=== PATIENT | female | born 1950 | race Caucasian/White ===

== ENCOUNTER 2016-11-05 13:48 | Inpatient (IN) | payer MEDICARE ==
[~2016-11-05] VITALS: Ht 167.6 cm; Wt 80.4 kg
[2016-11-05] VITALS (10 sets, daily range): BP systolic 140–145; BP diastolic 76–85; PULSE 67–73; RESP 14–18; TEMP 97.7–98.9; O2SAT 98–100
[~2016-11-05 13:48] MED LIST: ALBU8I INH; AMBI12.5 PO; CLON1 PO; FLUT1INH INH; GEOD80CA PO; LATU80TA PO; LURA80 PO; MIRTA15 PO; MVI PO
[2016-11-05] MEDS ORDERED: SODIUM CHLOR 0.9% 1000 ML INJ 1,000 ML IV SCH (14:04)
[2016-11-05] MEDS ORDERED: SODIUM CHLORIDE 0.9% FLUSH 5 ML FLUSH IV FLUSH PRN (14:15)
[2016-11-05 14:26] LABS: AUTOMATED NEUTROPHIL # 7.2 TH/MM3 (1.8-7.7); BASOPHIL % 0.2 % (0.0-2.0); EOSINOPHIL % 0.2 % (0.0-4.0); HEMATOCRIT 36.1 % (35.0-46.0); HEMO FLAGS DIFF FINAL; LYMPH % 6.7 % (9.0-44.0); LYMPHOCYTE # 0.6 TH/MM3 (1.0-4.8); MEAN CELL VOLUME 86.3 FL (80.0-100.0); MEAN CORPUSCULAR HEMOGLOBIN 29.3 PG (27.0-34.0); MEAN CORPUSCULAR HGB CONC 33.9 % (32.0-36.0); MONO % 6.1 % (0.0-8.0); NEUT % 86.8 % (16.0-70.0); PLATELET COUNT 233 TH/MM3 (150-450); RED BLOOD COUNT 4.19 MIL/MM3 (4.00-5.30); RED CELL DISTRIBUTION WIDTH 14.6 % (11.6-17.2); WHITE BLOOD COUNT 8.3 TH/MM3 (4.0-11.0)
[2016-11-05 14:31] LABS: BLOOD, URINE NEG (NEG); COMMENT (UR) CULT NOT INDICATED; CULTURE IF INDICATED CULT NOT INDICATED; GLUCOSE,URINE NEG (NEG); KETONE, URINE TRACE mg/dL (NEG); MUCUS URINE FEW /lpf (OCC); NITRITE,URINE NEG (NEG); PH, URINE 6.5 (5.0-8.5); URINE COLOR YELLOW (YELLW/STRAW)
--- NOTE | 2016-11-05 14:32 | RADRPT ---
EXAM DATE/TIME: 11/05/2016 14:15 [facility] COMPARISON: No previous studies available for comparison. INDICATIONS : ET tube placement. MEDICAL HISTORY : Unobtainable. SURGICAL HISTORY : Unobtainable. ENCOUNTER: Initial ACUITY: 1 day PAIN SCORE: Non-responsive. LOCATION: Bilateral chest FINDINGS: ET tube and nasogastric tube are in good position. Left lung is clear. Pleural thickening is seen o n the right. There is no evidence for a pneumothorax. Heart and pulmonary vascularity are normal. CONCLUSION: 1. Pleural thickening on the right. 2. ET tube in good position. Martin Pittman MD FACR on November 05, 2016 at 14:24 Board Certified Radiologist. This report was verified electronically.
[2016-11-05 14:39] LABS: PROTHROMBIN TIME - PATIENT 11.1 SEC (9.8-11.6)
[2016-11-05 14:45] LABS: ALT (GPT) 29 U/L (10-53); ANION GAP 6 MEQ/L (5-15); AST (GOT) 25 U/L (15-37); BICARBONATE 28.3 MEQ/L (21.0-32.0); BLOOD UREA NITROGEN 17 MG/DL (7-18); CHLORIDE 105 MEQ/L (98-107); GLOMERULAR FILTRATION RATE 67 ML/MIN (>89); SODIUM (NA) 139 MEQ/L (136-145)
[2016-11-05 14:54] LABS: ALKALINE PHOSPHATASE 56 U/L (45-117); CREATINE KINASE 501 U/L (26-192); TOTAL BILIRUBIN ADULT 0.4 MG/DL (0.2-1.0)
[2016-11-05 15:06] LABS: CKMB 6.1 NG/ML (0.5-3.6)
--- NOTE | 2016-11-05 15:16 | RADRPT ---
EXAM DATE/TIME: 11/05/2016 15:02 [facility] COMPARISON: No previous studies available for comparison. INDICATIONS : Altered mental status, found non-responsive. RADIATION DOSE: 56.35 CTDIvol (mGy) MEDICAL HISTORY : Non-responsive. SURGICAL HISTORY : Non-responsive. ENCOUNTER: Initial ACUITY: 1 day PAIN SCALE: Non-responsive LOCATION: Bilateral head TECHNIQUE: Multiple contiguous axial images were obtained of the head. Using automated exposure control and adj ustment of the mA and/or kV according to patient size, radiation dose was kept as low as reasonably a chievable to obtain optimal diagnostic quality images. FINDINGS: CEREBRUM: The ventricles are normal for age. 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 No evidence of midline shift, mass lesion, hemorrhage or acute infarction. No extra-ax ial fluid collections are seen. POSTERIOR FOSSA: The cerebellum and brainstem are intact. The 4th ventricle is midline. The cerebellopontine angle i s unremarkable. EXTRACRANIAL: The visualized portion of the orbits is intact. Bilateral maxillary, left sphenoid, and ethmoid mucop eriosteal thickening. Mastoid air cells are clear. SKULL: The calvaria is intact. No evidence of skull fracture. CONCLUSION: 1. No acute infiltrate or abnormality. 2. Paranasal sinusitis. Dru Mancuso MD on November 05, 2016 at 15:09 Board Certified Radiologist. This report was verified electronically.
[2016-11-05] MEDS: PROPOFOL 1000 MG/100 ML INJ 100 ML IV SCH ×2 (15:34→18:01)
--- NOTE | 2016-11-05 16:09 | PD ---
HPI Chief Complaint: Respiratory Distress Time Seen by Provider: 14:04 Travel History International Travel<30 days: No Contact w/Intl Traveler<30days: No Traveled to known affect area: No History of Present Illness HPI Patient was brought in intubated by EMS after being found unresponsive and GCS of 3 at home. History is obtained from EMS only since patient obviously is unable to give any history. Vital signs were otherwise stable except she was agonal respirations when they decided to intubate her. Patient never lost her pulse. They were unable to establish a reliable identity. [facility] Past Medical History Narrative Medical Unknown ?: Not Social History Tobacco Use: No Allergies-Medications (Allergen,Severity, Reaction): Coded Allergies: No Known Allergies (Unverified , 11/07/16) Comments Unknown Reported Meds & Prescriptions Reported Meds & Active Scripts Active Narrative Medication Unknown Review of Systems Except as stated in HPI: all other systems reviewed are Neg Physical Exam Narrative GENERAL: Unresponsive, intubated SKIN: Focused skin assessment warm/dry. HEAD: Atraumatic. Normocephalic. EYES: Pupils equal and round. No scleral icterus. No injection or drainage. ENT: No nasal bleeding or discharge. Mucous membranes pink and moist. Intubated NECK: Trachea midline. No JVD. CARDIOVASCULAR: Regular rate and rhythm. No murmur appreciated. RESPIRATORY: Intubated, equal air entry bilaterally upon bagging GASTROINTESTINAL: Abdomen soft, non-tender, nondistended. Hepatic and splenic margins not palpable. MUSCULOSKELETAL: No obvious deformities. No clubbing. No cyanosis. No edema. NEUROLOGICAL: GCS of 3 PSYCHIATRIC: Unable to assess Data Data Last Documented VS Vital Signs Date Time Temp Pulse Resp B/P Pulse Ox O2 Delivery O2 Flow Rate FiO2 11/05/16 15:36 100 11/05/16 15:18 65 14 100 Ventilator 11/05/16 15:15 98.4 11/05/16 14:49 140/81 Orders Electrocardiogram (11/05/16 14:04) Ammonia (11/05/16 14:04) Complete Blood Count With Diff (11/05/16 14:04) Comprehensive Metabolic Panel (11/05/16 14:04) Creatine Kinase (Cpk) (11/05/16 14:04) Prothrombin Time / Inr (Pt) (11/05/16 14:04) Troponin I (11/05/16 14:04) Thyroid Stimulating Hormone (11/05/16 14:04) Urinalysis - C+S If Indicated (11/05/16 14:04) Lactic Acid Sepsis Protocol (11/05/16 14:04) Arterial Blood Gas (Abg) (11/05/16 14:04) Blood Culture (11/05/16 14:04) Chest, Single Ap (11/05/16 14:04) Ct Brain W/O Iv Contrast(Rout) (11/05/16 14:04) Blood Glucose (11/05/16 14:04) Ecg Monitoring (11/05/16 14:04) Iv Access Insert/Monitor (11/05/16 14:04) Oximetry (11/05/16 14:04) Sodium Chloride 0.9% Flush (Ns Flush) (11/05/16 14:15) Sodium Chlor 0.9% 1000 Ml Inj (Ns 1000 M (11/05/16 14:04) Propofol 1000 Mg/100 Ml Inj (Diprivan 10 (11/05/16 14:15) ^ Infusion (11/05/16 14:04) RASS (11/05/16 14:04) Neurological Rass Scale JOSE G.Q2H (11/05/16 14:04) ^ Orogastric Tube (11/05/16 14:04) Urinary Catheter Insert/Apply (11/05/16 14:04) Restraints Non-Violent JOSE G.Q3H (11/05/16 14:04) CKMB (11/05/16 14:08) CKMB% (11/05/16 14:08) Drug Screen, Random Urine (11/05/16 15:01) Admit Order (Ed Use Only) (11/05/16 15:46) Labs Laboratory Tests Test 11/05/16 11/05/16 11/05/16 14:08 14:13 14:18 Sodium Level 139 MEQ/L Potassium Level 4.0 MEQ/L Chloride Level 105 MEQ/L Carbon Dioxide Level 28.3 MEQ/L Anion Gap 6 MEQ/L Blood Urea Nitrogen 17 MG/DL Creatinine 0.75 MG/DL Estimat Glomerular Filtration 67 ML/MIN Rate Random Glucose 93 MG/DL Calcium Level 8.0 MG/DL Phosphorus Level 3.3 MG/DL Total Bilirubin 0.4 MG/DL Aspartate Amino Transf 25 U/L (AST/SGOT) Alanine Aminotransferase 29 U/L (ALT/SGPT) Alkaline Phosphatase 56 U/L Total Creatine Kinase 501 U/L Creatine Kinase MB 6.1 NG/ML Creatine Kinase MB % 1.2 % Troponin I LESS THAN 0.02 NG/ML Total Protein 5.9 GM/DL Albumin 3.0 GM/DL Free Thyroxine 1.12 NG/DL Thyroid Stimulating Hormone 0.317 uIU/ML 3rd Gen Valproic Acid (Depakene) Level 76 MCG/ML White Blood Count 8.3 TH/MM3 Red Blood Count 4.19 MIL/MM3 Hemoglobin 12.3 GM/DL Hematocrit 36.1 % Mean Corpuscular Volume 86.3 FL Mean Corpuscular Hemoglobin 29.3 PG Mean Corpuscular Hemoglobin 33.9 % Concent Red Cell Distribution Width 14.6 % Platelet Count 233 TH/MM3 Mean Platelet Volume 8.5 FL Neutrophils (%) (Auto) 86.8 % Lymphocytes (%) (Auto) 6.7 % Monocytes (%) (Auto) 6.1 % Eosinophils (%) (Auto) 0.2 % Basophils (%) (Auto) 0.2 % Neutrophils # (Auto) 7.2 TH/MM3 Lymphocytes # (Auto) 0.6 TH/MM3 Monocytes # (Auto) 0.5 TH/MM3 Eosinophils # (Auto) 0.0 TH/MM3 Basophils # (Auto) 0.0 TH/MM3 CBC Comment DIFF FINAL Differential Comment Prothrombin Time 11.1 SEC Prothromb Time International 1.0 RATIO Ratio Urine Color YELLOW Urine Turbidity CLEAR Urine pH 6.5 Urine Specific [place] 1.020 Urine Protein NEG mg/dL Urine Glucose (UA) NEG mg/dL Urine Ketones TRACE mg/dL Urine Occult Blood NEG Urine Nitrite NEG Urine Bilirubin NEG Urine Urobilinogen LESS THAN 2.0 MG/DL Urine Leukocyte Esterase NEG Urine RBC 2 /hpf Urine WBC 1 /hpf Urine Mucus FEW /lpf Microscopic Urinalysis Comment CULT NOT INDICATED Urine Opiates Screen NEG Urine Barbiturates Screen NEG Urine Amphetamines Screen NEG Urine Benzodiazepines Screen POS Urine Cocaine Screen NEG Urine Cannabinoids Screen NEG Lactic Acid Level 1.0 mmol/L Ammonia 36 MCMOL/L MDM Medical Decision Making Medical Screen Exam Complete: Yes Emergency Medical Condition: Yes Medical Record Reviewed: Yes Interpretation(s) Twelve-lead EKG was reviewed by me. Normal sinus rhythm, normal axis, nonspecific ST-T wave changes. Heart rate of 75 bpm. Differential Diagnosis Intracranial bleed, metabolic encephalopathy, drug overdose, respiratory failure Narrative Course 4 PM I just finished speaking with the daughter. She gave a more thorough history. Patient lives with her daughter and she says 3 weeks ago she had a similar episode where she was found unresponsive by the daughter and had vomited all over. She was taken to [facility] where she was admitted and then discharged. Workup was all negative at that time. This time the daughter had last seen patient awake last night. This morning at 9:00 she went to check on her and noticed that she was laying on her side with her back turned and I thought she was asleep. The house and came back and she went to check on her again at 12:30 PM and found her in the same position in the bed. She went around and noticed that patient was foaming at her mouth and that's when called 911. When EMS arrived she continued to be unresponsive. Daughter says that she is concerned about dementia and hence had taken all her medication and was giving her medications daily. She did not notice any missing pills. Patient does not drink alcohol or any drugs. Workup is back and except for extremely low TSH everything is within acceptable limits. CT head is within normal limits. ET tube and OG tube are in good position. Patient has been admitted to the chain link fence installer Dr. Houser. Critical Care Narrative Aggregate critical care time was 45 minutes. Time to perform other separately billable procedures was not included in the critical care time. My time did not include minutes spent treating any other patients simultaneously or on activities that did not directly contribute to the patient's treatment. The services I provided to this patient were to treat and/or prevent clinically significant deterioration that could result in: That management, unresponsive, respiratory failure I provided critical care services requiring my management, as noted below: Chart data review, documentation time, medication orders and management, vital sign assessments/reviewing monitor data, ordering and reviewing lab tests, ordering and interpreting/reviewing x-rays and diagnostic studies, care of the patient and discussion of the patient with the admitting physicians. Procedures EKG Prior to Arrival: No Physician Communication Physician Communication Dr. Houser Diagnosis Primary Impression: Unresponsive Additional Impression: Respiratory failure Qualified Code: J96.90 - Respiratory failure, unspecified chronicity, unspecified whether with hypoxia or hypercapnia Admitting Information Admitting Physician Requests: Admit Ry Ceja MD Nov 05, 2016 16:09
[2016-11-05] MEDS ORDERED: DEXTROSE 50% IN WATER 50 ML VIAL(D50) IV PRN (16:15)
[2016-11-05] MEDS ORDERED: MAGNESIUM HYDROXIDE SUSP 30 ML CUP PO PRN (16:15)
[2016-11-05] MEDS ORDERED: SENNOSIDES 8.6 MG TAB PO PRN (16:15)
[2016-11-05] MEDS ORDERED: MISCELLANEOUS NURSING INFORMATION XX SCH (16:15)
[2016-11-05] MEDS ORDERED: BISACODYL 10 MG SUPP RECTAL PRN (16:15)
[2016-11-05] MEDS ORDERED: CHLORHEXIDINE GLUCONATE 2 % 1 PACK (2 CLOTHS) TOP PRN (16:15)
[2016-11-05] MEDS ORDERED: GLUCAGON 1 MG/ML VIAL OTHER PRN (16:15)
[2016-11-05] MEDS ORDERED: LACTULOSE SYRUP 20 GM/30 ML CUP PO PRN (16:15)
[2016-11-05] MEDS ORDERED: POTASSIUM CHLORIDE 25 MEQ EFFERVESCENT TAB PO PRN (16:45)
[2016-11-05] MEDS ORDERED: POTASSIUM CHLOR 20 MEQ PREMIX 100 ML IV PRN ×2 (16:45)
[2016-11-05] MEDS ORDERED: POTASSIUM CHLOR 40 MEQ PREMIX 100 ML IV PRN ×2 (16:45)
[2016-11-05] MEDS ORDERED: POTASSIUM PHOSPHATE INJ 30 MMOL in SODIUM CHLOR 0.9% 250 ML INJ 250 ML IV PRN (16:45)
[2016-11-05] MEDS ORDERED: MAGNESIUM SULFATE INJ 2 GM in SODIUM CHLORIDE 0.9% INJ 96 ML IV PRN (16:45)
[2016-11-05] MEDS ORDERED: POTASSIUM PHOSPHATE MONOBASIC 500 MG TAB PO PRN (16:45)
[2016-11-05] MEDS ORDERED: POTASSIUM PHOSPHATE MONOBASIC 500 MG TAB PO/TUBE PRN (16:45)
[2016-11-05] MEDS ORDERED: SODIUM PHOSPHATE INJ 30 MMOL in SODIUM CHLOR 0.9% 250 ML INJ 240 ML IV PRN (16:45)
[2016-11-05] MEDS ORDERED: MAGNESIUM OXIDE 400 MG TAB PO PRN (16:45)
[2016-11-05] MEDS ORDERED: MAGNESIUM SULFATE INJ 4 GM in SODIUM CHLORIDE 0.9% INJ 92 ML IV PRN (16:45)
[2016-11-05 17:09] LABS: AMPHETAMINE, URINE NEG (NEG); BARBITURATES, URINE NEG (NEG); COCAINE, URINE NEG (NEG)
--- NOTE | 2016-11-05 17:11 | MH ---
cc: RUBIA LOPEZ M.D. DATE OF ADMISSION 11/05/2016 HISTORY OF PRESENT ILLNESS The patient is an [id number] female with past medical history of depression/bipolar disorder, questionable seizure disorder on Depakote who presented to [facility] ED via EMS after she was found unresponsive with GCS of 3 at home. Upon arrival of EMS the patient was in agonal breathing and was intubated at the scene. She was given Narcan with no effect. The patient had similar presentation approximately three weeks ago at [facility] where she was intubated. According to her [id number] she has been having progressive decline of her cognitive function. CT scan of the brain showed no evidence of any acute abnormalities. Chest x-ray post intubation showed pleural thickening on the right, ET tube in good position. Her CBC, CMP unremarkable except for ammonia level 36. Lactic acid level measured at 1.0 and total CK 501 with MB percentage 1.2 and troponin less than 0.02. In the ER she was given 1 liter of normal saline. When seen the patient is on Diprivan infusion for sedation and for mechanical ventilation. PAST MEDICAL HISTORY Significant for depression disorder/bipolar disorder. PAST SURGICAL HISTORY Unknown. ALLERGIES Unknown. MEDICATIONS Reported medications include: 1. Trazodone. 2. Haldol. 3. Depakote. 4. Zoloft. FAMILY HISTORY Noncontributory. REVIEW OF SYSTEMS As per HPI. The rest of the review of systems is unobtainable. PHYSICAL EXAMINATION GENERAL: The patient is intubated on the scene for airway protection. VITAL SIGNS: Temperature of 98.4, pulse 65, blood pressure 144/83, saturation 100%. HEENT: Atraumatic, normocephalic. Pupils equal, round and reactive to light and accommodation. Extraocular muscles intact. Conjunctiva pink. Non-icteric sclera. Oral mucosa within normal. NECK: Supple. No JVD, adenopathy or thyromegaly. Trachea in the midline. Orally intubated. CARDIOVASCULAR: Regular rate and rhythm. Normal S1, S2. No murmurs, rubs or gallops noted. PULMONARY: Bilateral equal air entry. No crackles or wheezing. ABDOMEN: Soft, nontender, no distension. Positive bowel sounds. EXTREMITIES: No cyanosis or clubbing or edema. NEUROLOGIC: Intubated and sedated. LABORATORY DATA Sodium 139, potassium 4, chloride 105, CO2 28, BUN 17, creatinine 0.75, glucose 93, lactic acid 1.0, ammonia level 36, total CK 501, MB 6.1, MB percentage 1.2. Troponin less than 0.02. TSH 0.31. Albumin 3.0, total protein 5.9. INR 1, PT 11.1. WBC 8.3, hemoglobin 12.3, hematocrit 36, platelet count 233. Urinanalysis negative for nitrite, leukocyte esterase, [address] brain negative for acute intracranial abnormalities. Chest x-ray ET tube above the drew. Pleural thickening ____. IMPRESSION 1. Event dependent respiratory failure. 2. Encephalopathy. 3. Questionable seizure disorder. 4. History of depression/bipolar disorder. 5. Elevated CK. RECOMMENDATIONS 1. Continue Diprivan infusion for sedation and daily sedation vacation. CT scan of brain in the ER negative for acute intracranial abnormalities. Will consult neurology service. Check EEG to rule out subclinical seizures and check baseline Depakote level. 2. Check a urine drug screen. 3. Continue vent support and maintain sats above 92%. 4. Bronchodilators in the form of DuoNeb q. 6 and initiate on the ICU vent bundle. ___ spontaneous breathing trials in the am. 5. Check ABG post intubation. 6. Monitor heart rate and blood pressure closely, maintain MAP greater than 65 mmHg. Lactic acid measured at 1.0. 7. Monitor renal function, Is and Os and electrolyte replacement per protocol. Place on IV fluids in the form of D5 NS at 75 ml an hour. Monitor CKs. 8. Place on Protonix 40 milligrams IV daily for GI prophylaxis and start tube feeds in the form of Glucerna 1.5 with a goal weight of 45 ml an hour. 9. Monitor for signs of infections which include fever and WBC. Obtain culture if suspect fever. Chest x-ray post intubation negative for acute findings. 10. Monitor CBC. 11. Place on sliding scale insulin with Accu-Cheks q. 6 hours. Will check TSH and free T4 level. 12. GI prophylaxis with Protonix 40 milligrams daily and DVT prophylaxis with SCDs and heparin subcu. Further recommendations will be based on the hospital course. Critical care time 40 minutes excluding procedures. MD CLAUDIA Gibbons /4:29 PM /4:39 PM
[2016-11-05] MEDS: RESP: ALBUTEROL 2.5 MG/IPRATROPIUM 0.5 MG NEB (SCH) INH ×2 (17:33→22:10)
[2016-11-05 17:45] LABS: BLOOD GAS CARBOXYHEMOGLOBIN 0.9 % (0-4); BLOOD GAS HCO3 27 mmol/L (22-26); BLOOD GAS METHEMOGLOBIN 0.8 % (0-2); BLOOD GAS O2 HGB SATURATION 99 % (90-100); BLOOD GAS OXYGEN CONTENT 16.7 Vol % (12.0-20.0); BLOOD GAS PCO2 38 mmHg (38-42); BLOOD GAS PO2 468 mmHG (61-120); BLOOD GAS TOTAL HGB 11.2 G/DL (12.0-16.0); CRITICAL VALUE NO; DRAW SITE RT RADIAL; FIO2 100 %; NUMBER OF ARTERIAL PUNCTURES 1; OXYGEN DEVICE VENTILATOR; STAT YES; TEMP CORR TO 98.6; ULNAR PULSE PRESENT; VENT SETTINGS AC/14/500/PEEP5
[2016-11-05] MEDS: HEPARIN SODIUM - SQ 10,000 UNITS/ML VIAL SQ SCH (18:01)
[2016-11-05] MEDS: INSULIN NovoLIN REGULAR SUPPLEMENTAL SCALE SQ SCH (18:06)
[2016-11-05] MEDS: DEXT 5%-NACL 0.9% 1000 ML INJ 1,000 ML IV SCH (18:19)
[2016-11-05 19:00] LABS: FREE T4 1.12 NG/DL (0.76-1.46)
[2016-11-05] MEDS: DOCUSATE SODIUM 50 MG/SENNA 8.6 MG TAB PO SCH (21:00)
[2016-11-06] VITALS (21 sets, daily range): BP systolic 138–179; BP diastolic 65–86; PULSE 65–90; RESP 0–20; TEMP 97.4–99.5; O2SAT 98–100
[2016-11-06] MEDS: PROPOFOL 1000 MG/100 ML INJ 100 ML IV SCH (03:17)
[2016-11-06] MEDS: RESP: ALBUTEROL 2.5 MG/IPRATROPIUM 0.5 MG NEB (SCH) INH ×4 (03:20→22:01)
[2016-11-06] MEDS: CHLORHEXIDINE GLUCONATE 2 % 1 PACK (2 CLOTHS) TOP SCH (04:00)
[2016-11-06] MEDS: HEPARIN SODIUM - SQ 10,000 UNITS/ML VIAL SQ SCH ×2 (05:18→17:14)
[2016-11-06] MEDS: DEXT 5%-NACL 0.9% 1000 ML INJ 1,000 ML IV SCH ×2 (05:18→20:05)
[2016-11-06] MEDS: INSULIN NovoLIN REGULAR SUPPLEMENTAL SCALE SQ SCH ×4 (05:21→18:00)
[2016-11-06 06:31] LABS: AUTOMATED NEUTROPHIL # 5.9 TH/MM3 (1.8-7.7); BASOPHIL % 0.2 % (0.0-2.0); EOSINOPHIL # 0.3 TH/MM3 (0-0.4); EOSINOPHIL % 3.8 % (0.0-4.0); HEMATOCRIT 38.1 % (35.0-46.0); LYMPH % 11.7 % (9.0-44.0); LYMPHOCYTE # 0.9 TH/MM3 (1.0-4.8); MEAN CELL VOLUME 87.6 FL (80.0-100.0); MEAN CORPUSCULAR HEMOGLOBIN 29.7 PG (27.0-34.0); MEAN CORPUSCULAR HGB CONC 33.9 % (32.0-36.0); MONO % 11.1 % (0.0-8.0); NEUT % 73.2 % (16.0-70.0); PLATELET COUNT 179 TH/MM3 (150-450); RED BLOOD COUNT 4.34 MIL/MM3 (4.00-5.30); RED CELL DISTRIBUTION WIDTH 14.9 % (11.6-17.2); WHITE BLOOD COUNT 8.1 TH/MM3 (4.0-11.0)
[2016-11-06 06:49] LABS: BICARBONATE 27.1 MEQ/L (21.0-32.0); MAGNESIUM 2.2 MG/DL (1.5-2.5); POTASSIUM 3.6 MEQ/L (3.5-5.1)
[2016-11-06 07:06] LABS: HEMO FLAGS AUTO DIFF
[2016-11-06 07:08] LABS: OVALOCYTES 1+ (NORMAL); PLATELET ESTIMATE SMEAR NORMAL (NORMAL); PLATELET MORPHOLOGY NORMAL (NORMAL); SCAN/DIFF AUTO DIFF CONFIRMED
[2016-11-06] MEDS: DOCUSATE SODIUM 50 MG/SENNA 8.6 MG TAB PO SCH ×2 (08:06→20:08)
[2016-11-06] MEDS: PANTOPRAZOLE SODIUM 40 MG VIAL IV SCH (08:06)
--- NOTE | 2016-11-06 08:12 | HHI.CCPN ---
Subjective Remarks/Hospital Course The patient is an [id number] female with past medical history of depression/bipolar disorder, questionable seizure disorder on Depakote who presented to [facility] ED via EMS after she was found unresponsive with GCS of 3 at home. Upon arrival of EMS the patient was in agonal breathing and was intubated at the scene. She was given Narcan with no effect. The patient had similar presentation approximately three weeks ago at [facility] where she was intubated. According to her [id number]-skr she has been having progressive decline of her cognitive function. CT scan of the brain showed no evidence of any acute abnormalities. Chest x-ray post intubation showed pleural thickening on the right, ET tube in good position. Her CBC, CMP unremarkable except for ammonia level 36. Lactic acid level measured at 1.0 and total CK 501 with MB percentage 1.2 and troponin less than 0.02. In the ER she was given 1 liter of normal saline. When seen the patient is on Diprivan infusion for sedation and for mechanical ventilation. 11/06 Patient is sedated with Diprivan and intubated. Afebrile. Objective Vital Signs Date Time Temp Pulse Resp B/P Pulse Ox O2 Delivery O2 Flow Rate FiO2 11/06/16 04:00 100 40 11/06/16 04:00 97.4 70 14 144/73 11/05/16 17:18 Ventilator Intake and Output 11/05/16 11/05/16 11/06/16 08:00 16:00 00:00 Intake Total 562 ml Output Total 350 ml Balance 212 ml Result Diagram: 11/06/16 0514 11/06/16 0514 Other Results Laboratory Tests Test 11/05/16 11/05/16 11/05/16 11/05/16 14:08 14:13 14:18 16:45 Sodium Level 139 MEQ/L Potassium Level 4.0 MEQ/L Chloride Level 105 MEQ/L Carbon Dioxide Level 28.3 MEQ/L Anion Gap 6 MEQ/L Blood Urea Nitrogen 17 MG/DL Creatinine 0.75 MG/DL Estimat Glomerular Filtration 67 ML/MIN Rate Random Glucose 93 MG/DL Calcium Level 8.0 MG/DL Phosphorus Level 3.3 MG/DL Total Bilirubin 0.4 MG/DL Aspartate Amino Transf 25 U/L (AST/SGOT) Alanine Aminotransferase 29 U/L (ALT/SGPT) Alkaline Phosphatase 56 U/L Total Creatine Kinase 501 U/L Creatine Kinase MB 6.1 NG/ML Creatine Kinase MB % 1.2 % Troponin I LESS THAN 0.02 NG/ML Total Protein 5.9 GM/DL Albumin 3.0 GM/DL Free Thyroxine 1.12 NG/DL Thyroid Stimulating Hormone 0.317 uIU/ML 3rd Gen Valproic Acid (Depakene) Level 76 MCG/ML White Blood Count 8.3 TH/MM3 Red Blood Count 4.19 MIL/MM3 Hemoglobin 12.3 GM/DL Hematocrit 36.1 % Mean Corpuscular Volume 86.3 FL Mean Corpuscular Hemoglobin 29.3 PG Mean Corpuscular Hemoglobin 33.9 % Concent Red Cell Distribution Width 14.6 % Platelet Count 233 TH/MM3 Mean Platelet Volume 8.5 FL Neutrophils (%) (Auto) 86.8 % Lymphocytes (%) (Auto) 6.7 % Monocytes (%) (Auto) 6.1 % Eosinophils (%) (Auto) 0.2 % Basophils (%) (Auto) 0.2 % Neutrophils # (Auto) 7.2 TH/MM3 Lymphocytes # (Auto) 0.6 TH/MM3 Monocytes # (Auto) 0.5 TH/MM3 Eosinophils # (Auto) 0.0 TH/MM3 Basophils # (Auto) 0.0 TH/MM3 CBC Comment DIFF FINAL Differential Comment Prothrombin Time 11.1 SEC Prothromb Time International 1.0 RATIO Ratio Urine Color YELLOW Urine Turbidity CLEAR Urine pH 6.5 Urine Specific [place] 1.020 Urine Protein NEG mg/dL Urine Glucose (UA) NEG mg/dL Urine Ketones TRACE mg/dL Urine Occult Blood NEG Urine Nitrite NEG Urine Bilirubin NEG Urine Urobilinogen LESS THAN 2.0 MG/DL Urine Leukocyte Esterase NEG Urine RBC 2 /hpf Urine WBC 1 /hpf Urine Mucus FEW /lpf Microscopic Urinalysis Comment CULT NOT INDICATED Urine Opiates Screen NEG Urine Barbiturates Screen NEG Urine Amphetamines Screen NEG Urine Benzodiazepines Screen POS Urine Cocaine Screen NEG Urine Cannabinoids Screen NEG Lactic Acid Level 1.0 mmol/L Ammonia 36 MCMOL/L Blood Gas Puncture Site RT RADIAL Blood Gas Patient Temperature 98.6 Blood Gas HCO3 27 mmol/L Blood Gas Base Excess 3.0 mmol/L Blood Gas Oxygen Saturation 99 % Arterial Blood pH 7.46 Arterial Blood Partial 38 mmHg Pressure CO2 Arterial Blood Partial 468 mmHG Pressure O2 Arterial Blood Oxygen Content 16.7 Vol % Arterial Blood 0.9 % Carboxyhemoglobin Arterial Blood Methemoglobin 0.8 % Blood Gas Hemoglobin 11.2 G/DL Oxygen Delivery Device VENTILATOR Blood Gas Ventilator Setting AC/14/500/PEEP5 Blood Gas Inspired Oxygen 100 % Test 11/05/16 11/06/16 18:15 05:14 Nasal Screen MRSA (PCR) MRSA NOT DETECTED White Blood Count 8.1 TH/MM3 Red Blood Count 4.34 MIL/MM3 Hemoglobin 12.9 GM/DL Hematocrit 38.1 % Mean Corpuscular Volume 87.6 FL Mean Corpuscular Hemoglobin 29.7 PG Mean Corpuscular Hemoglobin 33.9 % Concent Red Cell Distribution Width 14.9 % Platelet Count 179 TH/MM3 Mean Platelet Volume 9.6 FL Neutrophils (%) (Auto) 73.2 % Lymphocytes (%) (Auto) 11.7 % Monocytes (%) (Auto) 11.1 % Eosinophils (%) (Auto) 3.8 % Basophils (%) (Auto) 0.2 % Neutrophils # (Auto) 5.9 TH/MM3 Lymphocytes # (Auto) 0.9 TH/MM3 Monocytes # (Auto) 0.9 TH/MM3 Eosinophils # (Auto) 0.3 TH/MM3 Basophils # (Auto) 0.0 TH/MM3 CBC Comment AUTO DIFF Differential Comment AUTO DIFF CONFIRMED Platelet Estimate NORMAL Platelet Morphology Comment NORMAL Ovalocytes 1+ Sodium Level 138 MEQ/L Potassium Level 3.6 MEQ/L Chloride Level 106 MEQ/L Carbon Dioxide Level 27.1 MEQ/L Anion Gap 5 MEQ/L Blood Urea Nitrogen 16 MG/DL Creatinine 0.68 MG/DL Estimat Glomerular Filtration 75 ML/MIN Rate Random Glucose 96 MG/DL Calcium Level 8.3 MG/DL Phosphorus Level 2.8 MG/DL Magnesium Level 2.2 MG/DL Imaging Last Impressions Head CT 11/05/161403 Signed Impressions: Service Date/Time: Saturday, November 05, 2016 15:02 - CONCLUSION: 1. No acute infiltrate or abnormality. 2. Paranasal sinusitis. Dru Mancuso MD Chest X-Ray 11/05/161403 Signed Impressions: Service Date/Time: Saturday, November 05, 2016 14:15 - CONCLUSION: 1. Pleural thickening on the right. 2. ET tube in good position. Martin Pittman MD FACR Objective Remarks GENERAL: Patient remains intubated and sedated SKIN: Warm and dry. HEAD: Normocephalic. EYES: No scleral icterus. No injection or drainage. NECK: Supple, trachea midline. No JVD or lymphadenopathy. Orally intubated CARDIOVASCULAR: Regular rate and rhythm without murmurs, gallops, or rubs. RESPIRATORY: Breath sounds equal bilaterally. No accessory muscle use. GASTROINTESTINAL: Abdomen soft, non-tender, nondistended. MUSCULOSKELETAL: No cyanosis, or edema. Neuro: sedated A/P Assessment and Plan 1. VDRF 2. Encephalopathy. 3. Questionable seizure disorder. 4. History of depression/bipolar disorder. 5. Elevated CK. Plan: Neuro: Neuro: On Diprivan infusion for sedation and daily sedation vacation. CT brain negative for acute intracranial abnormalities. Neuro consulted. For EEG today. Depakote level: 76 UDS: + benzos Pulm: Continue vent support and maintain sats above 92%. Bronchodilators, ICU vent bundle. Start SBT daily as gifty CV: Monitor HR and BP, maintain MAP >65mmHg. Lactic acid measured at 1.0. : Monitor renal function, Is and Os and electrolyte replacement per protocol. On D5 NS at 75 ml an hour. Monitor CKs. GI: On Protonix 40 mg IV daily, On Glucerna 1.5 with a goal weight of 45 ml an hour. ID: Monitor for signs of infections( fever and WBC). panculture if spikes a fever. Chest x-ray post intubation negative for acute findings. Hem: Monitor CBC. Endo: SSI with Accu-Cheks q. 6 hours. TSH: 0.31, FT4: 1.12 GI prophylaxis with Protonix 40 milligrams daily and DVT prophylaxis with SCDs and heparin subcu. Level 3 Carlos Houser MD Nov 06, 2016 08:12
[2016-11-06 09:52] LABS: CKMB 3.2 NG/ML (0.5-3.6)
[2016-11-06] MEDS: LACTULOSE SYRUP 20 GM/30 ML CUP PO SCH ×2 (11:51→20:08)
--- NOTE | 2016-11-06 13:07 | MG ---
cc: JETHRO BUSTAMANTE M.D. Lab No: [id number] Date: 11/06/2016 Age: Sex: F Race: TECHNIQUE 17 channel EEG. DESCRIPTION The background rhythm shows generalized slowing in the theta range at times there is a normal alpha rhythm, no lateralizing features identified and no epileptic features identified. There does appear to be since normal sleep activity in terms of vertex sharp waves and sleep spindles. INTERPRETATION Abnormal study consistent with a moderate encephalopathy given the degree of slowing. MD DIPESH Felix/marlene /12:44 PM /12:57 PM
[2016-11-06] MEDS ORDERED: DEPA500T PO (14:23)
[2016-11-06] MEDS ORDERED: HALO2TAB PO (14:23)
[2016-11-06] MEDS ORDERED: TRAZ1TAB45 PO (14:23)
[2016-11-06] MEDS ORDERED: ZOLO50TA PO (14:23)
--- NOTE | 2016-11-06 17:46 | PD.CONS ---
History of Present Illness Service Neurology Consult Requested By [facility] Reason for Consult confusion Primary Care Physician Shirin Evans MD History of Present Illness 66 y/o f brought in intubated by EMS after being found unresponsive and GCS of 3 at home. History is obtained from EMS only since patient obviously is unable to give any history. Vital signs were otherwise stable except she was agonal respirations when they decided to intubate her. Apparently, patient never lost her pulse. according to daughter at bedside, the pt has had progressive cognitive decline since 06/2016. episodes of confusion. needing more supervision. does have a hx of chronic psychiatric dz. was seen 3 weeks ago at [facility] with similar presentation. she started to wake up after 1-2 days. no clear etiology was found. was seen by a neuropsychiatrist at [facility] who felt she may be having sz's and started her on depakote for mood and sz control. this was about 2 months ago. fam hx: son with psychiatric dz, and addiction [facility] Past Medical History Narrative Medical Unknown ?: Not Allergies-Medications (Allergen,Severity, Reaction): Coded Allergies: UNOBTAINABLE (Unverified , 11/05/16) Comments Unknown Narrative Medication Unknown Review of Systems Except as stated in HPI: all other systems reviewed are Neg Review of Systems All other ROS: ROS reviewed as documented in chart Past Family Social History Allergies: Coded Allergies: UNOBTAINABLE (Unverified , 11/05/16) Active Ordered Medications Current Medications Medications (Trade) Dose Ordered Sig/Michael Route Start Time Stop Time Status Last Admin IV Flush 2 ml 2 ml UNSCH PRN IV FLUSH 11/05/16 14:15 (Diprivan 1000 Mg/100ml Inj) 100 ml @ 0 mls/hr TITRATE IV 11/05/16 14:15 11/06/16 03:17 (Protonix Inj) 40 mg DAILY IV 11/05/16 16:15 11/06/16 08:06 (Heparin Inj) 5,000 units Q12H SQ 11/05/16 17:00 11/06/16 17:14 Miscellaneous Information 1 Q361D XX 11/05/16 16:15 (Chlorhexidine 2% Cloth) 3 pack Taper DAILY@04 TOP 11/06/16 04:00 11/02/17 03:59 11/06/16 04:00 (Chlorhexidine 2% Cloth) 3 pack UNSCH PRN TOP 11/05/16 16:15 (Mya-Colace) 1 tab BID PO 11/05/16 21:00 11/06/16 08:06 (Milk Of Magnesia Liq) 30 ml Q12H PRN PO 11/05/16 16:15 (Senokot) 17.2 mg Q12H PRN PO 11/05/16 16:15 (Dulcolax Supp) 10 mg DAILY PRN RECTAL 11/05/16 16:15 Lactulose 30 ml 30 ml DAILY PRN PO 11/05/16 16:15 (D5W-NS 1000 ml Inj) 1,000 ml @ 75 mls/hr [id number] IV 11/05/16 17:00 11/06/16 05:18 (D50w (Vial) Inj) 50 ml UNSCH PRN IV 11/05/16 16:15 (Glucagon Inj) 1 mg UNSCH PRN OTHER 11/05/16 16:15 Insulin Human Regular 1 1 Q6HR SQ 11/05/16 18:00 11/06/16 05:21 Potassium Chloride 100 ml @ 50 mls/hr Q2H PRN IV 11/05/16 16:45 (KCl 20 Meq Premix Inj) 100 ml @ 50 mls/hr Q2H PRN IV 11/05/16 16:45 Potassium Bicarb/ Potassium Chloride 50 meq 50 meq UNSCH PRN PO 11/05/16 16:45 Potassium Chloride 100 ml @ 25 mls/hr UNSCH PRN IV 11/05/16 16:45 Potassium Chloride 100 ml @ 50 mls/hr Q2H PRN IV 11/05/16 16:45 (Magnesium Sulfate Inj/NS Inj) 100 ml @ 50 mls/hr UNSCH PRN IV 11/05/16 16:45 Magnesium Oxide 800 mg 800 mg UNSCH PRN PO 11/05/16 16:45 (Magnesium Sulfate Inj/NS Inj) 100 ml @ 50 mls/hr UNSCH PRN IV 11/05/16 16:45 Potassium Phosphate 2000 mg 2,000 mg Q4H PRN PO 11/05/16 16:45 (Sodium Phosphate Inj/NS 250 ml Inj) 250 ml @ 42 mls/hr UNSCH PRN IV 11/05/16 16:45 Potassium Phosphate 2000 mg 2,000 mg UNSCH PRN PO/TUBE 11/05/16 16:45 (Potassium Phosphate Inj/NS 250 ml Inj) 260 ml @ 42 mls/hr UNSCH PRN IV 11/05/16 16:45 (Lactulose Liq) 30 ml BID PO 11/06/16 12:00 11/06/16 11:51 Exam I&O / VS 11/05/16 11/05/16 11/06/16 15:00 23:00 07:00 Intake Total 562 ml 707 ml Output Total 350 ml 200 ml Balance 212 ml 507 ml Intake IV Total 536 ml 483 ml Tube Feeding 26 ml 124 ml Other 100 ml Output Urine Total 350 ml 200 ml # Bowel Movements 0 0 Vital Signs Date Time Temp Pulse Resp B/P Pulse Ox O2 Delivery O2 Flow Rate FiO2 11/06/16 16:00 35 11/06/16 16:00 90 11/06/16 16:00 99.5 90 16 150/73 99 11/06/16 15:26 100 35 11/06/16 15:00 87 16 151/83 100 11/06/16 14:00 84 11/06/16 14:00 84 15 142/86 100 11/06/16 13:00 82 15 149/85 100 11/06/16 12:40 100 40 11/06/16 12:00 81 11/06/16 12:00 35 11/06/16 12:00 98.7 81 9 151/79 100 11/06/16 11:00 35 11/06/16 11:00 79 10 160/68 100 11/06/16 10:00 86 11/06/16 10:00 86 13 162/76 100 11/06/16 09:30 99 40 11/06/16 09:26 35 11/06/16 09:15 35 11/06/16 09:13 100 40 11/06/16 09:00 68 7 165/77 98 11/06/16 08:00 97.8 65 4 148/74 100 11/06/16 08:00 40 11/06/16 08:00 68 11/06/16 07:00 65 0 138/65 100 11/06/16 04:00 100 40 11/06/16 04:00 97.4 70 14 144/73 100 11/06/16 01:35 100 40 11/06/16 00:00 98.4 71 14 179/85 100 11/05/16 23:00 73 11/05/16 22:11 100 40 11/05/16 20:00 97.7 69 17 145/80 100 11/05/16 19:26 40 11/05/16 18:39 98.3 70 14 142/85 100 11/05/16 17:46 99 40 General: No acute distress Respiratory: Non-labored respirations Exam Comments intubated. off sedation. in coma state. not verbal, not following, ou 2mm sluggish, +mild doll's, not tracking, minimal withdrawal in le, msr depressed, no clonus, planter flexor Review/Management Diagnosis/Plan: (1) Encephalopathy Plan: progressive cognitive decline with recent recurrent coma episodes hyperammonemia possible but symptoms preceding addition of depakote etiology: metabolic/ autoimmune/ spongiform encephalopathy eeg- no active sz recs mri/mra brain additional labs iv thiamine csf studies after above, if needed follow exam d/w pt's daughter and son (2) Respiratory failure (3) Bipolar 1 disorder Problem Qualifiers (1) Respiratory failure: Qualified Code: J96.90 - Respiratory failure, unspecified chronicity, unspecified whether with hypoxia or hypercapnia John Walker MD Nov 06, 2016 17:46
[2016-11-06] MEDS: THIAMINE INJ 100 MG in SODIUM CHLORIDE 0.9% INJ 100 ML IV SCH (20:19)
--- NOTE | 2016-11-06 21:20 | EKG ---
Date Performed: 11/05/2016 Time Performed: 13:54:42 PTAGE: 89 years EKG: Sinus rhythm NORMAL ECG NO PREVIOUS TRACING DOCTOR: Haseeb Carlin Interpretating Date/Time 11/06/2016 21:15:08
[2016-11-07] VITALS (23 sets, daily range): BP systolic 126–164; BP diastolic 60–94; PULSE 79–123; RESP 3–34; TEMP 97.1–99; O2SAT 78–100
[2016-11-07] MEDS: CHLORHEXIDINE GLUCONATE 2 % 1 PACK (2 CLOTHS) TOP SCH (04:00)
[2016-11-07] MEDS: RESP: ALBUTEROL 2.5 MG/IPRATROPIUM 0.5 MG NEB (SCH) INH ×4 (04:20→19:34)
[2016-11-07 05:42] LABS: AUTOMATED NEUTROPHIL # 3.6 TH/MM3 (1.8-7.7); BASOPHIL % 0.4 % (0.0-2.0); EOSINOPHIL # 0.1 TH/MM3 (0-0.4); EOSINOPHIL % 2.5 % (0.0-4.0); HEMATOCRIT 34.7 % (35.0-46.0); HEMO FLAGS DIFF FINAL; LYMPH % 13.6 % (9.0-44.0); LYMPHOCYTE # 0.7 TH/MM3 (1.0-4.8); MEAN CELL VOLUME 87.2 FL (80.0-100.0); MEAN CORPUSCULAR HGB CONC 34.4 % (32.0-36.0); MONO % 12.8 % (0.0-8.0); NEUT % 70.7 % (16.0-70.0); PLATELET COUNT 186 TH/MM3 (150-450); RED BLOOD COUNT 3.98 MIL/MM3 (4.00-5.30); RED CELL DISTRIBUTION WIDTH 14.8 % (11.6-17.2); WHITE BLOOD COUNT 5.1 TH/MM3 (4.0-11.0)
[2016-11-07] MEDS: INSULIN NovoLIN REGULAR SUPPLEMENTAL SCALE SQ SCH ×4 (06:00→17:36)
[2016-11-07 06:04] LABS: BICARBONATE 29.7 MEQ/L (21.0-32.0)
[2016-11-07] MEDS: HEPARIN SODIUM - SQ 10,000 UNITS/ML VIAL SQ SCH ×2 (06:08→16:16)
[2016-11-07] MEDS: PANTOPRAZOLE SODIUM 40 MG VIAL IV SCH (07:38)
[2016-11-07] MEDS: LACTULOSE SYRUP 20 GM/30 ML CUP PO SCH ×2 (07:38→22:02)
[2016-11-07] MEDS: DOCUSATE SODIUM 50 MG/SENNA 8.6 MG TAB PO SCH ×2 (07:38→22:02)
[2016-11-07] MEDS: DEXT 5%-NACL 0.9% 1000 ML INJ 1,000 ML IV SCH (07:44)
[2016-11-07] MEDS: THIAMINE INJ 100 MG in SODIUM CHLORIDE 0.9% INJ 100 ML IV SCH (07:45)
[2016-11-07] MEDS ORDERED: GADODIAMIDE PF 287 MG/ML 20 ML VIAL (for RAD MRI) IV ONE (12:02)
--- NOTE | 2016-11-07 12:14 | RADRPT ---
EXAM DATE/TIME: 11/07/2016 11:21 [facility] COMPARISON: No previous studies available for comparison. INDICATIONS : Altered mental status. CONTRAST: 17 cc Omniscan (gadodiamide) IV MEDICAL HISTORY : Carcinoma, breast. SURGICAL HISTORY : Mastectomy, bilateral. bilateral knee ENCOUNTER: Subsequent ACUITY: 3 day PAIN SCORE: Nonresponsive. LOCATION: cranial TECHNIQUE: Multiplanar, multisequence MRI of the brain was performed both prior to and following the administrat ion of paramagnetic contrast. FINDINGS: CEREBRUM: The ventricles are normal for age. No evidence of midline shift, mass lesion, hemorrhage or acute in farction. No extraaxial fluid collections are seen. The pituitary gland and suprasellar cistern are normal in configuration. WHITE MATTER: No significant signal abnormalities are seen in the white matter. POSTERIOR FOSSA: The cerebellum and brainstem are intact. The 4th ventricle is midline. The cerebellopontine angle is unremarkable. The cerebellar tonsils are normal in position. DIFFUSION IMAGING: No focal areas of restricted diffusion are seen. No evidence of acute infarction. EXTRACRANIAL: The exam demonstrates moderate mucoperiosteal sinus disease with fluid in the mastoid air cells bilat erally. The orbits are intact. POST-CONTRAST: No abnormal areas of parenchymal or dural enhancement. No evidence of blood-brain barrier breakdown. CONCLUSION: 1. No acute intracranial abnormality is identified. 2. Mucoperiosteal sinus disease and fluid in the mastoid air cells. Mahin Pittman MD on November 07, 2016 at 12:10 Board Certified Radiologist. This report was verified electronically.
--- NOTE | 2016-11-07 12:15 | RADRPT ---
EXAM DATE/TIME: 11/07/2016 11:21 [facility] COMPARISON: No previous studies available for comparison. INDICATIONS : Altered mental status. MEDICAL HISTORY : Metastatic, breast. SURGICAL HISTORY : Mastectomy, bilateral. ENCOUNTER: Subsequent ACUITY: 3 day PAIN SCORE: Nonresponsive. LOCATION: cranial Please note a normal MRA of the brain does not entirely exclude the possibility of a small aneurysm, nor the possibility of distal intracranial vessel disease. TECHNIQUE: 3D time of flight MRA was performed. Source images, multiplanar STS MIP, and 3D volume MIP reconstru ctions were reviewed. FINDINGS: There is excellent visualization of the major intracranial arteries out to the second-order branch ve ssels. There is no evidence for aneurysm, vessel truncation or stenosis, and no evidence for vascula r malformation. CONCLUSION: 1. Negative examination. Mahin Pittman MD on November 07, 2016 at 12:12 Board Certified Radiologist. This report was verified electronically.
[2016-11-07 13:19] LABS: ANA SCREEN NEG (NEG)
--- NOTE | 2016-11-07 14:09 | HHI.CCPN ---
Subjective Remarks/Hospital Course The patient is an [id number] female with past medical history of depression/bipolar disorder, questionable seizure disorder on Depakote who presented to [facility] ED via EMS after she was found unresponsive with GCS of 3 at home. Upon arrival of EMS the patient was in agonal breathing and was intubated at the scene. She was given Narcan with no effect. The patient had similar presentation approximately three weeks ago at [facility] where she was intubated. According to her [id number] she has been having progressive decline of her cognitive function. CT scan of the brain showed no evidence of any acute abnormalities. Chest x-ray post intubation showed pleural thickening on the right, ET tube in good position. Her CBC, CMP unremarkable except for ammonia level 36. Lactic acid level measured at 1.0 and total CK 501 with MB percentage 1.2 and troponin less than 0.02. In the ER she was given 1 liter of normal saline. When seen the patient is on Diprivan infusion for sedation and for mechanical ventilation. 11/06 Patient is sedated with Diprivan and intubated. Afebrile. 11/07: off all sedation. still encephalopathic. localizes and briskly purposeful in b/l UEs. possibly weakly following commands in LEs, but otherwise w/d to pain. MRI/MRA negative. EEG with generalized slowing. Objective Vital Signs Date Time Temp Pulse Resp B/P Pulse Ox O2 Delivery O2 Flow Rate FiO2 11/07/16 12:23 100 35 11/07/16 12:06 79 11/07/16 12:06 12 126/68 11/07/16 04:00 99.0 11/05/16 17:18 Ventilator Intake and Output 11/06/16 11/06/16 11/07/16 08:00 16:00 00:00 Intake Total 707 ml 981 ml 700 ml Output Total 200 ml 225 ml 200 ml Balance 507 ml 756 ml 500 ml Result Diagram: 11/07/16 0518 11/07/1618 Imaging Last Impressions Head CT 11/05/16 1404 Signed Impressions: Service Date/Time: Saturday, November 05, 2016 15:02 - CONCLUSION: 1. No acute infiltrate or abnormality. 2. Paranasal sinusitis. Dru Mancuso MD Chest X-Ray 11/05/16 1404 Signed Impressions: Service Date/Time: Saturday, November 05, 2016 14:15 - CONCLUSION: 1. Pleural thickening on the right. 2. ET tube in good position. Martin Pittman MD FACR Objective Remarks GENERAL: Patient remains intubated, obtunded. SKIN: Warm and dry. HEAD: Normocephalic. EYES: No scleral icterus. No injection or drainage. NECK: trachea midline. No JVD Orally intubated CARDIOVASCULAR: Regular rate and rhythm sinus by tele. RESPIRATORY: Breath sounds equal bilaterally. No accessory muscle use. GASTROINTESTINAL: Abdomen soft, non-tender, nondistended. MUSCULOSKELETAL: No cyanosis, or edema. Neuro: RASS -3. purposeful and localizes in b/l UEs. w/d to pain in BLEs. opens eyes to deep stimulation. does not follow commands. A/P Assessment and Plan Assessment: 66yF with severe encephalopathy of unknown etiology, course complicated by acute hypoxic and hypercarbic respiratory failure. Neurology following. continue frequent neuro checks. remains critically ill off pathway. if support were to be withdrawn, she would . 1. VDRF 2. Encephalopathy. 3. Questionable seizure disorder. 4. History of depression/bipolar disorder. 5. Elevated CK. Plan: Neuro: Neuro: off all sedation. CT brain negative for acute intracranial abnormalities. Neuro consulted. EEG negative for seizure. Depakote level: 76 UDS: + benzos MRI/MRA negative for acute disease will discuss with neuro if LP would be beneficial at this point neuro: Will Pulm: Continue vent support and maintain sats above 92%. Bronchodilators, ICU vent bundle. SBT daily CV: Monitor HR and BP, maintain MAP >65mmHg. Lactic acid measured at 1.0. : Monitor renal function, Is and Os and electrolyte replacement per protocol. On D5 NS at 75 ml an hour. Monitor CKs. GI: On Protonix 40 mg IV daily, On Glucerna 1.5 with a goal rate of 45 ml an hour. ID: Monitor for signs of infections( fever and WBC). panculture if spikes a fever. Chest x-ray post intubation negative for acute findings. Hem: Monitor CBC. Endo: SSI with Accu-Cheks q. 6 hours. TSH: 0.31, FT4: 1.12 GI prophylaxis with Protonix 40 milligrams daily and DVT prophylaxis with SCDs and heparin subcu. dispo: remain in the ICU. off pathway. critically ill. Critical care time: 32 minutes, exclusive of separately billable procedures. Brice Mane MD Nov 07, 2016 14:08
[2016-11-07 14:35] LABS: RAPID PLASMA REAGIN SCREEN NON-REACTIVE (NON-REACTVE)
--- NOTE | 2016-11-07 16:43 | PD.PROCEDR ---
Procedure Note Procedure Lumbar Puncture Diagnosis: Acute encephalopathy Indications: Acute encephalopathy Consent: Written consent was obtained Anesthesia: Lidocaine locally Description of the Procedure: The patient was placed in the supine, left lateral decubitus position. The patient was prepped and draped sterilely. 1% lidocaine was infiltrated subcutaneously. A 20g Quincke needle was inserted into the L3-4 interspace and advanced until CSF was obtained. Opening pressure was obtained. CSF was drained in 4 incremental vials. The needle was removed and a dressing was applied. The patient was returned to the supine position. Instructions were given to remain flat x 2 hours. There were no immediate complications noted. There was minimal EBL. The patient tolerated the procedure well. Opening Pressure: 13 millimeters mercury Amount of CSF removed: 10 mL Findings: Clear CSF I personally performed the procedure. Brice Mane MD Nov 07, 2016 16:43
[2016-11-07 17:27] LABS: GROSS BLOOD TUBE #1 TRACE (0); GROSS BLOOD TUBE #2 0 (0); GROSS BLOOD TUBE #3 0 (0); GROSS BLOOD TUBE #4 0 (0); SUPERNATE COLOR TUBE #1 CLEAR (CLEAR); SUPERNATE COLOR TUBE #2 CLEAR (CLEAR); SUPERNATE COLOR TUBE #3 CLEAR (CLEAR); SUPERNATE COLOR TUBE #4 CLEAR (CLEAR); VOLUME TUBE # 1 2.3 ML; VOLUME TUBE # 2 2.6 ML; VOLUME TUBE # 3 2.5 ML; VOLUME TUBE # 4 4.8 ML; WBC TUBE #4 7 /MM3 (0-10)
[2016-11-07 17:28] LABS: CSF LYMPHOCYTES 35 %; CSF MONOCYTES 59 %; CSF NEUTROPHILS 1 %
[2016-11-07] MEDS: PROPOFOL 1000 MG/100 ML INJ 100 ML IV SCH (19:44)
[2016-11-08] VITALS (30 sets, daily range): BP systolic 112–180; BP diastolic 52–76; PULSE 79–96; RESP 2–39; TEMP 96.8–100; O2SAT 96–100
[2016-11-08] MEDS: DEXT 5%-NACL 0.9% 1000 ML INJ 1,000 ML IV SCH ×2 (03:34→11:47)
[2016-11-08] MEDS: RESP: ALBUTEROL 2.5 MG/IPRATROPIUM 0.5 MG NEB (SCH) INH ×4 (03:36→20:01)
[2016-11-08] MEDS: CHLORHEXIDINE GLUCONATE 2 % 1 PACK (2 CLOTHS) TOP SCH (04:00)
[2016-11-08] MEDS: HEPARIN SODIUM - SQ 10,000 UNITS/ML VIAL SQ SCH ×2 (05:00→17:32)
[2016-11-08] MEDS: INSULIN NovoLIN REGULAR SUPPLEMENTAL SCALE SQ SCH ×4 (05:58→17:42)
[2016-11-08 06:13] LABS: BICARBONATE 26.9 MEQ/L (21.0-32.0); POTASSIUM 4.2 MEQ/L (3.5-5.1)
[2016-11-08] MEDS ORDERED: MAGNESIUM CITRATE SOLN 300 ML BTL PO ONE (07:30)
[2016-11-08] MEDS: BISACODYL 10 MG SUPP RECTAL SCH (08:42)
[2016-11-08] MEDS: LACTULOSE SYRUP 20 GM/30 ML CUP PO SCH ×2 (08:42→21:13)
[2016-11-08] MEDS: PANTOPRAZOLE SODIUM 40 MG VIAL IV SCH (08:42)
[2016-11-08] MEDS: DOCUSATE SODIUM 50 MG/SENNA 8.6 MG TAB PO SCH ×2 (08:42→21:13)
[2016-11-08] MEDS: POLYETHYLENE GLYCOL 17 GM PKG PO SCH ×2 (08:43→21:13)
[2016-11-08] MEDS: THIAMINE INJ 100 MG in SODIUM CHLORIDE 0.9% INJ 100 ML IV SCH (08:43)
--- NOTE | 2016-11-08 09:02 | HHI.PR ---
Review/Management Diagnosis/Plan: (1) Encephalopathy Plan: progressive cognitive decline with recent recurrent coma episodes hyperammonemia possible but symptoms preceding addition of depakote etiology: metabolic/ autoimmune/ spongiform encephalopathy eeg- no active sz csf-no evidence of infection thus far recs extubation trial? mri/mra brain-negative will consider repeat eeg tomorrow consider outpatient ct/pet brain scan iv thiamine follow exam d/w rn (2) Respiratory failure (3) Bipolar 1 disorder Subjective Subjective Comments No acute events reported Active Medications Current Medications Medications (Trade) Dose Ordered Sig/Michael Route Start Time Stop Time Status Last Admin IV Flush 2 ml 2 ml UNSCH PRN IV FLUSH 11/05/16 14:15 (Diprivan 1000 Mg/100ml Inj) 100 ml @ 0 mls/hr TITRATE IV 11/05/16 14:15 11/07/16 19:44 (Protonix Inj) 40 mg DAILY IV 11/05/16 16:15 11/08/16 08:42 (Heparin Inj) 5,000 units Q12H SQ 11/05/16 17:00 11/08/16 05:00 Miscellaneous Information 1 Q361D XX 11/05/16 16:15 (Chlorhexidine 2% Cloth) 3 pack Taper DAILY@04 TOP 11/06/16 04:00 11/02/17 03:59 11/08/16 04:00 (Chlorhexidine 2% Cloth) 3 pack UNSCH PRN TOP 11/05/16 16:15 (Mya-Colace) 1 tab BID PO 11/05/16 21:00 11/08/16 08:42 (Milk Of Magnesia Liq) 30 ml Q12H PRN PO 11/05/16 16:15 (Senokot) 17.2 mg Q12H PRN PO 11/05/16 16:15 11/07/16 07:38 Bisacodyl 10 mg 10 mg DAILY PRN RECTAL 11/05/16 16:15 (D5W-NS 1000 ml Inj) 1,000 ml @ 75 mls/hr [id number] IV 11/05/16 17:00 11/08/16 03:34 (D50w (Vial) Inj) 50 ml UNSCH PRN IV 11/05/16 16:15 (Glucagon Inj) 1 mg UNSCH PRN OTHER 11/05/16 16:15 Insulin Human Regular 1 1 Q6HR SQ 11/05/16 18:00 11/06/16 05:21 Potassium Chloride 100 ml @ 50 mls/hr Q2H PRN IV 11/05/16 16:45 (KCl 20 Meq Premix Inj) 100 ml @ 50 mls/hr Q2H PRN IV 11/05/16 16:45 Potassium Bicarb/ Potassium Chloride 50 meq 50 meq UNSCH PRN PO 11/05/16 16:45 Potassium Chloride 100 ml @ 25 mls/hr UNSCH PRN IV 11/05/16 16:45 Potassium Chloride 100 ml @ 50 mls/hr Q2H PRN IV 11/05/16 16:45 (Magnesium Sulfate Inj/NS Inj) 100 ml @ 50 mls/hr UNSCH PRN IV 11/05/16 16:45 Magnesium Oxide 800 mg 800 mg UNSCH PRN PO 11/05/16 16:45 (Magnesium Sulfate Inj/NS Inj) 100 ml @ 50 mls/hr UNSCH PRN IV 11/05/16 16:45 Potassium Phosphate 2000 mg 2,000 mg Q4H PRN PO 11/05/16 16:45 (Sodium Phosphate Inj/NS 250 ml Inj) 250 ml @ 42 mls/hr UNSCH PRN IV 11/05/16 16:45 Potassium Phosphate 2000 mg 2,000 mg UNSCH PRN PO/TUBE 11/05/16 16:45 (Potassium Phosphate Inj/NS 250 ml Inj) 260 ml @ 42 mls/hr UNSCH PRN IV 11/05/16 16:45 Lactulose 30 ml 30 ml BID PO 11/06/16 12:00 11/08/16 08:42 (Thiamine Inj/NS Inj) 101 ml @ 101 mls/hr DAILY IV 11/06/16 20:00 11/08/16 08:43 (Dulcolax Supp) 10 mg DAILY RECTAL 11/08/16 09:00 11/08/16 08:42 (Miralax) 17 gm BID PO 11/08/16 09:00 11/08/16 08:43 Allergies Allergies Coded Allergies No Known Allergies (Unverified11/07/16) Review of Systems All other ROS: ROS reviewed as documented in chart Exam I&O / VS 11/07/16 11/07/16 11/08/16 15:00 23:00 07:00 Intake Total 962 ml 998 ml 898 ml Output Total 300 ml 250 ml 300 ml Balance 662 ml 748 ml 598 ml Intake IV Total 521 ml 573 ml 480 ml Tube Feeding 321 ml 305 ml 298 ml Other 120 ml 120 ml 120 ml Output Urine Total 300 ml 250 ml 300 ml # Bowel Movements 0 0 Vital Signs Date Time Temp Pulse Resp B/P Pulse Ox O2 Delivery O2 Flow Rate FiO2 11/08/16 07:42 96 40 11/08/16 07:40 98 40 11/08/16 07:10 100 40 11/08/16 07:10 40 11/08/16 06:00 80 11/08/16 04:00 40 11/08/16 04:00 80 11/08/16 04:00 96.8 80 2 135/61 98 11/08/16 03:39 98 40 11/08/16 02:00 81 11/08/16 00:50 100 40 11/08/16 00:00 40 11/08/16 00:00 97.6 80 14 133/66 99 11/08/16 00:00 80 11/07/16 22:00 81 11/07/16 20:00 97.1 82 14 137/69 100 11/07/16 20:00 40 11/07/16 20:00 82 11/07/16 19:39 100 40 11/07/16 18:00 87 11/07/16 16:11 88 11/07/16 16:11 88 19 137/74 100 11/07/16 16:11 88 11/07/16 16:00 86 11/07/16 16:00 86 11/07/16 16:00 35 11/07/16 16:00 86 34 100 11/07/16 14:50 97 35 11/07/16 14:00 85 11/07/16 14:00 85 11/07/16 14:00 85 11/07/16 14:00 85 19 100 11/07/16 12:23 100 35 11/07/16 12:06 79 11/07/16 12:06 79 12 126/68 98 11/07/16 12:06 79 11/07/16 12:06 79 11/07/16 12:06 79 12 126/68 98 11/07/16 12:06 79 11/07/16 12:00 123 11/07/16 12:00 123 78 11/07/16 12:00 123 11/07/16 12:00 123 11/07/16 12:00 123 78 11/07/16 12:00 100 11/07/16 12:00 123 11/07/16 11:35 99 100 11/07/16 11:03 91 21 133/60 100 11/07/16 11:03 91 11/07/16 11:03 91 11/07/16 11:03 91 11/07/16 11:03 91 21 133/60 100 11/07/16 11:03 91 11/07/16 10:00 86 16 127/62 100 11/07/16 10:00 86 11/07/16 10:00 86 16 127/62 100 11/07/16 10:00 86 11/07/16 10:00 86 11/07/16 10:00 86 11/07/16 09:00 85 11/07/16 09:00 85 11/07/16 09:00 85 3 135/62 100 11/07/16 09:00 85 11/07/16 09:00 85 11/07/16 09:00 85 3 135/62 100 11/07/16 09:00 85 3 135/62 100 General: No acute distress Respiratory: Non-labored respirations Exam Comments intubated. on propofol. in deep stupor. not verbal, not following, grimaces, ou 2mm sluggish, +mild doll's, not tracking, minimal withdrawal in le, msr depressed, no clonus, planter flexor Objective Micro and Labs Laboratory Tests Test 11/07/16 11/08/16 16:10 04:26 CSF Volume (Tube 1) 2.3 CSF Supernatant Color (tube 1) CLEAR CSF Gross Blood (Tube 1) TRACE CSF Volume (Tube 2) 2.6 CSF Supernatant Color (tube 2) CLEAR CSF Gross Blood (Tube 2) 0 CSF Volume (Tube 3) 2.5 CSF Supernatant Color (tube 3) CLEAR CSF Gross Blood (Tube 3) 0 CSF Volume (Tube 4) 4.8 CSF Supernatant Color (tube 4) CLEAR CSF Gross Blood (Tube 4) 0 CSF WBC (Tube 4) 7 CSF RBC (Tube 4) 7 CSF Neutrophils 1 CSF Lymphocytes 35 CSF Monocytes 59 CSF Histiocytes 5 CSF Glucose 66 CSF Total Protein 34.8 Sodium Level 140 Potassium Level 4.2 Chloride Level 105 Carbon Dioxide Level 26.9 Anion Gap 8 Blood Urea Nitrogen 15 Creatinine 0.53 Estimat Glomerular Filtration 116 Rate Random Glucose 107 Calcium Level 8.0 Date/Time Procedure Status Source Growth 11/07/16 16:10 Gram Stain - Final Resulted Cerebral Spinal Fluid Lumbar Puncture 11/07/16 16:10 CSF Culture - Preliminary Resulted Cerebral Spinal Fluid Lumbar Puncture NO GROWTH IN 24 HOURS. 11/07/16 16:10 Acid Fast Stain Received Cerebral Spinal Fluid Lumbar Puncture Pending 11/07/16 16:10 Mycobacterial Culture Received Cerebral Spinal Fluid Lumbar Puncture Pending 11/05/16 14:13 Aerobic Blood Culture - Preliminary Resulted Blood Peripheral NO GROWTH IN 2 DAYS 11/05/16 14:13 Anaerobic Blood Culture - Preliminary Resulted Blood Peripheral NO GROWTH IN 2 DAYS Problem Qualifiers (1) Respiratory failure: Qualified Code: J96.90 - Respiratory failure, unspecified chronicity, unspecified whether with hypoxia or hypercapnia John Walker MD Nov 08, 2016 09:02
[2016-11-08 10:25] LABS: HEMATOCRIT 31.8 % (35.0-46.0); MEAN CELL VOLUME 88.6 FL (80.0-100.0); MEAN CORPUSCULAR HEMOGLOBIN 29.8 PG (27.0-34.0); MEAN CORPUSCULAR HGB CONC 33.7 % (32.0-36.0); PLATELET COUNT 155 TH/MM3 (150-450); RED BLOOD COUNT 3.59 MIL/MM3 (4.00-5.30); RED CELL DISTRIBUTION WIDTH 14.9 % (11.6-17.2); REVIEW FLAG FINAL; WHITE BLOOD COUNT 5.9 TH/MM3 (4.0-11.0)
--- NOTE | 2016-11-08 19:18 | HHI.CCPN ---
Subjective Remarks/Hospital Course The patient is an [id number] female with past medical history of depression/bipolar disorder, questionable seizure disorder on Depakote who presented to [facility] ED via EMS after she was found unresponsive with GCS of 3 at home. Upon arrival of EMS the patient was in agonal breathing and was intubated at the scene. She was given Narcan with no effect. The patient had similar presentation approximately three weeks ago at [facility] where she was intubated. According to her [id number] she has been having progressive decline of her cognitive function. CT scan of the brain showed no evidence of any acute abnormalities. Chest x-ray post intubation showed pleural thickening on the right, ET tube in good position. Her CBC, CMP unremarkable except for ammonia level 36. Lactic acid level measured at 1.0 and total CK 501 with MB percentage 1.2 and troponin less than 0.02. In the ER she was given 1 liter of normal saline. When seen the patient is on Diprivan infusion for sedation and for mechanical ventilation. 11/06 Patient is sedated with Diprivan and intubated. Afebrile. 11/07: off all sedation. still encephalopathic. localizes and briskly purposeful in b/l UEs. possibly weakly following commands in LEs, but otherwise w/d to pain. MRI/MRA negative. EEG with generalized slowing. 11/08: continues off sedation. still encephalopathic. will grimace to pain and purposeful, but will not follow commands. LP done yesterday not consistent with infectious etiology. Also no BM since admission. Objective Vital Signs Date Time Temp Pulse Resp B/P Pulse Ox O2 Delivery O2 Flow Rate FiO2 11/08/16 18:00 89 11/08/16 17:00 14 139/70 100 11/08/16 16:57 40 11/08/16 08:00 98.3 11/05/16 17:18 Ventilator Intake and Output 11/07/16 11/07/16 11/07/16 07:59 15:59 23:59 Intake Total 701 ml 962 ml 998 ml Output Total 150 ml 300 ml 250 ml Balance 551 ml 662 ml 748 ml Result Diagram: 11/08/16 0945 11/08/16 2166 Imaging Last Impressions Head CT 11/05/16 5178 Signed Impressions: Service Date/Time: Saturday, November 05, 2016 15:02 - CONCLUSION: 1. No acute infiltrate or abnormality. 2. Paranasal sinusitis. Dru Mancuso MD Chest X-Ray 11/05/16 1404 Signed Impressions: Service Date/Time: Saturday, November 05, 2016 14:15 - CONCLUSION: 1. Pleural thickening on the right. 2. ET tube in good position. Martin Pittman MD FACR Objective Remarks GENERAL: Patient remains intubated, obtunded. SKIN: Warm and dry. HEAD: Normocephalic. EYES: No scleral icterus. No injection or drainage. NECK: trachea midline. No JVD Orally intubated CARDIOVASCULAR: Regular rate and rhythm sinus by tele. RESPIRATORY: Breath sounds equal bilaterally. No accessory muscle use. GASTROINTESTINAL: Abdomen soft, non-tender, nondistended. MUSCULOSKELETAL: No cyanosis, or edema. Neuro: RASS -3. purposeful and localizes in b/l UEs. w/d to pain in BLEs. opens eyes to deep stimulation. does not follow commands. A/P Assessment and Plan Assessment: 66yF with severe encephalopathy of unknown etiology, course complicated by acute hypoxic and hypercarbic respiratory failure. Neurology following. continue frequent neuro checks. remains critically ill off pathway. if support were to be withdrawn, she would . I do not think she will tolerate extubation, as it does not appear she is protecting her airway, and I think she would aspirate. 1. acute hypoxic and hypercarbic respiratory failure 2. Encephalopathy. 3. Questionable seizure disorder. 4. History of depression/bipolar disorder. 5. Elevated CK. 6. severe constipation Plan: Neuro: Neuro: off all sedation. CT brain negative for acute intracranial abnormalities. Neuro consulted. EEG negative for seizure. Depakote level: 76 UDS: + benzos MRI/MRA negative for acute disease LP /- not c/w infectious etiology. neuro: Will Pulm: Continue vent support and maintain sats above 92%. Bronchodilators, ICU vent bundle. SBT daily still not protecting airway from mental status standpoint. CV: Monitor HR and BP, maintain MAP >65mmHg. Lactic acid measured at 1.0. : Monitor renal function, Is and Os and electrolyte replacement per protocol. On D5 NS at 75 ml an hour. Monitor CKs. GI: On Protonix 40 mg IV daily, On Glucerna 1.5 with a goal rate of 45 ml an hour. add miralax, mag citrate, enema, lactulose. goal BM today. ID: Monitor for signs of infections( fever and WBC). panculture if spikes a fever. Chest x-ray post intubation negative for acute findings. Hem: Monitor CBC. Endo: SSI with Accu-Cheks q. 6 hours. TSH: 0.31, FT4: 1.12 GI prophylaxis with Protonix 40 milligrams daily and DVT prophylaxis with SCDs and heparin subcu. dispo: remain in the ICU. off pathway. critically ill. Critical care time: 31 minutes, exclusive of separately billable procedures. Brice Mane MD Nov 08, 2016 19:18
[2016-11-08] MEDS: PROPOFOL 1000 MG/100 ML INJ 100 ML IV SCH (22:05)
[2016-11-09] VITALS (25 sets, daily range): BP systolic 127–189; BP diastolic 58–94; PULSE 81–101; RESP 14–42; TEMP 97.4–98.6; O2SAT 92–100
[2016-11-09] MEDS: DEXT 5%-NACL 0.9% 1000 ML INJ 1,000 ML IV SCH (01:28)
[2016-11-09] MEDS: RESP: ALBUTEROL 2.5 MG/IPRATROPIUM 0.5 MG NEB (SCH) INH ×4 (03:19→20:21)
[2016-11-09] MEDS: CHLORHEXIDINE GLUCONATE 2 % 1 PACK (2 CLOTHS) TOP SCH (04:00)
[2016-11-09] MEDS: HEPARIN SODIUM - SQ 10,000 UNITS/ML VIAL SQ SCH ×2 (05:00→16:46)
[2016-11-09] MEDS: INSULIN NovoLIN REGULAR SUPPLEMENTAL SCALE SQ SCH ×4 (06:00→17:25)
[2016-11-09 07:14] LABS: HEMATOCRIT 30.6 % (35.0-46.0); MEAN CELL VOLUME 88.2 FL (80.0-100.0); MEAN CORPUSCULAR HEMOGLOBIN 29.3 PG (27.0-34.0); MEAN CORPUSCULAR HGB CONC 33.2 % (32.0-36.0); PLATELET COUNT 135 TH/MM3 (150-450); RED BLOOD COUNT 3.47 MIL/MM3 (4.00-5.30); RED CELL DISTRIBUTION WIDTH 15.1 % (11.6-17.2); WHITE BLOOD COUNT 6.9 TH/MM3 (4.0-11.0)
--- NOTE | 2016-11-09 07:22 | HHI.PR ---
Review/Management Diagnosis/Plan: (1) Encephalopathy Plan: progressive cognitive decline with recent recurrent coma episodes hyperammonemia possible but symptoms preceding addition of depakote etiology: metabolic/ autoimmune/ spongiform encephalopathy eeg- no active sz csf-no evidence of infection thus far recs extubation-per [facility] mri/mra brain-negative consider outpatient ct/pet brain scan csf labs pending iv thiamine can go to 5th floor (2) Respiratory failure (3) Bipolar 1 disorder Subjective Subjective Comments No acute events reported Active Medications Current Medications Medications (Trade) Dose Ordered Sig/Michael Route Start Time Stop Time Status Last Admin IV Flush 2 ml 2 ml UNSCH PRN IV FLUSH 11/05/16 14:15 (Diprivan 1000 Mg/100ml Inj) 100 ml @ 0 mls/hr TITRATE IV 11/05/16 14:15 11/08/16 22:05 (Protonix Inj) 40 mg DAILY IV 11/05/16 16:15 11/08/16 08:42 (Heparin Inj) 5,000 units Q12H SQ 11/05/16 17:00 11/09/16 05:00 Miscellaneous Information 1 Q361D XX 11/05/16 16:15 (Chlorhexidine 2% Cloth) 3 pack Taper DAILY@04 TOP 11/06/16 04:00 11/02/17 03:59 11/09/16 04:00 (Chlorhexidine 2% Cloth) 3 pack UNSCH PRN TOP 11/05/16 16:15 (Mya-Colace) 1 tab BID PO 11/05/16 21:00 11/08/16 21:13 (Milk Of Magnesia Liq) 30 ml Q12H PRN PO 11/05/16 16:15 (Senokot) 17.2 mg Q12H PRN PO 11/05/16 16:15 11/07/16 07:38 Bisacodyl 10 mg 10 mg DAILY PRN RECTAL 11/05/16 16:15 (D5W-NS 1000 ml Inj) 1,000 ml @ 75 mls/hr [id number] IV 11/05/16 17:00 11/09/16 01:28 (D50w (Vial) Inj) 50 ml UNSCH PRN IV 11/05/16 16:15 (Glucagon Inj) 1 mg UNSCH PRN OTHER 11/05/16 16:15 Insulin Human Regular 1 1 Q6HR SQ 11/05/16 18:00 11/06/16 05:21 Potassium Chloride 100 ml @ 50 mls/hr Q2H PRN IV 11/05/16 16:45 (KCl 20 Meq Premix Inj) 100 ml @ 50 mls/hr Q2H PRN IV 11/05/16 16:45 Potassium Bicarb/ Potassium Chloride 50 meq 50 meq UNSCH PRN PO 11/05/16 16:45 Potassium Chloride 100 ml @ 25 mls/hr UNSCH PRN IV 11/05/16 16:45 Potassium Chloride 100 ml @ 50 mls/hr Q2H PRN IV 11/05/16 16:45 (Magnesium Sulfate Inj/NS Inj) 100 ml @ 50 mls/hr UNSCH PRN IV 11/05/16 16:45 Magnesium Oxide 800 mg 800 mg UNSCH PRN PO 11/05/16 16:45 (Magnesium Sulfate Inj/NS Inj) 100 ml @ 50 mls/hr UNSCH PRN IV 11/05/16 16:45 Potassium Phosphate 2000 mg 2,000 mg Q4H PRN PO 11/05/16 16:45 (Sodium Phosphate Inj/NS 250 ml Inj) 250 ml @ 42 mls/hr UNSCH PRN IV 11/05/16 16:45 Potassium Phosphate 2000 mg 2,000 mg UNSCH PRN PO/TUBE 11/05/16 16:45 (Potassium Phosphate Inj/NS 250 ml Inj) 260 ml @ 42 mls/hr UNSCH PRN IV 11/05/16 16:45 Lactulose 30 ml 30 ml BID PO 11/06/16 12:00 11/08/16 21:13 (Thiamine Inj/NS Inj) 101 ml @ 101 mls/hr DAILY IV 11/06/16 20:00 11/08/16 08:43 (Dulcolax Supp) 10 mg DAILY RECTAL 11/08/16 09:00 11/08/16 08:42 (Miralax) 17 gm BID PO 11/08/16 09:00 11/08/16 21:13 Allergies Allergies Coded Allergies No Known Allergies (Unverified11/07/16) Review of Systems All other ROS: ROS reviewed as documented in chart Exam I&O / VS 11/08/16 11/08/16 11/09/16 14:59 22:59 06:59 Intake Total 1503 ml 1007 ml 1378 ml Output Total 350 ml 250 ml 450 ml Balance 1153 ml 757 ml 928 ml Intake IV Total 789 ml 489 ml 617 ml Tube Feeding 354 ml 338 ml 641 ml Other 360 ml 180 ml 120 ml Output Urine Total 350 ml 250 ml 450 ml # Bowel Movements 2 0 0 Vital Signs Date Time Temp Pulse Resp B/P Pulse Ox O2 Delivery O2 Flow Rate FiO2 11/09/16 06:00 81 11/09/16 04:00 82 11/09/16 04:00 40 11/09/16 04:00 97.6 82 14 127/59 98 11/09/16 03:20 99 35 11/09/16 02:00 81 11/09/16 00:00 97.4 87 14 128/58 100 11/09/16 00:00 87 11/09/16 00:00 40 11/08/16 23:34 99 35 11/08/16 22:00 96 11/08/16 20:05 100 35 11/08/16 20:00 100.0 81 14 112/52 100 11/08/16 20:00 80 11/08/16 20:00 40 11/08/16 18:00 89 11/08/16 17:00 89 11/08/16 17:00 89 11/08/16 17:00 89 14 139/70 100 11/08/16 16:57 100 40 11/08/16 16:23 87 34 149/67 100 11/08/16 16:23 87 11/08/16 16:23 87 11/08/16 16:18 92 33 180/73 11/08/16 16:18 92 11/08/16 16:18 92 11/08/16 16:00 93 11/08/16 16:00 93 11/08/16 16:00 40 11/08/16 16:00 93 26 100 11/08/16 14:35 100 40 11/08/16 14:13 86 39 170/72 100 11/08/16 14:13 86 11/08/16 14:13 86 11/08/16 14:13 86 11/08/16 14:11 86 11/08/16 14:11 86 24 180/76 99 11/08/16 14:11 86 11/08/16 14:11 86 11/08/16 14:00 93 11/08/16 14:00 93 11/08/16 14:00 93 24 99 11/08/16 14:00 93 11/08/16 13:00 80 11/08/16 13:00 80 11/08/16 13:00 80 17 140/67 100 11/08/16 13:00 80 11/08/16 12:00 40 11/08/16 12:00 79 11/08/16 12:00 79 11/08/16 12:00 79 14 130/64 100 11/08/16 12:00 79 11/08/16 12:00 79 14 130/64 100 11/08/16 11:00 80 11/08/16 11:00 80 14 131/68 100 11/08/16 11:00 80 11/08/16 11:00 80 11/08/16 11:00 80 14 131/68 100 11/08/16 10:44 100 40 11/08/16 10:00 80 14 122/58 99 11/08/16 10:00 80 11/08/16 10:00 80 11/08/16 10:00 80 11/08/16 10:00 80 14 122/58 99 11/08/16 09:00 82 11/08/16 09:00 82 11/08/16 09:00 82 16 114/56 99 11/08/16 09:00 82 16 114/56 99 11/08/16 09:00 82 11/08/16 08:00 84 11/08/16 08:00 84 38 127/61 96 11/08/16 08:00 84 11/08/16 08:00 84 38 127/61 96 11/08/16 08:00 98.3 11/08/16 08:00 40 11/08/16 08:00 84 11/08/16 07:42 96 40 11/08/16 07:40 98 40 General: No acute distress Respiratory: Non-labored respirations Exam Comments intubated.following motor request, ou 2mm sluggish, +mild doll's, not tracking, withdrawal in all ext, msr depressed, no clonus, planter flexor Objective Micro and Labs Laboratory Tests Test 11/08/16 09:45 White Blood Count 5.9 Red Blood Count 3.59 Hemoglobin 10.7 Hematocrit 31.8 Mean Corpuscular Volume 88.6 Mean Corpuscular Hemoglobin 29.8 Mean Corpuscular Hemoglobin 33.7 Concent Red Cell Distribution Width 14.9 Platelet Count 155 Mean Platelet Volume 9.2 Date/Time Procedure Status Source Growth 11/07/16 16:10 Gram Stain - Final Resulted Cerebral Spinal Fluid Lumbar Puncture 11/07/16 16:10 CSF Culture - Preliminary Resulted Cerebral Spinal Fluid Lumbar Puncture NO GROWTH IN 24 HOURS. 11/07/16 16:10 Acid Fast Stain Received Cerebral Spinal Fluid Lumbar Puncture Pending 11/07/16 16:10 Mycobacterial Culture Received Cerebral Spinal Fluid Lumbar Puncture Pending 11/05/16 14:13 Aerobic Blood Culture - Preliminary Resulted Blood Peripheral NO GROWTH IN 3 DAYS 11/05/16 14:13 Anaerobic Blood Culture - Preliminary Resulted Blood Peripheral NO GROWTH IN 3 DAYS Problem Qualifiers (1) Respiratory failure: Qualified Code: J96.90 - Respiratory failure, unspecified chronicity, unspecified whether with hypoxia or hypercapnia John Walker MD Nov 09, 2016 07:22 unspecified whether with hypoxia or hypercapnia John Walker MD Nov 09, 2016 07:22
[2016-11-09 07:25] LABS: BICARBONATE 31.1 MEQ/L (21.0-32.0)
[2016-11-09 07:29] LABS: POTASSIUM 4.8 MEQ/L (3.5-5.1)
[2016-11-09 07:59] LABS: REVIEW FLAG FINAL
[2016-11-09] MEDS: POLYETHYLENE GLYCOL 17 GM PKG PO SCH ×2 (08:03→19:59)
[2016-11-09] MEDS: PANTOPRAZOLE SODIUM 40 MG VIAL IV SCH (08:03)
[2016-11-09] MEDS: DOCUSATE SODIUM 50 MG/SENNA 8.6 MG TAB PO SCH ×2 (08:03→19:59)
[2016-11-09] MEDS: LACTULOSE SYRUP 20 GM/30 ML CUP PO SCH ×2 (08:03→19:59)
[2016-11-09] MEDS: THIAMINE INJ 100 MG in SODIUM CHLORIDE 0.9% INJ 100 ML IV SCH (08:04)
[2016-11-09 08:42] LABS: CF EBV DNA PCR RESULT Negative (Negative); CF EBV SPEC SOURCE CSF (()); CMV PCR SPECIMEN SOURCE CSF (())
[2016-11-09] MEDS: BISACODYL 10 MG SUPP RECTAL SCH (09:00)
[2016-11-09 09:14] LABS: HSV 1,PCR Negative (Negative)
--- NOTE | 2016-11-09 09:52 | HHI.CCPN ---
Subjective Remarks/Hospital Course The patient is an [age]at[id number] female with past medical history of depression/bipolar disorder, questionable seizure disorder on Depakote who presented to [facility] ED via EMS after she was found unresponsive with GCS of 3 at home. Upon arrival of EMS the patient was in agonal breathing and was intubated at the scene. She was given Narcan with no effect. The patient had similar presentation approximately three weeks ago at [facility] where she was intubated. According to her [id number] she has been having progressive decline of her cognitive function. CT scan of the brain showed no evidence of any acute abnormalities. Chest x-ray post intubation showed pleural thickening on the right, ET tube in good position. Her CBC, CMP unremarkable except for ammonia level 36. Lactic acid level measured at 1.0 and total CK 501 with MB percentage 1.2 and troponin less than 0.02. In the ER she was given 1 liter of normal saline. When seen the patient is on Diprivan infusion for sedation and for mechanical ventilation. 11/06 Patient is sedated with Diprivan and intubated. Afebrile. 11/07: off all sedation. still encephalopathic. localizes and briskly purposeful in b/l UEs. possibly weakly following commands in LEs, but otherwise w/d to pain. MRI/MRA negative. EEG with generalized slowing. 11/08: continues off sedation. still encephalopathic. will grimace to pain and purposeful, but will not follow commands. LP done yesterday not consistent with infectious etiology. Also no BM since admission. 11/09: still off sedation. now following commands. still somnolent and not briskly awake, but mental status is clearing up. good BM yesterday. Objective Vital Signs Date Time Temp Pulse Resp B/P Pulse Ox O2 Delivery O2 Flow Rate FiO2 11/09/16 07:16 100 35 11/09/16 06:00 81 11/09/16 04:00 97.6 14 127/59 11/05/16 17:18 Ventilator Intake and Output 11/08/16 11/08/16 11/09/16 08:00 16:00 00:00 Intake Total 898 ml 1503 ml 1007 ml Output Total 300 ml 350 ml 250 ml Balance 598 ml 1153 ml 757 ml Result Diagram: 11/09/16 0512 11/09/16 0512 Imaging Last Impressions Head CT 11/05/16 1404 Signed Impressions: Service Date/Time: Saturday, November 05, 2016 15:02 - CONCLUSION: 1. No acute infiltrate or abnormality. 2. Paranasal sinusitis. Dru Mancuso MD Chest X-Ray 11/05/16 1404 Signed Impressions: Service Date/Time: Saturday, November 05, 2016 14:15 - CONCLUSION: 1. Pleural thickening on the right. 2. ET tube in good position. Martin Pittman MD FACR Objective Remarks GENERAL: Patient remains intubated, somnolent but arousable. SKIN: Warm and dry. HEAD: Normocephalic. EYES: No scleral icterus. No injection or drainage. NECK: trachea midline. No JVD Orally intubated. +cuff leak. CARDIOVASCULAR: Regular rate and rhythm sinus by tele. RESPIRATORY: Breath sounds equal bilaterally. No accessory muscle use. GASTROINTESTINAL: Abdomen soft, non-tender, nondistended. MUSCULOSKELETAL: No cyanosis, or edema. Neuro: RASS -1. weakly follows commands. +cough +gag. opens eyes to deep stimulation. nods head. A/P Assessment and Plan Assessment: 66yF with severe encephalopathy of unknown etiology, course complicated by acute hypoxic and hypercarbic respiratory failure. Neurology following. continue frequent neuro checks. mental status improving slowly. will trial SBT. now that we are more awake, I think it's safe to attempt extubation if we pass SBT. appreciate neurology continued improvement. 1. acute hypoxic and hypercarbic respiratory failure- resolving. 2. Encephalopathy.- persistent but slowly improving. 3. Questionable seizure disorder. 4. History of depression/bipolar disorder. 5. Elevated CK.-resolved. 6. severe constipation- resolved. Plan: Neuro: Neuro: off all sedation. CT brain negative for acute intracranial abnormalities. Neuro consulted. EEG negative for seizure. Depakote level: 76 UDS: + benzos MRI/MRA negative for acute disease LP 11/07- not c/w infectious etiology. neuro: Will Pulm: Continue vent support and maintain sats above 92%. Bronchodilators, ICU vent bundle. SBT today. will consider extubation if she passes SBT. CV: Monitor HR and BP, maintain MAP >65mmHg. Lactic acid measured at 1.0. : Monitor renal function, Is and Os and electrolyte replacement per protocol. SLIVF. GI: On Protonix 40 mg IV daily, On Glucerna 1.5 with a goal rate of 45 ml an hour. daily BMs. continue aggressive regimen given recent constipation. ID: Monitor for signs of infections( fever and WBC). panculture if spikes a fever. Chest x-ray post intubation negative for acute findings. Hem: Monitor CBC. Endo: SSI with Accu-Cheks q. 6 hours. TSH: 0.31, FT4: 1.12 GI prophylaxis with Protonix 40 milligrams daily and DVT prophylaxis with SCDs and heparin subcu. dispo: remain in the ICU. Brice Mane MD Nov 09, 2016 09:52
[2016-11-09] MEDS: HALOPERIDOL 2 MG TAB PO SCH (11:02)
[2016-11-09] MEDS: SERTRALINE HCL 50 MG TAB PO SCH (11:02)
[2016-11-09 17:06] LABS: OLIGOCLONAL BANDING CSF 0 bands (()); OLIGOCLONAL BANDING INTERPRET 0 bands (<4); OLIGOCLONAL BANDING SERUM 0 bands (())
[2016-11-09] MEDS: FAMOTIDINE 20 MG TAB PO SCH (19:59)
[2016-11-09] MEDS: HALOPERIDOL LACTATE 5 MG/ML AMP IV PRN (20:00)
[2016-11-10] VITALS (17 sets, daily range): BP systolic 141–175; BP diastolic 64–77; PULSE 75–97; RESP 18–42; TEMP 97.6–98.5; O2SAT 93–100
[2016-11-10] MEDS: RESP: ALBUTEROL 2.5 MG/IPRATROPIUM 0.5 MG NEB (SCH) INH ×4 (03:14→21:04)
[2016-11-10] MEDS: CHLORHEXIDINE GLUCONATE 2 % 1 PACK (2 CLOTHS) TOP SCH (04:00)
[2016-11-10] MEDS: HEPARIN SODIUM - SQ 10,000 UNITS/ML VIAL SQ SCH ×2 (05:00→17:27)
[2016-11-10] MEDS: INSULIN NovoLIN REGULAR SUPPLEMENTAL SCALE SQ SCH ×4 (05:03→18:00)
[2016-11-10 05:32] LABS: HEMATOCRIT 28.6 % (35.0-46.0); MEAN CELL VOLUME 88.9 FL (80.0-100.0); MEAN CORPUSCULAR HEMOGLOBIN 29.2 PG (27.0-34.0); MEAN CORPUSCULAR HGB CONC 32.9 % (32.0-36.0); PLATELET COUNT 173 TH/MM3 (150-450); RED BLOOD COUNT 3.22 MIL/MM3 (4.00-5.30); REVIEW FLAG FINAL; WHITE BLOOD COUNT 4.3 TH/MM3 (4.0-11.0)
[2016-11-10 06:03] LABS: BICARBONATE 30.3 MEQ/L (21.0-32.0); POTASSIUM 3.8 MEQ/L (3.5-5.1)
[2016-11-10] MEDS: SERTRALINE HCL 50 MG TAB PO SCH (08:32)
[2016-11-10] MEDS: DOCUSATE SODIUM 50 MG/SENNA 8.6 MG TAB PO SCH ×2 (08:32→21:00)
[2016-11-10] MEDS: POLYETHYLENE GLYCOL 17 GM PKG PO SCH ×2 (08:32→21:00)
[2016-11-10] MEDS: FAMOTIDINE 20 MG TAB PO SCH ×2 (08:32→21:20)
[2016-11-10] MEDS: HALOPERIDOL 2 MG TAB PO SCH (08:32)
[2016-11-10] MEDS: LACTULOSE SYRUP 20 GM/30 ML CUP PO SCH ×2 (08:32→21:20)
[2016-11-10] MEDS: THIAMINE HCL 100 MG TAB PO SCH (08:32)
--- NOTE | 2016-11-10 10:00 | HHI.CCPN ---
Subjective Remarks/Hospital Course The patient is an [id number] female with past medical history of depression/bipolar disorder, questionable seizure disorder on Depakote who presented to [facility] ED via EMS after she was found unresponsive with GCS of 3 at home. Upon arrival of EMS the patient was in agonal breathing and was intubated at the scene. She was given Narcan with no effect. The patient had similar presentation approximately three weeks ago at [facility] where she was intubated. According to her [id number]-yld she has been having progressive decline of her cognitive function. CT scan of the brain showed no evidence of any acute abnormalities. Chest x-ray post intubation showed pleural thickening on the right, ET tube in good position. Her CBC, CMP unremarkable except for ammonia level 36. Lactic acid level measured at 1.0 and total CK 501 with MB percentage 1.2 and troponin less than 0.02. In the ER she was given 1 liter of normal saline. When seen the patient is on Diprivan infusion for sedation and for mechanical ventilation. 11/06 Patient is sedated with Diprivan and intubated. Afebrile. 11/07: off all sedation. still encephalopathic. localizes and briskly purposeful in b/l UEs. possibly weakly following commands in LEs, but otherwise w/d to pain. MRI/MRA negative. EEG with generalized slowing. 11/08: continues off sedation. still encephalopathic. will grimace to pain and purposeful, but will not follow commands. LP done yesterday not consistent with infectious etiology. Also no BM since admission. 11/09: still off sedation. now following commands. still somnolent and not briskly awake, but mental status is clearing up. good BM yesterday. 11/10: extubated yesterday. passed swallow eval yesterday. still somewhat somnolent, but improved from yesterday and continues slow improvements. Objective Vital Signs Date Time Temp Pulse Resp B/P Pulse Ox O2 Delivery O2 Flow Rate FiO2 11/10/16 08:24 98 Nasal Cannula 3.00 11/10/16 06:00 88 11/10/16 04:00 98.3 23 169/72 11/09/16 08:14 35 Intake and Output 11/09/16 11/09/16 11/10/16 08:00 16:00 00:00 Intake Total 1378 ml 1072 ml 500 ml Output Total 450 ml 450 ml 800 ml Balance 928 ml 622 ml -300 ml Result Diagram: 11/10/16 0515 11/10/16 0515 Other Results Microbiology Date/Time Procedure Status Source Growth 11/07/16 16:10 Gram Stain - Final Complete Cerebral Spinal Fluid Lumbar Puncture 11/07/16 16:10 CSF Culture - Final Complete Cerebral Spinal Fluid Lumbar Puncture NO GROWTH IN 72 HOURS Imaging Last Impressions Head CT 11/05/16 1404 Signed Impressions: Service Date/Time: Saturday, November 05, 2016 15:02 - CONCLUSION: 1. No acute infiltrate or abnormality. 2. Paranasal sinusitis. Dru Mancuso MD Chest X-Ray 11/05/16 1404 Signed Impressions: Service Date/Time: Saturday, November 05, 2016 14:15 - CONCLUSION: 1. Pleural thickening on the right. 2. ET tube in good position. Martin Pittman MD FACR Objective Remarks GENERAL: middle-aged female, lying in bed, somnolent but easily arousable. SKIN: Warm and dry. HEAD: Normocephalic. EYES: No scleral icterus. No injection or drainage. NECK: trachea midline. No JVD CARDIOVASCULAR: Regular rate and rhythm sinus by tele. RESPIRATORY: Breath sounds equal bilaterally. No accessory muscle use. GASTROINTESTINAL: Abdomen soft, non-tender, nondistended. MUSCULOSKELETAL: No cyanosis, or edema. Neuro: RASS -1. follows commands. cam+. no focal deficits. A/P Assessment and Plan Assessment: 66yF with severe encephalopathy of unknown etiology, course complicated by acute hypoxic and hypercarbic respiratory failure. Neurology following. She continues to improve, albeit very slowly. now extubated and passing swallow eval. will continue to encourage pulmonary toilet and PT. 1. acute hypoxic and hypercarbic respiratory failure- resolved 2. Encephalopathy.- persistent but slowly improving. 3. Questionable seizure disorder. 4. History of depression/bipolar disorder. 5. Elevated CK.-resolved. 6. severe constipation- resolved. Plan: Neuro: Neuro: off all sedation. CT brain negative for acute intracranial abnormalities. Neuro consulted. EEG negative for seizure. Depakote level: 76 UDS: + benzos MRI/MRA negative for acute disease LP 11/07- not c/w infectious etiology. neuro: Will Pulm: Continue to wean o2 by NC for goal spo2 > 90% nebs prn OOB to chair aggressive pulm toilet PT/OT. CV: Monitor HR and BP, maintain MAP >65mmHg. Lactic acid measured at 1.0. : Monitor renal function, Is and Os and electrolyte replacement per protocol. SLIVF. GI: d/c ppi. pepcid po q12h., advance diet per nutrition recs. daily BMs. continue aggressive regimen given recent constipation. ID: Monitor for signs of infections( fever and WBC). panculture if spikes a fever. Chest x-ray post intubation negative for acute findings. Hem: Monitor CBC. Endo: SSI with Accu-Cheks q. 6 hours. TSH: 0.31, FT4: 1.12 GI prophylaxis with pepcid and DVT prophylaxis with SCDs and heparin subcu. dispo: will transition to hospitalist services. likely can transition out of icu today or tomorrow. Brice Mane MD Nov 10, 2016 10:00
[2016-11-10 19:52] LABS: VDRL CSF NON-REACTIVE (())
[2016-11-10] MEDS: HALOPERIDOL LACTATE 5 MG/ML AMP IV PRN (21:24)
[2016-11-10 23:45] LABS: CSF CRYPTOCOCCUS AG CONF ND (NOT DETECTD)
[2016-11-11] VITALS (10 sets, daily range): BP systolic 104–154; BP diastolic 62–77; PULSE 83–97; RESP 18–20; TEMP 97.5–98.2; O2SAT 95–99
[2016-11-11 03:50] LABS: VZV PCR RESULT <500 (())
[2016-11-11] MEDS: CHLORHEXIDINE GLUCONATE 2 % 1 PACK (2 CLOTHS) TOP SCH (03:56)
[2016-11-11] MEDS: RESP: ALBUTEROL 2.5 MG/IPRATROPIUM 0.5 MG NEB (SCH) INH ×4 (04:46→20:57)
[2016-11-11] MEDS: HEPARIN SODIUM - SQ 10,000 UNITS/ML VIAL SQ SCH ×2 (04:47→17:32)
[2016-11-11] MEDS: HALOPERIDOL LACTATE 5 MG/ML AMP IV PRN ×2 (04:51→21:34)
[2016-11-11] MEDS: INSULIN NovoLIN REGULAR SUPPLEMENTAL SCALE SQ SCH ×5 (05:17→23:18)
[2016-11-11 05:56] LABS: HEMATOCRIT 28.4 % (35.0-46.0); MEAN CELL VOLUME 87.6 FL (80.0-100.0); MEAN CORPUSCULAR HEMOGLOBIN 29.5 PG (27.0-34.0); MEAN CORPUSCULAR HGB CONC 33.7 % (32.0-36.0); PLATELET COUNT 189 TH/MM3 (150-450); RED BLOOD COUNT 3.24 MIL/MM3 (4.00-5.30); RED CELL DISTRIBUTION WIDTH 14.4 % (11.6-17.2); REVIEW FLAG FINAL; WHITE BLOOD COUNT 4.6 TH/MM3 (4.0-11.0)
[2016-11-11 06:17] LABS: BICARBONATE 28.8 MEQ/L (21.0-32.0); POTASSIUM 3.7 MEQ/L (3.5-5.1)
[2016-11-11] MEDS: FAMOTIDINE 20 MG TAB PO SCH ×2 (08:49→21:21)
[2016-11-11] MEDS: THIAMINE HCL 100 MG TAB PO SCH (08:49)
[2016-11-11] MEDS: POLYETHYLENE GLYCOL 17 GM PKG PO SCH ×2 (08:49→21:22)
[2016-11-11] MEDS: SERTRALINE HCL 50 MG TAB PO SCH (08:49)
[2016-11-11] MEDS: HALOPERIDOL 2 MG TAB PO SCH (08:49)
[2016-11-11] MEDS: DOCUSATE SODIUM 50 MG/SENNA 8.6 MG TAB PO SCH ×2 (08:49→21:21)
[2016-11-11] MEDS: LACTULOSE SYRUP 20 GM/30 ML CUP PO SCH ×2 (08:49→21:18)
--- NOTE | 2016-11-11 19:53 | HHI.PR ---
Subjective Remarks patient does not remember previous events denies cp/sob states that she is coughing denies fevers/chills Objective Vitals Vital Signs Date Time Temp Pulse Resp B/P Pulse Ox O2 Delivery O2 Flow Rate FiO2 11/11/16 19:30 Nasal Cannula 2.00 11/11/16 16:06 97.9 91 18 134/74 96 11/11/16 15:14 95 Nasal Cannula 3.00 11/11/16 12:01 98.1 97 18 136/62 98 11/11/16 08:45 99 Nasal Cannula 2.00 11/11/16 08:23 96 Nasal Cannula 3.00 11/11/16 08:00 97.9 91 18 104/77 99 11/11/16 07:57 94 11/11/16 04:47 95 Nasal Cannula 3.00 11/11/16 04:00 97.5 83 18 150/66 96 11/11/16 00:00 97.8 90 18 146/70 96 11/10/16 21:04 95 Nasal Cannula 3.00 11/10/16 20:15 Nasal Cannula 2.00 11/10/16 20:00 97.6 94 18 153/69 95 11/10/16 20:00 92 I/O 11/10/16 11/10/16 11/10/16 11/11/16 11/11/16 11/11/16 07:00 15:00 23:00 07:00 15:00 23:00 Intake Total 240 ml 400 ml 240 ml 0 ml 720 ml Output Total 450 ml 800 ml Balance -210 ml -400 ml 240 ml 0 ml 720 ml Intake Oral 240 ml 400 ml 240 ml 0 ml 720 ml IV Total 0 ml 0 ml Output Urine Total 450 ml 800 ml # Voids 2 2 3 # Bowel Movements 0 3 2 1 2 Result Diagram: 11/11/16 0503 11/11/16 0503 Imaging Last Impressions Chest X-Ray 11/11/16 0000 Signed Impressions: Service Date/Time: Friday, November 11, 2016 20:39 - CONCLUSION: The lungs are clear. Osmani Slaughter MD Head Magnetic Resonance Angiography 11/07/16 0000 Signed Impressions: Service Date/Time: Monday, November 07, 2016 11:21 - CONCLUSION: 1. Negative examination. Mahin Pittman MD Brain MRI 11/07/16 0000 Signed Impressions: Service Date/Time: Monday, November 07, 2016 11:21 - CONCLUSION: 1. No acute intracranial abnormality is identified. 2. Mucoperiosteal sinus disease and fluid in the mastoid air cells. Mahin Pittman MD Head CT 11/05/16 1404 Signed Impressions: Service Date/Time: Saturday, November 05, 2016 15:02 - CONCLUSION: 1. No acute infiltrate or abnormality. 2. Paranasal sinusitis. Dru Mancuso MD Objective Remarks GENERAL: Patient lying in bed NAD. SKIN: Warm and dry. HEAD: Normocephalic. EYES: No scleral icterus. No injection or drainage. NECK: Supple, trachea midline. No JVD or lymphadenopathy. CARDIOVASCULAR: Regular rate and rhythm without murmurs, gallops, or rubs. RESPIRATORY: Diffuse bilateral inspiratory and expiratory wheezing. No crackles or rhonchi auscultated. GASTROINTESTINAL: Abdomen soft, non-tender, nondistended. MUSCULOSKELETAL: No cyanosis, or edema. BACK: Nontender without obvious deformity. No CVA tenderness. Urinary Catheter: No Vascular Central Line Catheter: No A/P Problem List: (1) Acute respiratory failure with hypoxia and hypercapnia ICD Code: J96.01 Status: Acute Plan: The patient was intubated and sedated and admitted to the intensive care unit under the care of credit union examiner. Suspect acute hypercapnic respiratory failure is possibly secondary to acute asthma exacerbation. The patient is wheezing bilaterally on exam and she elicits a previous history of asthma. I will start the patient on IV Solu Medrol, Levaquin and dilators. Continue with supplemental oxygen to keep on oxygen saturation more than 92%. (2) Encephalopathy ICD Code: G93.40 Status: Acute Plan: Likely secondary to CO2 narcosis which has improved. Neurology he has been consulted. Patient had several test including RPR which is nonreactive, herpes simplex virus 1 and 2 DNA are negative. Varicella-zoster also with low titers. Lumbar puncture showed normal fluid with trace blood. CSF VDRL Osmani cryptococcus antigen not detected, CSF CMV DNA is negative. ESF GIANNI virus DNA is negative EEG showed slowing consistent with encephalopathy. (3) Seizure disorder ICD Code: G40.909 Status: Acute Plan: Follow-up neurology recommendations. EEG negative. She was taking Depakote at home. Currently not on any anticonvulsants. (4) Obesity ICD Code: E66.9 Status: Acute Plan: Discussed importance of weight loss on health. (5) Paranoid schizophrenia ICD Code: F20.0 Status: Acute Plan: has a history of paranoid schizophrenia. Previously the patient was on Zoloft him a trazodone and haloperidol. Continue haloperidol. (6) Acute asthma exacerbation ICD Code: J45.901 Status: Acute Plan: Patient visits a history of asthma. On exam the patient has bilateral diffuse inspiratory and expiratory wheezing and is coughing. I will start the patient on IV steroids and IV antibiotics as well as bronchodilators. Assessment and Plan GI prophylaxis: PPI. DVT prophylaxis: SCDs, continue heparin subcutaneous. Discharge Planning Continue to monitor the medical floor, patient with asthma exacerbation. Yg Rich MD Nov 11, 2016 19:53
[2016-11-11] MEDS ORDERED: methylPREDNISolone SOD SUCC 125 MG/2 ML VIAL IV PUSH ONE (20:30)
[2016-11-11] MEDS ORDERED: LEVOFLOXACIN 750 MG PREMIX INJ 150 ML IV SCH (21:00)
--- NOTE | 2016-11-11 21:43 | RADRPT ---
EXAM DATE/TIME: 11/11/2016 20:39 [facility] COMPARISON: CHEST SINGLE AP, November 05, 2016, 14:15. INDICATIONS : Cough MEDICAL HISTORY : None. SURGICAL HISTORY : None. ENCOUNTER: Subsequent ACUITY: 1 week PAIN SCORE: 0/10 LOCATION: Bilateral chest FINDINGS: A single view of the chest demonstrates the lungs to be symmetrically aerated without evidence of mas s, infiltrate or effusion. Previously noted opacities in the lateral right chest have resolved. The cardiomediastinal contours are unremarkable. Osseous structures are intact. CONCLUSION: The lungs are clear. Osmani Slaughter MD on November 11, 2016 at 21:40 Board Certified Radiologist. This report was verified electronically.
[2016-11-11] MEDS: methylPREDNISolone SOD SUCC 40 MG/1 ML VIAL IV PUSH SCH (23:16)
[2016-11-12] VITALS (11 sets, daily range): BP systolic 121–158; BP diastolic 59–70; PULSE 93–108; RESP 17–20; TEMP 97.6–98; O2SAT 92–97
[2016-11-12] MEDS: HALOPERIDOL LACTATE 5 MG/ML AMP IV PRN ×3 (02:22→22:42)
[2016-11-12] MEDS: RESP: ALBUTEROL 2.5 MG/IPRATROPIUM 0.5 MG NEB (SCH) INH ×4 (03:35→19:19)
[2016-11-12] MEDS: CHLORHEXIDINE GLUCONATE 2 % 1 PACK (2 CLOTHS) TOP SCH (04:00)
[2016-11-12] MEDS: HEPARIN SODIUM - SQ 10,000 UNITS/ML VIAL SQ SCH ×2 (05:09→17:00)
[2016-11-12] MEDS: methylPREDNISolone SOD SUCC 40 MG/1 ML VIAL IV PUSH SCH ×3 (05:10→22:46)
[2016-11-12] MEDS: INSULIN NovoLIN REGULAR SUPPLEMENTAL SCALE SQ SCH ×4 (05:16→23:04)
[2016-11-12 07:57] LABS: HEMATOCRIT 30.4 % (35.0-46.0); MEAN CELL VOLUME 86.5 FL (80.0-100.0); MEAN CORPUSCULAR HEMOGLOBIN 29.8 PG (27.0-34.0); MEAN CORPUSCULAR HGB CONC 34.4 % (32.0-36.0); PLATELET COUNT 229 TH/MM3 (150-450); RED BLOOD COUNT 3.52 MIL/MM3 (4.00-5.30); REVIEW FLAG FINAL; WHITE BLOOD COUNT 3.8 TH/MM3 (4.0-11.0)
[2016-11-12 08:24] LABS: BICARBONATE 28.2 MEQ/L (21.0-32.0)
--- NOTE | 2016-11-12 08:41 | PD.PN.STU ---
Subjective Remarks Patient stated this morning that she is feeling better. Her only complaint is difficulty sleeping. She denies chest pain, SOB, abdominal pain, urinary symptoms. Had a BM yesterday. When asked about her reason for hospitalization she told me she did not want to discuss it with me. Objective Vitals Vital Signs Date Time Temp Pulse Resp B/P Pulse Ox O2 Delivery O2 Flow Rate FiO2 11/12/16 04:00 97.8 102 20 154/67 93 11/12/16 03:36 93 Nasal Cannula 3.00 11/12/16 00:00 97.6 93 18 158/66 94 11/12/16 00:00 Nasal Cannula 2.00 11/11/16 20:00 85 11/11/16 20:00 98.2 88 20 154/65 95 11/11/16 19:30 Nasal Cannula 2.00 11/11/16 16:06 97.9 91 18 134/74 96 11/11/16 15:14 95 Nasal Cannula 3.00 11/11/16 12:01 98.1 97 18 136/62 98 11/11/16 08:45 99 Nasal Cannula 2.00 I/O 11/11/16 11/11/16 11/11/16 11/12/16 11/12/16 11/12/16 07:00 15:00 23:00 07:00 15:00 23:00 Intake Total 0 ml 720 ml 240 ml 100 ml Output Total 600 ml 675 ml Balance 0 ml 720 ml -360 ml -575 ml Intake Oral 0 ml 720 ml 240 ml 100 ml Output Urine Total 600 ml 675 ml # Voids 2 3 # Bowel Movements 1 2 0 0 Result Diagram: 11/12/1627 11/12/16726 Objective Remarks General: patient is alert and able to maintain eye contact and a pleasant conversation. She is in no acute distress. Cardio: Normal S1/S2, no murmurs, rubs or gallops. Peripheral pulses 2+. No peripheral edema. No JVD. Pulmonology: Clear to auscultation bilaterally. Abdominal: Nondistended. + BS. No organomegaly. Neurological: patient is alert and oriented. CN1-12 intact. Follows commands. No focal deficits. A/P Assessment and Plan 1. Acute hypoxic and hypercarbic respiratory failure- resolved 2. Encephalopathy.- persistent but slowly improving. 3. Questionable seizure disorder - Neuro is following - EEG negative - Urine was positive for Benzos, negative for other toxicology -MRI/MRA negative for acute disease - LP negative for infection 4. History of depression/bipolar disorder. 5. Elevated CK.-resolved. 6. severe constipation- resolved, BM yesterday. Mora Clemente M3 Nov 12, 2016 08:41 Neuro: off all sedation. CT brain negative for acute intracranial abnormalities. Neuro consulted. EEG negative for seizure. Depakote level: 76 UDS: + benzos MRI/MRA negative for acute disease LP 11/07- not c/w infectious etiology. neuro: Will Pulm: Continue to wean o2 by NC for goal spo2 > 90% nebs prn OOB to chair aggressive pulm toilet PT/OT. CV: Monitor HR and BP, maintain MAP >65mmHg. Lactic acid measured at 1.0. : Monitor renal function, Is and Os and electrolyte replacement per protocol. SLIVF. GI: d/c ppi. pepcid po q12h., advance diet per nutrition recs. daily BMs. continue aggressive regimen given recent constipation. ID: Monitor for signs of infections( fever and WBC). panculture if spikes a fever. Chest x-ray post intubation negative for acute findings. Mora Clemente M3 Nov 12, 2016 08:41
[2016-11-12] MEDS: LACTULOSE SYRUP 20 GM/30 ML CUP PO SCH ×2 (09:00→20:10)
[2016-11-12] MEDS: HALOPERIDOL 2 MG TAB PO SCH (09:00)
[2016-11-12] MEDS: DOCUSATE SODIUM 50 MG/SENNA 8.6 MG TAB PO SCH ×2 (09:00→20:12)
[2016-11-12] MEDS: POLYETHYLENE GLYCOL 17 GM PKG PO SCH ×2 (09:00→20:11)
[2016-11-12] MEDS: FAMOTIDINE 20 MG TAB PO SCH ×2 (10:13→20:11)
[2016-11-12] MEDS: SERTRALINE HCL 50 MG TAB PO SCH (10:14)
[2016-11-12] MEDS: THIAMINE HCL 100 MG TAB PO SCH (10:14)
--- NOTE | 2016-11-12 14:08 | HHI.PR ---
Objective Vitals Vital Signs Date Time Temp Pulse Resp B/P Pulse Ox O2 Delivery O2 Flow Rate FiO2 11/12/16 12:00 97.8 100 18 150/68 94 11/12/16 09:55 94 Nasal Cannula 2.00 11/12/16 08:00 97.6 103 18 152/70 92 11/12/16 07:15 Nasal Cannula 2.00 35 11/12/16 04:00 97.8 102 20 154/67 93 11/12/16 03:36 93 Nasal Cannula 3.00 11/12/16 00:00 97.6 93 18 158/66 94 11/12/16 00:00 Nasal Cannula 2.00 11/11/16 20:00 85 11/11/16 20:00 98.2 88 20 154/65 95 11/11/16 19:30 Nasal Cannula 2.00 11/11/16 16:06 97.9 91 18 134/74 96 11/11/16 15:14 95 Nasal Cannula 3.00 I/O 11/11/16 11/11/16 11/11/16 11/12/16 11/12/16 11/12/16 07:00 15:00 23:00 07:00 15:00 23:00 Intake Total 0 ml 720 ml 240 ml 100 ml Output Total 600 ml 675 ml Balance 0 ml 720 ml -360 ml -575 ml Intake Oral 0 ml 720 ml 240 ml 100 ml Output Urine Total 600 ml 675 ml # Voids 2 3 # Bowel Movements 1 2 0 0 Result Diagram: 11/12/1627 11/12/16726 Objective Remarks GENERAL: Patient lying in bed NAD. SKIN: Warm and dry. HEAD: Normocephalic. EYES: No scleral icterus. No injection or drainage. NECK: Supple, trachea midline. No JVD or lymphadenopathy. CARDIOVASCULAR: Regular rate and rhythm without murmurs, gallops, or rubs. RESPIRATORY: Diffuse bilateral inspiratory and expiratory wheezing. No crackles or rhonchi auscultated. GASTROINTESTINAL: Abdomen soft, non-tender, nondistended. MUSCULOSKELETAL: No cyanosis, or edema. BACK: Nontender without obvious deformity. No CVA tenderness. A/P Problem List: (1) Acute respiratory failure with hypoxia and hypercapnia ICD Code: J96.01 Status: Acute (2) Encephalopathy ICD Code: G93.40 Status: Acute (3) Seizure disorder ICD Code: G40.909 Status: Acute (4) Obesity ICD Code: E66.9 Status: Acute (5) Paranoid schizophrenia ICD Code: F20.0 Status: Acute (6) Acute asthma exacerbation ICD Code: J45.901 Status: Acute Assessment and Plan GI prophylaxis: PPI. DVT prophylaxis: SCDs, continue heparin subcutaneous. Discharge Planning Continue to monitor the medical floor, patient with asthma exacerbation. Yg Rich MD Nov 12, 2016 14:08
--- NOTE | 2016-11-12 14:36 | HHI.PR ---
Subjective Remarks Slightly tachycardic Short of breath much improved, cough improving Denies chest pain Denies fevers or chills BP elevated with systolic blood pressure at to the high 150s. Objective Vitals Vital Signs Date Time Temp Pulse Resp B/P Pulse Ox O2 Delivery O2 Flow Rate FiO2 11/12/16 12:00 97.8 100 18 150/68 94 11/12/16 09:55 94 Nasal Cannula 2.00 11/12/16 08:00 97.6 103 18 152/70 92 11/12/16 07:15 Nasal Cannula 2.00 35 11/12/16 04:00 97.8 102 20 154/67 93 11/12/16 03:36 93 Nasal Cannula 3.00 11/12/16 00:00 97.6 93 18 158/66 94 11/12/16 00:00 Nasal Cannula 2.00 11/11/16 20:00 85 11/11/16 20:00 98.2 88 20 154/65 95 11/11/16 19:30 Nasal Cannula 2.00 11/11/16 16:06 97.9 91 18 134/74 96 11/11/16 15:14 95 Nasal Cannula 3.00 I/O 11/11/16 11/11/16 11/11/16 11/12/16 11/12/16 11/12/16 07:00 15:00 23:00 07:00 15:00 23:00 Intake Total 0 ml 720 ml 240 ml 100 ml Output Total 600 ml 675 ml Balance 0 ml 720 ml -360 ml -575 ml Intake Oral 0 ml 720 ml 240 ml 100 ml Output Urine Total 600 ml 675 ml # Voids 2 3 # Bowel Movements 1 2 0 0 Result Diagram: 11/12/16 0727 11/12/16726 Imaging Last Impressions Chest X-Ray 11/11/16 0000 Signed Impressions: Service Date/Time: Friday, November 11, 2016 20:39 - CONCLUSION: The lungs are clear. Osmani Slaughter MD Head Magnetic Resonance Angiography 11/07/16 0000 Signed Impressions: Service Date/Time: Monday, November 07, 2016 11:21 - CONCLUSION: 1. Negative examination. Mahin Pittman MD Brain MRI 11/07/16 0000 Signed Impressions: Service Date/Time: Monday, November 07, 2016 11:21 - CONCLUSION: 1. No acute intracranial abnormality is identified. 2. Mucoperiosteal sinus disease and fluid in the mastoid air cells. Mahin Pittman MD Head CT 11/05/16 1406 Signed Impressions: Service Date/Time: Saturday, November 05, 2016 15:02 - CONCLUSION: 1. No acute infiltrate or abnormality. 2. Paranasal sinusitis. Dru Mancuso MD Objective Remarks GENERAL: Patient lying in bed NAD. SKIN: Warm and dry. HEAD: Normocephalic. EYES: No scleral icterus. No injection or drainage. NECK: Supple, trachea midline. No JVD or lymphadenopathy. CARDIOVASCULAR: Regular rate and rhythm without murmurs, gallops, or rubs. RESPIRATORY: Diffuse bilateral inspiratory and expiratory wheezing. No crackles or rhonchi auscultated. GASTROINTESTINAL: Abdomen soft, non-tender, nondistended. MUSCULOSKELETAL: No cyanosis, or edema. BACK: Nontender without obvious deformity. No CVA tenderness. Medications and IVs Current Medications Medications (Trade) Dose Ordered Sig/Michael Route Start Time Stop Time Status Last Admin (NS Flush) 2 ml UNSCH PRN IV FLUSH 11/05/16 14:15 (Heparin Inj) 5,000 units Q12H SQ 11/05/16 17:00 11/12/16 05:09 Miscellaneous Information 1 Q361D XX 11/05/16 16:15 (Chlorhexidine 2% Cloth) Taper DAILY@04 TOP 11/06/16 04:00 11/02/17 03:59 11/10/16 04:00 (Chlorhexidine 2% Cloth) 3 pack UNSCH PRN TOP 11/05/16 16:15 (Mya-Colace) 1 tab BID PO 11/05/16 21:00 11/11/16 21:21 (Milk Of Magnesia Liq) 30 ml Q12H PRN PO 11/05/16 16:15 (Senokot) 17.2 mg Q12H PRN PO 11/05/16 16:15 11/07/16 07:38 (Dulcolax Supp) 10 mg DAILY PRN RECTAL 11/05/16 16:15 (D50w (Vial) Inj) 50 ml UNSCH PRN IV 11/05/16 16:15 (Glucagon Inj) 1 mg UNSCH PRN OTHER 11/05/16 16:15 (NovoLIN R SUPPLEMENTAL SCALE) 1 Q6HR SQ 11/05/16 18:00 11/12/16 12:00 (Lactulose Liq) 30 ml BID PO 11/06/16 12:00 11/11/16 21:18 (Miralax) 17 gm BID PO 11/08/16 09:00 11/11/16 21:22 (Haldol) 2 mg DAILY PO 11/09/16 11:00 11/12/16 09:00 (Zoloft) 50 mg DAILY PO 11/09/16 11:00 11/12/16 10:14 (Vitamin B1) 100 mg DAILY PO 11/10/16 09:00 11/12/16 10:14 (Pepcid) 20 mg BID PO 11/09/16 21:00 11/12/16 10:13 Haloperidol Lactate 5 mg 5 mg Q4H PRN IV 11/09/16 16:45 11/12/16 13:21 Ceftriaxone Sodium 2000 mg/ Sodium Chloride 100 ml @ 200 mls/hr Q24H IV 11/12/16 16:00 (Zithromax Inj/ NS 250 ml Inj) 250 ml @ 250 mls/hr Q24H IV 11/12/16 15:00 11/12/16 16:19 (SoluMEDROL INJ) 40 mg Q12H IV PUSH 11/13/16 00:00 Urinary Catheter: No Vascular Central Line Catheter: No A/P Problem List: (1) Acute respiratory failure with hypoxia and hypercapnia ICD Code: J96.01 Status: Acute Plan: The patient was intubated and sedated and admitted to the intensive care unit under the care of outboard motors experimental mechanic. Suspect acute hypercapnic respiratory failure is possibly secondary to acute asthma exacerbation. The patient is wheezing bilaterally on exam and she elicits a previous history of asthma. Cough and breathing status much improved, continue IV Solu Medrol, Levaquin and dilators. Continue with supplemental oxygen to keep on oxygen saturation more than 92%. Taper Solu Medrol to 40 minutes IV every 12 hours. (2) Encephalopathy ICD Code: G93.40 Status: Acute Plan: Likely secondary to CO2 narcosis which has improved. Neurology he has been consulted. Patient had several test including RPR which is nonreactive, herpes simplex virus 1 and 2 DNA are negative. Varicella-zoster also with low titers. Lumbar puncture showed normal fluid with trace blood. CSF VDRL Osmani cryptococcus antigen not detected, CSF CMV DNA is negative. ESF GIANNI virus DNA is negative EEG showed slowing consistent with encephalopathy. (3) Seizure disorder ICD Code: G40.909 Status: Acute Plan: Patient has a questionable history of seizures Follow-up neurology recommendations. EEG negative. She was taking Depakote at home. Currently not on any anticonvulsants. If seizures are considered then will discontinue Levaquin and start on a different type of antibiotics. (4) Obesity ICD Code: E66.9 Status: Acute Plan: Discussed importance of weight loss on health. (5) Paranoid schizophrenia ICD Code: F20.0 Status: Acute Plan: Patient states that she does not have peritonitis schizophrenia. The patient has been diagnosed on her discharge on last admission by Dr. Mackay. Patient states that she has major depression with psychotic features. Patient history of major depression and paranoid schizophrenia. Previously the patient was on Zoloft him a trazodone and haloperidol. Continue haloperidol. (6) Acute asthma exacerbation ICD Code: J45.901 Status: Acute Plan: Patient states she has history of asthma, denies ever smoking. On exam the patient has bilateral expiratory wheezing. has been started on IV steroids and IV antibiotics as well as bronchodilators as above with very good response. Will give short course of IV Solu-Medrol and then taper Solu-Medrol to oral prednisone. Assessment and Plan GI prophylaxis: PPI. DVT prophylaxis: SCDs, continue heparin subcutaneous. Discharge Planning Discharge pending clinical improvement of exacerbation and neurology clearance. Problem Qualifiers (1) Acute asthma exacerbation: Qualified Code: J45.901 - Asthma with acute exacerbation, unspecified asthma severity Yg Rich MD Nov 12, 2016 14:36
[2016-11-12] MEDS: cefTRIAXone INJ 2,000 MG in SODIUM CHLORIDE 0.9% INJ 100 ML IV SCH (16:00)
[2016-11-12] MEDS: AZITHROMYCIN INJ 500 MG in SODIUM CHLOR 0.9% 250 ML INJ 250 ML IV SCH (16:19)
[2016-11-12 17:15] LABS: HEMOGLOBIN A1a 0.7 %; HEMOGLOBIN A1b 1.6 %; HEMOGLOBIN LA1C 2.4 %; HEMOGLOBIN P3 3.9 %
[2016-11-12 19:53] LABS: CALIFORNIA ENCEPH AB IGG <1:4 (()); CALIFORNIA ENCEPH AB IGM <1:4 (()); EAST EQUINE ENCEPH AB IGG <1:4 (()); EAST EQUINE ENCEPH AB IGM <1:4 (()); ST LOUIS ENCEPH AB IGG <1:4 (()); ST LOUIS ENCEPH AB IGM <1:4 (())
[2016-11-12] MEDS: traZODone HCL 50 MG TAB PO SCH (20:12)
[2016-11-12] MEDS: lamoTRIgine 25 MG TAB PO SCH (20:12)
[2016-11-13] VITALS (10 sets, daily range): BP systolic 111–154; BP diastolic 58–83; PULSE 68–89; RESP 18–20; TEMP 97.2–98.2; O2SAT 93–98
[2016-11-13] MEDS: HALOPERIDOL LACTATE 5 MG/ML AMP IV PRN (03:12)
[2016-11-13] MEDS: RESP: ALBUTEROL 2.5 MG/IPRATROPIUM 0.5 MG NEB (SCH) INH ×4 (03:48→21:19)
[2016-11-13] MEDS: CHLORHEXIDINE GLUCONATE 2 % 1 PACK (2 CLOTHS) TOP SCH (04:00)
[2016-11-13] MEDS: HEPARIN SODIUM - SQ 10,000 UNITS/ML VIAL SQ SCH ×2 (05:00→17:20)
[2016-11-13] MEDS: INSULIN NovoLIN REGULAR SUPPLEMENTAL SCALE SQ SCH ×4 (05:00→23:57)
[2016-11-13 06:01] LABS: AUTOMATED NEUTROPHIL # 5.3 TH/MM3 (1.8-7.7); BASOPHIL % 0.1 % (0.0-2.0); HEMATOCRIT 31.1 % (35.0-46.0); HEMO FLAGS DIFF FINAL; LYMPH % 7.5 % (9.0-44.0); LYMPHOCYTE # 0.5 TH/MM3 (1.0-4.8); MEAN CELL VOLUME 87.7 FL (80.0-100.0); NEUT % 88.4 % (16.0-70.0); PLATELET COUNT 264 TH/MM3 (150-450); RED BLOOD COUNT 3.54 MIL/MM3 (4.00-5.30); RED CELL DISTRIBUTION WIDTH 14.4 % (11.6-17.2)
[2016-11-13 06:24] LABS: ALT (GPT) 83 U/L (10-53); ANION GAP 8 MEQ/L (5-15); AST (GOT) 47 U/L (15-37); BICARBONATE 28.3 MEQ/L (21.0-32.0); BLOOD UREA NITROGEN 19 MG/DL (7-18); CHLORIDE 106 MEQ/L (98-107); GLOMERULAR FILTRATION RATE 84 ML/MIN (>89); MAGNESIUM 2.4 MG/DL (1.5-2.5); POTASSIUM 4.2 MEQ/L (3.5-5.1); SODIUM (NA) 142 MEQ/L (136-145)
[2016-11-13 06:30] LABS: ALKALINE PHOSPHATASE 68 U/L (45-117); TOTAL BILIRUBIN ADULT 0.3 MG/DL (0.2-1.0)
--- NOTE | 2016-11-13 08:32 | HHI.PR ---
Review/Management Diagnosis/Plan: (1) Encephalopathy Plan: progressive cognitive decline with recent recurrent coma episodes hyperammonemia possible but symptoms preceding addition of depakote etiology: metabolic/ autoimmune/ spongiform encephalopathy eeg- no active sz csf-no evidence of infection thus far neuro improved recs doing much better eeg today lamictal instead of depakote; for bipolar and possible sz. s/b d/w pt including rash consider outpatient ct/pet brain scan csf labs pending- protein 14-3-3 rehab planning outpatient f/u d/w pt and daughter yesterday on phone (2) Respiratory failure Plan: resolved (3) Bipolar 1 disorder Subjective Subjective Comments No acute events reported No headache No chest pain No dyspnea Active Medications Current Medications Medications (Trade) Dose Ordered Sig/Michael Route Start Time Stop Time Status Last Admin (NS Flush) 2 ml UNSCH PRN IV FLUSH 11/05/16 14:15 (Heparin Inj) 5,000 units Q12H SQ 11/05/16 17:00 11/13/16 05:00 Miscellaneous Information 1 Q361D XX 11/05/16 16:15 (Chlorhexidine 2% Cloth) Taper DAILY@04 TOP 11/06/16 04:00 11/02/17 03:59 11/10/16 04:00 (Chlorhexidine 2% Cloth) 3 pack UNSCH PRN TOP 11/05/16 16:15 (Mya-Colace) 1 tab BID PO 11/05/16 21:00 11/12/16 20:12 (Milk Of Magnesia Liq) 30 ml Q12H PRN PO 11/05/16 16:15 (Senokot) 17.2 mg Q12H PRN PO 11/05/16 16:15 11/07/16 07:38 (Dulcolax Supp) 10 mg DAILY PRN RECTAL 11/05/16 16:15 (D50w (Vial) Inj) 50 ml UNSCH PRN IV 11/05/16 16:15 (Glucagon Inj) 1 mg UNSCH PRN OTHER 11/05/16 16:15 (NovoLIN R SUPPLEMENTAL SCALE) 1 Q6HR SQ 11/05/16 18:00 11/12/16 12:00 (Lactulose Liq) 30 ml BID PO 11/06/16 12:00 11/12/16 20:10 (Miralax) 17 gm BID PO 11/08/16 09:00 11/12/16 20:11 (Haldol) 2 mg DAILY PO 11/09/16 11:00 11/12/16 09:00 (Zoloft) 50 mg DAILY PO 11/09/16 11:00 11/12/16 10:14 (Vitamin B1) 100 mg DAILY PO 11/10/16 09:00 11/12/16 10:14 (Pepcid) 20 mg BID PO 11/09/16 21:00 11/12/16 20:11 Haloperidol Lactate 5 mg 5 mg Q4H PRN IV 11/09/16 16:45 11/13/16 03:12 Ceftriaxone Sodium 2000 mg/ Sodium Chloride 100 ml @ 200 mls/hr Q24H IV 11/12/16 16:00 11/12/16 16:00 (Zithromax Inj/ NS 250 ml Inj) 250 ml @ 250 mls/hr Q24H IV 11/12/16 15:00 11/12/16 16:19 (SoluMEDROL INJ) 40 mg Q12H IV PUSH 11/13/16 00:00 11/12/16 22:46 (Desyrel) 150 mg HS PO 11/12/16 21:00 11/12/16 20:12 (LaMICtal) 25 mg BID PO 11/12/16 21:00 11/12/16 20:12 Allergies Allergies Coded Allergies No Known Allergies (Unverified11/07/16) Review of Systems All other ROS: ROS reviewed as documented in chart Exam I&O / VS 11/12/16 11/12/16 11/13/16 15:00 23:00 07:00 Intake Total 360 ml 240 ml 240 ml Output Total 550 ml Balance 360 ml 240 ml -310 ml Intake Oral 360 ml 240 ml 240 ml Output Urine Total 550 ml # Voids 5 2 # Bowel Movements 2 0 0 Vital Signs Date Time Temp Pulse Resp B/P Pulse Ox O2 Delivery O2 Flow Rate FiO2 11/13/16 04:00 97.7 89 20 141/67 95 11/13/16 00:00 98.1 84 20 142/65 95 11/12/16 20:32 104 11/12/16 20:00 97.8 98 18 121/59 97 11/12/16 19:30 Nasal Cannula 2.00 11/12/16 16:00 98.0 108 17 145/69 95 11/12/16 15:25 97 Nasal Cannula 2.00 11/12/16 12:00 97.8 100 18 150/68 94 11/12/16 09:55 94 Nasal Cannula 2.00 General: No acute distress Respiratory: Non-labored respirations Neurologic: Alert, Oriented, Normal sensory, Normal motor, No focal defects, CN II-XII intact, Gag reflex normal, Normal DTR's Psychiatric: Cooperative, Appropriate mood & affect, Normal judgement, Non- suicidal Exam Comments msr depressed, no clonus, planter flexor Objective Micro and Labs Laboratory Tests Test 11/13/16 05:29 White Blood Count 6.0 Red Blood Count 3.54 Hemoglobin 10.3 Hematocrit 31.1 Mean Corpuscular Volume 87.7 Mean Corpuscular Hemoglobin 29.0 Mean Corpuscular Hemoglobin 33.0 Concent Red Cell Distribution Width 14.4 Platelet Count 264 Mean Platelet Volume 7.8 Neutrophils (%) (Auto) 88.4 Lymphocytes (%) (Auto) 7.5 Monocytes (%) (Auto) 4.0 Eosinophils (%) (Auto) 0.0 Basophils (%) (Auto) 0.1 Neutrophils # (Auto) 5.3 Lymphocytes # (Auto) 0.5 Monocytes # (Auto) 0.2 Eosinophils # (Auto) 0.0 Basophils # (Auto) 0.0 CBC Comment DIFF FINAL Differential Comment Sodium Level 142 Potassium Level 4.2 Chloride Level 106 Carbon Dioxide Level 28.3 Anion Gap 8 Blood Urea Nitrogen 19 Creatinine 0.70 Estimat Glomerular Filtration 84 Rate Random Glucose 132 Calcium Level 9.1 Phosphorus Level 4.2 Magnesium Level 2.4 Total Bilirubin 0.3 Aspartate Amino Transf 47 (AST/SGOT) Alanine Aminotransferase 83 (ALT/SGPT) Alkaline Phosphatase 68 Total Protein 6.7 Albumin 2.8 Problem Qualifiers (1) Respiratory failure: Qualified Code: J96.90 - Respiratory failure, unspecified chronicity, unspecified whether with hypoxia or hypercapnia John Walker MD Nov 13, 2016 08:32
[2016-11-13] MEDS: HALOPERIDOL 2 MG TAB PO SCH (09:56)
[2016-11-13] MEDS: LACTULOSE SYRUP 20 GM/30 ML CUP PO SCH ×2 (09:56→20:29)
[2016-11-13] MEDS: POLYETHYLENE GLYCOL 17 GM PKG PO SCH ×2 (09:56→20:29)
[2016-11-13] MEDS: DOCUSATE SODIUM 50 MG/SENNA 8.6 MG TAB PO SCH ×2 (09:57→20:31)
[2016-11-13] MEDS: FAMOTIDINE 20 MG TAB PO SCH ×2 (09:57→20:31)
[2016-11-13] MEDS: SERTRALINE HCL 50 MG TAB PO SCH (09:57)
[2016-11-13] MEDS: THIAMINE HCL 100 MG TAB PO SCH (09:57)
[2016-11-13] MEDS: lamoTRIgine 25 MG TAB PO SCH ×2 (09:57→20:31)
--- NOTE | 2016-11-13 10:43 | PD.PN.STU ---
Subjective Remarks Patient doing well. Complaining of right shoulder weakness. It is difficult for her to lift her arm above her head. Eventually she can lift it completely above her head but she struggles. She says it just feels weak. Denies pain, numbness/ tingling in fingertips. No hx of trauma to shoulder or neck. States she has felt this weakness since she arrived. She sleeps on her right side. Denies chest pain, SOB, N/V, urinary symptoms. She has a good appetite. Objective Vitals Vital Signs Date Time Temp Pulse Resp B/P Pulse Ox O2 Delivery O2 Flow Rate FiO2 11/13/16 08:32 96 Nasal Cannula 2.00 11/13/16 08:00 97.8 77 20 135/59 96 11/13/16 04:00 97.7 89 20 141/67 95 11/13/16 00:00 98.1 84 20 142/65 95 11/12/16 20:32 104 11/12/16 20:00 97.8 98 18 121/59 97 11/12/16 19:30 Nasal Cannula 2.00 11/12/16 16:00 98.0 108 17 145/69 95 11/12/16 15:25 97 Nasal Cannula 2.00 11/12/16 12:00 97.8 100 18 150/68 94 I/O 11/12/16 11/12/16 11/12/16 11/13/16 11/13/16 11/13/16 07:00 15:00 23:00 07:00 15:00 23:00 Intake Total 100 ml 360 ml 240 ml 240 ml Output Total 675 ml 550 ml Balance -575 ml 360 ml 240 ml -310 ml Intake Oral 100 ml 360 ml 240 ml 240 ml Output Urine Total 675 ml 550 ml # Voids 5 2 # Bowel Movements 0 2 0 0 Result Diagram: 11/13/16 0529 11/13/1629 A/P Assessment and Plan 1. Acute hypoxic and hypercarbic respiratory failure- resolved 2. Encephalopathy.- persistent but slowly improving. 3. Questionable seizure disorder - Neuro is following, started on Lamotrigine. - EEG negative, repeat EEG pending. - Urine was positive for Benzos, negative for other toxicology -MRI/MRA negative for acute disease - LP negative for infection 4. History of depression/bipolar disorder. 5. Acute asthma exacerbation: resolved. No wheezing, cough or SOB. - stopped IV steroids and levaquin 6. Ready for DC to rehab. Mora Clemente M3 Nov 13, 2016 10:43
[2016-11-13] MEDS: methylPREDNISolone SOD SUCC 40 MG/1 ML VIAL IV PUSH SCH ×2 (11:48→23:58)
--- NOTE | 2016-11-13 14:24 | MG ---
cc: RAFITA SMITH MD, DALIA M.D. Lab No: [id number] Date: 11/13/2016 Age: 66 Sex: F Awake, drowsy with photic stimulation. EEG showing moderate encephalopathy. This is a repeat study. MRI negative. Found unresponsive, agonal respirations, respiratory failure history of COPD, seizures, apnea and breast cancer. MEDICATIONS Medicines currently are Solu-Medrol, Vistaril, Lamictal, ceftriaxone, azithromycin, thiamine, Haldol, Zoloft, heparin. DESCRIPTION OF RECORD This is more reactive EEG with the background rhythm of 8 Hz, 20-60 microvolts. Some phase reversal seen centrally. EKG does look sinus. Some high amplitude waves are noted as well, possibly sharps. As stated there was phase reversal centrally but also over the left central parietal occipital region. Towards epoch 41 there are some sharp waves bilaterally. Again at epoch 60 there are some sharps and phase reversals. Photic stimulation does show a driving response. IMPRESSION Abnormal EEG due to phase reversals and sharp waves. Activity seen consistent with probable seizure focus and/or seizure activity in this patient. Clinical correlation. Antiepileptics if not started should be considered with a repeat study. Freya Greco MD DF/BT /1:59 PM /2:17 PM
[2016-11-13] MEDS: AZITHROMYCIN INJ 500 MG in SODIUM CHLOR 0.9% 250 ML INJ 250 ML IV SCH (15:26)
[2016-11-13] MEDS: PHENYTOIN SODIUM 100 MG CAP PO SCH ×2 (17:14→23:54)
[2016-11-13] MEDS: cefTRIAXone INJ 2,000 MG in SODIUM CHLORIDE 0.9% INJ 100 ML IV SCH (17:15)
[2016-11-13] MEDS: traZODone HCL 50 MG TAB PO SCH (20:31)
--- NOTE | 2016-11-13 21:40 | HHI.PR ---
Subjective Remarks Deferred entry - patient seen at 4: 30 PM sob much improved awake and alert denies cp denies cough, fevers, chills Vital signs stable Objective Vitals Vital Signs Date Time Temp Pulse Resp B/P Pulse Ox O2 Delivery O2 Flow Rate FiO2 11/13/16 20:00 97.9 82 18 111/83 95 11/13/16 19:45 Nasal Cannula 2.00 11/13/16 16:04 98 Nasal Cannula 2.00 11/13/16 16:00 97.2 87 20 125/58 93 11/13/16 12:00 98.2 78 20 154/79 95 11/13/16 08:32 96 Nasal Cannula 2.00 11/13/16 08:05 68 11/13/16 08:00 97.8 77 20 135/59 96 11/13/16 07:15 Nasal Cannula 2.00 11/13/16 04:00 97.7 89 20 141/67 95 11/13/16 00:00 98.1 84 20 142/65 95 I/O 11/12/16 11/12/16 11/12/16 11/13/16 11/13/16 11/13/16 07:00 15:00 23:00 07:00 15:00 23:00 Intake Total 100 ml 360 ml 240 ml 240 ml 480 ml Output Total 675 ml 550 ml Balance -575 ml 360 ml 240 ml -310 ml 480 ml Intake Oral 100 ml 360 ml 240 ml 240 ml 480 ml Output Urine Total 675 ml 550 ml # Voids 5 2 2 # Bowel Movements 0 2 0 0 1 Result Diagram: 11/13/16 0529 11/13/16 0529 Imaging Last Impressions Chest X-Ray 11/11/16 0000 Signed Impressions: Service Date/Time: Friday, November 11, 2016 20:39 - CONCLUSION: The lungs are clear. Osmani Slaughter MD Head Magnetic Resonance Angiography 11/07/16 0000 Signed Impressions: Service Date/Time: Monday, November 07, 2016 11:21 - CONCLUSION: 1. Negative examination. Mahin Pittman MD Brain MRI 11/07/16 0000 Signed Impressions: Service Date/Time: Monday, November 07, 2016 11:21 - CONCLUSION: 1. No acute intracranial abnormality is identified. 2. Mucoperiosteal sinus disease and fluid in the mastoid air cells. Mahin Pittman MD Head CT 11/05/16 5830 Signed Impressions: Service Date/Time: Saturday, November 05, 2016 15:02 - CONCLUSION: 1. No acute infiltrate or abnormality. 2. Paranasal sinusitis. Dru Mancuso MD Objective Remarks GENERAL: Patient lying in bed NAD. SKIN: Warm and dry. HEAD: Normocephalic. EYES: No scleral icterus. No injection or drainage. NECK: Supple, trachea midline. No JVD or lymphadenopathy. CARDIOVASCULAR: Regular rate and rhythm without murmurs, gallops, or rubs. RESPIRATORY: DDecreased air entry bilaterally. No crackles or rhonchi auscultated. GASTROINTESTINAL: Abdomen soft, non-tender, nondistended. MUSCULOSKELETAL: No cyanosis, or edema. BACK: Nontender without obvious deformity. No CVA tenderness. Procedures none Medications and IVs Current Medications Medications (Trade) Dose Ordered Sig/Michael Route Start Time Stop Time Status Last Admin (NS Flush) 2 ml UNSCH PRN IV FLUSH 11/05/16 14:15 (Heparin Inj) 5,000 units Q12H SQ 11/05/16 17:00 11/13/16 17:20 Miscellaneous Information 1 Q361D XX 11/05/16 16:15 (Chlorhexidine 2% Cloth) Taper DAILY@04 TOP 11/06/16 04:00 11/02/17 03:59 11/10/16 04:00 (Chlorhexidine 2% Cloth) 3 pack UNSCH PRN TOP 11/05/16 16:15 (Mya-Colace) 1 tab BID PO 11/05/16 21:00 11/13/16 20:31 (Milk Of Magnesia Liq) 30 ml Q12H PRN PO 11/05/16 16:15 (Senokot) 17.2 mg Q12H PRN PO 11/05/16 16:15 11/07/16 07:38 (Dulcolax Supp) 10 mg DAILY PRN RECTAL 11/05/16 16:15 (D50w (Vial) Inj) 50 ml UNSCH PRN IV 11/05/16 16:15 (Glucagon Inj) 1 mg UNSCH PRN OTHER 11/05/16 16:15 (NovoLIN R SUPPLEMENTAL SCALE) 1 Q6HR SQ 11/05/16 18:00 11/12/16 12:00 (Lactulose Liq) 30 ml BID PO 11/06/16 12:00 11/13/16 20:29 (Miralax) 17 gm BID PO 11/08/16 09:00 11/13/16 20:29 (Haldol) 2 mg DAILY PO 11/09/16 11:00 11/13/16 09:56 (Zoloft) 50 mg DAILY PO 11/09/16 11:00 11/13/16 09:57 (Vitamin B1) 100 mg DAILY PO 11/10/16 09:00 11/13/16 09:57 (Pepcid) 20 mg BID PO 11/09/16 21:00 11/13/16 20:31 Haloperidol Lactate 5 mg 5 mg Q4H PRN IV 11/09/16 16:45 11/13/16 03:12 Ceftriaxone Sodium 2000 mg/ Sodium Chloride 100 ml @ 200 mls/hr Q24H IV 11/12/16 16:00 11/13/16 17:15 (Zithromax Inj/ NS 250 ml Inj) 250 ml @ 250 mls/hr Q24H IV 11/12/16 15:00 11/13/16 15:26 (SoluMEDROL INJ) 40 mg Q12H IV PUSH 11/13/16 00:00 11/13/16 11:48 (Desyrel) 150 mg HS PO 11/12/16 21:00 11/13/16 20:31 (LaMICtal) 25 mg BID PO 11/12/16 21:00 11/13/16 20:31 (Dilantin) 100 mg Q8H PO 11/13/16 15:00 11/13/16 17:14 Urinary Catheter: No Vascular Central Line Catheter: No A/P Problem List: (1) Acute respiratory failure with hypoxia and hypercapnia ICD Code: J96.01 Status: Acute (2) Encephalopathy ICD Code: G93.40 Status: Acute (3) Seizure disorder ICD Code: G40.909 Status: Acute (4) Obesity ICD Code: E66.9 Status: Acute (5) Paranoid schizophrenia ICD Code: F20.0 Status: Acute (6) Acute asthma exacerbation ICD Code: J45.901 Status: Acute Assessment and Plan (1) Acute respiratory failure with hypoxia and hypercapnia Plan: The patient was intubated and sedated and admitted to the intensive care unit under the care of call or contact centre manager. Suspect acute hypercapnic respiratory failure is possibly secondary to acute asthma exacerbation. The patient is wheezing bilaterally on exam and she elicits a previous history of asthma. Cough and breathing status much improved, continue IV Solu Medrol, Levaquin and dilators. Continue with supplemental oxygen to keep on oxygen saturation more than 92%. 11/13 DC Solumedrol, will start prednisone. (2) Encephalopathy Plan: Likely secondary to CO2 narcosis which has improved. Neurology has been consulted. Patient had several test including RPR which is nonreactive, herpes simplex virus 1 and 2 DNA are negative. Varicella-zoster also with low titers. Lumbar puncture showed normal fluid with trace blood. CSF VDRL Osmani cryptococcus antigen not detected, CSF CMV DNA is negative. ESF GIANNI virus DNA is negative EEG showed slowing consistent with encephalopathy. (3) Seizure disorder Plan: Patient has a questionable history of seizures Follow-up neurology recommendations. EEG negative. If seizures are considered then will discontinue Levaquin and start on a different type of antibiotics. Patient started on Lamictal and dilantin as per neurology. (4) Obesity Plan: Discussed importance of weight loss on health. (5) Paranoid schizophrenia Plan: Patient states that she does not have peritonitis schizophrenia. The patient has been diagnosed on her discharge on last admission by Dr. Mackay. Patient states that she has major depression with psychotic features. Patient history of major depression and paranoid schizophrenia. Previously the patient was on Zoloft him a trazodone and haloperidol. Continue haloperidol. (6) Acute asthma exacerbation Plan: Patient states she has history of asthma, denies ever smoking. On exam the patient has bilateral expiratory wheezing. has been started on IV steroids and IV antibiotics as well as bronchodilators as above with very good response. Will give short course of IV Solu-Medrol and then taper Solu-Medrol to oral prednisone.. GI prophylaxis: PPI. DVT prophylaxis: SCDs, continue heparin subcutaneous. Discharge Planning DC pending neurology clearance.. Problem Qualifiers (1) Acute asthma exacerbation: Qualified Code: J45.901 - Asthma with acute exacerbation, unspecified asthma severity Yg Rich MD Nov 13, 2016 21:40
[2016-11-14] VITALS (8 sets, daily range): BP systolic 104–128; BP diastolic 55–81; PULSE 64–86; RESP 18–20; TEMP 96.7–98.1; O2SAT 95–98
[2016-11-14] MEDS: CHLORHEXIDINE GLUCONATE 2 % 1 PACK (2 CLOTHS) TOP SCH (04:00)
[2016-11-14] MEDS: RESP: ALBUTEROL 2.5 MG/IPRATROPIUM 0.5 MG NEB (SCH) INH ×4 (04:01→20:55)
[2016-11-14] MEDS: HEPARIN SODIUM - SQ 10,000 UNITS/ML VIAL SQ SCH ×2 (05:41→16:57)
[2016-11-14] MEDS: INSULIN NovoLIN REGULAR SUPPLEMENTAL SCALE SQ SCH ×4 (05:42→23:32)
[2016-11-14] MEDS: PHENYTOIN SODIUM 100 MG CAP PO SCH ×3 (05:44→22:22)
[2016-11-14] MEDS: THIAMINE HCL 100 MG TAB PO SCH (08:13)
[2016-11-14] MEDS: HALOPERIDOL 2 MG TAB PO SCH (08:13)
[2016-11-14] MEDS: DOCUSATE SODIUM 50 MG/SENNA 8.6 MG TAB PO SCH ×2 (08:13→21:00)
[2016-11-14] MEDS: SERTRALINE HCL 50 MG TAB PO SCH (08:13)
[2016-11-14] MEDS: LACTULOSE SYRUP 20 GM/30 ML CUP PO SCH ×2 (08:13→21:26)
[2016-11-14] MEDS: FAMOTIDINE 20 MG TAB PO SCH ×2 (08:13→21:27)
[2016-11-14] MEDS: lamoTRIgine 25 MG TAB PO SCH ×2 (08:13→21:27)
[2016-11-14] MEDS: POLYETHYLENE GLYCOL 17 GM PKG PO SCH ×2 (08:13→21:00)
[2016-11-14 09:48] LABS: HEMATOCRIT 29.1 % (35.0-46.0); MEAN CELL VOLUME 86.8 FL (80.0-100.0); MEAN CORPUSCULAR HEMOGLOBIN 29.6 PG (27.0-34.0); MEAN CORPUSCULAR HGB CONC 34.1 % (32.0-36.0); PLATELET COUNT 262 TH/MM3 (150-450); RED BLOOD COUNT 3.36 MIL/MM3 (4.00-5.30); RED CELL DISTRIBUTION WIDTH 14.2 % (11.6-17.2); REVIEW FLAG FINAL; WHITE BLOOD COUNT 5.3 TH/MM3 (4.0-11.0)
[2016-11-14 10:12] LABS: BICARBONATE 24.7 MEQ/L (21.0-32.0)
[2016-11-14 10:15] LABS: INDIRECT BILIRUBIN 0.1 MG/DL (0.0-0.8); TOTAL BILIRUBIN ADULT 0.2 MG/DL (0.2-1.0)
[2016-11-14] MEDS: methylPREDNISolone SOD SUCC 40 MG/1 ML VIAL IV PUSH SCH ×2 (12:51→23:32)
[2016-11-14] MEDS: AZITHROMYCIN INJ 500 MG in SODIUM CHLOR 0.9% 250 ML INJ 250 ML IV SCH (15:00)
[2016-11-14] MEDS: cefTRIAXone INJ 2,000 MG in SODIUM CHLORIDE 0.9% INJ 100 ML IV SCH (16:57)
--- NOTE | 2016-11-14 18:20 | HHI.PR ---
Subjective Remarks denies cp/sob stable vital signs goo o2 sat Objective Vitals Vital Signs Date Time Temp Pulse Resp B/P Pulse Ox O2 Delivery O2 Flow Rate FiO2 11/14/16 15:49 98.1 75 20 124/58 97 11/14/16 11:52 96.7 80 20 121/58 96 11/14/16 09:29 95 Nasal Cannula 2.00 11/14/16 08:00 86 11/14/16 08:00 97.2 64 20 115/81 98 11/14/16 08:00 96 Nasal Cannula 2.00 35 11/14/16 04:01 96 Nasal Cannula 2.00 11/14/16 04:00 97.7 78 20 106/58 96 11/14/16 00:00 97.6 78 20 104/55 96 11/13/16 20:26 81 11/13/16 20:00 97.9 82 18 111/83 95 11/13/16 19:45 Nasal Cannula 2.00 I/O 11/13/16 11/13/16 11/13/16 11/14/16 11/14/16 11/14/16 07:00 15:00 23:00 07:00 15:00 23:00 Intake Total 240 ml 480 ml 120 ml 600 ml Output Total 550 ml Balance -310 ml 480 ml 120 ml 600 ml Intake Oral 240 ml 480 ml 120 ml 600 ml Output Urine Total 550 ml # Voids 2 4 6 # Bowel Movements 0 1 1 1 Result Diagram: 11/14/16 0736 11/14/16 0736 Imaging Last Impressions Chest X-Ray 11/11/16 0000 Signed Impressions: Service Date/Time: Friday, November 11, 2016 20:39 - CONCLUSION: The lungs are clear. Osmani Slaughter MD Head Magnetic Resonance Angiography 11/07/16 0000 Signed Impressions: Service Date/Time: Monday, November 07, 2016 11:21 - CONCLUSION: 1. Negative examination. Mahin Pittman MD Brain MRI 11/07/16 0000 Signed Impressions: Service Date/Time: Monday, November 07, 2016 11:21 - CONCLUSION: 1. No acute intracranial abnormality is identified. 2. Mucoperiosteal sinus disease and fluid in the mastoid air cells. Mahin Pittman MD Head CT 11/05/16 1404 Signed Impressions: Service Date/Time: Saturday, November 05, 2016 15:02 - CONCLUSION: 1. No acute infiltrate or abnormality. 2. Paranasal sinusitis. Dru Mancuso MD Objective Remarks GENERAL: Patient lying in bed NAD. SKIN: Warm and dry. HEAD: Normocephalic. EYES: No scleral icterus. No injection or drainage. NECK: Supple, trachea midline. No JVD or lymphadenopathy. CARDIOVASCULAR: Regular rate and rhythm without murmurs, gallops, or rubs. RESPIRATORY: DDecreased air entry bilaterally. No crackles or rhonchi auscultated. GASTROINTESTINAL: Abdomen soft, non-tender, nondistended. MUSCULOSKELETAL: No cyanosis, or edema. BACK: Nontender without obvious deformity. No CVA tenderness. Procedures none Medications and IVs Current Medications Medications (Trade) Dose Ordered Sig/Michael Route Start Time Stop Time Status Last Admin (NS Flush) 2 ml UNSCH PRN IV FLUSH 11/05/16 14:15 (Heparin Inj) 5,000 units Q12H SQ 11/05/16 17:00 11/14/16 16:57 Miscellaneous Information 1 Q361D XX 11/05/16 16:15 (Chlorhexidine 2% Cloth) Taper DAILY@04 TOP 11/06/16 04:00 11/02/17 03:59 11/10/16 04:00 (Chlorhexidine 2% Cloth) 3 pack UNSCH PRN TOP 11/05/16 16:15 (Mya-Colace) 1 tab BID PO 11/05/16 21:00 11/14/16 08:13 (Milk Of Magnesia Liq) 30 ml Q12H PRN PO 11/05/16 16:15 (Senokot) 17.2 mg Q12H PRN PO 11/05/16 16:15 11/07/16 07:38 (Dulcolax Supp) 10 mg DAILY PRN RECTAL 11/05/16 16:15 (D50w (Vial) Inj) 50 ml UNSCH PRN IV 11/05/16 16:15 (Glucagon Inj) 1 mg UNSCH PRN OTHER 11/05/16 16:15 (NovoLIN R SUPPLEMENTAL SCALE) 1 Q6HR SQ 11/05/16 18:00 11/12/16 12:00 (Lactulose Liq) 30 ml BID PO 11/06/16 12:00 11/14/16 08:13 (Miralax) 17 gm BID PO 11/08/16 09:00 11/14/16 08:13 (Haldol) 2 mg DAILY PO 11/09/16 11:00 11/14/16 08:13 (Zoloft) 50 mg DAILY PO 11/09/16 11:00 11/14/16 08:13 (Vitamin B1) 100 mg DAILY PO 11/10/16 09:00 11/14/16 08:13 (Pepcid) 20 mg BID PO 11/09/16 21:00 11/14/16 08:13 Haloperidol Lactate 5 mg 5 mg Q4H PRN IV 11/09/16 16:45 11/13/16 03:12 Ceftriaxone Sodium 2000 mg/ Sodium Chloride 100 ml @ 200 mls/hr Q24H IV 11/12/16 16:00 11/14/16 16:57 (Zithromax Inj/ NS 250 ml Inj) 250 ml @ 250 mls/hr Q24H IV 11/12/16 15:00 11/14/16 15:00 (SoluMEDROL INJ) 40 mg Q12H IV PUSH 11/13/16 00:00 11/14/16 12:51 (Desyrel) 150 mg HS PO 11/12/16 21:00 11/13/16 20:31 (LaMICtal) 25 mg BID PO 11/12/16 21:00 11/14/16 08:13 (Dilantin) 100 mg Q8H PO 11/13/16 15:00 11/14/16 15:07 Urinary Catheter: No Vascular Central Line Catheter: No A/P Problem List: (1) Acute respiratory failure with hypoxia and hypercapnia ICD Code: J96.01 Status: Acute Plan: The patient was intubated and sedated and admitted to the intensive care unit under the care of senior controls technician. Suspect acute hypercapnic respiratory failure is possibly secondary to acute asthma exacerbation. The patient is wheezing bilaterally on exam and she elicits a previous history of asthma. Cough and breathing status much improved, continue IV Solu Medrol, Levaquin and dilators. Continue with supplemental oxygen to keep on oxygen saturation more than 92%. 11/14 Dc solumedrol - start on oral prednisone. Dc IV Levaquin and start oral. (2) Encephalopathy ICD Code: G93.40 Status: Acute Plan: Likely secondary to CO2 narcosis which has improved. Neurology he has been consulted. Patient had several test including RPR which is nonreactive, herpes simplex virus 1 and 2 DNA are negative. Varicella-zoster also with low titers. Lumbar puncture showed normal fluid with trace blood. CSF VDRL Osmani cryptococcus antigen not detected, CSF CMV DNA is negative. ESF GIANNI virus DNA is negative EEG showed slowing consistent with encephalopathy. (3) Seizure disorder ICD Code: G40.909 Status: Acute Plan: Patient has a questionable history of seizures Follow-up neurology recommendations. EEG negative. She was taking Depakote at home. Currently not on any anticonvulsants. If seizures are considered then will discontinue Levaquin and start on a different type of antibiotics. (4) Obesity ICD Code: E66.9 Status: Acute (5) Paranoid schizophrenia ICD Code: F20.0 Status: Acute (6) Acute asthma exacerbation ICD Code: J45.901 Status: Acute Assessment and Plan (1) Acute respiratory failure with hypoxia and hypercapnia Plan: The patient was intubated and sedated and admitted to the intensive care unit under the care of senior controls technician. Suspect acute hypercapnic respiratory failure is possibly secondary to acute asthma exacerbation. The patient is wheezing bilaterally on exam and she elicits a previous history of asthma. Cough and breathing status much improved, continue IV Solu Medrol, Levaquin and dilators. Continue with supplemental oxygen to keep on oxygen saturation more than 92%. 11/13 DC Solumedrol, will start prednisone. (2) Encephalopathy Plan: Likely secondary to CO2 narcosis which has improved. Neurology has been consulted. Patient had several test including RPR which is nonreactive, herpes simplex virus 1 and 2 DNA are negative. Varicella-zoster also with low titers. Lumbar puncture showed normal fluid with trace blood. CSF VDRL Osmani cryptococcus antigen not detected, CSF CMV DNA is negative. ESF GIANNI virus DNA is negative EEG showed slowing consistent with encephalopathy. (3) Seizure disorder Plan: Patient has a questionable history of seizures Follow-up neurology recommendations. EEG negative. If seizures are considered then will discontinue Levaquin and start on a different type of antibiotics. Patient started on Lamictal and dilantin as per neurology. 11/14 I discussed the case with Dr. Solis who cleared the patient to be discharged to rehabilitation. Continue current anticonvulsant therapy. (4) Obesity Plan: Discussed importance of weight loss on health. (5) Paranoid schizophrenia Plan: Patient states that she does not have peritonitis schizophrenia. The patient has been diagnosed on her discharge on last admission by Dr. Mackay. Patient states that she has major depression with psychotic features. Patient history of major depression and paranoid schizophrenia. Previously the patient was on Zoloft him a trazodone and haloperidol. 11/14 DC haloperidol and consult psychiatry for an alternative therapy. (6) Acute asthma exacerbation Plan: Patient states she has history of asthma, denies ever smoking. On exam the patient has bilateral expiratory wheezing. has been started on IV steroids and IV antibiotics as well as bronchodilators as above with very good response. Will give short course of IV Solu-Medrol and then taper Solu-Medrol to oral prednisone.. 11/14 much improved, continue prednisone, Levaquin and bronchodilators. GI prophylaxis: PPI. DVT prophylaxis: SCDs, continue heparin subcutaneous. Discharge Planning DC pending psychiatric consultation. Problem Qualifiers (1) Acute asthma exacerbation: Qualified Code: J45.901 - Asthma with acute exacerbation, unspecified asthma severity Yg Rich MD Nov 14, 2016 18:20
[2016-11-14] MEDS: traZODone HCL 50 MG TAB PO SCH (21:27)
[2016-11-15] VITALS: BP 123/56; PULSE 74; RESP 16; TEMP 97.5; O2SAT 97
[2016-11-15 04:00] VITALS: BP 118/59; PULSE 70; RESP 18; TEMP 98.1; O2SAT 95
[2016-11-15] MEDS: CHLORHEXIDINE GLUCONATE 2 % 1 PACK (2 CLOTHS) TOP SCH (04:00)
[2016-11-15] MEDS: RESP: ALBUTEROL 2.5 MG/IPRATROPIUM 0.5 MG NEB (SCH) INH ×2 (04:49→11:35)
[2016-11-15 04:53] VITALS: O2SAT 96
[2016-11-15] MEDS: PHENYTOIN SODIUM 100 MG CAP PO SCH ×2 (05:31→15:00)
[2016-11-15] MEDS: HEPARIN SODIUM - SQ 10,000 UNITS/ML VIAL SQ SCH (05:31)
[2016-11-15] MEDS: INSULIN NovoLIN REGULAR SUPPLEMENTAL SCALE SQ SCH ×2 (05:34→12:00)
[2016-11-15 08:00] VITALS: BP 117/59; PULSE 75; PULSE 83; RESP 18; TEMP 97.5; O2SAT 98
[2016-11-15] MEDS: DOCUSATE SODIUM 50 MG/SENNA 8.6 MG TAB PO SCH (09:00)
[2016-11-15] MEDS: LACTULOSE SYRUP 20 GM/30 ML CUP PO SCH (09:34)
[2016-11-15] MEDS: SERTRALINE HCL 50 MG TAB PO SCH (09:34)
[2016-11-15] MEDS: THIAMINE HCL 100 MG TAB PO SCH (09:34)
[2016-11-15] MEDS: HALOPERIDOL 2 MG TAB PO SCH (09:34)
[2016-11-15] MEDS: lamoTRIgine 25 MG TAB PO SCH (09:34)
[2016-11-15] MEDS: FAMOTIDINE 20 MG TAB PO SCH (09:34)
[2016-11-15] MEDS: POLYETHYLENE GLYCOL 17 GM PKG PO SCH (09:39)
--- NOTE | 2016-11-15 10:48 | HHI.PR ---
Subjective Remarks denies cp/sob denies fevers/chills sitting in chair stable vital signs Objective Vitals Vital Signs Date Time Temp Pulse Resp B/P Pulse Ox O2 Delivery O2 Flow Rate FiO2 11/15/16 08:00 97.5 75 18 117/59 98 11/15/16 04:53 96 Nasal Cannula 2.00 11/15/16 04:00 98.1 70 18 118/59 95 11/15/16 00:00 97.5 74 16 123/56 97 11/14/16 20:30 Nasal Cannula 2.00 11/14/16 20:00 98.1 76 18 128/58 97 11/14/16 15:49 98.1 75 20 124/58 97 11/14/16 11:52 96.7 80 20 121/58 96 I/O 11/14/16 11/14/16 11/14/16 11/15/16 11/15/16 11/15/16 07:00 15:00 23:00 07:00 15:00 23:00 Intake Total 600 ml 240 ml 0 ml Balance 600 ml 240 ml 0 ml Intake Oral 600 ml 240 ml 0 ml # Voids 4 6 0 1 # Bowel Movements 1 1 0 0 Result Diagram: 11/14/16 0736 11/14/16 0736 Imaging Last Impressions Chest X-Ray 11/11/16 0000 Signed Impressions: Service Date/Time: Friday, November 11, 2016 20:39 - CONCLUSION: The lungs are clear. Osmani Slaughter MD Head Magnetic Resonance Angiography 11/07/16 0000 Signed Impressions: Service Date/Time: Monday, November 07, 2016 11:21 - CONCLUSION: 1. Negative examination. Mahin Pittman MD Brain MRI 11/07/16 0000 Signed Impressions: Service Date/Time: Monday, November 07, 2016 11:21 - CONCLUSION: 1. No acute intracranial abnormality is identified. 2. Mucoperiosteal sinus disease and fluid in the mastoid air cells. Mahin Pittman MD Head CT 11/05/16 1404 Signed Impressions: Service Date/Time: Saturday, November 05, 2016 15:02 - CONCLUSION: 1. No acute infiltrate or abnormality. 2. Paranasal sinusitis. Dru Mancuso MD Objective Remarks GENERAL: Patient lying in bed NAD. SKIN: Warm and dry. HEAD: Normocephalic. EYES: No scleral icterus. No injection or drainage. NECK: Supple, trachea midline. No JVD or lymphadenopathy. CARDIOVASCULAR: Regular rate and rhythm without murmurs, gallops, or rubs. RESPIRATORY: Clear air entry bilaterally. No crackles or rhonchi auscultated. GASTROINTESTINAL: Abdomen soft, non-tender, nondistended. MUSCULOSKELETAL: No cyanosis, or edema. BACK: Nontender without obvious deformity. No CVA tenderness. Procedures none Medications and IVs Current Medications Medications (Trade) Dose Ordered Sig/Michael Route Start Time Stop Time Status Last Admin (NS Flush) 2 ml UNSCH PRN IV FLUSH 11/05/16 14:15 (Heparin Inj) 5,000 units Q12H SQ 11/05/16 17:00 11/15/16 05:31 Miscellaneous Information 1 Q361D XX 11/05/16 16:15 (Chlorhexidine 2% Cloth) Taper DAILY@04 TOP 11/06/16 04:00 11/02/17 03:59 11/10/16 04:00 (Chlorhexidine 2% Cloth) 3 pack UNSCH PRN TOP 11/05/16 16:15 (Mya-Colace) 1 tab BID PO 11/05/16 21:00 11/14/16 08:13 (Milk Of Magnesia Liq) 30 ml Q12H PRN PO 11/05/16 16:15 (Senokot) 17.2 mg Q12H PRN PO 11/05/16 16:15 11/07/16 07:38 (Dulcolax Supp) 10 mg DAILY PRN RECTAL 11/05/16 16:15 (D50w (Vial) Inj) 50 ml UNSCH PRN IV 11/05/16 16:15 (Glucagon Inj) 1 mg UNSCH PRN OTHER 11/05/16 16:15 (NovoLIN R SUPPLEMENTAL SCALE) 1 Q6HR SQ 11/05/16 18:00 11/12/16 12:00 (Lactulose Liq) 30 ml BID PO 11/06/16 12:00 11/15/16 09:34 (Miralax) 17 gm BID PO 11/08/16 09:00 11/15/16 09:39 (Haldol) 2 mg DAILY PO 11/09/16 11:00 11/15/16 09:34 (Zoloft) 50 mg DAILY PO 11/09/16 11:00 11/15/16 09:34 (Vitamin B1) 100 mg DAILY PO 11/10/16 09:00 11/15/16 09:34 (Pepcid) 20 mg BID PO 11/09/16 21:00 11/15/16 09:34 Haloperidol Lactate 5 mg 5 mg Q4H PRN IV 11/09/16 16:45 11/13/16 03:12 Ceftriaxone Sodium 2000 mg/ Sodium Chloride 100 ml @ 200 mls/hr Q24H IV 11/12/16 16:00 11/14/16 16:57 (Zithromax Inj/ NS 250 ml Inj) 250 ml @ 250 mls/hr Q24H IV 11/12/16 15:00 11/14/16 15:00 (SoluMEDROL INJ) 40 mg Q12H IV PUSH 11/13/16 00:00 11/14/16 23:32 (Desyrel) 150 mg HS PO 11/12/16 21:00 11/14/16 21:27 (LaMICtal) 25 mg BID PO 11/12/16 21:00 11/15/16 09:34 (Dilantin) 100 mg Q8H PO 11/13/16 15:00 11/15/16 05:31 Urinary Catheter: No Vascular Central Line Catheter: No A/P Problem List: (1) Acute respiratory failure with hypoxia and hypercapnia ICD Code: J96.01 Status: Acute (2) Encephalopathy ICD Code: G93.40 Status: Acute (3) Seizure disorder ICD Code: G40.909 Status: Acute (4) Obesity ICD Code: E66.9 Status: Acute (5) Paranoid schizophrenia ICD Code: F20.0 Status: Acute (6) Acute asthma exacerbation ICD Code: J45.901 Status: Acute Assessment and Plan (1) Acute respiratory failure with hypoxia and hypercapnia Plan: The patient was intubated and sedated and admitted to the intensive care unit under the care of employee operations examiner. Suspect acute hypercapnic respiratory failure is possibly secondary to acute asthma exacerbation. The patient is wheezing bilaterally on exam and she elicits a previous history of asthma. Cough and breathing status much improved, will DC IV antibiotics and IV steroids and switch him to oral. I will start the patient on oral Ceftin and start the patient on a prednisone taper. Continue with supplemental oxygen to keep on oxygen saturation more than 92%. Resolved (2) Encephalopathy Plan: Likely secondary to CO2 narcosis which has improved. Neurology has been consulted. Patient had several test including RPR which is nonreactive, herpes simplex virus 1 and 2 DNA are negative. Varicella-zoster also with low titers. Lumbar puncture showed normal fluid with trace blood. CSF VDRL Osmani cryptococcus antigen not detected, CSF CMV DNA is negative. ESF GIANNI virus DNA is negative EEG showed slowing consistent with encephalopathy. Encephalopathy has resolved. (3) Seizure disorder Plan: Patient has a questionable history of seizures Follow-up neurology recommendations. EEG negative. If seizures are considered then will discontinue Levaquin and start on a different type of antibiotics. Patient started on Lamictal and dilantin as per neurology. 11/15 I discussed the case with Dr. Solis who cleared the patient to be discharged to rehabilitation. Continue current anticonvulsant therapy. Patient will be discharged on Dilantin and Lamictal will need to follow-up with Dr. Solis 2 weeks after discharge. (4) Obesity Plan: Discussed importance of weight loss on health. (5) Paranoid schizophrenia Plan: Patient states that she does not have peritonitis schizophrenia. The patient has been diagnosed on her discharge on last admission by Dr. Mackay. Patient states that she has major depression with psychotic features. Patient history of major depression and paranoid schizophrenia. Previously the patient was on Zoloft him a trazodone and haloperidol. 11/14 DC haloperidol and consult psychiatry for an alternative therapy. 11/15 waiting on psychiatric recommendations for alternative therapy to Haldol. (6) Acute asthma exacerbation Plan: Patient states she has history of asthma, denies ever smoking. On exam the patient has bilateral expiratory wheezing. has been started on IV steroids and IV antibiotics as well as bronchodilators as above with very good response. Will give short course of IV Solu-Medrol and then taper Solu-Medrol to oral prednisone.. 11/15 will DC IV steroids, IV antibiotics and start the patient oral prednisone and oral Ceftin and azithromycin. GI prophylaxis: PPI. DVT prophylaxis: SCDs, continue heparin subcutaneous. Discharge Planning DC pending psychiatric consultation. Patient will need rehab. Problem Qualifiers (1) Acute asthma exacerbation: Qualified Code: J45.901 - Asthma with acute exacerbation, unspecified asthma severity Yg Rich MD Nov 15, 2016 10:48
[2016-11-15] MEDS ORDERED: CEFUROXIME AXETIL 500 MG TAB PO SCH (11:00)
[2016-11-15] MEDS ORDERED: AZITHROMYCIN 250 MG TAB PO SCH (11:15)
[2016-11-15] MEDS ORDERED: FAMO20TA2 PO (11:17)
[2016-11-15] MEDS ORDERED: DILA100C PO (11:17)
[2016-11-15] MEDS ORDERED: GNP100TA3 PO (11:17)
[2016-11-15] MEDS ORDERED: LAMO25 PO (11:17)
[2016-11-15] MEDS ORDERED: AZIT250T3 PO (11:17)
[2016-11-15] MEDS ORDERED: CEFU1TAB20 PO (11:17)
--- NOTE | 2016-11-15 11:18 | HHI.DCPOC ---
Discharge Care Plan Diagnosis: (1) Paranoid schizophrenia (2) Bipolar 1 disorder (3) Encephalopathy (4) Respiratory failure (5) Unresponsive (6) Seizure disorder (7) Obesity (8) Acute asthma exacerbation (9) Acute respiratory failure with hypoxia and hypercapnia Goals to Promote Your Health * To prevent worsening of your condition and complications * To maintain your health at the optimal level Directions to Meet Your Goals Take your medications as prescribed Follow your dietary instruction Follow activity as directed Keep your appointments as scheduled Take your immunizations and boosters as scheduled If your symptoms worsen call your PCP, if no PCP go to Urgent Care Center or Emergency Room Smoking is Dangerous to Your Health. Avoid second hand smoke Call the 24-hour hour crisis hotline for domestic abuse at Yg Rich MD Nov 15, 2016 11:18
--- NOTE | 2016-11-15 11:21 | HHI.DS ---
Discharge Summary Admission Date Nov 05, 2016 at 15:47 Discharge Date: Nov 15, 2016 Admitting Diagnosis unresponsive, respiratory failure (1) Acute respiratory failure with hypoxia and hypercapnia ICD Code: J96.01 Diagnosis: Principal (2) Encephalopathy ICD Code: G93.40 Diagnosis: Principal (3) Seizure disorder ICD Code: G40.909 Diagnosis: Secondary (4) Obesity ICD Code: E66.9 Diagnosis: Secondary (5) Paranoid schizophrenia ICD Code: F20.0 Diagnosis: Principal (6) Acute asthma exacerbation ICD Code: J45.901 Diagnosis: Principal Procedures none Brief History - From Admission The patient is an approximatel8 [id number] female with past medical history of depression/bipolar disorder, questionable seizure disorder on Depakote who presented to [facility] ED via EMS after she was found unresponsive with GCS of 3 at home. Upon arrival of EMS the patient was in agonal breathing and was intubated at the scene. She was given Narcan with no effect. The patient had similar presentation approximately three weeks ago at [facility] where she was intubated. According to her [id number]-szc she has been having progressive decline of her cognitive function. CT scan of the brain showed no evidence of any acute abnormalities. Chest x-ray post intubation showed pleural thickening on the right, ET tube in good position. Her CBC, CMP unremarkable except for ammonia level 36. Lactic acid level measured at 1.0 and total CK 501 with MB percentage 1.2 and troponin less than 0.02. In the ER she was given 1 liter of normal saline. When seen the patient is on Diprivan infusion for sedation and for mechanical ventilation. CBC/BMP: 11/14/16 0736 11/14/16 0736 Significant Findings Laboratory Tests Test 11/13/16 11/14/16 05:29 07:36 Red Blood Count 3.54 MIL/MM3 3.36 MIL/MM3 (4.00-5.30) (4.00-5.30) Hemoglobin 10.3 GM/DL 9.9 GM/DL (11.6-15.3) (11.6-15.3) Hematocrit 31.1 % 29.1 % (35.0-46.0) (35.0-46.0) Neutrophils (%) (Auto) 88.4 % (16.0-70.0) Lymphocytes (%) (Auto) 7.5 % (9.0-44.0) Lymphocytes # (Auto) 0.5 TH/MM3 (1.0-4.8) Blood Urea Nitrogen 19 MG/DL (7-18) 24 MG/DL (7-18) Estimat Glomerular Filtration 84 ML/MIN (>89) Rate Random Glucose 132 MG/DL 112 MG/DL (74-106) (74-106) Aspartate Amino Transf 47 U/L (15-37) (AST/SGOT) Alanine Aminotransferase 83 U/L (10-53) 77 U/L (10-53) (ALT/SGPT) Albumin 2.8 GM/DL 2.6 GM/DL (3.4-5.0) (3.4-5.0) Phenytoin (Dilantin) Level 3.7 MCG/ML (10.0-20.0) Imaging Last Impressions Chest X-Ray 11/11/16 0000 Signed Impressions: Service Date/Time: Friday, November 11, 2016 20:39 - CONCLUSION: The lungs are clear. Osmani Slaughter MD Head Magnetic Resonance Angiography 11/07/16 0000 Signed Impressions: Service Date/Time: Monday, November 07, 2016 11:21 - CONCLUSION: 1. Negative examination. Mahin Pittman MD Brain MRI 11/07/16 0000 Signed Impressions: Service Date/Time: Monday, November 07, 2016 11:21 - CONCLUSION: 1. No acute intracranial abnormality is identified. 2. Mucoperiosteal sinus disease and fluid in the mastoid air cells. Mahin Pittman MD Head CT 11/05/16 1404 Signed Impressions: Service Date/Time: Saturday, November 05, 2016 15:02 - CONCLUSION: 1. No acute infiltrate or abnormality. 2. Paranasal sinusitis. Dru Mancuso MD PE at Discharge GENERAL: Patient lying in bed NAD. SKIN: Warm and dry. HEAD: Normocephalic. EYES: No scleral icterus. No injection or drainage. NECK: Supple, trachea midline. No JVD or lymphadenopathy. CARDIOVASCULAR: Regular rate and rhythm without murmurs, gallops, or rubs. RESPIRATORY: Clear air entry bilaterally. No crackles or rhonchi auscultated. GASTROINTESTINAL: Abdomen soft, non-tender, nondistended. MUSCULOSKELETAL: No cyanosis, or edema. BACK: Nontender without obvious deformity. No CVA tenderness. Hospital Course (1) Acute respiratory failure with hypoxia and hypercapnia The patient was intubated and sedated and admitted to the intensive care unit under the care of staffing assistant. Suspect acute hypercapnic respiratory failure is possibly secondary to acute asthma exacerbation. The patient is wheezing bilaterally on exam and she elicits a previous history of asthma. IV antibiotics and IV steroids where eventually discontinued and transitioned to oral. Patient was started oral Ceftin and start the patient on a prednisone taper. Supplemental O2 was administered. Resolved (2) Encephalopathy Likely secondary to CO2 narcosis which has improved. Neurology was consulted. Patient had several test including RPR which is nonreactive, herpes simplex virus 1 and 2 DNA are negative. Varicella-zoster also with low titers. Lumbar puncture showed normal fluid with trace blood. CSF VDRL Osmani cryptococcus antigen not detected, CSF CMV DNA is negative. ESF GIANNI virus DNA is negative EEG showed slowing consistent with encephalopathy. Encephalopathy has resolved. (3) Seizure disorder Patient has a questionable history of seizures Follow-up neurology recommendations. EEG negative. If seizures are considered then will discontinue Levaquin and start on a different type of antibiotics. Patient started on Lamictal and dilantin as per neurology. 11/15 I discussed the case with Dr. Solis who cleared the patient to be discharged to rehabilitation. Advised to continue with current anticonvulsant therapy. Patient will be discharged on Dilantin and Lamictal will need to follow-up with Dr. Solis 2 weeks after discharge. (4) Obesity Plan: Discussed importance of weight loss on health. (5) Paranoid schizophrenia Plan: Patient states that she does not have peritonitis schizophrenia. The patient has been diagnosed on her discharge on last admission by Dr. Mackay. Patient states that she has major depression with psychotic features. Patient history of major depression and paranoid schizophrenia. Previously the patient was on Zoloft him a trazodone and haloperidol. 11/14 DC haloperidol and consult psychiatry for an alternative therapy. 11/15 waiting on psychiatric recommendations for alternative therapy to Haldol. (6) Acute asthma exacerbation Plan: Patient states she has history of asthma, denies ever smoking. On exam the patient has bilateral expiratory wheezing. has been started on IV steroids and IV antibiotics as well as bronchodilators as above with very good response. Will give short course of IV Solu-Medrol and then taper Solu-Medrol to oral prednisone.. 11/15 will DC IV steroids, IV antibiotics and start the patient oral prednisone and oral Ceftin and azithromycin. GI prophylaxis: PPI. DVT prophylaxis: SCDs, continue heparin subcutaneous. Pt Condition on Discharge: Stable Discharge Disposition: Discharge to SNF Discharge Time: > 30 minutes Discharge Instructions DIET: Follow Instructions for: Heart Healthy Diet Speech Therapy-Diet Recommends: Pureed Activities you can perform: See Additionl Instruction Other Activity Instructions: as per PT instructions Follow up Referrals: Neurology - 2 Weeks with John Walker MD PCP Follow-up SNF/[facility]/ with [facility] New Medications: Azithromycin (Azithromycin) 250 Mg Tab 250 MG PO DAILY Infection Days 1 TAB Cefuroxime (Cefuroxime) 500 Mg Tab 500 MG PO Q12HR Infection Days 3 TAB Famotidine (Famotidine) 20 Mg Tab 20 MG PO BID GI prophylaxis Days 10 TAB Lamotrigine (Lamictal) 25 Mg Tab 25 MG PO BID Seizure Control #62 TAB Phenytoin Extended (Dilantin) 100 Mg Cap 100 MG PO Q8H Seizure Control #93 CAP Thiamine HCl (Gnp Vitamin B-1) 100 Mg Tab 100 MG PO DAILY vitamin Days 30 TAB Continued Medications: Quetiapine (Quetiapine) 25 Mg Tab 25 MG PO HS #30 Ref 0 TAB Sertraline (Zoloft) 50 Mg Tab 50 MG PO DAILY Depression Control #30 Ref 1 TAB Trazodone HCl (Trazodone HCl) 150 Mg Tablet PO DAILY Ref 1 TAB Discontinued Medications: Divalproex DR (Depakote DR) 500 Mg Tabdr 500 MG PO BID Control Seizures #60 Ref 1 TAB Haloperidol (Haloperidol) 2 Mg Tab 2 MG PO DAILY Ref 1 TAB Yg Rich MD Nov 15, 2016 11:21
[2016-11-15 11:40] VITALS: O2SAT 97
[2016-11-15 12:00] VITALS: BP 145/67; PULSE 87; RESP 18; TEMP 97.8; O2SAT 99
--- NOTE | 2016-11-15 13:23 | PD.CONS ---
Provisional Diagnosis Admission Date Nov 05, 2016 at 15:47 [place]. adjustment disorder History of Present Illness Service Psychiatry Consult Requested By Parag Dowell Primary Care Physician HPI 66-year-old female with multiple medical problems including significant COPD. This physician requested to change patient's Haldol to different medication for ability to place patient in rehabilitation facility. This physician spoke with patient about changed to Seroquel and patient agrees. Review of Systems Except as stated in HPI: all other systems reviewed are Neg Past Family Social History Coded Allergies: No Known Allergies (Unverified , 11/07/16) Active Scripts Thiamine HCl (Gnp Vitamin B-1)100 Mg Ccd343 Mg PO DAILY 30 Days Prov:Yg Rich MD 11/15/16 Phenytoin Extended (Dilantin)100 Mg Rei162 Mg PO Q8H #93 CAP Prov:Yg Rich MD 11/15/16 Lamotrigine (Lamictal)25 Mg Tab25 Mg PO BID #62 TAB Prov:Yg Rich MD 11/15/16 Famotidine 20 Mg Tab20 Mg PO BID 10 Days Prov:Yg Rich MD 11/15/16 Cefuroxime 500 Mg Vkt688 Mg PO Q12HR 3 Days Prov:Yg Rich MD 11/15/16 Azithromycin 250 Mg Xlr174 Mg PO DAILY 1 Day Prov:Yg Rich MD 11/15/16 Reported Medications Trazodone HCl 150 Mg Tablet PO DAILY Ref 1 11/06/16 Haloperidol 2 Mg Tab2 Mg PO DAILY Ref 1 11/06/16 Divalproex (Depakoramya DUGAN)500 Mg [id number] Mg PO BID #60 TAB Ref 1 11/06/16 Sertraline (Zoloft)50 Mg Tab50 Mg PO DAILY #30 TAB Ref 1 11/06/16 Current Medications Medications (Trade) Dose Ordered Sig/Michael Route Start Time Stop Time Status Last Admin (NS Flush) 2 ml UNSCH PRN IV FLUSH 11/05/16 14:15 (Heparin Inj) 5,000 units Q12H SQ 11/05/16 17:00 11/15/16 05:31 Miscellaneous Information 1 Q361D XX 11/05/16 16:15 (Chlorhexidine 2% Cloth) Taper DAILY@04 TOP 11/06/16 04:00 11/02/17 03:59 11/10/16 04:00 (Chlorhexidine 2% Cloth) 3 pack UNSCH PRN TOP 11/05/16 16:15 (Mya-Colace) 1 tab BID PO 11/05/16 21:00 11/14/16 08:13 (Milk Of Magnesia Liq) 30 ml Q12H PRN PO 11/05/16 16:15 (Senokot) 17.2 mg Q12H PRN PO 11/05/16 16:15 11/07/16 07:38 (Dulcolax Supp) 10 mg DAILY PRN RECTAL 11/05/16 16:15 (D50w (Vial) Inj) 50 ml UNSCH PRN IV 11/05/16 16:15 (Glucagon Inj) 1 mg UNSCH PRN OTHER 11/05/16 16:15 (NovoLIN R SUPPLEMENTAL SCALE) 1 Q6HR SQ 11/05/16 18:00 11/12/16 12:00 (Lactulose Liq) 30 ml BID PO 11/06/16 12:00 11/15/16 09:34 (Miralax) 17 gm BID PO 11/08/16 09:00 11/15/16 09:39 (Haldol) 2 mg DAILY PO 11/09/16 11:00 11/15/16 09:34 (Zoloft) 50 mg DAILY PO 11/09/16 11:00 11/15/16 09:34 (Vitamin B1) 100 mg DAILY PO 11/10/16 09:00 11/15/16 09:34 (Pepcid) 20 mg BID PO 11/09/16 21:00 11/15/16 09:34 (Haldol Inj) 5 mg Q4H PRN IV 11/09/16 16:45 11/13/16 03:12 (Desyrel) 150 mg HS PO 11/12/16 21:00 11/14/16 21:27 (LaMICtal) 25 mg BID PO 11/12/16 21:00 11/15/16 09:34 (Dilantin) 100 mg Q8H PO 11/13/16 15:00 11/15/16 05:31 (Deltasone) 20 mg DAILY PO 11/16/16 09:00 (Ceftin) 500 mg Q12HR PO 11/15/16 11:00 11/15/16 12:35 (Zithromax) 250 mg DAILY PO 11/15/16 11:15 11/16/16 16:00 11/15/16 12:33 Family History Positive for mood disorders Social History Denies alcoholism or substance abuse. Does not work. Physically disabled. Patient's Strengths (min. 2) Verbal and has access to healthcare. Physical Exam Vital Signs Vital Signs Date Time Temp Pulse Resp B/P Pulse Ox O2 Delivery O2 Flow Rate FiO2 11/15/16 12:00 97.8 87 18 145/67 99 11/15/16 11:40 Nasal Cannula 2.00 11/14/16 08:00 35 I/O 11/14/16 11/14/16 11/15/16 08:00 16:00 00:00 Intake Total 600 ml 240 ml Balance 600 ml 240 ml Mental Status Examination Speech: Unremarkable Orientation: x3 Memory: Unremarkable Thought Process: Organized, Goal Directed Thought Content: Unremarkable Hallucination Type: None Attention and Concentration: Good Suicidal Ideation: No Previous Suicide Attempts: No Homicidal Ideation: No Previous Homicide Attempts: No Insight: Fair Judgment: WNL Affect: Good Mood: Appropriate Motor Activity: Normal gait Assessment & Plan Problem List: (1) Adjustment disorder with mixed disturbance of emotions and conduct ICD Code: F43.25 Assessment & Plan Estimated LOS: days recommend discontinuing Haldol and start Seroquel 25 mg at bedtime. Kevon Ingram MD Nov 15, 2016 13:23
[2016-11-15] MEDS ORDERED: QUET1TAB7 PO (15:51)
[2016-11-15] MEDS ORDERED: QUEtiapine FUMARATE 25 MG TAB PO SCH (21:00)
[2016-11-16] MEDS ORDERED: predniSONE 20 MG TAB PO SCH (09:00)
== END 2016-11-15 16:28 | DRG 189 ==
LOC: NEPC 13:48 → NEDA 15:47 → EDBD 15:47 → MERGE 15:47 → HIME 17:40 → N04B 11-10 17:18
PROVIDERS: ADMIT Hospitalist; ATTEND Hospitalist
PROC: 009U3ZX Drainage of Spinal Canal, Percutaneous Approach, Diagnostic (ICD-10-PCS; principal; 2016-11-07)
DX: J96.01 Acute respiratory failure with hypoxia (principal); G93.41 Metabolic encephalopathy; J44.9 Chronic obstructive pulmonary disease, unspecified; J45.901 Unspecified asthma with (acute) exacerbation; K59.00 Constipation, unspecified; F20.0 Paranoid schizophrenia; J96.02 Acute respiratory failure with hypercapnia; G40.909 Epilepsy, unspecified, not intractable, without status epilepticus; E66.9 Obesity, unspecified; Z68.28 Body mass index [BMI] 28.0-28.9, adult; R40.2430 Glasgow coma scale score 3-8, unspecified time; F43.25 Adjustment disorder with mixed disturbance of emotions and conduct
CPT/HCPCS: 36556; 36600; 51702; 62270; 70450; 70544; 70553; 71010; 76937; 80048; 80053; 80076; 80164; 80185; 80307; 81001; 82140; 82550; 82552; 82607; 82805; 82945; 82948; 83036; 83605; 83735; 83873; 83916; 84100; 84157; 84439; 84443; 84484; 85025; 85027; 85610; 85652; 86038; 86140; 86403; 86592; 86651; 86652; 86653; 86654; 86788; 87015; 87040; 87070; 87116; 87205; 87206; 87497; 87529; 87641; 87798; 87799; 89051; 93005; 94002; 94003; 94150; 94640; 94664; 94667; 94668; 95819; 96374; A9579; C9113; J0456; J0696; J1630; J1644; J1956; J2920; J2930; J3411; J7030; J7042; J7050

== ENCOUNTER 2017-11-14 11:34 | Inpatient (IN) | payer OTHER, MEDICARE ==
[~2017-11-14] VITALS: Ht 162.6 cm; Wt 90.6 kg
[~2017-11-14 11:34] MED LIST changes: -ALBU8I INH; -AMBI12.5 PO; +AZIT250T3 PO; +CEFU1TAB20 PO; -CLON1 PO; +DILA100C PO; +FAMO20TA2 PO; -FLUT1INH INH; -GEOD80CA PO; +LAMO25 PO; -LATU80TA PO; -LURA80 PO; -MIRTA15 PO; -MVI PO; +QUET1TAB7 PO; +THIA100 PO; +TRAZ1TAB14 PO; +ZOLO50TA PO
[2017-11-14 11:39] VITALS: BP 135/83; PULSE 92; RESP 13; TEMP 98.2; O2SAT 95
[2017-11-14 11:43] VITALS: BP 135/83; PULSE 92; RESP 13; TEMP 98.2; O2SAT 95
[2017-11-14] MEDS ORDERED: MIDAZOLAM HCL 2 MG/2 ML VIAL IV PUSH ONE (11:45)
[2017-11-14] MEDS ORDERED: HALOPERIDOL LACTATE 5 MG/ML AMP IV PUSH ONE (11:45)
[2017-11-14 12:17] LABS: AUTOMATED NEUTROPHIL # 3.8 TH/MM3 (1.8-7.7); BASOPHIL % 0.4 % (0.0-2.0); EOSINOPHIL # 0.1 TH/MM3 (0-0.4); EOSINOPHIL % 2.6 % (0.0-4.0); HEMATOCRIT 38.4 % (35.0-46.0); LYMPH % 14.2 % (9.0-44.0); LYMPHOCYTE # 0.7 TH/MM3 (1.0-4.8); MEAN CORPUSCULAR HEMOGLOBIN 29.7 PG (27.0-34.0); MEAN CORPUSCULAR HGB CONC 33.8 % (32.0-36.0); MEAN PLATELET VOLUME 7.5 FL (7.0-11.0); MONOCYTE # 0.3 TH/MM3 (0-0.9); NEUT % 75.8 % (16.0-70.0); PLATELET COUNT 301 TH/MM3 (150-450); RED BLOOD COUNT 4.37 MIL/MM3 (4.00-5.30); RED CELL DISTRIBUTION WIDTH 13.6 % (11.6-17.2)
[2017-11-14] MEDS ORDERED: DILA100C PO (12:26)
[2017-11-14] MEDS ORDERED: QUET1TAB8 PO (12:26)
[2017-11-14] MEDS ORDERED: VITA250T25 PO (12:26)
[2017-11-14] MEDS ORDERED: SERT-129 PO (12:26)
[2017-11-14] MEDS ORDERED: LAMI200T PO (12:26)
[2017-11-14] MEDS ORDERED: REST15CA PO (12:28)
[2017-11-14] MEDS ORDERED: MECL-62 PO (12:28)
[2017-11-14 12:30] LABS: ALBUMIN 3.8 GM/DL (3.4-5.0); ALT (GPT) 29 U/L (10-53); AST (GOT) 15 U/L (15-37); BICARBONATE 25.2 MEQ/L (21.0-32.0); BLOOD UREA NITROGEN 15 MG/DL (7-18); CHLORIDE 108 MEQ/L (98-107); CREATININE 0.78 MG/DL (0.50-1.00); GLOMERULAR FILTRATION RATE 74 ML/MIN (>89); GLUCOSE,RANDOM 103 MG/DL (74-106); SODIUM (NA) 144 MEQ/L (136-145)
[2017-11-14 12:32] LABS: ALKALINE PHOSPHATASE 156 U/L (45-117); TOTAL BILIRUBIN ADULT 0.2 MG/DL (0.2-1.0)
--- NOTE | 2017-11-14 12:42 | PD ---
HPI Chief Complaint: Psychiatric Symptoms Time Seen by Provider: 11:42 Travel History International Travel<30 days: No (UNABLE TO OBTAIN) Contact w/Intl Traveler<30days: No (UNABLE TO OBTAIN) Traveled to known affect area: No (UNABLE TO OBTAIN) History of Present Illness HPI This is a 67 year old female who has a history of major depressive disorder with psychotic features who presents to the emergency department today having been brought in under a mcclure act due to suicidal ideation and agitation. History is obtained from EMS and the patient's daughter, so it is limited. Pt. reportedly has been more agitated over the past several days and her daughter took her to her psychiatrist yesterday who increased her seroquel. Despite this , this morning the patient threatened to kill her self at her HEATH and she broke a picture frame and used some of the glass to try to hurt herself and police. PT. was given 2 mg of Versed by EMS due to her combative nature. PFSH Past Medical History Medical History: Unable to Obtain Arthritis: Yes Asthma: Yes Bipolar Disorder: Yes Anxiety: Yes Depression: Yes Cancer: Yes (Breast cancer, left, bilateral mastectomy 2012) Cardiovascular Problems: No Chemotherapy: No COPD: Yes Diabetes: No Endocrine: No Genitourinary: Yes Immune Disorder: No Insomnia: Yes Musculoskeletal: No Neurologic: Yes Psychiatric: Yes Reproductive: No Respiratory: Yes Immunizations Current: Yes Radiation Therapy: No Seizures: Yes Sleep Apnea: Yes Tetanus Vaccination: Unknown Menopausal: Yes : 2 Para: 2 Past Surgical History Surgical History: Unable to Obtain Section: Yes (X2) Eye Surgery: Yes (BLETHROSPASMS) Joint Replacement: Yes (BILATERAL KNEE REPLACEMENT) Mastectomy: Yes (BILATERAL) Other Surgery: Yes Family History Family Hypercholesterolemia: Yes (MOTHER) Social History Alcohol Use: No (UNABLE TO OBTAIN) Tobacco Use: No Substance Use: No (UNABLE TO OBTAIN) Allergies-Medications (Allergen,Severity, Reaction): Coded Allergies: No Known Allergies (Unverified Adverse Reaction, Unknown, 11/14/17) Reported Meds & Prescriptions Reported Meds & Active Scripts Active Reported Meclizine (Meclizine HCl) 25 Mg Tab 25 Mg PO HS PRN Restoril (Temazepam) 15 Mg Cap 15-30 Mg PO HS PRN Dilantin (Phenytoin Extended) 100 Mg Cap 100 Mg PO BID Lamictal (Lamotrigine) 200 Mg Tab 200 Mg PO HS Vitamin B-1 (Thiamine HCl) 250 Mg Tab 250 Mg PO DAILY Quetiapine (Quetiapine Fumarate) 100 Mg Tab 300 Mg PO HS Sertraline (Sertraline HCl) 100 Mg Tab 100 Mg PO DAILY Review of Systems ROS Limitations: Poor Historian Physical Exam Narrative GENERAL: Agitated SKIN: Focused skin assessment warm and dry. HEAD: Atraumatic. Normocephalic. EYES: Pupils equal and round. No injection or drainage. ENT: Moist mucous membranes NECK: Trachea midline. CARDIOVASCULAR: Regular rate and rhythm. No murmur appreciated. RESPIRATORY: Clear to auscultation. Breath sounds equal bilaterally. GASTROINTESTINAL: Abdomen soft, non-tender, nondistended. MUSCULOSKELETAL: No obvious deformities. NEUROLOGICAL: Awake and alert. No obvious cranial nerve deficits. Moving all extremities. PSYCHIATRIC: Poor eye contact, not responding to questions, intermittently agitated, poor insight and judgment Data Data Last Documented VS Vital Signs Date Time Temp Pulse Resp B/P (MAP) Pulse Ox O2 Delivery O2 Flow Rate FiO2 11/14/17 13:56 100 20 137/88 (104) 92 Room Air 11/14/17 11:43 98.2 Orders Orders Complete Blood Count With Diff (11/14/17 11:42) Comprehensive Metabolic Panel (11/14/17 11:42) Alcohol (Ethanol) (11/14/17 11:42) Urinalysis - C+S If Indicated (11/14/17 11:42) Drug Screen, Random Urine (11/14/17 11:42) ^ Insert Iv (11/14/17 11:42) Haloperidol Inj (Haldol Inj) (11/14/17 11:45) Midazolam Inj (Versed Inj) (11/14/17 11:45) Restraints Non-Violent JOSE G.Q3H (11/14/17 12:26) Psych Screen (11/14/17 14:29) Diet Regular Basic (11/14/17 Dinner) Labs Laboratory Tests Test 11/14/17 12:00 White Blood Count 5.0 TH/MM3 Red Blood Count 4.37 MIL/MM3 Hemoglobin 13.0 GM/DL Hematocrit 38.4 % Mean Corpuscular Volume 88.0 FL Mean Corpuscular Hemoglobin 29.7 PG Mean Corpuscular Hemoglobin Concent 33.8 % Red Cell Distribution Width 13.6 % Platelet Count 301 TH/MM3 Mean Platelet Volume 7.5 FL Neutrophils (%) (Auto) 75.8 % Lymphocytes (%) (Auto) 14.2 % Monocytes (%) (Auto) 7.0 % Eosinophils (%) (Auto) 2.6 % Basophils (%) (Auto) 0.4 % Neutrophils # (Auto) 3.8 TH/MM3 Lymphocytes # (Auto) 0.7 TH/MM3 Monocytes # (Auto) 0.3 TH/MM3 Eosinophils # (Auto) 0.1 TH/MM3 Basophils # (Auto) 0.0 TH/MM3 CBC Comment DIFF FINAL Differential Comment Blood Urea Nitrogen 15 MG/DL Creatinine 0.78 MG/DL Random Glucose 103 MG/DL Total Protein 7.0 GM/DL Albumin 3.8 GM/DL Calcium Level 9.0 MG/DL Alkaline Phosphatase 156 U/L Aspartate Amino Transf (AST/SGOT) 15 U/L Alanine Aminotransferase (ALT/SGPT) 29 U/L Total Bilirubin 0.2 MG/DL Sodium Level 144 MEQ/L Potassium Level 3.7 MEQ/L Chloride Level 108 MEQ/L Carbon Dioxide Level 25.2 MEQ/L Anion Gap 11 MEQ/L Estimat Glomerular Filtration Rate 74 ML/MIN Ethyl Alcohol Level LESS THAN 3 MG/DL MDM Medical Decision Making Medical Screen Exam Complete: Yes Emergency Medical Condition: Yes Interpretation(s) No leukocytosis Electrolytes are reassuring Alcohols negative Differential Diagnosis Electrolyte abnormality, alcohol intoxication, substance intoxication, psychosis Narrative Course This is a 67-year-old female who presents to the emergency department with increasing psychosis with an episode where she broke a picture frame and tried to hurt herself and others with glass. She was given IV sedation in route with EMS. Here in the emergency department she was given an additional 1 mg of IV Versed and 5 mg of Haldol. She is much more cooperative. Labs are reassuring with no evidence of acute medical illness. Patient will be evaluated by psychiatry. Roopa Houston MD Nov 14, 2017 12:42
[2017-11-14 13:30] VITALS: BP 136/83; PULSE 100; RESP 19; O2SAT 100
[2017-11-14 13:56] VITALS: BP 137/88; PULSE 100; RESP 20; O2SAT 92
[2017-11-14] MEDS ORDERED: LORazepam 0.5 MG TAB PO PRN (15:00)
[2017-11-14] MEDS ORDERED: ALUMINUM/MAGNESIUM/SIMETH 30 ML CUP PO PRN (15:00)
[2017-11-14] MEDS: NICOTINE 21 MG/24 HR PATCH T-DERMAL SCH (15:00)
[2017-11-14] MEDS ORDERED: MAGNESIUM HYDROXIDE SUSP 30 ML CUP PO PRN (15:00)
[2017-11-14] MEDS ORDERED: LORazepam 2 MG/ML VIAL IM PRN ×2 (15:00)
[2017-11-14 17:45] VITALS: BP 170/99; PULSE 94; RESP 16; TEMP 98.4; O2SAT 96
[2017-11-14] MEDS: ACETAMINOPHEN 325 MG TAB PO PRN (20:34)
[2017-11-15] MEDS: REMOVE OLD NICOTINE PATCH T-DERMAL SCH (08:42)
[2017-11-15 08:48] LABS: BICARBONATE 25.9 MEQ/L (21.0-32.0); BLOOD UREA NITROGEN 13 MG/DL (7-18); CALCIUM 9.2 MG/DL (8.5-10.1); CHLORIDE 107 MEQ/L (98-107); CHOLESTEROL 281 MG/DL (120-200); CREATININE 0.62 MG/DL (0.50-1.00); GLOMERULAR FILTRATION RATE 96 ML/MIN (>89); GLUCOSE,RANDOM 80 MG/DL (74-106); SODIUM (NA) 142 MEQ/L (136-145); TRIGLYCERIDES 92 MG/DL (42-150)
[2017-11-15 08:54] LABS: CHOLESTEROL/ HDL RATIO 3.37 RATIO; HDL CHOLESTEROL 83.3 MG/DL (40.0-60.0); LDL CHOLESTEROL 179 MG/DL (0-99)
[2017-11-15] MEDS: NICOTINE 21 MG/24 HR PATCH T-DERMAL SCH (09:00)
[2017-11-15] MEDS ORDERED: MECLIZINE HCL 25 MG TAB PO PRN (13:45)
[2017-11-15] MEDS ORDERED: PILL SPLITTER OTHER PRN (14:15)
--- NOTE | 2017-11-15 14:22 | HHI.HP ---
Provisional Diagnosis Admission Date Nov 14, 2017 at 14:52 [place] I. Schizoaffective disorder bipolar type, seizure disorder Certification of Person's Competence To Provide Express and Informed Consent I have personally examined Asha Figueroa , a person being served at [facility] on, Nov 15, 2017 14:10. Express and informed consent means consent voluntarily given in writing, by a competent person, after sufficient explanation and disclosure of the subject matter involved to enable the person to make a knowing and willful decision without any element of force, fraud, deceit, duress, or other form of constraint or coercion. This person is 18 years of age or older, is not now known to be incompetent to consent to treatment with a guardian advocate, and does not have a health care surrogate or proxy currently making medical treatment decisions. I have found this person to be one of the following: [] Competent to provide express and informed consent, as defined above, for voluntary admission to this facility and is competent to provide express and informed consent for treatment. He/she has the consistent capacity to make well reasoned, willful, and knowing decisions concerning his or her medical or mental health treatment. The person fully and consistently understands the purpose of the admission for examination/placement and is fully capable of personally exercising all rights assured under [place] [] Incompetent to provide express and informed consent to voluntary admission, and this is incompetent to provide express and informed consent to treatment. The person must be transferred to involuntary status and a petition for a guardian advocate filed with the Circuit Court. []xxx Refusing to provide express and informed consent to voluntary admission but is competent to provide express and informed consent for treatment. The person must be discharged or transferred to involuntary status. Form shall be completed within 24 hours of a person's arrival at the receiving facility and filed in the clinical record of each person: 1. Admitted on a voluntary basis 2. Permitted to provide express and informed consent to his/her own treatment 3. Allowed to transfer from involuntary to voluntary status 4. Prior to permitting a person to consent to his or her own treatment after having been previously found incompetent to consent to treatment. History of Present Illness Capacity: Lacks Capacity (Patient lacks capacity to sign for admission, patient has capacity to sign for medications and treatment) HPI Patient is a 67-year-old white female who comes here under a Calderon act by the [place] [employer] dated 11/15/1815 an 10:40 AM that document reviewed and agreed with essentially stating that patient's daughter advised her mother wanted to hurt herself she showed the long 4 soft of the text I would this missed [place] yelling and screaming with a knife on the bed stand I removed the knife from the area that is when she broke a picture frame and grab the glass that is when she tried to cut herself but was stopped. Patient seen screen in the ED patient admitted under the Calderon act patient seen in her room on 2699 with nurse Danya. Patient did recognize me from prior contact. She was hospitalized here 3 01/16 through 08/23/15 under visit [id number]. And discharged to follow-up with private psychiatrist. At the present time patient sitting quietly in her room she is calm and cooperative with me did acknowledge having a break it appears patient has been dieting fairly strictly. Has had a medications just adjust of the day prior. She acknowledges increased paranoia vigilance and auditory hallucinations of a command nature. She denies alcohol or drug use with this. I did call patient's daughter name is Deb at [phone] to verify this. Daughter states patient has had 2-3 hospitalizations in the past year or so at various different facilities not here at [place]. Patient acknowledges long history of mental health issues. Patient denies any physical or sexual abuse in the past. Though she is . Does have 2 children a son out of state and a daughter local who was her healthcare surrogate. Patient denies any alcohol or drug use related to this. She acknowledges a multiple psychiatric hospitalizations. She states the last auditory hallucinations were earlier this morning. I did discuss with her and discussed with patient's daughter medication management. We will continue her medications per the med reconciliation we will adjust the Seroquel to 100 mg twice daily and at bedtime. We will have a hospitalist consult will us. Patient does have a history of seizure disorder and live Dr. Walker also consult with us. Hope this be a short stay patient will be able to return to her HEATH that is called [facility] Review of Systems Except as stated in HPI: all other systems reviewed are Neg Past Psych History Psychological trauma history Patient denies Violence risk - others (6 mos) Low Violence risk - self (6 mos) Low to moderate Substance Abuse History Drugs/Alcohol past 12 months Patient denies Past Family Social History Coded Allergies: No Known Allergies (Unverified Allergy, Unknown, 11/14/17) Reported Medications Meclizine (Meclizine) 25 Mg Tab, 25 MG PO HS Y for DIZZINESS, TAB 0 Refills 11/14/17 Temazepam (Restoril) 15 Mg Cap, 15-30 MG PO HS Y for INSOMNIA, #30 CAP 0 Refills 11/14/17 Phenytoin Extended (Dilantin) 100 Mg Cap, 100 MG PO BID for Control Seizures, # 90 CAP 0 Refills 11/14/17 Lamotrigine (Lamictal) 200 Mg Tab, 200 MG PO HS for Control Seizures, #30 TAB 0 Refills 11/14/17 Thiamine (Vitamin B-1) 250 Mg Tab, 250 MG PO DAILY for Nutritional Supplement, TAB 0 Refills 11/14/17 Quetiapine (Quetiapine) 100 Mg Tab, 300 MG PO HS for Mood Stabilizer, #30 TAB 0 Refills 11/14/17 Sertraline (Sertraline) 100 Mg Tab, 100 MG PO DAILY for Depression Control, #30 TAB 0 Refills 11/14/17 Discontinued Reported Medications Quetiapine (Quetiapine) 25 Mg Tab, 25 MG PO HS, #30 TAB 0 Refills 11/15/16 Trazodone (Trazodone) 150 Mg Tablet, PO DAILY, TAB 1 Refill 11/06/16 Sertraline (Zoloft) 50 Mg Tab, 50 MG PO DAILY for Depression Control, #30 TAB 1 Refill 11/06/16 Discontinued Scripts Famotidine (Famotidine) 20 Mg Tab, 20 MG PO BID for GI prophylaxis for 10 Days, TAB Prov:Yg Rich MD 11/15/16 Cefuroxime (Cefuroxime) 500 Mg Tab, 500 MG PO Q12HR for Infection for 3 Days, TAB Prov:Yg Rich MD 11/15/16 Azithromycin (Azithromycin) 250 Mg Tab, 250 MG PO DAILY for Infection for 1 Day , TAB Prov:Yg Rich MD 11/15/16 Current Medications Medications (Trade) Dose Ordered Sig/Michael Route Start Time Stop Time Status Last Admin (Ativan) 1 mg Q6H PRN PO 11/14/17 15:00 (Ativan Inj) 1 mg Q6H PRN IM 11/14/17 15:00 (Ativan) 0.5 mg Q12H PRN PO 11/14/17 15:00 (Ativan Inj) 0.5 mg Q12H PRN IM 11/14/17 15:00 (Tylenol) 650 mg Q4H PRN PO 11/14/17 15:00 11/14/17 20:34 (Milk Of Magnesia Liq) 30 ml DAILY PRN PO 11/14/17 15:00 (Mag-Al Plus Susp Liq) 30 ml Q6H PRN PO 11/14/17 15:00 (Habitrol 21 Mg Patch.24 Hr) 1 patch DAILY T-DERMAL 11/14/17 15:00 Miscellaneous Information 1 DAILY T-DERMAL 11/15/17 09:00 (Benadryl) 50 mg HS PRN PO 11/15/17 13:45 (Atarax) 50 mg Q6H PRN PO 11/15/17 13:45 (LaMICtal) 200 mg HS PO 11/15/17 21:00 (Antivert) 25 mg HS PRN PO 11/15/17 13:45 (Dilantin) 100 mg BID PO 11/15/17 13:45 UNV (Zoloft) 100 mg DAILY PO 11/16/17 09:00 UNV Non-Formulary Medication 250 mg DAILY PO 11/16/17 09:00 UNV (SEROquel) 100 mg BID@0900,1600 PO 11/15/17 16:00 UNV (SEROquel) 100 mg HS PO 11/15/17 21:00 UNV Family Psych History Patient denies Social History Patient has 2 adult children patient lives an [facility] Patient's Strengths (min. 2) Patient verbal able access healthcare Physical Exam Patient medically cleared ED at the present time patient sitting quietly in her room she is in no acute distress, no complaints of chest pain, no complaints of abdominal pain, patient moving all 4 extremities without difficulty Vital Signs Vital Signs Date Time Temp Pulse Resp B/P (MAP) Pulse Ox O2 Delivery O2 Flow Rate FiO2 11/14/17 17:45 98.4 94 16 170/99 (122) 96 11/14/17 13:56 Room Air Lab Results Test 11/15/17 06:00 Blood Urea Nitrogen 13 MG/DL Creatinine 0.62 MG/DL Random Glucose 80 MG/DL Calcium Level 9.2 MG/DL Sodium Level 142 MEQ/L Potassium Level 4.6 MEQ/L Chloride Level 107 MEQ/L Carbon Dioxide Level 25.9 MEQ/L Anion Gap 9 MEQ/L Estimat Glomerular Filtration Rate 96 ML/MIN Triglycerides Level 92 MG/DL Cholesterol Level 281 MG/DL LDL Cholesterol 179 MG/DL HDL Cholesterol 83.3 MG/DL Cholesterol/HDL Ratio 3.37 RATIO Mental Status Examination Appearance: Appropriate Consciousness: Alert Orientation: x4 Motor Activity: Normal gait Speech: Unremarkable Language: Adequate Fund of Knowledge: Adequate Memory: Unremarkable (Fair) Mood: Other (Euthymic to mildly irritable and dysphoric) Affect: Other (Good range and intensity) Thought Process & Associations: Intact Thought Content: Appropriate Hallucination Type: Auditory (Intermittent threatening and intrusive) Delusion Type: Paranoid (Mildly) Suicidal Ideation: No Suicidal Plan: No Suicidal Intention: No Homicidal Ideation: No Homicidal Plan: No Homicidal Intention: No Insight: Fair Judgment: Impulsive Assessment & Plan Problem List: (1) Schizoaffective disorder, bipolar type ICD Codes: F25.0 - Schizoaffective disorder, bipolar type (2) Seizure disorder ICD Codes: G40.909 - Epilepsy, unspecified, not intractable, without status epilepticus Status: Acute Assessment & Plan Estimated LOS: 5-7 days at this time patient meets criteria for involuntary psychiatric hospitalization I will do first opinion request second opinion. I feel she does have capacity for treatment decisions. We will consult hospitalist to consult patient's neurologist Dr. Walker. We will continue meds per the med reconciliation of the adjustment as mentioned above Discharge Planning We will see if patient can be returned to her prior [facility] Request HC Surrog/Guard Advoc?: No Gregor Mackay MD Nov 15, 2017 14:21
[2017-11-15] MEDS: PHENYTOIN SODIUM 100 MG CAP PO SCH ×3 (14:24→21:14)
[2017-11-15] MEDS: ACETAMINOPHEN 325 MG TAB PO PRN (14:24)
[2017-11-15 15:48] LABS: HEMOGLOBIN A1C 5.2 % (4.3-6.0)
[2017-11-15] MEDS: QUEtiapine FUMARATE 25 MG TAB PO SCH (16:24)
[2017-11-15 17:51] VITALS: BP 163/87; PULSE 100; RESP 18; TEMP 98.2; O2SAT 99
--- NOTE | 2017-11-15 17:57 | PD.CONS ---
History of Present Illness Service Neurology Consult Requested By Psychiatry for patient's history of seizure Primary Care Physician Shirin Evans MD History of Present Illness HPI 67-year-old female admitted under Calderon act for suicidal ideation or threats to harm her self at her HEATH. History of bipolar, depression. Also with a history of suspected seizures which she is well controlled on. We have been following this patient in the office and she is actually doing quite well. She did have an episode of BPV recently which resolved with treatment. In addition has a history of insomnia and sleep apnea. Denies any headache fever night sweats chills or any dizziness or vertigo. States she has been on Atkins diet and she wonders if that had affected her mood. PFSH Past Medical History Seizures, bipolar disorder, sleep apnea, BPV, insomnia Past Surgical History Bilateral knee surgery, vasectomy Family History No history of seizure Social History Patient living at an [facility] facility Denies any current alcohol tobacco use Review of Systems All other ROS: ROS reviewed as documented in chart Past Family Social History Allergies: Coded Allergies: No Known Allergies (Unverified Allergy, Unknown, 11/14/17) Active Ordered Medications Current Medications Medications (Trade) Dose Ordered Sig/Michael Route Start Time Stop Time Status Last Admin (Ativan) 1 mg Q6H PRN PO 11/14/17 15:00 (Ativan Inj) 1 mg Q6H PRN IM 11/14/17 15:00 (Ativan) 0.5 mg Q12H PRN PO 11/14/17 15:00 (Ativan Inj) 0.5 mg Q12H PRN IM 11/14/17 15:00 (Tylenol) 650 mg Q4H PRN PO 11/14/17 15:00 11/15/17 14:24 (Milk Of Magnesia Liq) 30 ml DAILY PRN PO 11/14/17 15:00 (Mag-Al Plus Susp Liq) 30 ml Q6H PRN PO 11/14/17 15:00 (Habitrol 21 Mg Patch.24 Hr) 1 patch DAILY T-DERMAL 11/14/17 15:00 Miscellaneous Information 1 DAILY T-DERMAL 11/15/17 09:00 (Benadryl) 50 mg HS PRN PO 11/15/17 13:45 (Atarax) 50 mg Q6H PRN PO 11/15/17 13:45 (LaMICtal) 200 mg HS PO 11/15/17 21:00 (Antivert) 25 mg HS PRN PO 11/15/17 13:45 (Dilantin) 100 mg BID PO 11/15/17 13:45 11/15/17 14:24 (Zoloft) 100 mg DAILY PO 11/16/17 09:00 (Vitamin B1) 250 mg DAILY PO 11/16/17 09:00 (SEROquel) 100 mg BID@0900,1600 PO 11/15/17 16:00 11/15/17 16:24 (SEROquel) 100 mg HS PO 11/15/17 21:00 (Pill Splitter) 1 ea UNSCH PRN OTHER 11/15/17 14:15 Exam General: Alert and Oriented, No acute distress Respiratory: Non-labored respirations Cardiology: Normal rate Neurologic: Alert, Oriented, Normal sensory, Normal motor, No focal defects, CN II-XII intact, Gag reflex normal, Normal DTR's Psychiatric: Cooperative, Appropriate mood & affect, Normal judgement, Non- suicidal Review/Management Diagnosis/Plan: (1) Seizure disorder ICD Codes: G40.909 - Epilepsy, unspecified, not intractable, without status epilepticus Status: Chronic Plan: Doing well On Lamictal and Dilantin Recommendations Follow-up EEG Follow-up Dilantin Lamictal level (2) Insomnia ICD Codes: G47.00 - Insomnia, unspecified Status: Chronic Plan: Hypnotics as needed CBT (3) BPV (benign positional vertigo) ICD Codes: H81.10 - Benign paroxysmal vertigo, unspecified ear Status: Chronic Plan: Improved (4) Schizoaffective disorder, bipolar type ICD Codes: F25.0 - Schizoaffective disorder, bipolar type Status: Chronic Plan: Per psychiatry (5) Adjustment disorder with mixed disturbance of emotions and conduct ICD Codes: F43.25 - Adjustment disorder with mixed disturbance of emotions and conduct Status: Chronic Plan: Per psychiatry John Walker MD Nov 15, 2017 17:57
[2017-11-15] MEDS: lamoTRIgine 100 MG TAB PO SCH ×2 (21:00→21:14)
[2017-11-15] MEDS: QUEtiapine FUMARATE 100 MG TAB PO SCH ×2 (21:00→21:14)
[2017-11-15] MEDS ORDERED: HALOPERIDOL LACTATE 5 MG/ML AMP ONE (21:48)
[2017-11-15] MEDS ORDERED: diphenhydrAMINE HCL 50 MG/ML VIAL ONE (21:48)
[2017-11-15] MEDS ORDERED: HALOPERIDOL LACTATE 5 MG/ML AMP IM ONE (22:15)
[2017-11-15] MEDS ORDERED: diphenhydrAMINE HCL 50 MG/ML VIAL IM ONE (22:15)
[2017-11-15] MEDS ORDERED: LORazepam 2 MG/ML VIAL IM ONE (22:15)
[2017-11-16] MEDS: QUEtiapine FUMARATE 25 MG TAB PO SCH ×2 (09:00→16:00)
[2017-11-16] MEDS: THIAMINE HCL 100 MG TAB PO SCH (09:00)
[2017-11-16] MEDS: REMOVE OLD NICOTINE PATCH T-DERMAL SCH (09:00)
[2017-11-16] MEDS: NICOTINE 21 MG/24 HR PATCH T-DERMAL SCH (09:00)
[2017-11-16] MEDS: PHENYTOIN SODIUM 100 MG CAP PO SCH ×2 (09:47→20:22)
[2017-11-16] MEDS: SERTRALINE HCL 100 MG TAB PO SCH (09:48)
[2017-11-16 12:06] VITALS: BP 133/77; PULSE 94; RESP 18; TEMP 98.6; O2SAT 94
--- NOTE | 2017-11-16 12:17 | HHI.PR ---
Review/Management Diagnosis/Plan: (1) Seizure disorder ICD Codes: G40.909 - Epilepsy, unspecified, not intractable, without status epilepticus Status: Chronic Plan: Doing well On Lamictal and Dilantin Dilantin level therapeutic Recommendations Follow-up EEG; pending Follow-up Lamictal level Check thyroid function studies (2) Insomnia ICD Codes: G47.00 - Insomnia, unspecified Status: Chronic Plan: Hypnotics as needed CBT (3) BPV (benign positional vertigo) ICD Codes: H81.10 - Benign paroxysmal vertigo, unspecified ear Status: Chronic Plan: Improved (4) Schizoaffective disorder, bipolar type ICD Codes: F25.0 - Schizoaffective disorder, bipolar type Status: Chronic Plan: Per psychiatry (5) Adjustment disorder with mixed disturbance of emotions and conduct ICD Codes: F43.25 - Adjustment disorder with mixed disturbance of emotions and conduct Status: Chronic Plan: Per psychiatry Subjective Subjective Comments No acute events reported No headache No chest pain No dyspnea Active Medications Current Medications Medications (Trade) Dose Ordered Sig/Michael Route Start Time Stop Time Status Last Admin (Ativan) 1 mg Q6H PRN PO 11/14/17 15:00 (Ativan Inj) 1 mg Q6H PRN IM 11/14/17 15:00 (Ativan) 0.5 mg Q12H PRN PO 11/14/17 15:00 (Ativan Inj) 0.5 mg Q12H PRN IM 11/14/17 15:00 (Tylenol) 650 mg Q4H PRN PO 11/14/17 15:00 11/15/17 14:24 (Milk Of Magnesia Liq) 30 ml DAILY PRN PO 11/14/17 15:00 (Mag-Al Plus Susp Liq) 30 ml Q6H PRN PO 11/14/17 15:00 (Habitrol 21 Mg Patch.24 Hr) 1 patch DAILY T-DERMAL 11/14/17 15:00 Miscellaneous Information 1 DAILY T-DERMAL 11/15/17 09:00 (Benadryl) 50 mg HS PRN PO 11/15/17 13:45 (Atarax) 50 mg Q6H PRN PO 11/15/17 13:45 (LaMICtal) 200 mg HS PO 11/15/17 21:00 (Antivert) 25 mg HS PRN PO 11/15/17 13:45 (Dilantin) 100 mg BID PO 11/15/17 13:45 11/16/17 09:47 (Zoloft) 100 mg DAILY PO 11/16/17 09:00 11/16/17 09:48 (Vitamin B1) 250 mg DAILY PO 11/16/17 09:00 11/16/17 09:00 (SEROquel) 100 mg BID@0900,1600 PO 11/15/17 16:00 11/16/17 09:00 (SEROquel) 100 mg HS PO 11/15/17 21:00 (Pill Splitter) 1 ea UNSCH PRN OTHER 11/15/17 14:15 Allergies Allergies Coded Allergies No Known Allergies (Unverified Allergy, Unknown, 11/14/17) Review of Systems All other ROS: ROS reviewed as documented in chart Exam I&O / VS Vital Signs Date Time Temp Pulse Resp B/P (MAP) Pulse Ox O2 Delivery O2 Flow Rate FiO2 11/16/17 12:06 98.6 94 18 133/77 (95) 94 11/15/17 17:51 98.2 100 18 163/87 (112) 99 General: Alert and Oriented, No acute distress Respiratory: Non-labored respirations Neurologic: Alert, Oriented, Normal sensory, Normal motor, No focal defects, CN II-XII intact Psychiatric: Cooperative Exam Comments Monotone speech calm laying in bed follows somewhat reserved no focal deficit John Walker MD Nov 16, 2017 12:17
--- NOTE | 2017-11-16 14:06 | HHI.PYPN ---
Subjective Remarks This is a request for second opinion. Admission note was reviewed and I agree with the history. Patient was seen and case was discussed with nursing. Patient would not cooperate with the interview. There appears to be some mild akathisia with occasional grimacing. tHis grimacing is not rhythmical and there is no dystonia. Patient appears to be responding to internal stimuli and is actively looking around the room. She continues to be followed by neurology. Per nursing, neurology is aware of a history of these behaviors Mental Status Examination Appearance: Appropriate Consciousness: Alert Orientation: x4 Motor Activity: Normal gait Speech: Other (Mute) Language: Other (Cannot assess) Fund of Knowledge: Inadequate Attention and Concentration: Inadequate Memory: Unremarkable (Cannot assess) Mood: Other (Euthymic to mildly irritable and dysphoric) Affect: Blunt Thought Process & Associations: Intact Thought Content: Other (Internally stimulated) Hallucination Type: Auditory (Internally stimulated) Delusion Type: Paranoid (Mildly) Suicidal Ideation: No Suicidal Plan: No Suicidal Intention: No Homicidal Ideation: No Homicidal Plan: No Homicidal Intention: No Insight: Fair Judgment: Impulsive Results Vitals/IOs Vital Signs Date Time Temp Pulse Resp B/P (MAP) Pulse Ox O2 Delivery O2 Flow Rate FiO2 11/16/17 12:06 98.6 94 18 133/77 (95) 94 11/14/17 13:56 Room Air Assessment & Plan Problem List: (1) Schizoaffective disorder, bipolar type ICD Codes: F25.0 - Schizoaffective disorder, bipolar type Status: Chronic (2) Seizure disorder ICD Codes: G40.909 - Epilepsy, unspecified, not intractable, without status epilepticus Status: Chronic Assessment & Plan I agree with the first opinion to continue petition. Criteria include acute psychosis Justification for Cont. Inpt. Patient would decompensate in a less restrictive setting Request HC Surrog/Guard Advoc?: No Mason Yu DO Nov 16, 2017 14:06
[2017-11-16 17:55] VITALS: BP 148/88; PULSE 104; RESP 16; TEMP 98.8; O2SAT 98
[2017-11-16] MEDS: QUEtiapine FUMARATE 100 MG TAB PO SCH (20:22)
[2017-11-16] MEDS: lamoTRIgine 100 MG TAB PO SCH (20:23)
[2017-11-16] MEDS: METOPROLOL TARTRATE 25 MG TAB PO SCH (20:24)
[2017-11-16 22:13] LABS: BACTERIA, URINE OCC /hpf; BILIRUBIN, URINE NEG (NEG); BLOOD, URINE NEG (NEG); GLUCOSE,URINE NEG (NEG); KETONE, URINE NEG (NEG); MUCUS URINE FEW /lpf (OCC); NITRITE,URINE NEG (NEG); SQUAMOUS EPITHELIAL CELL URINE 3 /hpf (0-5); URINE COLOR Straw (YELLW/STRAW); URINE LEUKOCYTE ESTERASE LARGE (NEG)
[2017-11-17] MEDS: ACETAMINOPHEN 325 MG TAB PO PRN ×2 (00:20→16:59)
[2017-11-17 05:57] VITALS: BP 127/90; PULSE 80; RESP 18; TEMP 97.1; O2SAT 100
[2017-11-17] MEDS: NICOTINE 21 MG/24 HR PATCH T-DERMAL SCH (09:00)
[2017-11-17] MEDS: REMOVE OLD NICOTINE PATCH T-DERMAL SCH (09:00)
[2017-11-17] MEDS: PHENYTOIN SODIUM 100 MG CAP PO SCH ×2 (09:03→20:37)
[2017-11-17] MEDS: THIAMINE HCL 100 MG TAB PO SCH (09:04)
[2017-11-17] MEDS: QUEtiapine FUMARATE 25 MG TAB PO SCH ×2 (09:05→16:48)
[2017-11-17] MEDS: METOPROLOL TARTRATE 25 MG TAB PO SCH ×2 (09:05→20:56)
[2017-11-17] MEDS: SERTRALINE HCL 100 MG TAB PO SCH (09:05)
[2017-11-17 09:11] LABS: FREE T3 3.25 PG/ML (2.18-3.98); FREE T4 0.98 NG/DL (0.76-1.46)
--- NOTE | 2017-11-17 11:55 | HHI.PYPN ---
Subjective Remarks Patient was seen and case discussed with nursing. Today patient is more talkative wearing yesterday she refused the interview. She is guarded concerning her hallucinations and it is clear she is responding to internal stimuli. She is asking questions not relevant to the questions I am asking her and is looking about the room during the interview. He needs to have occasional facial grimacing. Sleep is poor Mental Status Examination Appearance: Appropriate Consciousness: Alert Orientation: x4 Motor Activity: Normal gait Speech: Hesitant Language: Adequate Fund of Knowledge: Inadequate Attention and Concentration: Inadequate Memory: Unremarkable (Cannot assess) Mood: Anxious Affect: Flat Thought Process & Associations: Intact Thought Content: Other (Internally stimulated) Hallucination Type: Auditory (Internally stimulated) Delusion Type: Paranoid (Mildly) Suicidal Ideation: No Suicidal Plan: No Suicidal Intention: No Homicidal Ideation: No Homicidal Plan: No Homicidal Intention: No Insight: Fair Judgment: Impulsive Results Labs Test 11/16/17 16:10 11/17/17 07:57 Urine Color Straw Urine Turbidity HAZY Urine pH 6.0 Urine Specific Embudo 1.005 Urine Protein NEG mg/dL Urine Glucose (UA) NEG mg/dL Urine Ketones NEG mg/dL Urine Occult Blood NEG Urine Nitrite NEG Urine Bilirubin NEG Urine Leukocyte Esterase LARGE Urine RBC 1 /hpf Urine WBC 9 /hpf Urine Squamous Epithelial Cells 3 /hpf Urine Bacteria OCC /hpf Urine Mucus FEW /lpf Microscopic Urinalysis Comment CULTURE INDICATED Urine Opiates Screen NEG Urine Barbiturates Screen NEG Urine Amphetamines Screen NEG Urine Benzodiazepines Screen NEG Urine Cocaine Screen NEG Urine Cannabinoids Screen NEG Free Thyroxine 0.98 NG/DL Free Triiodothyronine (T3) pg/dL 3.25 PG/ML Thyroid Stimulating Hormone 3rd Gen 0.956 uIU/ML Date/Time Source Procedure Growth Status 11/16/17 16:10 Urine Clean Catch Urine Culture Pending Received Vitals/IOs Vital Signs Date Time Temp Pulse Resp B/P (MAP) Pulse Ox O2 Delivery O2 Flow Rate FiO2 11/17/17 05:57 97.1 80 18 127/90 (102) 100 11/14/17 13:56 Room Air Assessment & Plan Problem List: (1) Schizoaffective disorder, bipolar type ICD Codes: F25.0 - Schizoaffective disorder, bipolar type Status: Chronic (2) Seizure disorder ICD Codes: G40.909 - Epilepsy, unspecified, not intractable, without status epilepticus Status: Chronic Assessment & Plan Continue current treatment plan Justification for Cont. Inpt. Patient would decompensate in a less restrictive setting Request HC Surrog/Guard Advoc?: No Mason Yu DO Nov 17, 2017 11:55
[2017-11-17 17:20] VITALS: BP 124/86; PULSE 73; RESP 18; TEMP 97.9; O2SAT 100
[2017-11-17] MEDS: QUEtiapine FUMARATE 100 MG TAB PO SCH (20:37)
[2017-11-17] MEDS: lamoTRIgine 100 MG TAB PO SCH (20:38)
[2017-11-17] MEDS: diphenhydrAMINE HCL 50 MG CAP PO PRN (20:57)
[2017-11-17] MEDS: LORazepam 1 MG TAB PO PRN (23:01)
[2017-11-18 06:22] VITALS: BP 123/69; PULSE 72; RESP 16; TEMP 97.3; O2SAT 97
[2017-11-18] MEDS: METOPROLOL TARTRATE 25 MG TAB PO SCH ×2 (08:46→21:00)
[2017-11-18] MEDS: SERTRALINE HCL 100 MG TAB PO SCH (08:46)
[2017-11-18] MEDS: PHENYTOIN SODIUM 100 MG CAP PO SCH ×2 (08:46→21:25)
[2017-11-18] MEDS: THIAMINE HCL 100 MG TAB PO SCH (08:47)
[2017-11-18] MEDS: QUEtiapine FUMARATE 25 MG TAB PO SCH ×2 (08:50→16:00)
[2017-11-18] MEDS: REMOVE OLD NICOTINE PATCH T-DERMAL SCH (08:51)
[2017-11-18] MEDS: NICOTINE 21 MG/24 HR PATCH T-DERMAL SCH (08:53)
[2017-11-18] MEDS: ACETAMINOPHEN 325 MG TAB PO PRN ×2 (10:02→19:38)
--- NOTE | 2017-11-18 10:59 | HHI.PYPN ---
Subjective Remarks Patient seen in day room with nurse Danya, chart reviewed, patient complaint medications, patient discussed with nurse. It appears patient had a "meltdown" over the weekend. She acknowledges that it is somewhat frivolous attitude. However today she denies suicidality and denies voices. Though she is somewhat intense and a little bit irritable with me. We will increase at bedtime Seroquel to 200 mg at bedtime. We will also transfer patient back to 2600 Review of Systems Except as stated in HPI: all other systems reviewed are Neg Mental Status Examination Appearance: Appropriate Consciousness: Alert Orientation: x4 Motor Activity: Normal gait Speech: Hesitant Language: Adequate Fund of Knowledge: Inadequate Attention and Concentration: Inadequate Memory: Unremarkable (Cannot assess) Mood: Anxious Affect: Flat Thought Process & Associations: Intact Thought Content: Other (Internally stimulated) Hallucination Type: Auditory (Internally stimulated) Delusion Type: Paranoid (Mildly) Suicidal Ideation: No Suicidal Plan: No Suicidal Intention: No Homicidal Ideation: No Homicidal Plan: No Homicidal Intention: No Insight: Fair Judgment: Impulsive Results Labs Date/Time Source Procedure Growth Status 11/16/17 16:10 Urine Clean Catch Urine Culture - Preliminary IMMATURE GROWTH - REINCUBATE Resulted Vitals/IOs Vital Signs Date Time Temp Pulse Resp B/P (MAP) Pulse Ox O2 Delivery O2 Flow Rate FiO2 11/18/17 06:22 97.3 72 16 123/69 (87) 97 11/14/17 13:56 Room Air Assessment & Plan Problem List: (1) Schizoaffective disorder, bipolar type ICD Codes: F25.0 - Schizoaffective disorder, bipolar type Status: Chronic (2) Seizure disorder ICD Codes: G40.909 - Epilepsy, unspecified, not intractable, without status epilepticus Status: Chronic Assessment & Plan Estimated LOS: days patient's psychosis and manic type behaviors are slowly softening. Though doing need to see some consistency in a behavior. We also Justification for Cont. Inpt. At this time patient would decompensate a place to a lower level of care Discharge Planning To be determined Request HC Surrog/Guard Advoc?: No Gregor Mackay MD Nov 18, 2017 10:59
--- NOTE | 2017-11-18 13:11 | MG ---
cc: Larry Bro MD, PhD EEG NUMBER: [id number] TECHNIQUE: A 17-channel EEG. DESCRIPTION: The background rhythm reveals symmetrical alpha. Frequency is roughly 8 Hz. There is some sharp activity identified over mainly the right parietal area and occasionally over the left, which does recur occasionally throughout the tracing. There is some muscle artifact as well. INTERPRETATION: Sharp activity identified over the right greater than left hemisphere suggesting a possible epileptogenic focus. Larry Bro MD, PhD DIPESH/TODD , 12:56 PM , 01:09 PM
[2017-11-18 18:12] VITALS: BP 104/59; PULSE 75; RESP 16; TEMP 98; O2SAT 95
[2017-11-18] MEDS: lamoTRIgine 100 MG TAB PO SCH (21:25)
[2017-11-18] MEDS: QUEtiapine FUMARATE 200 MG TAB PO SCH (21:25)
[2017-11-19 06:08] VITALS: BP 100/64; PULSE 69; RESP 16; TEMP 98; O2SAT 94
[2017-11-19] MEDS: NICOTINE 21 MG/24 HR PATCH T-DERMAL SCH (09:00)
[2017-11-19] MEDS: METOPROLOL TARTRATE 25 MG TAB PO SCH ×3 (09:00→20:49)
[2017-11-19] MEDS: REMOVE OLD NICOTINE PATCH T-DERMAL SCH (09:00)
[2017-11-19] MEDS: SERTRALINE HCL 100 MG TAB PO SCH (09:44)
[2017-11-19] MEDS: THIAMINE HCL 100 MG TAB PO SCH (09:44)
[2017-11-19] MEDS: PHENYTOIN SODIUM 100 MG CAP PO SCH ×2 (09:45→18:51)
[2017-11-19] MEDS: QUEtiapine FUMARATE 25 MG TAB PO SCH ×2 (09:46→16:13)
[2017-11-19] MEDS: ACETAMINOPHEN 325 MG TAB PO PRN (14:49)
--- NOTE | 2017-11-19 16:00 | HHI.PYPN ---
Subjective Remarks Patient seen in her room with floor staff, chart reviewed, patient complaint medications, patient discussed with nurse. Patient continues calm pleasant with me though that mild amount of underlying vigilance and irritability. Continues to ask about when she can sign voluntary. We did discuss return to her [facility] now she needs to have consistent stability to maintain her residence there. For now continue treatment Review of Systems Except as stated in HPI: all other systems reviewed are Neg Mental Status Examination Appearance: Appropriate Consciousness: Alert Orientation: x4 Motor Activity: Normal gait Speech: Hesitant Language: Adequate Fund of Knowledge: Inadequate Attention and Concentration: Inadequate Memory: Unremarkable (Cannot assess) Mood: Anxious Affect: Flat Thought Process & Associations: Intact Thought Content: Other (Internally stimulated) Hallucination Type: Auditory (Internally stimulated) Delusion Type: Paranoid (Mildly) Suicidal Ideation: No Suicidal Plan: No Suicidal Intention: No Homicidal Ideation: No Homicidal Plan: No Homicidal Intention: No Insight: Fair Judgment: Impulsive Results Labs Date/Time Source Procedure Growth Status 11/16/17 16:10 Urine Clean Catch Urine Culture - Final 50-100,000 CFU/ML MIXED GRAM POSITIVE... Complete Vitals/IOs Vital Signs Date Time Temp Pulse Resp B/P (MAP) Pulse Ox O2 Delivery O2 Flow Rate FiO2 11/19/17 06:08 98.0 69 16 100/64 (76) 94 Intake and Output 11/19/17 11/19/17 11/20/17 08:00 16:00 00:00 Intake Total 240 ml Balance 240 ml Assessment & Plan Problem List: (1) Schizoaffective disorder, bipolar type ICD Codes: F25.0 - Schizoaffective disorder, bipolar type Status: Chronic (2) Seizure disorder ICD Codes: G40.909 - Epilepsy, unspecified, not intractable, without status epilepticus Status: Chronic Assessment & Plan Estimated LOS: days patient continues somewhat psychotic contents, she medication adjustment above, patient complains of the length to be given to late at night because of sleep issues Justification for Cont. Inpt. At this time patient would decompensate a place a lower level of care Discharge Planning To be determined Request HC Surrog/Guard Advoc?: No Gregor Mackay MD Nov 19, 2017 16:00
[2017-11-19 18:20] VITALS: BP 142/72; PULSE 85; RESP 16; TEMP 97.5; O2SAT 96
[2017-11-19] MEDS: QUEtiapine FUMARATE 200 MG TAB PO SCH (20:49)
[2017-11-19] MEDS: lamoTRIgine 100 MG TAB PO SCH (20:49)
[2017-11-19] MEDS: diphenhydrAMINE HCL 50 MG CAP PO PRN (21:07)
[2017-11-20] MEDS: hydrOXYzine HCL 50 MG TAB PO PRN (00:06)
[2017-11-20 06:00] VITALS: BP 98/55; PULSE 69; RESP 16; TEMP 97.7; O2SAT 96
[2017-11-20] MEDS: METOPROLOL TARTRATE 25 MG TAB PO SCH ×2 (09:00→21:52)
[2017-11-20] MEDS: REMOVE OLD NICOTINE PATCH T-DERMAL SCH (09:00)
[2017-11-20] MEDS: NICOTINE 21 MG/24 HR PATCH T-DERMAL SCH (09:00)
[2017-11-20] MEDS: PHENYTOIN SODIUM 100 MG CAP PO SCH ×2 (09:12→18:00)
[2017-11-20] MEDS: THIAMINE HCL 100 MG TAB PO SCH (09:12)
[2017-11-20] MEDS: SERTRALINE HCL 100 MG TAB PO SCH (09:12)
[2017-11-20] MEDS: QUEtiapine FUMARATE 25 MG TAB PO SCH ×2 (09:26→16:56)
--- NOTE | 2017-11-20 12:40 | HHI.PYPN ---
Subjective Remarks Patient seen in her room with floor staff, chart reviewed, patient compliant medications, patient discussed with nurse. Patient overall calm cooperative though somewhat vigilant and labile.. Patient was served with a [employer] papers prior to my seeing her which caused to become somewhat upset. However I discussed this with patient. At the stomach feel patient has a capacity to sign voluntary. Thus I will lift [employer] act allow patient to sign voluntary for now continue treatment Review of Systems Except as stated in HPI: all other systems reviewed are Neg Mental Status Examination Appearance: Appropriate Consciousness: Alert Orientation: x4 Motor Activity: Normal gait Speech: Hesitant Language: Adequate Fund of Knowledge: Inadequate Attention and Concentration: Inadequate Memory: Unremarkable (Cannot assess) Mood: Anxious Affect: Flat Thought Process & Associations: Intact Thought Content: Other (Internally stimulated) Hallucination Type: Auditory (Internally stimulated) Delusion Type: Paranoid (Mildly) Suicidal Ideation: No Suicidal Plan: No Suicidal Intention: No Homicidal Ideation: No Homicidal Plan: No Homicidal Intention: No Insight: Fair Judgment: Impulsive Results Labs Date/Time Source Procedure Growth Status 11/16/17 16:10 Urine Clean Catch Urine Culture - Final 50-100,000 CFU/ML MIXED GRAM POSITIVE... Complete Vitals/IOs Vital Signs Date Time Temp Pulse Resp B/P (MAP) Pulse Ox O2 Delivery O2 Flow Rate FiO2 11/20/17 06:00 97.7 69 16 98/55 (69) 96 Assessment & Plan Problem List: (1) Schizoaffective disorder, bipolar type ICD Codes: F25.0 - Schizoaffective disorder, bipolar type Status: Chronic (2) Seizure disorder ICD Codes: G40.909 - Epilepsy, unspecified, not intractable, without status epilepticus Status: Chronic Assessment & Plan Estimated LOS: days patient's mood is calm her affect is showing some more appropriate range and intensity. She did process the [employer] court papers on the fact that I am lifting the [employer] act allow him to sign voluntary. She does deny suicidality at the present time Justification for Cont. Inpt. At this time patient would decompensate if placed in a lower level of care Discharge Planning To be determined Request HC Surrog/Guard Advoc?: No Gregor Mackay MD Nov 20, 2017 12:40
[2017-11-20 15:27] VITALS: BP 145/85; PULSE 72; RESP 18; TEMP 98.1; O2SAT 97
[2017-11-20] MEDS: lamoTRIgine 100 MG TAB PO SCH (21:52)
[2017-11-20] MEDS: QUEtiapine FUMARATE 200 MG TAB PO SCH (21:52)
[2017-11-21] MEDS: ACETAMINOPHEN 325 MG TAB PO PRN (04:26)
[2017-11-21 06:10] VITALS: BP 109/71; PULSE 71; RESP 18; TEMP 97.9; O2SAT 96
[2017-11-21] MEDS: NICOTINE 21 MG/24 HR PATCH T-DERMAL SCH (09:00)
[2017-11-21] MEDS: THIAMINE HCL 100 MG TAB PO SCH (09:00)
[2017-11-21] MEDS: REMOVE OLD NICOTINE PATCH T-DERMAL SCH (09:00)
[2017-11-21] MEDS: PHENYTOIN SODIUM 100 MG CAP PO SCH ×2 (09:00→17:12)
[2017-11-21] MEDS: SERTRALINE HCL 100 MG TAB PO SCH (09:00)
[2017-11-21] MEDS: QUEtiapine FUMARATE 25 MG TAB PO SCH ×3 (09:00→17:09)
[2017-11-21] MEDS: METOPROLOL TARTRATE 25 MG TAB PO SCH ×2 (09:00→20:40)
[2017-11-21] MEDS ORDERED: diphenhydrAMINE HCL 50 MG/ML VIAL ONE (10:17)
[2017-11-21] MEDS ORDERED: diphenhydrAMINE HCL 50 MG/ML VIAL IM ONE (10:45)
--- NOTE | 2017-11-21 16:03 | HHI.PYPN ---
Subjective Remarks Patient seen in her room with nurse, chart reviewed, patient trying mixed compliance with medication. It appears prior to my visiting with patient today that she had some type of an EPS reaction was given Benadryl by Dr. Trinh the reaction dissipated rapidly. Patient now refusing all medication when attempting to speak with patient today she was selectively mute and nonverbal with me though she made good eye contact and had somewhat is severely childlike oppositional smile on her face. For now we will monitor that no change in medications Review of Systems Except as stated in HPI: all other systems reviewed are Neg Mental Status Examination Appearance: Appropriate Consciousness: Alert Orientation: x4 Motor Activity: Normal gait Speech: Hesitant Language: Adequate Fund of Knowledge: Inadequate Attention and Concentration: Inadequate Memory: Unremarkable (Cannot assess) Mood: Anxious Affect: Flat Thought Process & Associations: Intact Thought Content: Other (Internally stimulated) Hallucination Type: Auditory (Internally stimulated) Delusion Type: Paranoid (Mildly) Suicidal Ideation: No Suicidal Plan: No Suicidal Intention: No Homicidal Ideation: No Homicidal Plan: No Homicidal Intention: No Insight: Fair Judgment: Impulsive Results Labs Date/Time Source Procedure Growth Status 11/16/17 16:10 Urine Clean Catch Urine Culture - Final 50-100,000 CFU/ML MIXED GRAM POSITIVE... Complete Vitals/IOs Vital Signs Date Time Temp Pulse Resp B/P (MAP) Pulse Ox O2 Delivery O2 Flow Rate FiO2 11/21/17 06:10 97.9 71 18 109/71 (84) 96 Assessment & Plan Problem List: (1) Schizoaffective disorder, bipolar type ICD Codes: F25.0 - Schizoaffective disorder, bipolar type Status: Chronic (2) Seizure disorder ICD Codes: G40.909 - Epilepsy, unspecified, not intractable, without status epilepticus Status: Chronic Assessment & Plan Estimated LOS: days patient continues psychotic delusional now showing some reluctance to be compliant with medication Justification for Cont. Inpt. At this time patient would decompensate a place to a lower level of care Discharge Planning To be determined Request HC Surrog/Guard Advoc?: No Gregor Mackay MD Nov 21, 2017 16:03
[2017-11-21 17:44] VITALS: BP 133/66; PULSE 87; RESP 18; TEMP 98.2; O2SAT 100
[2017-11-21] MEDS: lamoTRIgine 100 MG TAB PO SCH (20:40)
[2017-11-21] MEDS: QUEtiapine FUMARATE 200 MG TAB PO SCH (20:40)
[2017-11-22 05:42] VITALS: BP 103/63; PULSE 66; RESP 0; TEMP 97.7; O2SAT 97
[2017-11-22] MEDS: NICOTINE 21 MG/24 HR PATCH T-DERMAL SCH (07:56)
[2017-11-22] MEDS: REMOVE OLD NICOTINE PATCH T-DERMAL SCH (07:56)
[2017-11-22 08:26] VITALS: BP 121/64; PULSE 73
[2017-11-22] MEDS: PHENYTOIN SODIUM 100 MG CAP PO SCH ×2 (09:23→17:29)
[2017-11-22] MEDS: SERTRALINE HCL 100 MG TAB PO SCH (09:23)
[2017-11-22] MEDS: THIAMINE HCL 100 MG TAB PO SCH (09:23)
[2017-11-22] MEDS: METOPROLOL TARTRATE 25 MG TAB PO SCH ×3 (09:23→22:22)
[2017-11-22] MEDS: QUEtiapine FUMARATE 25 MG TAB PO SCH ×2 (09:23→16:00)
--- NOTE | 2017-11-22 13:43 | HHI.PYPN ---
Subjective Remarks Patient seen in her room with nurse Maggy, chart reviewed, patient complaint medications today without difficulty. Patient does deny voices today though it appears she may be responding to internal stimuli. Her affect is somewhat increased is a somewhat silly smile on her face. She agrees to be more cooperative with medication over the weekend Review of Systems Except as stated in HPI: all other systems reviewed are Neg Mental Status Examination Appearance: Appropriate Consciousness: Alert Orientation: x4 Motor Activity: Normal gait Speech: Hesitant Language: Adequate Fund of Knowledge: Inadequate Attention and Concentration: Inadequate Memory: Unremarkable (Cannot assess) Mood: Anxious Affect: Flat Thought Process & Associations: Intact Thought Content: Other (Internally stimulated) Hallucination Type: Auditory (Internally stimulated) Delusion Type: Paranoid (Mildly) Suicidal Ideation: No Suicidal Plan: No Suicidal Intention: No Homicidal Ideation: No Homicidal Plan: No Homicidal Intention: No Insight: Fair Judgment: Impulsive Results Labs Date/Time Source Procedure Growth Status 11/16/17 16:10 Urine Clean Catch Urine Culture - Final 50-100,000 CFU/ML MIXED GRAM POSITIVE... Complete Vitals/IOs Vital Signs Date Time Temp Pulse Resp B/P (MAP) Pulse Ox O2 Delivery O2 Flow Rate FiO2 11/22/17 08:26 73 121/64 (83) 11/22/17 05:42 97.7 0 97 Intake and Output 11/22/17 11/22/17 11/23/17 08:00 16:00 00:00 Intake Total 1440 ml Balance 1440 ml Assessment & Plan Problem List: (1) Schizoaffective disorder, bipolar type ICD Codes: F25.0 - Schizoaffective disorder, bipolar type Status: Chronic (2) Seizure disorder ICD Codes: G40.909 - Epilepsy, unspecified, not intractable, without status epilepticus Status: Chronic Assessment & Plan Estimated LOS: days at this time patient remains psychotic but it appears to be resolving somewhat, there is increased compliance with medication. For now continue treatment Justification for Cont. Inpt. At this time patient would decompensate a place to a lower level of care Discharge Planning To be determined Request HC Surrog/Guard Advoc?: No Gregor Mackay MD Nov 22, 2017 13:43
[2017-11-22 18:16] VITALS: BP 123/60; PULSE 70; RESP 16; TEMP 98.2; O2SAT 97
[2017-11-22] MEDS: QUEtiapine FUMARATE 200 MG TAB PO SCH ×2 (21:00→22:22)
[2017-11-22] MEDS: lamoTRIgine 100 MG TAB PO SCH ×2 (21:00→22:22)
[2017-11-22] MEDS: LORazepam 1 MG TAB PO PRN (22:22)
[2017-11-23] MEDS: PHENYTOIN SODIUM 100 MG CAP PO SCH ×2 (01:32→18:00)
[2017-11-23] MEDS: THIAMINE HCL 100 MG TAB PO SCH (08:46)
[2017-11-23] MEDS: METOPROLOL TARTRATE 25 MG TAB PO SCH ×2 (08:46→21:00)
[2017-11-23] MEDS: QUEtiapine FUMARATE 25 MG TAB PO SCH ×2 (08:46→16:00)
[2017-11-23] MEDS: NICOTINE 21 MG/24 HR PATCH T-DERMAL SCH (08:47)
[2017-11-23] MEDS: SERTRALINE HCL 100 MG TAB PO SCH (08:47)
[2017-11-23] MEDS: REMOVE OLD NICOTINE PATCH T-DERMAL SCH (08:47)
[2017-11-23] MEDS ORDERED: diphenhydrAMINE HCL 50 MG/ML VIAL IM ONE (10:45)
[2017-11-23] MEDS ORDERED: HALOPERIDOL LACTATE 5 MG/ML AMP IM ONE (12:30)
[2017-11-23] MEDS ORDERED: LORazepam 2 MG/ML VIAL IM ONE (12:30)
--- NOTE | 2017-11-23 13:23 | HHI.PYPN ---
Subjective Remarks Reviewed electronic medical record and discussed case with staff. RASHIDA Townsend reported that patient was showing some EPS symptoms with mouth tremors. She advises that yesterday the patient was medicated with Benadryl IM and it seemed to help. I have ordered IM Benadryl. Later, patient reported that she felt suicidal however she was not inclined to share her plan. She continued to decompensate until she began slamming doors and slamming her hands against the window. She was medicated with ETO's and moved to the seclusion room on the 2700 unit after a witnessed controlled fall to the floor. Her nurse reports that she refused her morning medications. She may need to be placed back under an involuntary hold if her behaviors continue. Additionally, I have ordered another UA to rule out UTI. Mental Status Examination Appearance: Appropriate Consciousness: Alert Orientation: x4 Motor Activity: Normal gait Speech: Hesitant Language: Adequate Fund of Knowledge: Inadequate Attention and Concentration: Inadequate Memory: Unremarkable (Cannot assess) Mood: Anxious Affect: Flat Thought Process & Associations: Intact Thought Content: Other (Internally stimulated) Hallucination Type: Auditory (Internally stimulated) Delusion Type: Paranoid (Mildly) Suicidal Ideation: No Suicidal Plan: No Suicidal Intention: No Homicidal Ideation: No Homicidal Plan: No Homicidal Intention: No Insight: Fair Judgment: Impulsive Results Labs Date/Time Source Procedure Growth Status 11/16/17 16:10 Urine Clean Catch Urine Culture - Final 50-100,000 CFU/ML MIXED GRAM POSITIVE... Complete Vitals/IOs Vital Signs Date Time Temp Pulse Resp B/P (MAP) Pulse Ox O2 Delivery O2 Flow Rate FiO2 11/22/17 18:16 98.2 70 16 123/60 (81) 97 Intake and Output 11/23/17 11/23/17 11/24/17 08:00 16:00 00:00 Intake Total 1140 ml Balance 1140 ml Assessment & Plan Problem List: (1) Schizoaffective disorder, bipolar type ICD Codes: F25.0 - Schizoaffective disorder, bipolar type Status: Chronic (2) Seizure disorder ICD Codes: G40.909 - Epilepsy, unspecified, not intractable, without status epilepticus Status: Chronic Assessment & Plan Estimated LOS: Patient was moved to a voluntary status and has since started refusing to take her medications. There seems to have been some decompensation over the last 2 days. She may need to be placed back on an involuntary hold for stabilization. Days Justification for Cont. Inpt. Moving this patient to a less restrictive environment would result in decompensation. Request HC Surrog/Guard Advoc?: No Maylin Hernandez Nov 23, 2017 13:23
[2017-11-23 15:43] LABS: BACTERIA, URINE OCC /hpf; BILIRUBIN, URINE NEG (NEG); BLOOD, URINE NEG (NEG); GLUCOSE,URINE NEG (NEG); KETONE, URINE NEG (NEG); MUCUS URINE FEW /lpf (OCC); NITRITE,URINE NEG (NEG); SQUAMOUS EPITHELIAL CELL URINE 1 /hpf (0-5); URINE COLOR Straw (YELLW/STRAW); URINE LEUKOCYTE ESTERASE SMALL (NEG)
[2017-11-23] MEDS: lamoTRIgine 100 MG TAB PO SCH (21:00)
[2017-11-23] MEDS: QUEtiapine FUMARATE 200 MG TAB PO SCH (21:00)
[2017-11-24] MEDS: NICOTINE 21 MG/24 HR PATCH T-DERMAL SCH (09:00)
[2017-11-24] MEDS: QUEtiapine FUMARATE 25 MG TAB PO SCH ×3 (09:00→17:05)
[2017-11-24] MEDS: SERTRALINE HCL 100 MG TAB PO SCH (09:00)
[2017-11-24] MEDS: METOPROLOL TARTRATE 25 MG TAB PO SCH ×2 (09:00→22:47)
[2017-11-24] MEDS: THIAMINE HCL 100 MG TAB PO SCH (09:00)
[2017-11-24] MEDS: PHENYTOIN SODIUM 100 MG CAP PO SCH ×2 (09:00→17:05)
[2017-11-24] MEDS: REMOVE OLD NICOTINE PATCH T-DERMAL SCH (09:00)
--- NOTE | 2017-11-24 09:41 | HHI.PYPN ---
Subjective Remarks Reviewed electronic medical record discussed case with staff. Follow-up was conducted in patient's room. Patient more alert and verbal today. She reports that she slept well and has good appetite. There is still some question as to whether she will be compliant with her medications. Explained that if she continues to decompensate she will have to be [facility] acted once again to be stabilized. Patient reports that she lives in assisted living facility and that she enjoys living there. Explained that she needs to be stabilized before they will take her back. She cannot verbalize what her objection is to the medications. When asked if she would agree to take them she states "I will think about it". Staff report that her daughter also spoke with her on the phone yesterday imploring her to take her medications. Mental Status Examination Appearance: Appropriate Consciousness: Alert Orientation: x4 Motor Activity: Normal gait Speech: Hesitant Language: Adequate Fund of Knowledge: Inadequate Attention and Concentration: Inadequate Memory: Unremarkable (Cannot assess) Mood: Anxious Affect: Flat Thought Process & Associations: Intact Thought Content: Other (Internally stimulated) Hallucination Type: Auditory (Internally stimulated) Delusion Type: Paranoid (Mildly) Suicidal Ideation: No Suicidal Plan: No Suicidal Intention: No Homicidal Ideation: No Homicidal Plan: No Homicidal Intention: No Insight: Fair Judgment: Impulsive Results Labs Test 11/23/17 14:15 Urine Color Straw Urine Turbidity CLEAR Urine pH 7.0 Urine Specific Frostproof 1.005 Urine Protein NEG mg/dL Urine Glucose (UA) NEG mg/dL Urine Ketones NEG mg/dL Urine Occult Blood NEG Urine Nitrite NEG Urine Bilirubin NEG Urine Urobilinogen LESS THAN 2 mg/dL Urine Leukocyte Esterase SMALL Urine RBC LESS THAN 1 /hpf Urine WBC 2 /hpf Urine Squamous Epithelial Cells 1 /hpf Urine Bacteria OCC /hpf Urine Mucus FEW /lpf Microscopic Urinalysis Comment CULT NOT INDICATED Date/Time Source Procedure Growth Status 11/16/17 16:10 Urine Clean Catch Urine Culture - Final 50-100,000 CFU/ML MIXED GRAM POSITIVE... Complete Vitals/IOs Vital Signs Date Time Temp Pulse Resp B/P (MAP) Pulse Ox O2 Delivery O2 Flow Rate FiO2 11/22/17 18:16 98.2 70 16 123/60 (81) 97 Assessment & Plan Problem List: (1) Schizoaffective disorder, bipolar type ICD Codes: F25.0 - Schizoaffective disorder, bipolar type Status: Chronic (2) Seizure disorder ICD Codes: G40.909 - Epilepsy, unspecified, not intractable, without status epilepticus Status: Chronic Assessment & Plan Estimated LOS: Patient has recently begun refusing to take her medications. Yesterday she decompensated and required ETO's. So far today she seems improved however, there is question as to whether she will comply with her medications. She may need to be placed back under an involuntary admission to be stabilized. Days Justification for Cont. Inpt. Moving this patient to a less restrictive environment resulted in decompensation. Request HC Surrog/Guard Advoc?: No Maylin Hernandez Nov 24, 2017 09:41
[2017-11-24] MEDS ORDERED: HALOPERIDOL LACTATE 5 MG/ML AMP ONE (15:22)
[2017-11-24 17:00] VITALS: BP 136/88; PULSE 109; RESP 18; TEMP 97.9; O2SAT 94
[2017-11-24] MEDS ORDERED: LORazepam 2 MG/ML VIAL IM ONE ×2 (17:15→17:45)
[2017-11-24] MEDS ORDERED: HALOPERIDOL LACTATE 5 MG/ML AMP IM ONE (17:45)
[2017-11-24] MEDS: lamoTRIgine 100 MG TAB PO SCH (22:46)
[2017-11-24] MEDS: QUEtiapine FUMARATE 200 MG TAB PO SCH (22:47)
[2017-11-25 06:41] VITALS: BP 110/70; PULSE 77; RESP 16; TEMP 98.1; O2SAT 95
[2017-11-25] MEDS: THIAMINE HCL 100 MG TAB PO SCH (08:42)
[2017-11-25] MEDS: SERTRALINE HCL 100 MG TAB PO SCH (08:42)
[2017-11-25] MEDS: METOPROLOL TARTRATE 25 MG TAB PO SCH ×2 (08:43→20:48)
[2017-11-25] MEDS: PHENYTOIN SODIUM 100 MG CAP PO SCH ×2 (08:44→17:37)
[2017-11-25] MEDS: QUEtiapine FUMARATE 25 MG TAB PO SCH (08:44)
[2017-11-25] MEDS: REMOVE OLD NICOTINE PATCH T-DERMAL SCH (08:46)
[2017-11-25] MEDS: NICOTINE 21 MG/24 HR PATCH T-DERMAL SCH (08:46)
--- NOTE | 2017-11-25 14:24 | HHI.PYPN ---
Subjective Remarks Patient seen in her room with nurse Danya, chart reviewed, patient discussed with nurse, patient continues to show mixed compliance with medication mix behavioral issues. She frequently was more out of control and irritable paranoid behaviors towards the evening. I feel the Seroquel is not holding her sufficiently consider the length of time she has been on this. We will discontinue Seroquel and add in Reina 6 mg daily. I feel the addition of a monthly injectable hopefully stabilizes patient's behavior and improve compliance loss of patient remains stable on the in Reina for 3-4 days we will consider adding in Reina sustain that. However patient shows her typical misbehavior and is an indication of her inability to show consistency or cooperation that I must consider re-Calderon act this lady Review of Systems Except as stated in HPI: all other systems reviewed are Neg Mental Status Examination Appearance: Appropriate Consciousness: Alert Orientation: x4 Motor Activity: Normal gait Speech: Hesitant Language: Adequate Fund of Knowledge: Inadequate Attention and Concentration: Inadequate Memory: Unremarkable (Cannot assess) Mood: Anxious Affect: Flat Thought Process & Associations: Intact Thought Content: Other (Internally stimulated) Hallucination Type: Auditory (Internally stimulated) Delusion Type: Paranoid (Mildly) Suicidal Ideation: No Suicidal Plan: No Suicidal Intention: No Homicidal Ideation: No Homicidal Plan: No Homicidal Intention: No Insight: Fair Judgment: Impulsive Results Labs Date/Time Source Procedure Growth Status 11/16/17 16:10 Urine Clean Catch Urine Culture - Final 50-100,000 CFU/ML MIXED GRAM POSITIVE... Complete Vitals/IOs Vital Signs Date Time Temp Pulse Resp B/P (MAP) Pulse Ox O2 Delivery O2 Flow Rate FiO2 11/25/17 06:41 98.1 77 16 110/70 (83) 95 Assessment & Plan Problem List: (1) Schizoaffective disorder, bipolar type ICD Codes: F25.0 - Schizoaffective disorder, bipolar type Status: Chronic (2) Seizure disorder ICD Codes: G40.909 - Epilepsy, unspecified, not intractable, without status epilepticus Status: Chronic Assessment & Plan Estimated LOS: days patient remained psychotic paranoid delusional perhaps somewhat manipulative, please see medication changes above Justification for Cont. Inpt. At this time patient would decompensate if placed in a lower level of care Discharge Planning To be determined Request HC Surrog/Guard Advoc?: No Gregor Mackay MD Nov 25, 2017 14:24
[2017-11-25] MEDS: PALIPERIDONE ER 6 MG TAB PO SCH (14:30)
[2017-11-25 17:53] VITALS: BP 108/54; PULSE 76; RESP 18; TEMP 97.6; O2SAT 95
[2017-11-25] MEDS: lamoTRIgine 100 MG TAB PO SCH (20:47)
[2017-11-26] MEDS: ACETAMINOPHEN 325 MG TAB PO PRN ×3 (01:49→21:13)
[2017-11-26 05:26] VITALS: BP 114/57; PULSE 72; RESP 19; TEMP 97.9; O2SAT 95
[2017-11-26] MEDS: METOPROLOL TARTRATE 25 MG TAB PO SCH ×2 (08:05→20:40)
[2017-11-26] MEDS: SERTRALINE HCL 100 MG TAB PO SCH (08:05)
[2017-11-26] MEDS: PALIPERIDONE ER 6 MG TAB PO SCH (08:05)
[2017-11-26] MEDS: THIAMINE HCL 100 MG TAB PO SCH (08:05)
[2017-11-26] MEDS: NICOTINE 21 MG/24 HR PATCH T-DERMAL SCH (08:06)
[2017-11-26] MEDS: REMOVE OLD NICOTINE PATCH T-DERMAL SCH (09:00)
[2017-11-26] MEDS: PHENYTOIN SODIUM 100 MG CAP PO SCH ×2 (09:00→18:00)
[2017-11-26] MEDS: hydrOXYzine HCL 50 MG TAB PO PRN (13:45)
--- NOTE | 2017-11-26 15:13 | HHI.PYPN ---
Subjective Remarks Patient seen and examined with nurse in coverage for Dr. Mackay. Chart reviewed. Case discussed with nursing staff. No behavioral issues noted overnight. On my exam, patient complains of poor sleep. She notes sleep is chronically poor but was somewhat worse than usual last night. No racing thoughts or other psychiatric symptoms keeping her up; she simply could not get to sleep. Patient has taken Restoril for sleep in the past. I do note she was recently switched from Seroquel to Invega. Otherwise, patient feels improved versus admission; she believes that she has "turned the corner." Denies SI/HI. Denies side effects from medications. Complains of chronic back pain. I also note she has some facial grimacing, reportedly chronic from previous antipsychotic therapy. Review of Systems Except as stated in HPI: all other systems reviewed are Neg Mental Status Examination Appearance: Appropriate Consciousness: Alert Orientation: x4 Motor Activity: Other (Facial grimacing as noted above. No other abnormal motor movements noted. No ictal activity noted.) Speech: Unremarkable Language: Adequate Fund of Knowledge: Adequate Attention and Concentration: Adequate Memory: Unremarkable (Grossly intact on clinical exam) Mood: Appropriate Affect: Appropriate Thought Process & Associations: Intact Thought Content: Appropriate Hallucination Type: None Delusion Type: None Suicidal Ideation: No Suicidal Plan: No Suicidal Intention: No Homicidal Ideation: No Homicidal Plan: No Homicidal Intention: No Insight: Fair Judgment: Impulsive Results Labs Date/Time Source Procedure Growth Status 11/16/17 16:10 Urine Clean Catch Urine Culture - Final 50-100,000 CFU/ML MIXED GRAM POSITIVE... Complete Labs reviewed Vitals/IOs Vital Signs Date Time Temp Pulse Resp B/P (MAP) Pulse Ox O2 Delivery O2 Flow Rate FiO2 11/26/17 05:26 97.9 72 19 114/57 (82) 95 Assessment & Plan Problem List: (1) Schizoaffective disorder, bipolar type ICD Codes: F25.0 - Schizoaffective disorder, bipolar type Status: Chronic (2) Seizure disorder ICD Codes: G40.909 - Epilepsy, unspecified, not intractable, without status epilepticus Status: Chronic Assessment & Plan Continue current psychotropics as ordered. Patient feels that she is improving with Invega. I suspect a component of rebound insomnia as patient was switched from Seroquel to less sedating Invega. Patient has Benadryl available as needed for insomnia, and I will defer initiation of controlled hypnotic to Dr. Mackay if appropriate. Continue to monitor on the inpatient unit. Continue other medications and care as ordered. Justification for Cont. Inpt. Risk for decompensation Discharge Planning Per Dr. Mackay Request HC Surrog/Guard Advoc?: No Philip Cho MD Nov 26, 2017 15:13
[2017-11-26 17:30] VITALS: BP 118/77; PULSE 65; RESP 18; TEMP 97.8; O2SAT 96
[2017-11-26] MEDS: lamoTRIgine 100 MG TAB PO SCH (20:38)
[2017-11-26] MEDS: diphenhydrAMINE HCL 50 MG CAP PO PRN (20:48)
[2017-11-27 05:52] VITALS: BP 125/77; PULSE 62; RESP 16; TEMP 97.3; O2SAT 97
[2017-11-27] MEDS: SERTRALINE HCL 100 MG TAB PO SCH (08:15)
[2017-11-27] MEDS: PALIPERIDONE ER 6 MG TAB PO SCH (08:15)
[2017-11-27] MEDS: METOPROLOL TARTRATE 25 MG TAB PO SCH ×2 (08:15→20:45)
[2017-11-27] MEDS: THIAMINE HCL 100 MG TAB PO SCH (08:16)
[2017-11-27] MEDS: PHENYTOIN SODIUM 100 MG CAP PO SCH ×2 (08:17→18:19)
[2017-11-27] MEDS: NICOTINE 21 MG/24 HR PATCH T-DERMAL SCH (08:52)
[2017-11-27] MEDS: REMOVE OLD NICOTINE PATCH T-DERMAL SCH (08:53)
--- NOTE | 2017-11-27 14:56 | HHI.PYPN ---
Subjective Remarks Patient seen in her room with nurse Susy, chart reviewed, patient compliant medication. Patient continues somewhat silly and perhaps a little childlike with her responses and her facial expression. She acknowledges continued auditory hallucinations in the somewhat oblique way. She states she is willing to take in Reina sustain a today. We will ordered for today Review of Systems Except as stated in HPI: all other systems reviewed are Neg Mental Status Examination Appearance: Appropriate Consciousness: Alert Orientation: x4 Motor Activity: Other (Facial grimacing as noted above. No other abnormal motor movements noted. No ictal activity noted.) Speech: Unremarkable Language: Adequate Fund of Knowledge: Adequate Attention and Concentration: Adequate Memory: Unremarkable (Grossly intact on clinical exam) Mood: Appropriate Affect: Appropriate Thought Process & Associations: Intact Thought Content: Appropriate Hallucination Type: None Delusion Type: None Suicidal Ideation: No Suicidal Plan: No Suicidal Intention: No Homicidal Ideation: No Homicidal Plan: No Homicidal Intention: No Insight: Fair Judgment: Impulsive Results Labs Date/Time Source Procedure Growth Status 11/16/17 16:10 Urine Clean Catch Urine Culture - Final 50-100,000 CFU/ML MIXED GRAM POSITIVE... Complete Vitals/IOs Vital Signs Date Time Temp Pulse Resp B/P (MAP) Pulse Ox O2 Delivery O2 Flow Rate FiO2 11/27/17 05:52 97.3 62 16 125/77 (93) 97 Assessment & Plan Problem List: (1) Schizoaffective disorder, bipolar type ICD Codes: F25.0 - Schizoaffective disorder, bipolar type Status: Chronic (2) Seizure disorder ICD Codes: G40.909 - Epilepsy, unspecified, not intractable, without status epilepticus Status: Chronic Assessment & Plan Estimated LOS: days patient continues psychotic though appears to be somewhat more cooperative. This tolerated the end vague and with no problems will order the sustain a today Justification for Cont. Inpt. At this time patient would decompensate a place to a lower level of care Discharge Planning To be determined Request HC Surrog/Guard Advoc?: No Gregor Mackay MD Nov 27, 2017 14:56
[2017-11-27 15:27] VITALS: BP 124/76; PULSE 66; RESP 18; TEMP 98.2; O2SAT 97
[2017-11-27] MEDS ORDERED: PALIPERIDONE PALMITATE 234 MG/1.5 ML SYRINGE IM SCH (16:00)
[2017-11-27] MEDS: diphenhydrAMINE HCL 50 MG CAP PO PRN (20:44)
[2017-11-27] MEDS: ACETAMINOPHEN 325 MG TAB PO PRN (20:44)
[2017-11-27] MEDS: lamoTRIgine 100 MG TAB PO SCH (20:45)
[2017-11-27] MEDS: LORazepam 1 MG TAB PO PRN (20:45)
[2017-11-28 06:10] VITALS: BP 126/67; PULSE 73; RESP 17; TEMP 97.9; O2SAT 96
[2017-11-28] MEDS: METOPROLOL TARTRATE 25 MG TAB PO SCH ×2 (08:34→21:17)
[2017-11-28] MEDS: SERTRALINE HCL 100 MG TAB PO SCH (08:34)
[2017-11-28] MEDS: PALIPERIDONE ER 6 MG TAB PO SCH (08:34)
[2017-11-28] MEDS: THIAMINE HCL 100 MG TAB PO SCH (08:34)
[2017-11-28] MEDS: NICOTINE 21 MG/24 HR PATCH T-DERMAL SCH (08:35)
[2017-11-28] MEDS: REMOVE OLD NICOTINE PATCH T-DERMAL SCH (08:35)
[2017-11-28] MEDS: PHENYTOIN SODIUM 100 MG CAP PO SCH ×2 (08:53→17:21)
--- NOTE | 2017-11-28 09:46 | HHI.PR ---
Review/Management Diagnosis/Plan: (1) Seizure disorder ICD Codes: G40.909 - Epilepsy, unspecified, not intractable, without status epilepticus Status: Chronic Plan: Doing well On Lamictal and Dilantin Dilantin level therapeutic Recommendations EEG showing epileptic focus but no active seizures Continue Dilantin Increase Lamictal to 150 mg p.o. twice daily Discharge planning from neurologic standpoint follow-up with us in the outpatient setting (2) Insomnia ICD Codes: G47.00 - Insomnia, unspecified Status: Chronic Plan: Hypnotics as needed CBT (3) BPV (benign positional vertigo) ICD Codes: H81.10 - Benign paroxysmal vertigo, unspecified ear Status: Chronic Plan: Improved (4) Schizoaffective disorder, bipolar type ICD Codes: F25.0 - Schizoaffective disorder, bipolar type Status: Chronic Plan: Per psychiatry (5) Adjustment disorder with mixed disturbance of emotions and conduct ICD Codes: F43.25 - Adjustment disorder with mixed disturbance of emotions and conduct Status: Chronic Plan: Per psychiatry Subjective Subjective Comments No acute events reported In better spirits feels more calm and content No headache No chest pain No dyspnea Active Medications Current Medications Medications (Trade) Dose Ordered Sig/Michael Route Start Time Stop Time Status Last Admin (Ativan) 1 mg Q6H PRN PO 11/14/17 15:00 11/27/17 20:45 (Ativan Inj) 1 mg Q6H PRN IM 11/14/17 15:00 11/23/17 01:32 (Ativan) 0.5 mg Q12H PRN PO 11/14/17 15:00 (Ativan Inj) 0.5 mg Q12H PRN IM 11/14/17 15:00 (Tylenol) 650 mg Q4H PRN PO 11/14/17 15:00 11/27/17 20:44 (Milk Of Magnesia Liq) 30 ml DAILY PRN PO 11/14/17 15:00 11/18/17 02:36 (Mag-Al Plus Susp Liq) 30 ml Q6H PRN PO 11/14/17 15:00 (Habitrol 21 Mg Patch.24 Hr) 1 patch DAILY T-DERMAL 11/14/17 15:00 Miscellaneous Information 1 DAILY T-DERMAL 11/15/17 09:00 (Benadryl) 50 mg HS PRN PO 11/15/17 13:45 11/27/17 20:44 (Atarax) 50 mg Q6H PRN PO 11/15/17 13:45 11/26/17 13:45 (LaMICtal) 200 mg HS PO 11/15/17 21:00 11/27/17 20:45 (Antivert) 25 mg HS PRN PO 11/15/17 13:45 (Zoloft) 100 mg DAILY PO 11/16/17 09:00 11/28/17 08:34 (Vitamin B1) 250 mg DAILY PO 11/16/17 09:00 11/28/17 08:34 (Pill Splitter) 1 ea UNSCH PRN OTHER 11/15/17 14:15 (Lopressor) 25 mg Q12HR PO 11/16/17 21:00 11/28/17 08:34 (Dilantin) 100 mg BID@0900,1800 PO 11/19/17 18:00 11/28/17 08:53 (Invega Er) 6 mg DAILY PO 11/25/17 14:30 11/28/17 08:34 (Invega Sustenna Inj) 234 mg Q28D IM 11/27/17 16:00 11/27/17 15:42 Allergies Allergies Coded Allergies chlorpromazine (Verified Allergy, Mild, 11/21/17) Review of Systems All other ROS: ROS reviewed as documented in chart Exam I&O / VS Vital Signs Date Time Temp Pulse Resp B/P (MAP) Pulse Ox O2 Delivery O2 Flow Rate FiO2 11/28/17 06:10 97.9 73 17 126/67 (86) 96 11/27/17 15:27 98.2 66 18 124/76 (92) 97 General: Alert and Oriented, No acute distress Respiratory: Non-labored respirations Neurologic: Alert, Oriented, Normal sensory, Normal motor, No focal defects, CN II-XII intact Psychiatric: Cooperative Exam Comments Awake alert oriented 3 smiling recognizes me follows pleasant appropriate, extraocular movements intact no facial asymmetry tongue midline gait stable Objective Micro and Labs Date/Time Source Procedure Growth Status 11/16/17 16:10 Urine Clean Catch Urine Culture - Final 50-100,000 CFU/ML MIXED GRAM POSITIVE... Complete John Walker MD Nov 28, 2017 09:46
[2017-11-28] MEDS: ACETAMINOPHEN 325 MG TAB PO PRN ×2 (12:51→21:16)
[2017-11-28] MEDS: hydrOXYzine HCL 50 MG TAB PO PRN (12:51)
--- NOTE | 2017-11-28 16:28 | HHI.PYPN ---
Subjective Remarks Patient is seen in her room with nurse Siobhan, chart reviewed, patient compliant medication, Patient did take her Reina sustain a without difficulty. She does states she is willing to go back to the ambulance [facility]. She says she slept better last night. Patient continues to do good over tonight will consider discharge [facility] tomorrow if a bed remains available Review of Systems Except as stated in HPI: all other systems reviewed are Neg Mental Status Examination Appearance: Appropriate Consciousness: Alert Orientation: x4 Motor Activity: Other (Facial grimacing as noted above. No other abnormal motor movements noted. No ictal activity noted.) Speech: Unremarkable Language: Adequate Fund of Knowledge: Adequate Attention and Concentration: Adequate Memory: Unremarkable (Grossly intact on clinical exam) Mood: Appropriate Affect: Appropriate Thought Process & Associations: Intact Thought Content: Appropriate Hallucination Type: None Delusion Type: None Suicidal Ideation: No Suicidal Plan: No Suicidal Intention: No Homicidal Ideation: No Homicidal Plan: No Homicidal Intention: No Insight: Fair Judgment: Impulsive Results Labs Date/Time Source Procedure Growth Status 11/16/17 16:10 Urine Clean Catch Urine Culture - Final 50-100,000 CFU/ML MIXED GRAM POSITIVE... Complete Vitals/IOs Vital Signs Date Time Temp Pulse Resp B/P (MAP) Pulse Ox O2 Delivery O2 Flow Rate FiO2 11/28/17 06:10 97.9 73 17 126/67 (86) 96 Assessment & Plan Problem List: (1) Schizoaffective disorder, bipolar type ICD Codes: F25.0 - Schizoaffective disorder, bipolar type Status: Chronic (2) Seizure disorder ICD Codes: G40.909 - Epilepsy, unspecified, not intractable, without status epilepticus Status: Chronic Assessment & Plan Estimated LOS: days patient calmer more cooperative with improved affect, now showing much less resistance and manipulation. Consider discharge tomorrow to her [facility]ATH Justification for Cont. Inpt. At this time patient would decompensate if not placed in an appropriate level of care Discharge Planning Possible discharge tomorrow to [facility] Request HC Surrog/Guard Advoc?: Gregor Simon MD Nov 28, 2017 16:28
[2017-11-28 17:40] VITALS: BP 118/66; PULSE 67; RESP 18; O2SAT 98
[2017-11-28] MEDS: diphenhydrAMINE HCL 50 MG CAP PO PRN (21:16)
[2017-11-28] MEDS: LORazepam 1 MG TAB PO PRN (21:16)
[2017-11-28] MEDS: lamoTRIgine 100 MG TAB PO SCH (21:17)
[2017-11-29 06:12] VITALS: BP 103/58; PULSE 68; RESP 16; TEMP 97.6; O2SAT 68
[2017-11-29] MEDS: SERTRALINE HCL 100 MG TAB PO SCH (08:51)
[2017-11-29] MEDS: PHENYTOIN SODIUM 100 MG CAP PO SCH (08:51)
[2017-11-29] MEDS: lamoTRIgine 100 MG TAB PO SCH (08:51)
[2017-11-29] MEDS: THIAMINE HCL 100 MG TAB PO SCH (08:52)
[2017-11-29] MEDS: PALIPERIDONE ER 6 MG TAB PO SCH (08:52)
[2017-11-29] MEDS: METOPROLOL TARTRATE 25 MG TAB PO SCH (08:52)
[2017-11-29] MEDS: NICOTINE 21 MG/24 HR PATCH T-DERMAL SCH (08:54)
[2017-11-29] MEDS: REMOVE OLD NICOTINE PATCH T-DERMAL SCH (08:54)
[2017-11-29] MEDS: hydrOXYzine HCL 50 MG TAB PO PRN (11:20)
[2017-11-29] MEDS: ACETAMINOPHEN 325 MG TAB PO PRN (11:20)
[2017-11-29] MEDS ORDERED: DILA100C PO (11:29)
[2017-11-29] MEDS ORDERED: METO25TA3 PO (11:29)
[2017-11-29] MEDS ORDERED: VITA250T25 PO (11:29)
[2017-11-29] MEDS ORDERED: MECL-62 PO (11:29)
[2017-11-29] MEDS ORDERED: INVE6TAB3 PO (11:29)
[2017-11-29] MEDS ORDERED: PALI234P IM (11:29)
[2017-11-29] MEDS ORDERED: LAMO100 PO (11:29)
[2017-11-29] MEDS ORDERED: SERT-129 PO (11:29)
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
== END 2017-11-29 16:15 | DRG 885 ==
LOC: NEPD 11:34 → NEDA 14:52 → H270 17:16 → H260 11-18 10:20 → H270 11-23 14:45
PROVIDERS: ADMIT Psychiatry & Neurology Psychiatry; ATTEND Psychiatry & Neurology Psychiatry
DX: F25.0 Schizoaffective disorder, bipolar type (principal); R45.851 Suicidal ideations; J44.9 Chronic obstructive pulmonary disease, unspecified; G40.909 Epilepsy, unspecified, not intractable, without status epilepticus; F43.25 Adjustment disorder with mixed disturbance of emotions and conduct; M19.90 Unspecified osteoarthritis, unspecified site; F41.9 Anxiety disorder, unspecified; G47.00 Insomnia, unspecified; G47.30 Sleep apnea, unspecified; H81.10 Benign paroxysmal vertigo, unspecified ear; G89.29 Other chronic pain; M54.9 Dorsalgia, unspecified; Z90.13 Acquired absence of bilateral breasts and nipples; Z96.653 Presence of artificial knee joint, bilateral; R25.1 Tremor, unspecified; W18.30XA Fall on same level, unspecified, initial encounter
CPT/HCPCS: 80048; 80053; 80061; 80175; 80185; 80307; 81001; 83036; 84439; 84443; 84481; 85025; 87086; 95819; 96374; 96375; J1200; J1630; J2060; J2250; J2426; Q0163

== ENCOUNTER 2017-11-30 19:20 | Inpatient (IN) ==
[2017-12-01] MEDS ORDERED: Haloperidol Inj 5 MG/ML Ampul ONE (07:14)
[2017-12-01] MEDS ORDERED: Haloperidol Inj 5 MG/ML Ampul IM ONE ×2 (07:20→07:43)
[2017-12-02 08:00] LABS: Calcium 9.1 mg/dL (8.5-10.1); Carbon Dioxide 24.8 meq/L (21.0-32.0)
[2017-12-02 08:04] LABS: Chol/HDL Ratio 3.64 Ratio; HDL Cholesterol 62.3 mg/dL (40.0-60.0)
[2017-12-02] MEDS ORDERED: Temazepam 15 MG Capsule PO PRN (12:12)
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
[2017-12-02] MEDS: lamoTRIgine 100 MG Tablet PO SCH ×2 (13:59→20:28)
[2017-12-02] MEDS: Phenytoin Sodium 100 MG Capsule PO SCH (20:28)
[2017-12-02 22:48] LABS: Hemoglobin A1c 5.3 % (4.3-6.0)
[2017-12-03] MEDS: Phenytoin Sodium 100 MG Capsule PO SCH ×2 (08:41→17:54)
[2017-12-03] MEDS: lamoTRIgine 100 MG Tablet PO SCH ×2 (08:43→21:54)
[2017-12-03] MEDS: Sertraline 100 MG Tablet PO SCH (08:43)
--- NOTE | 2017-12-03 14:48 | P.PNPSY ---
Subjective Chief Complaint: Psychosis Remarks: Patient seen and examined with nurse. Chart reviewed. Case discussed with nursing staff. Case discussed in treatment team. On my examination today, the patient says that she is feeling "okay, just okay." She continues to complain of "a tad" of paranoia. Affect is blunted and a little dysphoric. She denies AVH. She tells me that she does not want to be on Restoril any longer and wants to return to Benadryl because she fears that the Restoril is habit-forming , although her E-FORCSE report raised no red flags. She would like her HS dose of PHT to be moved earlier in the day because she finds it activating. Denies side effects from medications. Agreeable to receiving booster dose of Invega Sustenna. No physical complaints. Vital Signs Temp Pulse Resp BP Pulse Ox 12/03/17 05:50 98.0 F 91 H 18 133/72 95 12/02/17 15:39 98.1 F 106 H 145/87 H 95 Labs reviewed. Most recent GFR 75. Review of Systems All other systems reviewed negative except as stated in HPI Mental Status Examination Appearance: Appropriate Consciousness: Alert Orientation: x4 Motor Activity: Other (No motor abnormalities noted) Speech: Unremarkable Language: Adequate Fund of Knowledge: Adequate Attention and Concentration: Adequate Memory: Unremarkable (Grossly intact on clinical exam) Mood: Other (Remains a little dysphoric) Affect: Blunt Thought Process & Associations: Intact, Logical, Linear Thought Content: Other (Delusions) Hallucination Type: None Delusion Type: Paranoid Suicidal Ideation: No Suicidal Plan: No Suicidal Intention: No Homicidal Ideation: No Homicidal Plan: No Homicidal Intention: No Insight: Fair Judgment: Impulsive Assessment and Plan - Assessment (1) Schizoaffective disorder, bipolar type Code(s): F25.0 - Schizoaffective disorder, bipolar type Status: Acute - Plan Plan: Administer booster dose of Invega Sustenna. Patient received initial dose on . Given GFR, will administer 117mg IM. Discontinue oral Invega as oral supplementation is not required with Sustenna. Replace Restoril with Benadryl per patient preference. Adjust PHT dosing per patient preference. Transfer to lower acuity unit to make sure patient can tolerate this less restrictive milieu in advance of possible discharge later this week. Continue to monitor on inpatient unit. Continue other medications and care as ordered. Justification for Continued Inpatient Stay: Medication changes. Risk for decompensation and less restrictive environment. Discharge Planning: Pending psychiatric stabilization. Possible discharge next 1-2 days.
[2017-12-03] MEDS ORDERED: Paliperidone Inj 117 MG/0.75 ML Syringe IM ONE (15:00)
[2017-12-04] MEDS: Acetaminophen 325 MG Tablet PO PRN (09:18)
[2017-12-04] MEDS: lamoTRIgine 100 MG Tablet PO SCH ×2 (10:09→20:12)
[2017-12-04] MEDS: Sertraline 100 MG Tablet PO SCH (10:09)
[2017-12-04] MEDS: Phenytoin Sodium 100 MG Capsule PO SCH ×2 (10:10→18:50)
--- NOTE | 2017-12-04 15:16 | P.PNPSY ---
Subjective Chief Complaint: Psychosis Remarks: Patient seen and examined with nurse. Chart reviewed. Case discussed with nursing staff. Patient noted to be a little distractible and paranoid by nurse but presenting no behavioral problem on the lower acuity unit. On my examination today, the patient does admit to feeling more anxious on the 2600 unit. She does complain of some ongoing paranoia and notes that she is "not feeling myself today." She denies any SI or HI. Denies any side effects from medications. No physical complaints. Vital Signs Temp Pulse Resp BP Pulse Ox 12/04/17 05:42 97.4 F L 84 16 118/67 95 12/03/17 18:01 98.2 F 68 17 156/93 H 97 Labs reviewed. No new labs. Review of Systems All other systems reviewed negative except as stated in HPI Mental Status Examination Appearance: Appropriate Consciousness: Alert Orientation: x4 Motor Activity: Other (No abnormal motor movements noted) Speech: Unremarkable Language: Adequate Fund of Knowledge: Adequate Attention and Concentration: Adequate Memory: Unremarkable (Grossly intact on clinical exam) Mood: Anxious Affect: Blunt, Anxious Thought Process & Associations: Intact, Logical, Linear Thought Content: Delusional Hallucination Type: None Delusion Type: Paranoid Suicidal Ideation: No Suicidal Plan: No Suicidal Intention: No Homicidal Ideation: No Homicidal Plan: No Homicidal Intention: No Insight: Fair Judgment: Impulsive Assessment and Plan - Assessment (1) Schizoaffective disorder, bipolar type Code(s): F25.0 - Schizoaffective disorder, bipolar type Status: Acute - Plan Plan: Patient received Invega Sustenna booster dose yesterday and is tolerating this agent well without side effects. She is experiencing some anxiety associated with paranoia in the setting of the lower acuity unit, and I believe she requires additional time with antipsychotic before discharge to prevent this anxiety from leading to decompensation and rehospitalization. I did offer the patient pharmacotherapy targeting this anxiety, but she declines. Continue to monitor on the inpatient unit. Continue other medications and care as ordered. Justification for Continued Inpatient Stay: High risk for decompensation in less restrictive environment. Impairment in reality construction. Discharge Planning: Pending stabilization
[2017-12-05] MEDS: lamoTRIgine 100 MG Tablet PO SCH ×2 (08:34→20:39)
[2017-12-05] MEDS: Sertraline 100 MG Tablet PO SCH (08:34)
[2017-12-05] MEDS: Phenytoin Sodium 100 MG Capsule PO SCH ×2 (08:34→18:05)
--- NOTE | 2017-12-05 11:04 | P.PNPSY ---
Subjective Chief Complaint: Psychosis Remarks: Patient seen and examined with nurse. Chart reviewed. Case discussed with nursing staff. On my examination today, patient tells me she is feeling "a little better" today versus yesterday. She does note "I don't think I'm ready to go home. I'm worried about relapsing and coming back." She complains of anxiety and notes that she is in particular fearful for her family's safety. She denies any urge to injure family members. She means, with clarification, that she has an inchoate sense of dread that some misfortune will befall her family. Mobilization of affect on this point is noted, and the patient does become a little tearful. We discuss strategies to manage anxiety and settle on the plan as noted below. No side effects from medications. No physical complaints. Vital Signs Temp Pulse Resp BP Pulse Ox 12/05/17 06:13 98.1 F 78 17 123/67 96 12/04/17 18:14 98.2 F 72 20 104/64 98 Intake and Output 12/05/17 12/05/17 12/05/17 06:59 14:59 22:59 Other: Weight 90.7 kg Labs reviewed. No new labs. Review of Systems All other systems reviewed negative except as stated in HPI Mental Status Examination Appearance: Appropriate Consciousness: Alert Orientation: x4 Motor Activity: Other (No new motor abnormalities noted.) Speech: Unremarkable Language: Adequate Fund of Knowledge: Adequate Attention and Concentration: Adequate Memory: Unremarkable (Remains grossly intact on clinical exam) Mood: Anxious Affect: Blunt, Anxious Thought Process & Associations: Intact, Logical, Linear Thought Content: Appropriate Hallucination Type: None Delusion Type: None, Paranoid Suicidal Ideation: No Suicidal Plan: No Suicidal Intention: No Homicidal Ideation: No Homicidal Plan: No Homicidal Intention: No Mental Status Exam Remarks: Insight and judgment are fair Assessment and Plan - Assessment (1) Schizoaffective disorder, bipolar type Code(s): F25.0 - Schizoaffective disorder, bipolar type Status: Acute - Plan Plan: Patient complaining of anxiety today. I do perceive that the patient seems comfortable on the unit. Titrate Zoloft to 150mg daily and also add Klonopin 0.5mg BID to target anxiety. R/B/A discussed with patient. E-FORCSE previously reviewed. See my note from 12/03. Continue to monitor on the inpatient unit. Continue other medications and care as ordered. Justification for Continued Inpatient Stay: Medication changes. Risk for decompensation in less restrictive environment. Discharge Planning: Pending psychiatric stabilization. Possible discharge tomorrow versus after the weekend.
[2017-12-05] MEDS: clonazePAM 0.5 MG Tablet PO SCH ×2 (12:52→20:39)
[2017-12-05] MEDS: Sertraline 50 MG Tablet PO SCH (12:53)
[2017-12-06] MEDS: clonazePAM 0.5 MG Tablet PO SCH ×2 (09:09→21:35)
[2017-12-06] MEDS: Phenytoin Sodium 100 MG Capsule PO SCH ×2 (09:09→17:50)
[2017-12-06] MEDS: Sertraline 50 MG Tablet PO SCH (09:09)
[2017-12-06] MEDS: Acetaminophen 325 MG Tablet PO PRN (09:10)
[2017-12-06] MEDS: lamoTRIgine 100 MG Tablet PO SCH ×2 (09:10→21:35)
--- NOTE | 2017-12-06 13:56 | P.PNPSY ---
Subjective Chief Complaint: Psychosis Remarks: Patient seen and examined with nurse. Chart reviewed. Case discussed with nursing staff. Case also discussed in treatment team. When I evaluated the patient this morning, she seemed to be doing well. She denied any SI or HI. Denied any AVH. No delusions. Anxiety was improved with Klonopin. She denied side effects from medications. She was agreeable to returning for her [facility] today. I subsequently spoke with counselor who relates that patient's daughter is advocating for a Saturday discharge as she reportedly wants to escort patient back to her [facility] and cannot do so today because she is taking her son to a doctor 's appointment. Patient apparently spoke to daughter and re-presents to the nursing station in a hysterical state. Counselor and I go to see patient in her room. Patient is having a tantrum, thrashing on the bed and yelling out "I' m not ready! I'm not ready!" She further says "my daughter's right, I should stay!" She is essentially inconsolable at this point. Vital Signs Temp Pulse Resp BP Pulse Ox 12/06/17 05:21 98.1 F 70 18 127/69 95 Labs reviewed. No new labs. Review of Systems All other systems reviewed negative except as stated in HPI Mental Status Examination Appearance: Appropriate Consciousness: Alert Orientation: Person, Place (At least) Motor Activity: Other (Again no new motor abnormalities noted) Speech: Unremarkable Language: Adequate Fund of Knowledge: Adequate Attention and Concentration: Adequate Memory: Unremarkable (Remains grossly intact on clinical exam) Mood: Oppositional, Anxious Affect: Labile Thought Process & Associations: Other (Perseverative) Thought Content: Appropriate Hallucination Type: None Delusion Type: None Suicidal Ideation: No Suicidal Plan: No Suicidal Intention: No Homicidal Ideation: No Homicidal Plan: No Homicidal Intention: No Insight: Poor Judgment: Poor Mental Status Exam Remarks: MSE based on re-eval with counselor. Assessment and Plan - Assessment (1) Temper tantrum Code(s): F91.8 - Other conduct disorders Status: Acute (2) Schizoaffective disorder, bipolar type Code(s): F25.0 - Schizoaffective disorder, bipolar type Status: Acute - Plan Plan: Although it had been my hope to discharge the patient today as her underlying psychotic illness seems stable, behavior today indicates that such a discharge plan would likely be doomed to failure, and patient would almost certainly manufacture a circumstance to be returned to the inpatient unit. I do wonder about some degree of underlying personality disorder. Continue current psychotropic medications as ordered. I do not believe that medication adjustment would ameliorate behavior on display today. Continue other medications and care as ordered. Justification for Continued Inpatient Stay: High risk for decompensation in less restrictive environment at this time Discharge Planning: Anticipate discharge Saturday back to facility
[2017-12-07] MEDS: Sertraline 50 MG Tablet PO SCH (09:01)
[2017-12-07] MEDS: lamoTRIgine 100 MG Tablet PO SCH ×2 (09:02→20:20)
[2017-12-07] MEDS: clonazePAM 0.5 MG Tablet PO SCH ×2 (09:02→20:21)
[2017-12-07] MEDS: Phenytoin Sodium 100 MG Capsule PO SCH (09:03)
[2017-12-07] MEDS: Acetaminophen 325 MG Tablet PO PRN ×2 (09:24→21:31)
--- NOTE | 2017-12-07 15:25 | P.PNPSY ---
Subjective Chief Complaint: Psychosis Remarks: Pt seen and discussed with staff. Chart reviewed. Pt had a good night and rested well.She has been compliant with medications. She has been engaging in splitting behaviors. She states that she is depressed and feels overwhelmed with SI. Coping skills are very poor. Mental Status Examination Appearance: Appropriate Consciousness: Alert Orientation: Person, Place (At least) Motor Activity: Other (Again no new motor abnormalities noted) Speech: Unremarkable Language: Adequate Fund of Knowledge: Adequate Attention and Concentration: Adequate Memory: Unremarkable (Remains grossly intact on clinical exam) Mood: Oppositional, Anxious Affect: Anxious Thought Process & Associations: Other (Perseverative) Thought Content: Appropriate Hallucination Type: None Delusion Type: None Suicidal Ideation: Yes (vague, no plan) Suicidal Plan: No Suicidal Intention: No Homicidal Ideation: No Homicidal Plan: No Homicidal Intention: No Insight: Poor Judgment: Poor Assessment and Plan - Assessment (1) Schizoaffective disorder, bipolar type Code(s): F25.0 - Schizoaffective disorder, bipolar type Status: Acute (2) Temper tantrum Code(s): F91.8 - Other conduct disorders Status: Acute - Plan Plan: Continue current tx plan. Justification for Continued Inpatient Stay: impairments in safety
[2017-12-08] MEDS: Acetaminophen 325 MG Tablet PO PRN ×2 (05:05→21:13)
[2017-12-08 05:41] VITALS: RESP 17
[2017-12-08] MEDS: lamoTRIgine 100 MG Tablet PO SCH ×2 (08:31→21:14)
[2017-12-08] MEDS: clonazePAM 0.5 MG Tablet PO SCH ×2 (08:31→21:14)
[2017-12-08] MEDS: Sertraline 50 MG Tablet PO SCH (08:31)
[2017-12-08] MEDS: Phenytoin Sodium 100 MG Capsule PO SCH ×2 (08:32→17:48)
--- NOTE | 2017-12-08 16:41 | P.PNPSY ---
Subjective Chief Complaint: Psychosis Remarks: Pt seen and discussed with staff. She has been anxious today but denies SI/HI. She has been out of room more today. She has been compliant with medications. She reports that psychotherapy group was helpful and she would like to continue outpatient group therapy. No aggression or agitation today. Mental Status Examination Appearance: Appropriate Consciousness: Alert Orientation: Person, Place (At least) Motor Activity: Other (Again no new motor abnormalities noted) Speech: Unremarkable Language: Adequate Fund of Knowledge: Adequate Attention and Concentration: Adequate Memory: Unremarkable (Remains grossly intact on clinical exam) Mood: Oppositional, Anxious Affect: Anxious Thought Process & Associations: Other (Perseverative) Thought Content: Appropriate Hallucination Type: None Delusion Type: None Suicidal Ideation: No (vague, no plan) Suicidal Plan: No Suicidal Intention: No Homicidal Ideation: No Homicidal Plan: No Homicidal Intention: No Insight: Poor Judgment: Poor Assessment and Plan - Assessment (1) Schizoaffective disorder, bipolar type Code(s): F25.0 - Schizoaffective disorder, bipolar type Status: Acute (2) Temper tantrum Code(s): F91.8 - Other conduct disorders Status: Acute - Plan Plan: Continue current tx plan. Justification for Continued Inpatient Stay: risk of decompensation
[2017-12-09 05:21] VITALS: BP 111/69; PULSE 67; TEMP 97.9; O2SAT 93
[2017-12-09] MEDS: clonazePAM 0.5 MG Tablet PO SCH ×3 (08:36→09:55)
[2017-12-09] MEDS: Sertraline 50 MG Tablet PO SCH ×3 (08:36→09:55)
[2017-12-09] MEDS: lamoTRIgine 100 MG Tablet PO SCH ×3 (08:38→09:55)
[2017-12-09] MEDS: Phenytoin Sodium 100 MG Capsule PO SCH ×3 (08:38→09:55)
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
[2017-12-09] MEDS: Acetaminophen 325 MG Tablet PO PRN (14:25)
== END 2017-12-09 15:25 ==
LOC: NEPE 19:20 → NEDA 12-01 10:37 → H270 12-01 11:00 → H260 12-03 18:22
PROVIDERS: ADMIT Psychiatry & Neurology Psychiatry; ATTEND Psychiatry & Neurology Psychiatry

== ENCOUNTER 2018-04-03 16:38 | Inpatient (IN) ==
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
--- NOTE | 2018-04-03 17:20 | XR ---
EXAM DATE: 04/03/2018 5:15 PM EDT AGE/SEX: 67 years / Female INDICATIONS: Cough CLINICAL DATA: This is the patient's initial encounter. Patient reports that signs and symptoms have been present for 1 day and indicates a pain score of 0/10. MEDICAL/SURGICAL HISTORY: . Carcinoma, breast. Asthma. Chronic obstructive pulmonary disease. . . . Mastectomy, bilateral COMPARISON: [facility] [place], CHEST 1V SINGLE AP, 01/17/2018. . FINDINGS: A single AP view of the chest demonstrates the lungs to be symmetrically aerated without evidence of mass, infiltrate or effusion. The cardiomediastinal contours are unremarkable. Osseous structures a re intact. CONCLUSION: Negative examination. Electronically signed by: Stef Gu MD 04/03/2018 5:19 PM EDT
[2018-04-03 17:41] LABS: Baso % (Auto) 0.3 % (0.0-2.0); Eos # (Auto) 0.2 th/mm3 (0.0-0.4); Eos % (Auto) 4.1 % (0.0-4.0); Hematocrit 39.1 % (35.0-46.0); Hemoglobin 13.6 gm/dL (11.6-15.3); Lymph # (Auto) 0.7 th/mm3 (1.0-4.8); Lymph % (Auto) 14.7 % (9.0-44.0); Mean Corpuscular HGB Conc 34.8 % (32.0-36.0); Mean Corpuscular Hemoglobin 31.4 pg (27.0-34.0); Mean Corpuscular Volume 90.3 fL (80.0-100.0); Mean Platelet Volume 7.2 fL (7.0-11.0); Mono # (Auto) 0.3 th/mm3 (0.0-0.9); Mono % (Auto) 7.2 % (0.0-8.0); Neut # (Auto) 3.5 th/mm3 (1.8-7.7); Neut % (Auto) 73.7 % (16.0-70.0); Platelet Count 245 th/mm3 (150-450); Red Blood Count 4.33 mil/mm3 (4.00-5.30); Red Cell Distribution Width 12.8 % (11.6-17.2); White Blood Count 4.7 th/mm3 (4.0-11.0)
[2018-04-03 18:02] LABS: Anion Gap 12 meq/L (5-15)
[2018-04-03 18:06] LABS: Amphetamine Screen,Urine Neg (Neg); Barbiturate Screen,Urine Neg (Neg); Cannabinoid Screen,Urine Neg (Neg); Cocaine Screen,Urine Neg (Neg)
[2018-04-03 18:23] LABS: Alanine Aminotransferase 28 U/L (10-53); Albumin 3.9 g/dL (3.4-5.0); Alkaline Phosphatase 174 U/L (45-117); Aspartate Aminotransferase 14 U/L (15-37); Blood Urea Nitrogen 14 mg/dL (7-18); Calcium 8.7 mg/dL (8.5-10.1); Carbon Dioxide 23.3 meq/L (21.0-32.0); Chloride 103 meq/L (98-107); Glomerular Filtration Rate 61 mL/min (>89); Glucose,Random 109 mg/dL (74-106); Potassium 3.4 meq/L (3.5-5.1); Sodium 138 meq/L (136-145); Thyroid Stimulating Hormone 0.686 uIU/mL (0.358-3.740); Total Protein 7.3 g/dL (6.4-8.2)
[2018-04-03 18:32] LABS: Opiate Screen,Urine Neg (Neg)
[2018-04-03 19:20] LABS: Bilirubin,Urine Negative (Negative); Clarity,Urine Clear (Clear); Glucose,Urine (UA) Negative (Negative); Leukocyte Esterase,Urine Moderate (Negative); Nitrite,Urine Negative (Negative); Specific Gravity,Urine 1.004 (1.002-1.035); Squamous Epithelial Cell,Urine 1 /hpf (0-5)
[2018-04-03] MEDS ORDERED: traZODone 100 MG Tablet PO ONE (19:47)
[2018-04-03] MEDS ORDERED: Baclofen 10 MG Tablet PO ONE (19:48)
[2018-04-03] MEDS ORDERED: lamoTRIgine 25 MG TABLET PO ONE (19:48)
[2018-04-03] MEDS ORDERED: Melatonin 5 MG Tablet PO ONE (19:51)
[2018-04-03 20:03] LABS: Color,Urine Light-Yellow (Yellw/Straw)
[2018-04-04] MEDS ORDERED: Bisacodyl 10 MG Supp RECTAL PRN (08:47)
[2018-04-04] MEDS ORDERED: Aluminum/Magnesium/Simethacone Susp 30 ML UDC PO PRN (08:47)
[2018-04-04] MEDS: Phenytoin Sodium 100 MG Capsule PO SCH ×2 (12:55→22:03)
[2018-04-04] MEDS: Docusate Sodium 100 MG Capsule PO SCH ×2 (12:55→22:01)
[2018-04-04] MEDS: lamoTRIgine 25 MG TABLET PO SCH ×2 (12:55→22:03)
[2018-04-04] MEDS: Senna/Docusate Sodium 8.6/50 MG Tablet PO SCH ×2 (12:55→22:04)
--- NOTE | 2018-04-04 14:25 | P.HPPSY ---
Provisional Diagnosis Admission Date: April 04, 2018 09:53 Lucama I.: Schizoaffective disorder, bipolar type Lucama II.: Cluster C personality disorder Lucama III.: Seizures Competence Certification of Person's Competence To Provide Express and Informed Consent I have personally examined Asha Figueroa, a person being served at [facility] on, April 04, 2018 1402. Express and informed consent means consent voluntarily given in writing, by a competent person, after sufficient explanation and disclosure of the subject matter involved to enable the person to make a knowing and willful decision without any element of force, fraud, deceit, duress, or other form of constraint or coercion. This person is 18 years of age or older, is not now known to be incompetent to consent to treatment with a guardian advocate, and does not have a health care surrogate or proxy currently making medical treatment decisions. I have found this person to be one of the following: [] Competent to provide express and informed consent, as defined above, for voluntary admission to this facility and is competent to provide express and informed consent for treatment. He/she has the consistent capacity to make well reasoned, willful, and knowing decisions concerning his or her medical or mental health treatment. The person fully and consistently understands the purpose of the admission for examination/placement and is fully capable of personally exercising all rights assured under [place] Incompetent to provide express and informed consent to voluntary admission, and this is incompetent to provide express and informed consent to treatment. The person must be transferred to involuntary status and a petition for a guardian advocate filed with the Circuit Court. [X] Refusing to provide express and informed consent to voluntary admission but is competent to provide express and informed consent for treatment. The person must be discharged or transferred to involuntary status. Form shall be completed within 24 hours of a person's arrival at the receiving facility and filed in the clinical record of each person: 1. Admitted on a voluntary basis 2. Permitted to provide express and informed consent to his/her own treatment 3. Allowed to transfer from involuntary to voluntary status 4. Prior to permitting a person to consent to his or her own treatment after having been previously found incompetent to consent to treatment. History of Present Illness Capacity: Has capacity History of Present Illness: The patient is a 67-year-old woman, domiciled in a [place] in [facility], , mother of 2 kids, supported by [facility], with a psychiatric history of schizophrenia, schizoaffective disorder bipolar type, cluster C personality disorder, multiple psychiatric hospitalizations, she was hospitalized here in [place] in December 2017, her last hospitalization was a week ago in [facility] which she was hospitalized for about 2 months, she is on Seroquel 200 mg twice daily, Lamictal 25 mg twice daily, trazodone 100 mg at bedtime, who presents to the ED via EMS after attempt to harm herself [place]. The patient is under [place]. On my psychiatric evaluation today the patient is irritable, oppositional and resistant, refusing to talk. She [place], but refuses to elaborate about her recent to try to do this. When asked how she got here today she states "I just want to ." The officer that responded to the EMS call states that the patient was floating in the water, refused to take the life preserver and was attempting to swallow water out of the canal. The officer jumped in and brought her to shore. Patient's daughter arrives and states that the patient refused her medicines at the [facility] today. She says that the patient also has been acting paranoid and bizarrely. The patient's daughter arrives and states that the patient made a statement today stating "I won't fail today." The patients daughter believes that this is a suicidal reference. The daughter over the phone has been requesting that the patient is transferred back to [facility] , but I explained her that by [facility] we cannot transfer the patient to the same level of care and she gets really upset stating she is going to call the authorities of [place]. PPHx: with a psychiatric history of schizophrenia, schizoaffective disorder bipolar type, cluster C personality disorder, multiple psychiatric hospitalizations, she was hospitalized here in [place] in December 2017, her last hospitalization was a week ago in [facility] which she was hospitalized for about 2 months, she is on Seroquel 200 mg twice daily, Lamictal 25 mg twice daily, trazodone 100 mg at bedtime PMHx: Seizures Family HX: Grandmother had bipolar disorder Substance Hx: No use of illegal drugs or alcohol Social Hx: Patient was born and raised in [place], she lives in [facility] in [facility], she is , mother of 2 kids, supported by [employer] - Inpatient Certification I certify that the inpatient services were ordered in accordance with Medicare regulations governing the order. This includes certification that hospital inpatient services are reasonable and necessary and in the case of services not specified as inpatient-only under 42 CFR 419.22(n), that they are appropriately provided as inpatient services in accordance to with the 2-midnight benchmark under 43 CFR 412.3(e) I certify that inpatient psychiatric hospital services are medically necessary. Evaluation and treatment and/or diagnostic testing are expected to improve the patient's condition. The patient needs on a daily basis, active treatment furnished directly by or requiring the supervision of inpatient psychiatric facility personnel. Estimated Total Length of Stay (Days): 7 Plans for Post Hospital Care: Home Review of Systems All other systems reviewed negative except as stated in HPI Psychiatric: Reports irritability, Reports mood swings, Reports paranoia, Reports seeing things others do not see, Reports thoughts of hurting/killing yourself PMFSH - History History Provided By: Family Member - Medical History Medical History: Medical History (Last Reviewed 04/03/18 @ 17:07 by AGUSTINA Vizcaino) Anxiety Depression History of seizure Major depress, sev w/ psych - Surgical History Surgical History: Surgical History (Last Reviewed 04/03/18 @ 17:07 by AGUSTINA Vizcaino) Hx of mastectomy Hx of total knee replacement - Tobacco History Second Hand Smoke Exposure: No Smoking Status: Former smoker Tobacco Type: Cigarettes - Alcohol History How Often Do You Have a Drink Containing Alcohol: Never - Substance Use History Substance History: No History of Abuse - Travel History Recent Travel in the [place] Within the Last 8 Weeks: No Recent Travel Out of the Country Within the Last 8 Weeks: No - Immunization History Tetanus Immunization: Unable to Assess Hx Influenza Vaccine This Season: Unable to Assess Medications and Allergies Active Medications: Active Medications Al Hydrox/Mg Hydrox/Simethicone (Mag-Al Plus Susp Liq) 30 ml PO Q6H PRN PRN Reason: DYSPEPSIA Al Hydroxide/Mg Hydroxide (Milk Of Magnesia Liq) 30 ml PO Q12H PRN PRN Reason: Mild Constipation Baclofen (Lioresal) 10 mg PO HS NATE Bisacodyl (Dulcolax Supp) 10 mg RECTAL DAILY PRN PRN Reason: SEVERE CONSITIPATION Docusate Sodium (Colace) 100 mg PO BID [facility] Last Admin: 04/04/18 12:55 Dose: Not Given Lactulose (Lactulose Liq) 30 ml PO DAILY PRN PRN Reason: SEVERE CONSITIPATION Lamotrigine (Lamictal) 50 mg PO BID [facility] Last Admin: 04/04/18 12:55 Dose: Not Given Melatonin (Melatonin) 10 mg PO [facility] Multivitamins (Theragran) 1 tab PO DAILY [facility] Last Admin: 04/04/18 12:56 Dose: Not Given Phenytoin Sodium (Dilantin) 100 mg PO BID [facility] Last Admin: 04/04/18 12:55 Dose: Not Given Quetiapine Fumarate (Seroquel) 300 mg PO BID [facility] Last Admin: 04/04/18 12:56 Dose: Not Given Quetiapine Fumarate (Seroquel) 50 mg PO DAILY@1400 [facility] Senna/Docusate Sodium (Mya-Colace) 1 tab PO BID [facility] Last Admin: 04/04/18 12:55 Dose: Not Given Sennosides (Senokot) 17.2 mg PO Q12H PRN PRN Reason: Moderate Constipation Topiramate (Topamax) 50 mg PO BID [facility] Trazodone HCl (Desyrel) 200 mg PO [facility] Allergies Allergy/AdvReac Type Severity Reaction Status Date / Time chlorpromazine Allergy Mild Verified 11/21/17 19:58 Home Medications Medication Instructions Recorded Confirmed Type baclofen 10 mg PO HS 04/03/18 04/03/18 History docusate sodium [Colace] 100 mg PO BID 04/03/18 04/03/18 History lamotrigine [Lamictal] 50 mg PO BID 04/03/18 04/03/18 History melatonin 9 mg PO HS 04/03/18 04/03/18 History multivitamin [Multiple Vitamins] 1 tab PO DAILY 04/03/18 04/03/18 History phenytoin sodium extended 100 mg PO BID 04/03/18 04/03/18 History [Dilantin Extended] quetiapine [Seroquel] 50 mg PO 1400 04/03/18 04/03/18 History quetiapine [Seroquel] 300 mg PO BID 04/03/18 04/03/18 History sennosides [senna] 8.6 mg PO HS 04/03/18 04/03/18 History topiramate [Topamax] 50 mg PO BID 04/03/18 04/03/18 History trazodone 200 mg PO HS 04/03/18 04/03/18 History Results - Labs CBC & Chem 7: 04/03/18 17:15 04/03/18 17:15 Labs: Laboratory Results - last 24 hr 04/03/18 04/03/18 04/03/18 17:15 17:15 17:15 WBC 4.7 RBC 4.33 Hgb 13.6 Hct 39.1 MCV 90.3 MCH 31.4 MCHC 34.8 RDW 12.8 Plt Count 245 MPV 7.2 Neut % (Auto) 73.7 H Lymph % (Auto) 14.7 [place] % (Auto) 7.2 Eos % (Auto) 4.1 H Baso % (Auto) 0.3 Neut # (Auto) 3.5 Lymph # (Auto) 0.7 L [place] # (Auto) 0.3 Eos # (Auto) 0.2 Baso # (Auto) 0.0 WBC Differential . Differential Comment Auto diff final Sodium 138 Potassium 3.4 L Chloride 103 Carbon Dioxide 23.3 Anion Gap 12 BUN 14 Creatinine 0.92 Estimated GFR 61 L Random Glucose 109 H Calcium 8.7 Magnesium 2.0 Total Bilirubin 0.2 AST 14 L ALT 28 Alkaline Phosphatase 174 H Total Protein 7.3 Albumin 3.9 TSH 0.686 Urine Color Urine Clarity Urine pH Ur Specific Hendricks Urine Protein Urine Glucose (UA) Urine Ketones Urine Occult Blood Urine Nitrate Urine Bilirubin Urine Urobilinogen Ur Leukocyte Esterase Urine RBC Urine WBC Ur Squamous Epith Cells Micro UA Comment Ur Microscopic Review Urine Culture Comments Salicylates Less than 1.7 L Urine Opiates Screen Acetaminophen Less than 2.0 L Ur Barbiturates Screen Phenytoin Ur Amphetamines Screen U Benzodiazepines Scrn Urine Cocaine Screen U Cannabinoids Screen Serum Alcohol Less than 3 04/03/18 04/03/18 04/03/18 17:15 17:44 17:44 WBC RBC Hgb Hct MCV MCH MCHC RDW Plt Count MPV Neut % (Auto) Lymph % (Auto) [place] % (Auto) Eos % (Auto) Baso % (Auto) Neut # (Auto) Lymph # (Auto) [place]ent[place] # (Auto) Eos # (Auto) Baso # (Auto) WBC Differential Differential Comment Sodium Potassium Chloride Carbon Dioxide Anion Gap BUN Creatinine Estimated GFR Random Glucose Calcium Magnesium Total Bilirubin AST ALT Alkaline Phosphatase Total Protein Albumin TSH Urine Color Light-yellow Urine Clarity Clear Urine pH 6.0 Ur Specific Hendricks 1.004 Urine Protein Negative Urine Glucose (UA) Negative Urine Ketones Negative Urine Occult Blood Negative Urine Nitrate Negative Urine Bilirubin Negative Urine Urobilinogen Less than 2 Ur Leukocyte Esterase Moderate H Urine RBC 1 Urine WBC 4 Ur Squamous Epith Cells 1 Micro UA Comment Culture not ind Ur Microscopic Review Not Reportable Urine Culture Comments Culture not ind Salicylates Urine Opiates Screen Neg Acetaminophen Ur Barbiturates Screen Neg Phenytoin 15.3 Ur Amphetamines Screen Neg U Benzodiazepines Scrn Neg Urine Cocaine Screen Neg U Cannabinoids Screen Neg Serum Alcohol - Imaging Impressions Chest X-Ray 04/03/18 17:02 CONCLUSION: Negative examination. Exam Vital signs: Vital Signs 04/03/18 17:00 04/04/18 06:14 04/04/18 10:21 Temperature 97.6 F 97.4 F L Pulse Rate 103 H 75 89 Respiratory Rate 16 14 18 Blood Pressure 188/92 H 143/77 H 135/70 Pulse Oximetry 97 99 Intake & Output 04/03/18 04/04/18 04/04/18 18:59 06:59 18:59 Weight 108.862 kg 205 kg Other: Weight On Admission 205 kg Narrative: No tremors, no EPS, no withdrawal symptoms, no catatonia, no gait disturbance - Constitutional mild distress - Routine HEENT Exam Head: Present: normocephalic, atraumatic Eye: Present: EOMI ENT: Present: mucous membranes moist Mental Status Examination Appearance: Appropriate Consciousness: Alert Orientation: x4 Motor Activity: Normal gait Speech: Unremarkable Language: Adequate Fund of Knowledge: Adequate Attention and Concentration: Adequate Memory: Unremarkable Mood: Angry Affect: Irritable Thought Process & Associations: Intact Thought Content: Appropriate Hallucination Type: None Delusion Type: Paranoid Suicidal Ideation: Yes Suicidal Plan: No Suicidal Intention: No Homicidal Ideation: No Homicidal Plan: No Homicidal Intention: No Insight: Poor Judgment: Poor Assessment and Plan - Assessment (1) Schizoaffective disorder, bipolar type Code(s): F25.0 - Schizoaffective disorder, bipolar type Status: Acute - Plan Plan: On psychiatric evaluation today the patient presents oppositional, irritable, refusing to cooperate, but stated that she did not wanted to kill herself by jumping in the river and trying to draw herself. The patient seems to be internally preoccupied, paranoid, and as per daughter she has being acting like these in the last days, and not taking her medications. The patient has psychiatric history of schizophrenia, schizoaffective disorder, multiple psychiatric hospitalizations, she was hospitalized for about 2 months in [facility], was discharged about a week ago. Given the level of psychosis and also her suicidal ideation, the patient poses threat to herself, she is going to be admitted in psychiatry, will restart the Seroquel #00 mg twice daily, trazodone 100 mg, the Lamictal 25 mg twice daily, her medications for seizures. The patient will be transferred to [address]. Will consult psychiatry for second opinion. Justification for Continued Inpatient Stay: Continue process of admission
[2018-04-04] MEDS: QUEtiapine 25 MG Tablet PO SCH (17:41)
[2018-04-04] MEDS: Topiramate 25 MG Tablet PO SCH ×2 (17:41→22:05)
[2018-04-04] MEDS: traZODone 100 MG Tablet PO SCH (22:01)
[2018-04-04] MEDS: Baclofen 10 MG Tablet PO SCH (22:04)
[2018-04-04] MEDS: Melatonin 5 MG Tablet PO SCH (22:04)
[2018-04-05] MEDS: Phenytoin Sodium 100 MG Capsule PO SCH ×2 (10:36→21:16)
[2018-04-05] MEDS: lamoTRIgine 25 MG TABLET PO SCH ×2 (10:36→21:15)
[2018-04-05] MEDS: Senna/Docusate Sodium 8.6/50 MG Tablet PO SCH ×2 (10:36→21:15)
[2018-04-05] MEDS: Topiramate 25 MG Tablet PO SCH ×2 (10:37→21:15)
[2018-04-05] MEDS: Docusate Sodium 100 MG Capsule PO SCH ×2 (10:43→21:15)
[2018-04-05] MEDS: QUEtiapine 25 MG Tablet PO SCH (14:25)
--- NOTE | 2018-04-05 14:51 | P.PNPSY ---
Subjective Remarks: This is a request for second opinion. Admission note was reviewed and I agree with the history. Patient was seen and case was discussed with nursing. Patient remains anxious and depressed. She becomes mildly tearful during the interview. She admits to having a suicide attempt before admission. Today, she says she feels safe in the hospital and denies any suicidal or homicidal ideation intent or plan. She was not compliant with medication but did take her medicines this morning for the nurse. Patient has mild EPS of the face and tremors of both hands Mental Status Examination Appearance: Appropriate Consciousness: Alert Orientation: x4 Motor Activity: Normal gait Speech: Unremarkable Language: Adequate Fund of Knowledge: Adequate Attention and Concentration: Adequate Memory: Unremarkable Mood: Angry Affect: Irritable Thought Process & Associations: Intact Thought Content: Appropriate Hallucination Type: None Delusion Type: Paranoid Suicidal Ideation: No Suicidal Plan: No Suicidal Intention: No Homicidal Ideation: No Homicidal Plan: No Homicidal Intention: No Insight: Poor Judgment: Poor Assessment and Plan - Assessment (1) Schizoaffective disorder, bipolar type Code(s): F25.0 - Schizoaffective disorder, bipolar type Status: Acute - Plan Plan: I agree with the first opinion to continue petition. Criteria include acute psychosis. Consider adding an agent to treat tardive dyskinesia Justification for Continued Inpatient Stay: Patient would decompensate in a less restrictive setting
[2018-04-05] MEDS: traZODone 100 MG Tablet PO SCH (21:15)
[2018-04-05] MEDS: Baclofen 10 MG Tablet PO SCH (21:16)
[2018-04-05] MEDS: Melatonin 5 MG Tablet PO SCH (21:20)
[2018-04-05] MEDS: Acetaminophen 325 MG Tablet PO PRN (21:22)
[2018-04-06] MEDS: Acetaminophen 325 MG Tablet PO PRN ×2 (05:39→20:42)
--- NOTE | 2018-04-06 08:42 | P.PNPSY ---
Subjective Remarks: Reviewed electronic medical records and discussed case with staff. Follow-up was conducted in the [facility] with RN present. Patient is pleasant and cooperative. No behavioral concerns. . Continues to be preoccupied and difficult to obtain information from the patient possibly due to her paranoia. She is medication compliant. Eating and sleeping well. No side effects from medications. Denies any suicidal or homicidal ideations. Review of Systems All other systems reviewed negative except as stated in HPI Mental Status Examination Appearance: Appropriate Consciousness: Alert Orientation: x4 Motor Activity: Normal gait Speech: Unremarkable Language: Adequate Fund of Knowledge: Adequate Attention and Concentration: Adequate Memory: Unremarkable Mood: Appropriate Affect: Appropriate Thought Process & Associations: Intact Thought Content: Appropriate Hallucination Type: None Delusion Type: Paranoid Suicidal Ideation: No Suicidal Plan: No Suicidal Intention: No Homicidal Ideation: No Homicidal Plan: No Homicidal Intention: No Insight: Poor Judgment: Poor Assessment and Plan - Assessment (1) Schizoaffective disorder, bipolar type Code(s): F25.0 - Schizoaffective disorder, bipolar type Status: Acute - Plan Plan: Continue current treatment plan. Justification for Continued Inpatient Stay: Moving patient to a less restrictive environment may result in her decompensation.
[2018-04-06 11:05] LABS: Carbon Dioxide 25.9 meq/L (21.0-32.0)
[2018-04-06 11:09] LABS: Chol/HDL Ratio 2.82 Ratio
[2018-04-06] MEDS: lamoTRIgine 25 MG TABLET PO SCH ×2 (11:19→20:51)
[2018-04-06] MEDS: Phenytoin Sodium 100 MG Capsule PO SCH ×2 (11:19→20:51)
[2018-04-06] MEDS: Docusate Sodium 100 MG Capsule PO SCH ×2 (11:19→20:50)
[2018-04-06] MEDS: Senna/Docusate Sodium 8.6/50 MG Tablet PO SCH ×2 (11:19→20:50)
[2018-04-06] MEDS: Topiramate 25 MG Tablet PO SCH ×2 (11:20→20:51)
[2018-04-06 12:59] LABS: Hemoglobin A1c 4.8 % (4.3-6.0)
[2018-04-06] MEDS: QUEtiapine 25 MG Tablet PO SCH (13:19)
[2018-04-06] MEDS: Baclofen 10 MG Tablet PO SCH (20:51)
[2018-04-06] MEDS: traZODone 100 MG Tablet PO SCH (20:51)
[2018-04-06] MEDS: Melatonin 5 MG Tablet PO SCH (20:52)
[2018-04-07] MEDS: Topiramate 25 MG Tablet PO SCH ×2 (08:23→21:11)
[2018-04-07] MEDS: Phenytoin Sodium 100 MG Capsule PO SCH ×2 (08:23→21:07)
[2018-04-07] MEDS: lamoTRIgine 25 MG TABLET PO SCH ×2 (08:24→21:07)
[2018-04-07] MEDS: Senna/Docusate Sodium 8.6/50 MG Tablet PO SCH ×2 (08:25→21:07)
[2018-04-07] MEDS: Docusate Sodium 100 MG Capsule PO SCH ×2 (08:25→21:06)
--- NOTE | 2018-04-07 13:25 | P.PNPSY ---
Subjective Remarks: Reviewed electronic medical records and discussed case with staff. Follow-up was conducted in the patient's room with her RN present. Her nurse reported that the patient would not talk to her this morning. But that she had been compliant with her medications. Patient was found lying on her bed sleeping. She woke to verbal stimuli. She states that "physically she is not that great" . When asked to elaborate complains of coughing and some diarrhea. The patient is demonstrating internal stimulation and active thought blocking. When asked if she is hearing voices she replies, "yes". She is unable to relay what the voices are saying. Mental Status Examination Appearance: Appropriate Consciousness: Alert Orientation: x4 Motor Activity: Normal gait Speech: Unremarkable Language: Adequate Fund of Knowledge: Adequate Attention and Concentration: Adequate Memory: Unremarkable Mood: Appropriate Affect: Appropriate Thought Process & Associations: Intact Thought Content: Appropriate Hallucination Type: None Delusion Type: Paranoid Suicidal Ideation: No Suicidal Plan: No Suicidal Intention: No Homicidal Ideation: No Homicidal Plan: No Homicidal Intention: No Insight: Poor Judgment: Poor Assessment and Plan - Assessment (1) Schizoaffective disorder, bipolar type Code(s): F25.0 - Schizoaffective disorder, bipolar type Status: Acute - Plan Plan: Patient will be reevaluated by the attending psychiatrist. Continue with current treatment plan. Patient continues to experience internal stimulation and thought blocking. Her medications have just been restarted, waiting to see if they target her symptoms. Justification for Continued Inpatient Stay: Moving this patient to a less restrictive environment would likely result in decompensation.
[2018-04-07] MEDS: QUEtiapine 25 MG Tablet PO SCH ×2 (14:19→14:27)
[2018-04-07] MEDS: Acetaminophen 325 MG Tablet PO PRN (18:41)
[2018-04-07] MEDS: Baclofen 10 MG Tablet PO SCH (21:06)
[2018-04-07] MEDS: Melatonin 5 MG Tablet PO SCH ×2 (21:07→23:24)
[2018-04-07] MEDS: traZODone 100 MG Tablet PO SCH (21:07)
[2018-04-08] MEDS: Docusate Sodium 100 MG Capsule PO SCH ×2 (08:25→20:47)
[2018-04-08] MEDS: Phenytoin Sodium 100 MG Capsule PO SCH ×2 (08:25→20:49)
[2018-04-08] MEDS: Topiramate 25 MG Tablet PO SCH ×2 (08:26→20:49)
[2018-04-08] MEDS: Senna/Docusate Sodium 8.6/50 MG Tablet PO SCH ×2 (08:26→23:04)
[2018-04-08] MEDS: lamoTRIgine 25 MG TABLET PO SCH ×2 (08:26→20:48)
--- NOTE | 2018-04-08 11:44 | P.PNPSY ---
Subjective Remarks: Reviewed electronic medical records and discussed case with staff. Follow-up was conducted in the patient's room. She was found lying on the bed sleeping. She does seem to be a little more responsive today. She complains that her "chest is so congested". Talking with staff they have not noted any real cold symptoms but I have advised him to watch her. She reports that she slept all right overnight but that her appetite is been "not great". She does not appear as internally stimulated today and denies hearing any voices. Mental Status Examination Appearance: Appropriate Consciousness: Alert Orientation: x4 Motor Activity: Normal gait Speech: Unremarkable Language: Adequate Fund of Knowledge: Adequate Attention and Concentration: Adequate Memory: Unremarkable Mood: Appropriate Affect: Appropriate Thought Process & Associations: Intact Thought Content: Appropriate Hallucination Type: None Delusion Type: Paranoid Suicidal Ideation: No Suicidal Plan: No Suicidal Intention: No Homicidal Ideation: No Homicidal Plan: No Homicidal Intention: No Insight: Poor Judgment: Poor Assessment and Plan - Assessment (1) Schizoaffective disorder, bipolar type Code(s): F25.0 - Schizoaffective disorder, bipolar type Status: Acute - Plan Plan: Patient will be reevaluated by the attending psychiatrist. Continue with current treatment plan. Her daughter contacted the counselor, Lizzie. It seems she is requesting to have ECT treatments for her mother for depression. Not altogether sure that is what is going on with the patient at this time however, I passed this information on to Dr. Trinh. While she is showing some improvement there is still some symptomology present. Justification for Continued Inpatient Stay: Moving this patient to a less restrictive environment would likely result in decompensation.
[2018-04-08] MEDS: Acetaminophen 325 MG Tablet PO PRN (13:29)
[2018-04-08] MEDS: QUEtiapine 25 MG Tablet PO SCH (13:31)
[2018-04-08] MEDS: traZODone 100 MG Tablet PO SCH (20:49)
[2018-04-08] MEDS: Baclofen 10 MG Tablet PO SCH (20:49)
[2018-04-08] MEDS: Melatonin 5 MG Tablet PO SCH (23:03)
[2018-04-09] MEDS: Docusate Sodium 100 MG Capsule PO SCH ×2 (12:34→20:37)
[2018-04-09] MEDS: Senna/Docusate Sodium 8.6/50 MG Tablet PO SCH ×2 (12:34→20:36)
[2018-04-09] MEDS: lamoTRIgine 25 MG TABLET PO SCH ×2 (12:51→20:37)
[2018-04-09] MEDS: Phenytoin Sodium 100 MG Capsule PO SCH ×2 (12:52→20:37)
[2018-04-09] MEDS: Topiramate 25 MG Tablet PO SCH ×2 (12:52→20:36)
[2018-04-09] MEDS: Acetaminophen 325 MG Tablet PO PRN (12:54)
--- NOTE | 2018-04-09 12:54 | P.PNPSY ---
Subjective Remarks: The patient was seen today for psychiatric reevaluation. The patient is found in her bed, disengaged, poorly cooperative, with a significant oppositional behavior, selective mutism, delay speech, internally preoccupied, with blocking thought. Patient has a prominent flat affect with occasional masked faces. She does report feeling okay, denies depressive symptoms, she reports good sleep , good level of energy, good appetite. She denies suicidal and homicidal ideation, she denies visual and auditory hallucinations. She is oriented x3. Compliant with medications, no significant side effects. Mental Status Examination Appearance: Appropriate Consciousness: Alert Orientation: x4 Motor Activity: Normal gait Speech: Unremarkable Language: Adequate Fund of Knowledge: Adequate Attention and Concentration: Adequate Memory: Unremarkable Mood: Appropriate Affect: Appropriate Thought Process & Associations: Intact Thought Content: Appropriate Hallucination Type: None Delusion Type: Paranoid Suicidal Ideation: No Suicidal Plan: No Suicidal Intention: No Homicidal Ideation: No Homicidal Plan: No Homicidal Intention: No Insight: Poor Judgment: Poor Assessment and Plan - Assessment (1) Schizoaffective disorder, bipolar type Code(s): F25.0 - Schizoaffective disorder, bipolar type Status: Acute - Plan Plan: Patient continues to be acutely psychotic, with prominent flat affect, internal preoccupation, negativism, lack of motivation, some level catatonic state. Patient really benefit of restarting her ECT treatment. Continue current psychotropic regimen. Will communicate with family to start the process of transferring the patient to a ECT facility. The patient has history of responding adequately to this therapy. I will add Ativan 1 mg every 8 hours for catatonia Justification for Continued Inpatient Stay: Continue psychiatric admission for stabilization.
[2018-04-09] MEDS: QUEtiapine 25 MG Tablet PO SCH (13:33)
[2018-04-09] MEDS: LORazepam 1 MG Tablet PO SCH ×2 (14:32→20:37)
[2018-04-09] MEDS: Baclofen 10 MG Tablet PO SCH (20:36)
[2018-04-09] MEDS: traZODone 100 MG Tablet PO SCH (20:37)
[2018-04-10] MEDS: Melatonin 5 MG Tablet PO SCH ×2 (03:52→21:24)
[2018-04-10] MEDS: LORazepam 1 MG Tablet PO SCH ×3 (05:11→21:22)
[2018-04-10] MEDS: Acetaminophen 325 MG Tablet PO PRN (06:45)
[2018-04-10] MEDS: Docusate Sodium 100 MG Capsule PO SCH ×2 (10:06→21:22)
[2018-04-10] MEDS: Topiramate 25 MG Tablet PO SCH ×2 (10:06→21:22)
[2018-04-10] MEDS: lamoTRIgine 25 MG TABLET PO SCH ×2 (10:06→21:24)
[2018-04-10] MEDS: Senna/Docusate Sodium 8.6/50 MG Tablet PO SCH ×2 (10:07→21:22)
[2018-04-10] MEDS: Phenytoin Sodium 100 MG Capsule PO SCH ×2 (10:07→21:21)
--- NOTE | 2018-04-10 15:20 | P.PNPSY ---
Subjective Remarks: The patient was seen today for psychiatric reevaluation. She was seen in [facility] and also in a family meeting with her daughter. Patient continues to present a motivated, isolated, with a prominent blocking thought, delay speech, unable to answer any of my questions. Patient also has some level of waxy flexibility and stiffness. Would answer few my questions with just a years or not several seconds later. I have discussed with her daughter the convenience to treat catatonia with Ativan, the daughter agree. We will continue pursuing ECT. Mental Status Examination Appearance: Appropriate Consciousness: Clouded Orientation: Person, Place Motor Activity: Normal gait Speech: Other (Very delayed) Language: Adequate Fund of Knowledge: Adequate Attention and Concentration: Adequate Memory: Unremarkable Mood: Appropriate Affect: Appropriate Thought Process & Associations: Disorganized Thought Content: Thought blocking Hallucination Type: None Delusion Type: Paranoid Suicidal Ideation: Yes Suicidal Plan: No Suicidal Intention: No Homicidal Ideation: No Homicidal Plan: No Homicidal Intention: No Insight: Poor Judgment: Poor Assessment and Plan - Assessment (1) Schizoaffective disorder, bipolar type Code(s): F25.0 - Schizoaffective disorder, bipolar type Status: Acute (2) Catatonia Code(s): F06.1 - Catatonic disorder due to known physiological condition Status: Acute - Plan Plan: On my psychiatric evaluation today the patient continued present unmotivated, with delay speech, prominent blocking thought, stiffness, lack of spontaneity which suggest acute catatonia. I have met with her daughter and discuss this issue, and she agreed with restarting treatment for this condition. I will start 2 mg of Ativan p.o. every 6 hours. Patient also continues to be acutely psychotic. Justification for Continued Inpatient Stay: Patient is acutely catatonia/psychotic, she is to continue psychiatric hospitalization for stabilization
[2018-04-10] MEDS: QUEtiapine 25 MG Tablet PO SCH (16:22)
--- NOTE | 2018-04-10 18:36 | P.CONNEU ---
History of Present Illness Service: Neurology Primary Care Provider: UNKNOWN Chief Complaint: Mental status change History of Present Illness: 67-year-old female readmitted to the psych unit [facility] acted for suicidal ideation. History of bipolar disorder suspected seizures. On anticonvulsant agents. Concern for possible breakthrough seizure activity neurology consult for further evaluation. Review of Systems All other systems reviewed negative except as stated in HPI PMFSH - History History Provided By: Family Member - Medical History Medical History: Medical History (Last Reviewed 04/03/18 @ 17:07 by AGUSTINA Vizcaino) Anxiety Depression History of seizure Major depress, sev w/ psych - Surgical History Surgical History: Surgical History (Last Reviewed 04/03/18 @ 17:07 by AGUSTINA Vizcaino) Hx of mastectomy Hx of total knee replacement - Tobacco History Second Hand Smoke Exposure: No Smoking Status: Former smoker Tobacco Type: Cigarettes - Alcohol History How Often Do You Have a Drink Containing Alcohol: Never - Substance Use History Substance History: No History of Abuse - Travel History Recent Travel in the [place] Within the Last 8 Weeks: No Recent Travel Out of the Country Within the Last 8 Weeks: No - Immunization History Tetanus Immunization: Unable to Assess Hx Influenza Vaccine This Season: Unable to Assess Medications and Allergies Active Medications: Active Medications Acetaminophen (Tylenol) 650 mg PO Q6H PRN PRN Reason: PAIN 0-10/HEADACHE Last Admin: 04/10/18 06:45 Dose: 650 mg Al Hydrox/Mg Hydrox/Simethicone (Mag-Al Plus Susp Liq) 30 ml PO Q6H PRN PRN Reason: DYSPEPSIA Al Hydroxide/Mg Hydroxide (Milk Of Magnesia Liq) 30 ml PO Q12H PRN PRN Reason: Mild Constipation Last Admin: 04/06/18 05:39 Dose: 30 ml Baclofen (Lioresal) 10 mg PO HS [facility] Last Admin: 04/09/18 20:36 Dose: 10 mg Bisacodyl (Dulcolax Supp) 10 mg RECTAL DAILY PRN PRN Reason: SEVERE CONSITIPATION Docusate Sodium (Colace) 100 mg PO BID [facility] Last Admin: 04/10/18 10:06 Dose: 100 mg Lactulose (Lactulose Liq) 30 ml PO DAILY PRN PRN Reason: SEVERE CONSITIPATION Lamotrigine (Lamictal) 50 mg PO BID [facility] Last Admin: 04/10/18 10:06 Dose: 50 mg Lorazepam (Ativan) 1 mg PO Q8H [facility] Last Admin: 04/10/18 16:23 Dose: Not Given Lorazepam (Ativan) 2 mg PO Q6H [facility] Last Admin: 04/10/18 16:22 Dose: 2 mg Melatonin (Melatonin) 10 mg PO [facility] Last Admin: 04/10/18 03:52 Dose: Not Given Multivitamins (Theragran) 1 tab PO DAILY [facility] Last Admin: 04/10/18 10:07 Dose: 1 tab Phenytoin Sodium (Dilantin) 100 mg PO BID [facility] Last Admin: 04/10/18 10:07 Dose: 100 mg Quetiapine Fumarate (Seroquel) 300 mg PO BID [facility] Last Admin: 04/10/18 10:07 Dose: 300 mg Quetiapine Fumarate (Seroquel) 50 mg PO DAILY@1400 [facility] Last Admin: 04/10/18 16:22 Dose: 50 mg Senna/Docusate Sodium (Mya-Colace) 1 tab PO BID [facility] Last Admin: 04/10/18 10:07 Dose: 1 tab Sennosides (Senokot) 17.2 mg PO Q12H PRN PRN Reason: Moderate Constipation Topiramate (Topamax) 50 mg PO BID [facility] Last Admin: 04/10/18 10:06 Dose: 50 mg Trazodone HCl (Desyrel) 200 mg PO [facility] Last Admin: 04/09/18 20:37 Dose: 200 mg Allergies Allergy/AdvReac Type Severity Reaction Status Date / Time chlorpromazine Allergy Mild Verified 11/21/17 19:58 Home Medications Medication Instructions Recorded Confirmed Type baclofen 10 mg PO 04/03/18 04/03/18 History docusate sodium [Colace] 100 mg PO BID 04/03/18 04/03/18 History lamotrigine [Lamictal] 50 mg PO BID 04/03/18 04/03/18 History melatonin 9 mg PO 04/03/18 04/03/18 History multivitamin [Multiple Vitamins] 1 tab PO DAILY 04/03/18 04/03/18 History phenytoin sodium extended 100 mg PO BID 04/03/18 04/03/18 History [Dilantin Extended] quetiapine [Seroquel] 50 mg PO 1400 04/03/18 04/03/18 History quetiapine [Seroquel] 300 mg PO BID 04/03/18 04/03/18 History sennosides [senna] 8.6 mg PO HS 04/03/18 04/03/18 History topiramate [Topamax] 50 mg PO BID 04/03/18 04/03/18 History trazodone 200 mg PO HS 04/03/18 04/03/18 History Exam Vital signs: Vital Signs 04/10/18 06:10 04/10/18 18:01 Temperature 98.3 F 98.6 F Pulse Rate 84 84 Respiratory Rate 18 17 Blood Pressure 126/85 139/92 H Pulse Oximetry 95 Intake & Output 04/09/18 04/10/18 04/10/18 18:59 06:59 18:59 Intake Total 600 / 600 120 / 120 1320 / 1320 Balance 600 / 600 120 / 120 1320 / 1320 Intake: Oral 600 / 600 120 / 120 1320 / 1320 Other: # Voids 4 1 Narrative: GENERAL: in NAD, SKIN: Warm and dry. HEAD: Atraumatic. Normocephalic. EYES: Pupils equal and round. No scleral icterus. ENT: No nasal bleeding or discharge. Mucous membranes pink and moist. NECK: Trachea midline. No JVD. CARDIOVASCULAR: Regular rate and rhythm. RESPIRATORY: No accessory muscle use. GASTROINTESTINAL: Abdomen soft, non-tender, nondistended. MUSCULOSKELETAL: Extremities without clubbing, cyanosis, or edema. No obvious deformities. NEUROLOGICAL: Awake and alert. No aphasia, fluent articulate, No facial asymmetry, OU 3-2mm, eomi, VFF, No drift, Motor grossly within normal limits. Five out of 5 muscle strength in the arms and legs. Tone normal in all 4 limbs, Sensory normal in all 4 extremities to pin, msr 1-2+ sym, no clonus, planterflexor, PSYCHIATRIC: Appropriate mood and affect; insight and judgment normal. - Constitutional no acute distress - Routine HEENT Exam Head: Present: normocephalic Results - Labs CBC & Chem 7: 04/03/18 17:15 04/06/18 10:19 Review/Management - Diagnosis (1) Seizure Code(s): R56.9 - Unspecified convulsions Status: Acute Current Visit: Yes (2) Benign positional vertigo Code(s): H81.10 - Benign paroxysmal vertigo, unspecified ear Status: Acute Current Visit: Yes (3) Schizoaffective disorder, bipolar type Code(s): F25.0 - Schizoaffective disorder, bipolar type Status: Acute Current Visit: No (4) Cluster C personality disorder Code(s): F60.9 - Personality disorder, unspecified Status: Acute Current Visit: No - Review/Management Plan: Recommendation We will obtain a EagleantinSwethax, Lamictal level EEG Follow exam
[2018-04-10] MEDS: traZODone 100 MG Tablet PO SCH (21:22)
[2018-04-10] MEDS: Baclofen 10 MG Tablet PO SCH (21:22)
[2018-04-10] MEDS: lamoTRIgine 100 MG Tablet PO SCH (21:22)
[2018-04-11] MEDS: LORazepam 1 MG Tablet PO SCH ×3 (04:36→21:17)
[2018-04-11] MEDS: lamoTRIgine 100 MG Tablet PO SCH ×2 (09:16→21:17)
[2018-04-11] MEDS: lamoTRIgine 25 MG TABLET PO SCH ×2 (09:16→21:17)
[2018-04-11] MEDS: Topiramate 25 MG Tablet PO SCH ×2 (09:17→21:18)
[2018-04-11] MEDS: Phenytoin Sodium 100 MG Capsule PO SCH ×2 (09:17→21:18)
[2018-04-11] MEDS: Docusate Sodium 100 MG Capsule PO SCH ×2 (09:18→21:17)
[2018-04-11] MEDS: Senna/Docusate Sodium 8.6/50 MG Tablet PO SCH ×2 (09:18→21:18)
[2018-04-11] MEDS: QUEtiapine 25 MG Tablet PO SCH (13:47)
--- NOTE | 2018-04-11 14:02 | P.PNPSY ---
Subjective Remarks: Patient transferred to my service, chart reviewed, EMR reviewed, I did care for patient in November of this year for fairly extended hospitalization. Was finally discharged at that time in [place] and in [facility] [place]. Neurology consult reviewed Dr. Trinh's notes reviewed. Patient seen by me in her room with nurse Phani she is sitting on the edge of the of her bed she appears markedly sedated at times focusing and responding though she did remember me. She is vague about voices he is vague about suicidality at this time. Though she still acknowledges a sad depressed mood. Review of medications no sleep patient is ordered 2 mg Ativan every 6 hours along with 1 mg of Ativan every 8 hours. This seems to be redundancy with that. We will discontinue the 2 mg every 6 hours continue the 1 mg every 8 hours at the present time Review of Systems All other systems reviewed negative except as stated in HPI Mental Status Examination Appearance: Appropriate Consciousness: Clouded, Other (Somewhat sedated) Orientation: Person, Place Motor Activity: Normal gait Speech: Other (Very delayed) Language: Adequate Fund of Knowledge: Adequate Attention and Concentration: Easily distracted Memory: Unremarkable Mood: Other (Markedly restricted and dysphoric) Affect: Other (Decreased range and intensity) Thought Process & Associations: Disorganized Thought Content: Thought blocking Hallucination Type: None Delusion Type: Paranoid Suicidal Ideation: Yes Suicidal Plan: No Suicidal Intention: No Homicidal Ideation: No Homicidal Plan: No Homicidal Intention: No Insight: Poor Judgment: Poor Assessment and Plan - Assessment (1) Schizoaffective disorder, bipolar type Code(s): F25.0 - Schizoaffective disorder, bipolar type Status: Acute (2) Catatonia Code(s): F06.1 - Catatonic disorder due to known physiological condition Status: Acute - Plan Plan: Patient continues sedated depressed with marked thought blocking and delayed in responses she medication adjustment above neurology consult reviewed and agreed with and appreciated Justification for Continued Inpatient Stay: At this time patient would decompensate a place to a lower level of care Discharge Planning: To be determined
--- NOTE | 2018-04-11 18:35 | MR ---
EXAM DATE: 04/11/2018 6:23 PM EST AGE/SEX: 67 years / Female INDICATIONS: CVA. CLINICAL DATA: This is the patient's initial encounter. Patient reports that signs and symptoms have been present for 1 day and indicates a pain score of 4/10. MEDICAL/SURGICAL HISTORY: Carcinoma, breast. Mastectomy, bilateral. Bilateral knee replacement. [place] [facility] [place]. . TECHNIQUE: Multiplanar, multisequence examination of the brain was performed without contrast. FINDINGS: Cerebrum: The ventricles are normal for age. No evidence of midline shift, mass lesion, hemorrhage or acute infarction. No extraaxial fluid collections are seen. The pituitary gland and suprasellar cistern are normal in configuration. White Matter: Mild chronic FLAIR signal abnormality in the periventricular white matter of both cere bral hemispheres. Posterior Fossa: The cerebellum and brainstem are intact. The 4th ventricle is midline. The cerebel lopontine angle is unremarkable. The cerebellar tonsils are normal in position. Diffusion Imaging: No focal areas of restricted diffusion are seen. No evidence of acute infarction . Extracranial: There is mucoperiosteal thickening of the visualized ethmoid and maxillary sinuses. Th e right maxillary sinus disease is much worse than on the prior CT. CONCLUSION: 1. No acute intracranial abnormality. 2. Mild chronic white matter changes. 3. Chronic sinus disease. Electronically signed by: Gregor Jones MD 04/11/2018 6:34 PM EST
[2018-04-11] MEDS: traZODone 100 MG Tablet PO SCH (21:17)
[2018-04-11] MEDS: Baclofen 10 MG Tablet PO SCH (21:17)
[2018-04-11] MEDS: Melatonin 5 MG Tablet PO SCH (21:18)
--- NOTE | 2018-04-11 22:11 | MG ---
cc: Larry Bro MD, PhD TEST NUMBER: [id number]. TECHNIQUE: A 17-channel EEG. DESCRIPTION: The background rhythm symmetrical alpha frequency, 8 Hz, amplitude 20 microvolts. Occasional muscle artifact identified. During drowsiness, there is some slowing in the theta range. During sleep, there were vertex sharp waves present. I do not see any true epileptiform discharges. Some sharp activity is identified, but most likely vertex sharp waves associated with sleep. Photic resulted in a fairly well-developed driving response. INTERPRETATION: Normal electroencephalogram. Larry Bro MD, PhD DIPESH/riaz , 09:23 PM , 09:29 PM
[2018-04-12] MEDS: LORazepam 1 MG Tablet PO SCH ×3 (05:11→21:59)
[2018-04-12] MEDS: Phenytoin Sodium 100 MG Capsule PO SCH ×2 (08:42→21:58)
[2018-04-12] MEDS: Senna/Docusate Sodium 8.6/50 MG Tablet PO SCH ×2 (08:42→22:00)
[2018-04-12] MEDS: lamoTRIgine 100 MG Tablet PO SCH ×2 (08:42→21:59)
[2018-04-12] MEDS: Topiramate 25 MG Tablet PO SCH ×2 (08:42→23:44)
[2018-04-12] MEDS: Docusate Sodium 100 MG Capsule PO SCH ×2 (08:43→21:58)
[2018-04-12] MEDS: lamoTRIgine 25 MG TABLET PO SCH ×2 (08:43→21:59)
[2018-04-12] MEDS: Acetaminophen 325 MG Tablet PO PRN (13:13)
--- NOTE | 2018-04-12 14:10 | P.PNPSY ---
Subjective Remarks: Patient was seen and case discussed with nursing. Patient remains seclusive to bed. She continues with tardive dyskinesia with facial grimacing. She has thought blocking and is internally stimulated. She does deny suicidal or homicidal ideation intent or plan. Compliant with medications Mental Status Examination Appearance: Appropriate Consciousness: Clouded, Other (Somewhat sedated) Orientation: Person, Place Motor Activity: Normal gait Speech: Other (Very delayed) Language: Adequate Fund of Knowledge: Adequate Attention and Concentration: Easily distracted Memory: Unremarkable Mood: Other (Markedly restricted and dysphoric) Affect: Other (Decreased range and intensity) Thought Process & Associations: Disorganized Thought Content: Thought blocking Hallucination Type: None Delusion Type: Paranoid Suicidal Ideation: Yes Suicidal Plan: No Suicidal Intention: No Homicidal Ideation: No Homicidal Plan: No Homicidal Intention: No Insight: Poor Judgment: Poor Assessment and Plan - Assessment (1) Schizoaffective disorder, bipolar type Code(s): F25.0 - Schizoaffective disorder, bipolar type Status: Acute (2) Catatonia Code(s): F06.1 - Catatonic disorder due to known physiological condition Status: Acute - Plan Plan: Continue current treatment plan Justification for Continued Inpatient Stay: Patient would decompensate in a less restrictive setting
[2018-04-12] MEDS: QUEtiapine 25 MG Tablet PO SCH (15:09)
[2018-04-12] MEDS: traZODone 100 MG Tablet PO SCH (21:59)
[2018-04-12] MEDS: Baclofen 10 MG Tablet PO SCH (22:00)
[2018-04-12] MEDS: Melatonin 5 MG Tablet PO SCH (23:44)
[2018-04-13] MEDS: LORazepam 1 MG Tablet PO SCH ×3 (05:38→20:28)
--- NOTE | 2018-04-13 08:13 | P.PNPSY ---
Subjective Remarks: Medical record reviewed and discussed with nursing staff. Patient is in dayroom eating breakfast. Rounded with RASHIDA Ivey. Patient states that she is experiencing severe back pain and asking for motrin. She is sleeping and eating well. Nursing reports that she is not taking Melatonin. She is medication compliant. Nursing reports that she keeps to herself and is quiet. Somewhat paranoid. No SI/HI. Review of Systems All other systems reviewed negative except as stated in HPI Mental Status Examination Appearance: Appropriate Consciousness: Alert Orientation: Person, Place Motor Activity: Normal gait Speech: Other (Very delayed) Language: Adequate Fund of Knowledge: Adequate Attention and Concentration: Easily distracted Memory: Unremarkable Mood: Other (Markedly restricted and dysphoric) Affect: Other (Decreased range and intensity) Thought Process & Associations: Disorganized Thought Content: Thought blocking Hallucination Type: None Delusion Type: Paranoid Suicidal Ideation: Yes Suicidal Plan: No Suicidal Intention: No Homicidal Ideation: No Homicidal Plan: No Homicidal Intention: No Insight: Poor Judgment: Poor Assessment and Plan - Assessment (1) Schizoaffective disorder, bipolar type Code(s): F25.0 - Schizoaffective disorder, bipolar type Status: Acute - Plan Plan: Continue current treatment plan Justification for Continued Inpatient Stay: Moving patient to a less restrictive environment may result in her decompensation.
[2018-04-13] MEDS: Topiramate 25 MG Tablet PO SCH ×2 (08:39→20:27)
[2018-04-13] MEDS: Docusate Sodium 100 MG Capsule PO SCH ×2 (08:40→20:27)
[2018-04-13] MEDS: Phenytoin Sodium 100 MG Capsule PO SCH ×2 (08:40→20:27)
[2018-04-13] MEDS: lamoTRIgine 25 MG TABLET PO SCH ×2 (08:40→20:27)
[2018-04-13] MEDS: lamoTRIgine 100 MG Tablet PO SCH ×2 (08:41→22:20)
[2018-04-13] MEDS: Senna/Docusate Sodium 8.6/50 MG Tablet PO SCH ×2 (08:41→20:27)
[2018-04-13] MEDS: Ibuprofen 400 MG Tablet PO PRN (12:43)
[2018-04-13] MEDS: QUEtiapine 25 MG Tablet PO SCH (14:03)
[2018-04-13] MEDS: traZODone 100 MG Tablet PO SCH (20:27)
[2018-04-13] MEDS: Baclofen 10 MG Tablet PO SCH (20:28)
[2018-04-13] MEDS: Melatonin 5 MG Tablet PO SCH (20:28)
[2018-04-14] MEDS: Senna/Docusate Sodium 8.6/50 MG Tablet PO SCH ×2 (09:27→20:21)
[2018-04-14] MEDS: Ibuprofen 400 MG Tablet PO PRN (09:27)
[2018-04-14] MEDS: Docusate Sodium 100 MG Capsule PO SCH ×2 (09:27→20:22)
[2018-04-14] MEDS: Phenytoin Sodium 100 MG Capsule PO SCH ×2 (09:27→20:22)
[2018-04-14] MEDS: lamoTRIgine 25 MG TABLET PO SCH ×2 (09:27→20:21)
[2018-04-14] MEDS: Topiramate 25 MG Tablet PO SCH ×2 (09:27→20:21)
[2018-04-14] MEDS: LORazepam 1 MG Tablet PO SCH ×3 (09:28→20:21)
[2018-04-14] MEDS: lamoTRIgine 100 MG Tablet PO SCH ×2 (09:28→20:22)
--- NOTE | 2018-04-14 11:03 | P.PNPSY ---
Subjective Remarks: Patient seen today in her room with nurse benita, chart reviewed, patient compliant medication. Patient is showing some improved affect today with slightly improved eye contact and brisk her responses with me. Though there is still thought blocking and some delayed responses. She does somewhat reluctantly acknowledge voices that may be of a somewhat command nature. She does deny suicidality. She is aware of the plan for referral to another facility that has ECT ability. She is willing to do that also. For now continue treatment Review of Systems All other systems reviewed negative except as stated in HPI Mental Status Examination Appearance: Appropriate Consciousness: Alert Orientation: Person, Place Motor Activity: Normal gait Speech: Other (Delayed) Language: Adequate Fund of Knowledge: Adequate Attention and Concentration: Easily distracted Memory: Unremarkable Mood: Sad Affect: Other (Continues decreased but somewhat improved in range and intensity) Thought Process & Associations: Disorganized Thought Content: Thought blocking (Somewhat improved) Hallucination Type: Auditory (Today states for a somewhat intrusive auditory hallucinations) Delusion Type: Paranoid Suicidal Ideation: Yes (Denies today) Suicidal Plan: No Suicidal Intention: No Homicidal Ideation: No Homicidal Plan: No Homicidal Intention: No Insight: Poor Judgment: Poor Assessment and Plan - Assessment (1) Schizoaffective disorder, bipolar type Code(s): F25.0 - Schizoaffective disorder, bipolar type Status: Acute (2) Catatonia Code(s): F06.1 - Catatonic disorder due to known physiological condition Status: Acute - Plan Plan: Patient continues depressed with vague psychotic flavor, compliant medications. For now continue treatment continue to work with the family about possible ECT referral Justification for Continued Inpatient Stay: Time patient would decompensate a place to a lower level of care Discharge Planning: Continue to work with family for possible ECT referral
[2018-04-14] MEDS: QUEtiapine 25 MG Tablet PO SCH (14:48)
[2018-04-14] MEDS: Acetaminophen 325 MG Tablet PO PRN (17:57)
[2018-04-14] MEDS: Baclofen 10 MG Tablet PO SCH (20:22)
[2018-04-14] MEDS: traZODone 100 MG Tablet PO SCH (20:22)
[2018-04-14] MEDS: Melatonin 5 MG Tablet PO SCH (20:22)
[2018-04-15] MEDS: LORazepam 1 MG Tablet PO SCH ×3 (05:34→20:59)
[2018-04-15] MEDS: lamoTRIgine 100 MG Tablet PO SCH ×3 (09:01→21:00)
[2018-04-15] MEDS: lamoTRIgine 25 MG TABLET PO SCH ×3 (09:01→20:59)
[2018-04-15] MEDS: Senna/Docusate Sodium 8.6/50 MG Tablet PO SCH ×3 (09:01→21:00)
[2018-04-15] MEDS: Docusate Sodium 100 MG Capsule PO SCH ×3 (09:01→20:59)
[2018-04-15] MEDS: Phenytoin Sodium 100 MG Capsule PO SCH ×3 (09:01→20:59)
[2018-04-15] MEDS: Topiramate 25 MG Tablet PO SCH ×3 (09:02→20:59)
--- NOTE | 2018-04-15 11:56 | P.PNPSY ---
Subjective Remarks: Patient seen in day room with floor staff, chart reviewed, patient showing mixed compliance with medication. Patient continues somewhat alert though at times confused and irritable with me. Denies voices denies suicidality acknowledges continued depression. She continues with poor eye contact and occasional thought blocking noted. I question her she is still having some auditory hallucinations. We continue to work on ECT referral. I attempted to call patient's daughter Deb at [phone] with no answer Review of Systems All other systems reviewed negative except as stated in HPI Mental Status Examination Appearance: Appropriate Consciousness: Alert Orientation: Person, Place Motor Activity: Normal gait Speech: Other (Delayed) Language: Adequate Fund of Knowledge: Adequate Attention and Concentration: Easily distracted Memory: Unremarkable Mood: Sad, Irritable (Somewhat) Affect: Other (Continues decreased but somewhat improved in range and intensity) Thought Process & Associations: Disorganized Thought Content: Thought blocking (Somewhat improved) Hallucination Type: Auditory (Today states for a somewhat intrusive auditory hallucinations) Delusion Type: Paranoid Suicidal Ideation: Yes (Denies today) Suicidal Plan: No Suicidal Intention: No Homicidal Ideation: No Homicidal Plan: No Homicidal Intention: No Insight: Poor Judgment: Poor Assessment and Plan - Assessment (1) Schizoaffective disorder, bipolar type Code(s): F25.0 - Schizoaffective disorder, bipolar type Status: Acute (2) Catatonia Code(s): F06.1 - Catatonic disorder due to known physiological condition Status: Acute - Plan Plan: Patient remains somewhat depressed and psychotic at this time. Showing mixed compliance with medication. We will continue to attempt to reach patient's daughter to discuss case with her. Continue to work on ECT referral Justification for Continued Inpatient Stay: At this time patient would decompensate a place to a lower level of care Discharge Planning: To be determined perhaps referral to ECT facility
[2018-04-15] MEDS: Ibuprofen 400 MG Tablet PO PRN (12:21)
[2018-04-15 13:53] LABS: Topiramate 1.1 mcg/mL
[2018-04-15] MEDS: QUEtiapine 25 MG Tablet PO SCH (14:12)
[2018-04-15] MEDS: Escitalopram 10 MG Tablet PO SCH (14:12)
[2018-04-15] MEDS: traZODone 100 MG Tablet PO SCH (20:59)
[2018-04-15] MEDS: Baclofen 10 MG Tablet PO SCH (20:59)
[2018-04-15] MEDS: Melatonin 5 MG Tablet PO SCH (21:00)
[2018-04-16] MEDS: LORazepam 1 MG Tablet PO SCH ×3 (06:23→20:26)
[2018-04-16] MEDS: Senna/Docusate Sodium 8.6/50 MG Tablet PO SCH ×2 (09:20→20:25)
[2018-04-16] MEDS: Escitalopram 10 MG Tablet PO SCH (09:20)
[2018-04-16] MEDS: lamoTRIgine 100 MG Tablet PO SCH ×2 (09:20→20:26)
[2018-04-16] MEDS: Docusate Sodium 100 MG Capsule PO SCH ×2 (09:20→20:25)
[2018-04-16] MEDS: Phenytoin Sodium 100 MG Capsule PO SCH ×2 (09:20→20:25)
[2018-04-16] MEDS: Ibuprofen 400 MG Tablet PO PRN (09:20)
[2018-04-16] MEDS: lamoTRIgine 25 MG TABLET PO SCH ×2 (09:20→20:26)
[2018-04-16] MEDS: Topiramate 25 MG Tablet PO SCH ×2 (09:20→20:25)
--- NOTE | 2018-04-16 11:37 | P.PNPSY ---
Subjective Remarks: Patient seen in her room with floor staff, patient continues alert focused with me, chart reviewed, patient compliant medication. She continues depressed with a sad face and somewhat delayed responses. He is somewhat vague about suicidality today. She focuses somewhat on on some diffuse pain and and a cough. We will increase her Motrin to 600 mg every 6 as needed and continue to monitor. We did discuss ECT. I feel this option still needs to be considered in her treatment for depression remains significant. Review of Systems All other systems reviewed negative except as stated in HPI Mental Status Examination Appearance: Appropriate Consciousness: Alert Orientation: Person, Place, Situation Motor Activity: Normal gait Speech: Other (Delayed) Language: Adequate Fund of Knowledge: Adequate Attention and Concentration: Adequate (Fair) Memory: Unremarkable Mood: Sad, Irritable (Somewhat) Affect: Other (Decreased range and intensity) Thought Process & Associations: Disorganized (Somewhat improved) Thought Content: Thought blocking (Somewhat improved) Hallucination Type: Auditory (Today states for a somewhat intrusive auditory hallucinations) Delusion Type: Paranoid Suicidal Ideation: Yes (Denies today) Suicidal Plan: No Suicidal Intention: No Homicidal Ideation: No Homicidal Plan: No Homicidal Intention: No Insight: Poor Judgment: Poor Assessment and Plan - Assessment (1) Schizoaffective disorder, bipolar type Code(s): F25.0 - Schizoaffective disorder, bipolar type Status: Acute (2) Catatonia Code(s): F06.1 - Catatonic disorder due to known physiological condition Status: Acute - Plan Plan: Patient remains depressed with vague suicidal ideation she appears somewhat melancholic also she has been compliant with her medication. I think we need to continue considering the possibility of ECT for this lady Justification for Continued Inpatient Stay: At this point patient would decompensate if placed in a lower level of care
[2018-04-16] MEDS: QUEtiapine 25 MG Tablet PO SCH (13:42)
[2018-04-16] MEDS: traZODone 100 MG Tablet PO SCH (20:24)
[2018-04-16] MEDS: Baclofen 10 MG Tablet PO SCH (20:25)
[2018-04-16] MEDS: Melatonin 5 MG Tablet PO SCH (20:28)
[2018-04-17] MEDS: LORazepam 1 MG Tablet PO SCH ×3 (05:24→20:28)
--- NOTE | 2018-04-17 07:44 | P.TTN ---
- Patient Problems Problems: 1. Discharge planning 2. Medication compliance 3. Knowledge deficit 4. Lack of coping skills - Progress Toward Goals Provider Present: Dr. Bettye Mackay Provider Input: 04/16/18: Pt on anti depressant, continuing to meet criteria for in-pt but showing improvement. ECT has become second option per pt improvement. Lizzie, counselor, reports pt's previous admit to [facility] and therefore prospective ECT location has denied pt to return. Current primary option, based on pt progress is for pt to return home with family. Psychiatric Counselors Present: Gutierrez Nation Jr., [facility], Lizzie Steiner, [facility] Psychiatric Therapist Input: Pt expected to return home as per her progress, Rachelle working to facilitate this discharge, pt continues to still meet in-pt criteria. Group Spec/RT/OT/WEBBER Present: Lloyd Alcazar OT Group Spec/RT/OT/WEBBER Input: Pt does not attend groups. - Discharge Plan 04/16/18: ECT has become second option per pt improvement. katya Samuelor, reports pt's previous admit to [facility] and therefore prospective ECT location has denied pt to return. Current primary option, based on pt progress is for pt to return home with family. - Documentation Teaching Recipient: Patient
[2018-04-17] MEDS: Senna/Docusate Sodium 8.6/50 MG Tablet PO SCH ×2 (08:03→20:29)
[2018-04-17] MEDS: Ibuprofen 600 MG Tablet PO PRN (08:04)
[2018-04-17] MEDS: Phenytoin Sodium 100 MG Capsule PO SCH ×2 (08:04→20:29)
[2018-04-17] MEDS: lamoTRIgine 25 MG TABLET PO SCH ×2 (08:04→20:27)
[2018-04-17] MEDS: lamoTRIgine 100 MG Tablet PO SCH ×2 (08:05→20:27)
[2018-04-17] MEDS: Docusate Sodium 100 MG Capsule PO SCH ×2 (08:05→20:28)
[2018-04-17] MEDS: Escitalopram 10 MG Tablet PO SCH (08:05)
[2018-04-17] MEDS: Topiramate 25 MG Tablet PO SCH ×2 (08:05→20:29)
--- NOTE | 2018-04-17 14:04 | P.PNPSY ---
Subjective Remarks: Patient seen in her room with nurse Deandra, chart reviewed, patient compliant medication. Patient is showing some improved eye contact her affect is somewhat improved she denies suicidality at this point in time. She does acknowledge continued auditory hallucinations though somewhat lesser. She also has a somewhat deep moist productive cough with some shortness of breath and mild chest pain we will have hospitalist consult will us concerning that Review of Systems All other systems reviewed negative except as stated in HPI Mental Status Examination Appearance: Appropriate Consciousness: Alert Orientation: Person, Place, Situation Motor Activity: Normal gait Speech: Other (Delayed) Language: Adequate Fund of Knowledge: Adequate Attention and Concentration: Adequate (Fair) Memory: Unremarkable Mood: Sad, Irritable (Somewhat) Affect: Other (Decreased range and intensity) Thought Process & Associations: Disorganized (Somewhat improved) Thought Content: Thought blocking (Somewhat improved) Hallucination Type: Auditory (Today states for a somewhat intrusive auditory hallucinations) Delusion Type: Paranoid (Decreased) Suicidal Ideation: Yes (Denies today) Suicidal Plan: No Suicidal Intention: No Homicidal Ideation: No Homicidal Plan: No Homicidal Intention: No Insight: Poor Judgment: Poor Assessment and Plan - Assessment (1) Schizoaffective disorder, bipolar type Code(s): F25.0 - Schizoaffective disorder, bipolar type Status: Acute (2) Catatonia Code(s): F06.1 - Catatonic disorder due to known physiological condition Status: Acute - Plan Plan: Patient's psychosis is slowly diminishing the voices are diminishing along with the paranoia. She is compliant medication. Today she is complaining of a somewhat productive deep cough mild shortness of breath and mild chest pain we will have hospitalist consult will us Justification for Continued Inpatient Stay: At this time patient would decompensate a place to a lower level of care Discharge Planning: Patient states we will go back to her [facility]
[2018-04-17] MEDS: QUEtiapine 25 MG Tablet PO SCH (14:29)
--- NOTE | 2018-04-17 17:24 | XR ---
EXAM DATE: 04/17/2018 5:20 PM EST AGE/SEX: 67 years / Female INDICATIONS: . Cough for 2 weeks. CLINICAL DATA: This is the patient's initial encounter. Patient reports that signs and symptoms have been present for 2 weeks and indicates a pain score of 0/10. MEDICAL/SURGICAL HISTORY: Asthma. Emphysema. Chronic obstructive pulmonary disease. Carcinom a, breast. . Mastectomy, bilateral. Bilateral knee replacement. COMPARISON: [facility] – [place], CHEST 1V SINGLE AP, 04/03/2018. . FINDINGS: PA and lateral views of the chest. Mild bilateral lower lung zone atelectasis. Lungs otherwise clear. Cardiomediastinal silhouette within normal limits. No evidence of pleural effusion or pneumo thorax. CONCLUSION: Mild bilateral lower lobe atelectasis. No other acute cardiopulmonary disease identified. Electronically signed by: Constantine Geller MD 04/17/2018 5:23 PM EST
--- NOTE | 2018-04-17 18:42 | P.CON ---
History of Present Illness Service: [facility] Consult date: 04/17/18 Requesting Physician: Gregor Mackay Reason for Consult: cough Primary Care Provider: UNKNOWN Chief Complaint: cough History of Present Illness: 67-year-old female with history of anxiety, depression, seizures, asthma, COPD, prior tobacco use, admitted to inpatient psychiatry for schizoaffective disorder and catatonia. Hospitalist consulted for cough, chest pain, shortness of breath. The patient is seen in the day room. She reports over the past few nights she has developed some upper chest congestion with nonproductive cough, worse at night time when trying to sleep. Denies any fever/chills, rhinitis, sore throat, chest pain, shortness of breath, abdominal pain, nausea/vomiting, or urinary complaints. Patient does report some body aches, worse at the back secondary to intractable coughing. She denies ever having any specific chest pains. Denies any cardiac history. She is tolerating oral intake. Denies any other medical complaints at this time. Review of Systems All other systems reviewed negative except as stated in HPI PMFSH - History History Provided By: Family Member - Medical History Medical History: Medical History (Last Updated 04/17/18 @ 18:25 by Tracy Bey) Asthma COPD (chronic obstructive pulmonary disease) Anxiety Depression History of seizure Major depress, sev w/ psych - Surgical History Surgical History: Surgical History (Last Reviewed 04/17/18 @ 18:25 by Tracy Bey) Hx of mastectomy Hx of total knee replacement - Family History Family History: Family History (Last Updated 04/17/18 @ 18:26 by Tracy Bey) Mother Hypertension Aortic aneurysm Mother No problems noted. Father Diabetes mellitus Cancer - Social History I have reviewed the patient's Social History: Yes - Tobacco History Second Hand Smoke Exposure: No Smoking Status: Former smoker (quit in 2001) Tobacco Type: Cigarettes - Alcohol History How Often Do You Have a Drink Containing Alcohol: Never - Substance Use History Substance History: No History of Abuse - Travel History Recent Travel in the [place] Within the Last 8 Weeks: No Recent Travel Out of the Country Within the Last 8 Weeks: No - Immunization History Tetanus Immunization: Unable to Assess Hx Influenza Vaccine This Season: Unable to Assess Medications and Allergies Active Medications: Active Medications Acetaminophen (Tylenol) 650 mg PO Q6H PRN PRN Reason: PAIN 0-10/HEADACHE Last Admin: 04/14/18 17:57 Dose: 650 mg Al Hydrox/Mg Hydrox/Simethicone (Mag-Al Plus Susp Liq) 30 ml PO Q6H PRN PRN Reason: DYSPEPSIA Al Hydroxide/Mg Hydroxide (Milk Of Magnesia Liq) 30 ml PO Q12H PRN PRN Reason: Mild Constipation Last Admin: 04/06/18 05:39 Dose: 30 ml Baclofen (Lioresal) 10 mg PO HS [facility] Last Admin: 04/16/18 20:25 Dose: 10 mg Bisacodyl (Dulcolax Supp) 10 mg RECTAL DAILY PRN PRN Reason: SEVERE CONSITIPATION Docusate Sodium (Colace) 100 mg PO BID [facility] Last Admin: 04/17/18 08:05 Dose: 100 mg Escitalopram Oxalate (Lexapro) 10 mg PO DAILY [facility] Last Admin: 04/17/18 08:05 Dose: 10 mg Ibuprofen (Motrin) 600 mg PO Q6H PRN PRN Reason: PAIN 1-10 AND/OR FEVER >101F Last Admin: 04/17/18 08:04 Dose: 600 mg Lactulose (Lactulose Liq) 30 ml PO DAILY PRN PRN Reason: SEVERE CONSITIPATION Lamotrigine (Lamictal) 50 mg PO BID [facility] Last Admin: 04/17/18 08:04 Dose: 50 mg Lamotrigine (Lamictal) 100 mg PO BID [facility] Last Admin: 04/17/18 08:05 Dose: 100 mg Lorazepam (Ativan) 1 mg PO Q8H [facility] Last Admin: 04/17/18 12:46 Dose: 1 mg Melatonin (Melatonin) 10 mg PO [facility] Last Admin: 04/16/18 20:28 Dose: Not Given Multivitamins (Theragran) 1 tab PO DAILY [facility] Last Admin: 04/17/18 08:05 Dose: 1 tab Phenytoin Sodium (Dilantin) 100 mg PO BID [facility] Last Admin: 04/17/18 08:04 Dose: 100 mg Quetiapine Fumarate (Seroquel) 300 mg PO BID [facility] Last Admin: 04/17/18 08:06 Dose: 300 mg Quetiapine Fumarate (Seroquel) 50 mg PO DAILY@1400 [facility] Last Admin: 04/17/18 14:29 Dose: 50 mg Senna/Docusate Sodium (May-Colace) 1 tab PO BID [facility] Last Admin: 04/17/18 08:03 Dose: 1 tab Sennosides (Senokot) 17.2 mg PO Q12H PRN PRN Reason: Moderate Constipation Topiramate (Topamax) 50 mg PO BID [facility] Last Admin: 04/17/18 08:05 Dose: 50 mg Trazodone HCl (Desyrel) 200 mg PO [facility] Last Admin: 04/16/18 20:24 Dose: 200 mg Allergies Allergy/AdvReac Type Severity Reaction Status Date / Time chlorpromazine Allergy Mild Verified 11/21/17 19:58 Home Medications Medication Instructions Recorded Confirmed Type baclofen 10 mg PO 04/03/18 04/03/18 History docusate sodium [Colace] 100 mg PO BID 04/03/18 04/03/18 History lamotrigine [Lamictal] 50 mg PO BID 04/03/18 04/03/18 History melatonin 9 mg PO 04/03/18 04/03/18 History multivitamin [Multiple Vitamins] 1 tab PO DAILY 04/03/18 04/03/18 History phenytoin sodium extended 100 mg PO BID 04/03/18 04/03/18 History [Dilantin Extended] quetiapine [Seroquel] 50 mg PO 1400 04/03/18 04/03/18 History quetiapine [Seroquel] 300 mg PO BID 04/03/18 04/03/18 History sennosides [senna] 8.6 mg PO HS 04/03/18 04/03/18 History topiramate [Topamax] 50 mg PO BID 04/03/18 04/03/18 History trazodone 200 mg PO HS 04/03/18 04/03/18 History Physical Exam Vital signs: Vital Signs 04/17/18 06:00 Temperature 98.1 F Pulse Rate 82 Respiratory Rate 18 Blood Pressure 125/58 L Pulse Oximetry 94 L Intake & Output 04/16/18 04/17/18 04/17/18 18:59 06:59 18:59 Intake Total 240 / 240 120 / 120 Balance 240 / 240 120 / 120 Intake: Oral 240 / 240 120 / 120 Other: # Voids 2 Narrative: GENERAL: Well-nourished, well-developed patient in NAD. Slightly raspy voice. SKIN: Warm and dry. No rash. HEENT: Normocephalic. Atraumatic. Pupils equal and round. Mucous membranes pink and moist. NECK: Supple. Trachea midline. CARDIOVASCULAR: Regular rate and rhythm. No murmur appreciated. RESPIRATORY: No accessory muscle use. Some upper anterior chest congestion noted during coughing, otherwise clear to auscultation. Breath sounds equal bilaterally. GASTROINTESTINAL: Abdomen soft, non-tender, nondistended. Normoactive bowel sounds x4. MUSCULOSKELETAL: No obvious deformities. Extremities without clubbing, cyanosis , or edema. NEUROLOGICAL: Awake and alert. No obvious cranial nerve deficits. Motor grossly within normal limits. Moving all extremities spontaneously. Normal speech. Results - Labs CBC & Chem 7: 04/03/18 17:15 04/06/18 10:19 - Imaging Impressions Chest X-Ray 04/17/18 00:00 CONCLUSION: Mild bilateral lower lobe atelectasis. No other acute cardiopulmonary disease identified. Assessment and Plan - Plan 67-year-old female with history of anxiety, depression, seizures, asthma, COPD, prior tobacco use, admitted to inpatient psychiatry for schizoaffective disorder and catatonia. Hospitalist consulted for cough, chest pain, shortness of breath. Schizoaffective Disorder/Catatonia: acute -continue management per psychiatry Cough/Chest Congestion: acute, suspect viral illness -check CXR -check CBC/BMP -start mucinex bid, tessalon perles prn -albuterol inhaler prn -monitor for improvement All other chronic medical conditions stable, continue home medications as appropriate. DVT Prophylaxis: patient is ambulatory
[2018-04-17] MEDS ORDERED: Benzocaine/Menthol 15 MG/3.6 MG SF Lozenge BUCCAL PRN (20:00)
[2018-04-17 20:15] LABS: Baso % (Auto) 0.5 % (0.0-2.0); Eos # (Auto) 0.2 th/mm3 (0.0-0.4); Eos % (Auto) 5.9 % (0.0-4.0); Hemoglobin 12.6 gm/dL (11.6-15.3); Lymph # (Auto) 1.1 th/mm3 (1.0-4.8); Lymph % (Auto) 27.1 % (9.0-44.0); Mean Corpuscular HGB Conc 33.9 % (32.0-36.0); Mean Corpuscular Hemoglobin 30.6 pg (27.0-34.0); Mean Corpuscular Volume 90.2 fL (80.0-100.0); Mean Platelet Volume 6.9 fL (7.0-11.0); Mono # (Auto) 0.3 th/mm3 (0.0-0.9); Mono % (Auto) 8.7 % (0.0-8.0); Neut # (Auto) 2.3 th/mm3 (1.8-7.7); Neut % (Auto) 57.8 % (16.0-70.0); Platelet Count 253 th/mm3 (150-450); Red Cell Distribution Width 12.5 % (11.6-17.2)
[2018-04-17] MEDS: traZODone 100 MG Tablet PO SCH (20:27)
[2018-04-17] MEDS: Baclofen 10 MG Tablet PO SCH (20:28)
[2018-04-17] MEDS: guaiFENesin 600 MG ER Tablet PO SCH (20:28)
[2018-04-17] MEDS: Melatonin 5 MG Tablet PO SCH (20:30)
[2018-04-17 20:32] LABS: Calcium 8.8 mg/dL (8.5-10.1); Potassium 4.7 meq/L (3.5-5.1)
[2018-04-18] MEDS: LORazepam 1 MG Tablet PO SCH ×3 (06:11→22:27)
--- NOTE | 2018-04-18 10:49 | P.PNPSY ---
Subjective Remarks: Patient seen in her room with floor staff, chart reviewed, compliant medication , patient continues alert, acknowledging continued auditory hallucinations of a command nature telling her to harm herself. She acknowledges continued suicidal ideation but also was is able to agree to do no harm to herself at this time. We will increase patient's Lexapro to 20 mg daily. Increase the 2 PM dose of Seroquel to 100 mg. We need to continue exploring and considering the use of ECT with this lady. After speaking to patient I did call patient's daughter Deb at [phone] she talked to her mother last night mother did acknowledge to her also the depression and the voices of the suicidality. Daughter is quite concerned about her mother's safety. She too feels ECT might be appropriate. We will continue to work with the patient and the family to explore and attempt to reach appropriate ECT inpatient facility in the meanwhile we will continue to work with the patient with medication adjustments Review of Systems All other systems reviewed negative except as stated in HPI Mental Status Examination Appearance: Appropriate Consciousness: Alert Orientation: Person, Place, Situation Motor Activity: Normal gait Speech: Other (Delayed) Language: Adequate Fund of Knowledge: Adequate Attention and Concentration: Adequate (Fair) Memory: Unremarkable Mood: Sad, Other (Restricted) Affect: Other (Decreased range and intensity) Thought Process & Associations: Disorganized (Somewhat improved) Thought Content: Hallucinations (Increased auditory hallucinations), Thought blocking (Somewhat improved) Hallucination Type: Auditory (Of a command nature, intense and more frequent) Delusion Type: Paranoid (Decreased) Suicidal Ideation: Yes (Somewhat increased today due to the intrusiveness of the auditory hallucinations) Suicidal Plan: No Suicidal Intention: No Homicidal Ideation: No Homicidal Plan: No Homicidal Intention: No Insight: Poor Judgment: Poor Assessment and Plan - Assessment (1) Schizoaffective disorder, bipolar type Code(s): F25.0 - Schizoaffective disorder, bipolar type Status: Acute (2) Catatonia Code(s): F06.1 - Catatonic disorder due to known physiological condition Status: Acute - Plan Plan: Patient continues depressed suicidal increased auditory hallucinations C medication adjustments above. Did discuss this also with patient's daughter Deb, we will continue to explore ECT referral Justification for Continued Inpatient Stay: At this time patient would decompensate a place to a lower level of care Discharge Planning: To be determined
[2018-04-18] MEDS: Phenytoin Sodium 100 MG Capsule PO SCH ×2 (12:55→22:09)
[2018-04-18] MEDS: Docusate Sodium 100 MG Capsule PO SCH ×2 (12:55→22:08)
[2018-04-18] MEDS: guaiFENesin 600 MG ER Tablet PO SCH ×2 (12:56→22:10)
[2018-04-18] MEDS: Senna/Docusate Sodium 8.6/50 MG Tablet PO SCH ×2 (12:56→22:10)
[2018-04-18] MEDS: lamoTRIgine 25 MG TABLET PO SCH ×2 (12:56→22:09)
[2018-04-18] MEDS: lamoTRIgine 100 MG Tablet PO SCH ×2 (12:56→22:09)
[2018-04-18] MEDS: Topiramate 25 MG Tablet PO SCH ×2 (12:57→22:10)
--- NOTE | 2018-04-18 13:36 | P.PN ---
Subjective Interval history: Follow-up visit for cough. Patient is seen and examined resting in bed in no acute distress. She does report a nonproductive cough but denies any SOB. She states she has a history of asthma and will use nebulizer treatments at home as needed. She denies any throat pain or soreness, chest pain, headache, fever, chills, N/V/D. Physical Exam Vital signs: Vital Signs 04/17/18 15:00 04/18/18 05:45 Temperature 97.3 F L 98.6 F Pulse Rate 91 H 75 Respiratory Rate 18 16 Blood Pressure 144/83 H 93/54 L Pulse Oximetry 93 L 93 L Intake & Output 04/17/18 04/18/18 04/18/18 18:59 06:59 18:59 Intake Total 360 / 360 240 / 240 240 / 240 Balance 360 / 360 240 / 240 240 / 240 Intake: Oral 360 / 360 240 / 240 240 / 240 Other: # Voids 2 Narrative: GENERAL: Well-nourished, well-developed patient in NAD. Slightly raspy voice. SKIN: Warm and dry. No rash. HEENT: Normocephalic. Atraumatic. Pupils equal and round. Mucous membranes pink and moist. NECK: Supple. Trachea midline. CARDIOVASCULAR: Regular rate and rhythm. No murmur appreciated. RESPIRATORY: No accessory muscle use. Clear to auscultation. Breath sounds equal bilaterally. GASTROINTESTINAL: Abdomen soft, non-tender, nondistended. Normoactive bowel sounds x4. MUSCULOSKELETAL: No obvious deformities. Extremities without clubbing, cyanosis , or edema. NEUROLOGICAL: Awake and alert. No obvious cranial nerve deficits. Motor grossly within normal limits. Moving all extremities spontaneously. Normal speech. Results - Labs CBC & Chem 7: 04/17/18 19:30 04/17/18 19:30 Laboratory Results - last 24 hr 04/17/18 04/17/18 19:30 19:30 WBC 4.0 RBC 4.10 Hgb 12.6 Hct 37.0 MCV 90.2 MCH 30.6 MCHC 33.9 RDW 12.5 Plt Count 253 MPV 6.9 L Neut % (Auto) 57.8 Lymph % (Auto) 27.1 Overton % (Auto) 8.7 H Eos % (Auto) 5.9 H Baso % (Auto) 0.5 Neut # (Auto) 2.3 Lymph # (Auto) 1.1 [place]ton # (Auto) 0.3 Eos # (Auto) 0.2 Baso # (Auto) 0.0 WBC Differential . Differential Comment Auto diff final Sodium 141 Potassium 4.7 Chloride 105 Carbon Dioxide 29.0 Anion Gap 7 BUN 25 H Creatinine 1.00 Estimated GFR 55 L Random Glucose 84 Calcium 8.8 - Imaging Impressions Chest X-Ray 04/17/18 00:00 CONCLUSION: Mild bilateral lower lobe atelectasis. No other acute cardiopulmonary disease identified. Assessment and Plan - Plan 67-year-old female with history of anxiety, depression, seizures, asthma, COPD, prior tobacco use, admitted to inpatient psychiatry for schizoaffective disorder and catatonia. Hospitalist consulted for cough, chest pain, shortness of breath. Schizoaffective Disorder/Catatonia: acute -continue management per psychiatry Cough/Chest Congestion: acute, suspect viral illness -chest x-ray with mild bilateral lower lobe atelectasis, no cardiopulmonary disease. -BMP, CBC stable, oxygen saturation stable on room air and patient afebrile -Continue Mucinex bid, tessalon perles prn, patient encouraged to use Tessalon Perles. -albuterol inhaler prn -monitor for improvement All other chronic medical conditions stable, continue home medications as appropriate. DVT Prophylaxis: patient is ambulatory Discussed Condition With: Patient and RN
[2018-04-18] MEDS: QUEtiapine 25 MG Tablet PO SCH (15:41)
[2018-04-18] MEDS: Ibuprofen 600 MG Tablet PO PRN (17:24)
[2018-04-18] MEDS: Baclofen 10 MG Tablet PO SCH (22:09)
[2018-04-18] MEDS: Melatonin 5 MG Tablet PO SCH (22:09)
[2018-04-18] MEDS: traZODone 100 MG Tablet PO SCH ×2 (22:09→22:28)
[2018-04-19] MEDS: Ibuprofen 600 MG Tablet PO PRN ×2 (01:12→20:37)
[2018-04-19] MEDS: LORazepam 1 MG Tablet PO SCH ×3 (05:53→20:20)
[2018-04-19] MEDS: Senna/Docusate Sodium 8.6/50 MG Tablet PO SCH ×2 (09:30→20:21)
[2018-04-19] MEDS: guaiFENesin 600 MG ER Tablet PO SCH ×2 (09:30→20:21)
[2018-04-19] MEDS: Escitalopram 10 MG Tablet PO SCH (09:30)
[2018-04-19] MEDS: Topiramate 25 MG Tablet PO SCH ×2 (09:30→20:20)
[2018-04-19] MEDS: lamoTRIgine 100 MG Tablet PO SCH ×2 (09:30→20:21)
[2018-04-19] MEDS: lamoTRIgine 25 MG TABLET PO SCH ×2 (12:17→20:20)
[2018-04-19] MEDS: Docusate Sodium 100 MG Capsule PO SCH ×2 (12:17→20:21)
[2018-04-19] MEDS: Phenytoin Sodium 100 MG Capsule PO SCH ×2 (12:17→20:21)
--- NOTE | 2018-04-19 14:06 | P.PNPSY ---
Subjective Remarks: Reviewed electronic medical records and discussed case with staff. Follow-up was conducted in the patient's room with RASHIDA Alves present. She was found lying on the bed. Noted the patient had recently had an increase in her medications. Today, her nurse reports she is refusing her medications. She is been seclusive to her room. When we entered the patient's room we again offered her her oral medications which she again refused. Stating, "I will take them later ". When I attempt to ask her questions the only response I get is "I do not know". Her nurse advises that she refused her medications last night as well. I spoke with her daughter via phone and received permission for IM Haldol injections for when she refuses her Seroquel. I have entered those orders and linked it to the Seroquel. A sign consent was given to the nurse. Daughter also advised that the patient had adverse reactions to inVega and Depakote. I informed her nurse who will add these to the allergy list. Mental Status Examination Appearance: Appropriate Consciousness: Alert Orientation: Person, Place, Situation Motor Activity: Normal gait Speech: Other (Delayed) Language: Adequate Fund of Knowledge: Adequate Attention and Concentration: Adequate (Fair) Memory: Unremarkable Mood: Sad, Other (Restricted) Affect: Other (Decreased range and intensity) Thought Process & Associations: Disorganized (Somewhat improved) Thought Content: Hallucinations (Increased auditory hallucinations), Thought blocking (Somewhat improved) Hallucination Type: Auditory (Of a command nature, intense and more frequent) Delusion Type: Paranoid (Decreased) Suicidal Ideation: Yes (Somewhat increased today due to the intrusiveness of the auditory hallucinations) Suicidal Plan: No Suicidal Intention: No Homicidal Ideation: No Homicidal Plan: No Homicidal Intention: No Insight: Poor Judgment: Poor Assessment and Plan - Assessment (1) Schizoaffective disorder, bipolar type Code(s): F25.0 - Schizoaffective disorder, bipolar type Status: Acute - Plan Plan: Patient will be reevaluated by the attending psychiatrist. Continue with current treatment plan. Justification for Continued Inpatient Stay: Moving this patient to a less restrictive environment would likely result in decompensation.
--- NOTE | 2018-04-19 14:49 | P.PN ---
Subjective Interval history: Follow-up visit for cough. Patient seen and examined in her room and is complaining today of lower back pain. She reports she has chronic lower back pain and usually takes ibuprofen for this. She denies any lower extremity numbness, tingling, fecal or urinary incontinence. Denies any dysuria, fevers, chills, nausea, vomiting or diarrhea. Intermittent cough continues but is nonproductive. She did not take anything for cough. It is also noted that patient refused her bedtime dose of baclofen and has not tried Tessalon Perles for cough. Nurse does not report any acute events overnight or this morning. Physical Exam Vital signs: Vital Signs 04/18/18 18:25 04/19/18 06:00 Temperature 97.2 F L 97.8 F Pulse Rate 76 85 Respiratory Rate 18 16 Blood Pressure 118/68 120/59 L Pulse Oximetry 98 94 L Intake & Output 04/18/18 04/19/18 04/19/18 18:59 06:59 18:59 Intake Total 580 / 580 Balance 580 / 580 Intake: Oral 580 / 580 Narrative: GENERAL: Well-nourished, well-developed patient in NAD. Slightly raspy voice. SKIN: Warm and dry. No rash. HEENT: Normocephalic. Atraumatic. Pupils equal and round. Mucous membranes pink and moist. NECK: Supple. Trachea midline. CARDIOVASCULAR: Regular rate and rhythm. No murmur appreciated. RESPIRATORY: No accessory muscle use. Clear to auscultation. Breath sounds equal bilaterally. GASTROINTESTINAL: Abdomen soft, non-tender, nondistended. Normoactive bowel sounds x4. MUSCULOSKELETAL: No obvious deformities. Extremities without clubbing, cyanosis , or edema. Tenderness along lumbar aspect of spinal process. NEUROLOGICAL: Awake and alert. No obvious cranial nerve deficits. Motor grossly within normal limits. Moving all extremities spontaneously. Normal speech. Results - Labs CBC & Chem 7: 04/17/18 19:30 04/17/18 19:30 Assessment and Plan - Plan 67-year-old female with history of anxiety, depression, seizures, asthma, COPD, prior tobacco use, admitted to inpatient psychiatry for schizoaffective disorder and catatonia. Hospitalist consulted for cough, chest pain, shortness of breath. Schizoaffective Disorder/Catatonia: acute -continue management per psychiatry Cough/Chest Congestion: acute, suspect viral illness -chest x-ray with mild bilateral lower lobe atelectasis, no cardiopulmonary disease. -BMP, CBC stable, oxygen saturation stable on room air and patient afebrile -Continue Mucinex bid, tessalon perles prn, patient encouraged to use Tessalon Perles. -albuterol inhaler prn -Stable overall Lower back pain, chronic -Encourage patient to alternate between Tylenol and ibuprofen, encourage bedtime muscle relaxer dose. -Trial of Lidoderm patch, monitor for improvement All other chronic medical conditions stable, continue home medications as appropriate. DVT Prophylaxis: patient is ambulatory Discussed Condition With: Patient and RN
[2018-04-19] MEDS: QUEtiapine 25 MG Tablet PO SCH (15:28)
[2018-04-19] MEDS: Lidocaine 5% Patch T-DERMAL SCH (18:02)
[2018-04-19] MEDS: Baclofen 10 MG Tablet PO SCH (20:20)
[2018-04-19] MEDS: Melatonin 5 MG Tablet PO SCH (20:21)
[2018-04-19] MEDS: traZODone 100 MG Tablet PO SCH (20:31)
[2018-04-19] MEDS: Benzonatate 100 MG Capsule PO PRN (20:33)
[2018-04-20] MEDS: Haloperidol Inj 5 MG/ML Ampul IM SCH ×4 (00:50→21:00)
[2018-04-20] MEDS: LORazepam 1 MG Tablet PO SCH ×3 (05:59→20:58)
--- NOTE | 2018-04-20 09:17 | P.PNPSY ---
Subjective Remarks: Reviewed electronic medical record and discussed with nursing staff. Rounded with RASHIDA Alves. Patient in her room lying in her bed. Currently on lido patch and motrin for back pain with some relief. States she still feels depressed. She is cooperative and pleasant. Denies SI/HI. Review of Systems All other systems reviewed negative except as stated in HPI Mental Status Examination Appearance: Appropriate Consciousness: Alert Orientation: Person, Place, Situation Motor Activity: Normal gait Speech: Other (Delayed) Language: Adequate Fund of Knowledge: Adequate Attention and Concentration: Adequate (Fair) Memory: Unremarkable Mood: Sad, Other (Restricted) Affect: Other (Decreased range and intensity) Thought Process & Associations: Disorganized (Somewhat improved) Thought Content: Hallucinations (Increased auditory hallucinations), Thought blocking (Somewhat improved) Hallucination Type: Auditory (Of a command nature, intense and more frequent) Delusion Type: Paranoid (Decreased) Suicidal Ideation: No Suicidal Plan: No Suicidal Intention: No Homicidal Ideation: No Homicidal Plan: No Homicidal Intention: No Insight: Poor Judgment: Poor Assessment and Plan - Assessment (1) Schizoaffective disorder, bipolar type Code(s): F25.0 - Schizoaffective disorder, bipolar type Status: Acute - Plan Plan: Patient will be reevaluated by the attending psychiatrist. Continue with current treatment plan. Justification for Continued Inpatient Stay: Moving patient to a less restrictive environment may result in her decompensation.
[2018-04-20] MEDS: Senna/Docusate Sodium 8.6/50 MG Tablet PO SCH ×2 (09:49→20:57)
[2018-04-20] MEDS: guaiFENesin 600 MG ER Tablet PO SCH ×2 (09:49→20:59)
[2018-04-20] MEDS: Docusate Sodium 100 MG Capsule PO SCH ×2 (09:49→21:00)
[2018-04-20] MEDS: Topiramate 25 MG Tablet PO SCH ×2 (09:49→21:02)
[2018-04-20] MEDS: lamoTRIgine 25 MG TABLET PO SCH ×2 (09:50→20:58)
[2018-04-20] MEDS: Escitalopram 10 MG Tablet PO SCH (09:50)
[2018-04-20] MEDS: lamoTRIgine 100 MG Tablet PO SCH ×2 (09:50→21:00)
[2018-04-20] MEDS: Lidocaine 5% Patch T-DERMAL SCH (09:51)
[2018-04-20] MEDS: Phenytoin Sodium 100 MG Capsule PO SCH ×2 (09:56→20:59)
[2018-04-20] MEDS: Ibuprofen 600 MG Tablet PO PRN ×2 (09:56→20:57)
--- NOTE | 2018-04-20 12:47 | P.PN ---
Subjective Interval history: Follow-up visit for cough and chronic back pain. Patient seen and examined resting in bed in no acute distress. She reports some pain relief with Lidoderm patch as well as ibuprofen. She denies any dysuria, hematuria, fevers , chills, shortness of breath or chest pain. Patient also reports coughing has improved. Physical Exam Vital signs: Vital Signs 04/19/18 18:27 04/20/18 06:00 Temperature 98.5 F 98.4 F Pulse Rate 88 83 Respiratory Rate 18 18 Blood Pressure 142/65 H 140/61 Pulse Oximetry 93 L 94 L Intake & Output 04/19/18 04/20/18 04/20/18 18:59 06:59 18:59 Intake Total 460 / 460 Balance 460 / 460 Intake: Oral 360 / 360 Oral Supplement 100 / 100 Other: # Voids 2 # Bowel Movements 0 Narrative: GENERAL: Well-nourished, well-developed patient in NAD. Slightly raspy voice, improved. SKIN: Warm and dry. No rash. HEENT: Normocephalic. Atraumatic. Pupils equal and round. Mucous membranes pink and moist. NECK: Supple. Trachea midline. CARDIOVASCULAR: Regular rate and rhythm. No murmur appreciated. RESPIRATORY: No accessory muscle use. Clear to auscultation. Breath sounds equal bilaterally. GASTROINTESTINAL: Abdomen soft, non-tender, nondistended. Normoactive bowel sounds x4. MUSCULOSKELETAL: No obvious deformities. Extremities without clubbing, cyanosis , or edema. NEUROLOGICAL: Awake and alert. No obvious cranial nerve deficits. Motor grossly within normal limits. Moving all extremities spontaneously. Normal speech. Results - Labs CBC & Chem 7: 04/17/18 19:30 04/17/18 19:30 Assessment and Plan - Plan 67-year-old female with history of anxiety, depression, seizures, asthma, COPD, prior tobacco use, admitted to inpatient psychiatry for schizoaffective disorder and catatonia. Hospitalist consulted for cough, chest pain, shortness of breath. Schizoaffective Disorder/Catatonia: acute -continue management per psychiatry Cough/Chest Congestion: acute, suspect viral illness -chest x-ray with mild bilateral lower lobe atelectasis, no cardiopulmonary disease. -BMP, CBC stable, oxygen saturation stable on room air and patient afebrile -Continue Mucinex bid, tessalon perles prn, patient encouraged to use Tessalon Perles. -albuterol inhaler prn -Stable overall Lower back pain, chronic -Encourage patient to alternate between Tylenol and ibuprofen, continue baclofen. -Continue Lidoderm patch, noted improvement per patient. All other chronic medical conditions stable, continue home medications as appropriate. DVT Prophylaxis: patient is ambulatory Patient currently medically stable. [facility] will sign off, please reconsult if needed. Discussed Condition With: Patient
[2018-04-20] MEDS: QUEtiapine 25 MG Tablet PO SCH (15:19)
[2018-04-20] MEDS: Benzonatate 100 MG Capsule PO PRN (20:57)
[2018-04-20] MEDS: Baclofen 10 MG Tablet PO SCH (20:58)
[2018-04-20] MEDS: Melatonin 5 MG Tablet PO SCH (21:00)
[2018-04-20] MEDS: traZODone 100 MG Tablet PO SCH (21:00)
[2018-04-21] MEDS: LORazepam 1 MG Tablet PO SCH ×3 (06:25→20:28)
[2018-04-21] MEDS: guaiFENesin 600 MG ER Tablet PO SCH ×2 (08:16→20:40)
[2018-04-21] MEDS: Escitalopram 10 MG Tablet PO SCH (08:16)
[2018-04-21] MEDS: Phenytoin Sodium 100 MG Capsule PO SCH ×2 (08:17→20:39)
[2018-04-21] MEDS: Topiramate 25 MG Tablet PO SCH ×2 (08:17→20:40)
[2018-04-21] MEDS: lamoTRIgine 25 MG TABLET PO SCH ×2 (08:17→20:41)
[2018-04-21] MEDS: Senna/Docusate Sodium 8.6/50 MG Tablet PO SCH ×2 (08:17→20:40)
[2018-04-21] MEDS: lamoTRIgine 100 MG Tablet PO SCH ×2 (08:17→20:41)
[2018-04-21] MEDS: Docusate Sodium 100 MG Capsule PO SCH ×2 (08:18→20:39)
[2018-04-21] MEDS: Haloperidol Inj 5 MG/ML Ampul IM SCH ×3 (08:18→23:12)
[2018-04-21] MEDS: Lidocaine 5% Patch T-DERMAL SCH (08:19)
[2018-04-21] MEDS: Ibuprofen 600 MG Tablet PO PRN (08:44)
--- NOTE | 2018-04-21 10:50 | P.PNPSY ---
Subjective Remarks: Patient is seen in her room with nurse Deandra, and medical student Davion, chart reviewed, patient compliant medication. Patient continues depressed with auditory hallucinations. She is vague about suicidality. She continues somewhat confused functioning, family relation and also questioning whether she wishes to return to her [facility]. We will have staff from the facility, talk with patient in the next day or 2 Review of Systems All other systems reviewed negative except as stated in HPI Mental Status Examination Appearance: Appropriate Consciousness: Alert Orientation: Person, Place, Situation Motor Activity: Normal gait Speech: Slow, Other (Delayed) Language: Adequate Fund of Knowledge: Adequate Attention and Concentration: Adequate (Fair) Memory: Unremarkable Mood: Sad, Other (Restricted) Affect: Other (Decreased range and intensity) Thought Process & Associations: Disorganized (Somewhat improved) Thought Content: Hallucinations (Increased auditory hallucinations), Thought blocking (Somewhat improved) Hallucination Type: Auditory (Of a command nature, intense and more frequent) Delusion Type: Paranoid (Decreased) Suicidal Ideation: Yes (Vague perhaps related to auditory hallucinations) Suicidal Plan: No Suicidal Intention: No Homicidal Ideation: No Homicidal Plan: No Homicidal Intention: No Insight: Poor Judgment: Poor Assessment and Plan - Assessment (1) Schizoaffective disorder, bipolar type Code(s): F25.0 - Schizoaffective disorder, bipolar type Status: Acute (2) Catatonia Code(s): F06.1 - Catatonic disorder due to known physiological condition Status: Acute - Plan Plan: Patient's more depressed today with continued auditory hallucinations. And the vagueness related to suicidality Justification for Continued Inpatient Stay: At this time patient with decompensated placed in a lower level of care Discharge Planning: To be determined
[2018-04-21] MEDS: QUEtiapine 25 MG Tablet PO SCH (15:22)
--- NOTE | 2018-04-21 16:04 | P.TTN ---
- Patient Problems Problems: 1. Discharge planning 2. Medication compliance 3. Knowledge deficit 4. Lack of coping skills - Progress Toward Goals Provider Present: Dr. Bettye Mackay Provider Input: 04/21/18: Pt continues to demonstrate improvements, ECT is now not necessary per pt's progress. Discharge plan is for pt to return to [facility] (SNF) when they will accept her to return. katya Samuelor to follow-up with [facility] to proceed with this d/c plan. 04/16/18: Pt on anti depressant, continuing to meet criteria for in-pt but showing improvement. ECT has become second option per pt improvement. katya Samuelor, reports pt's previous admit to [facility] and therefore prospective ECT location has denied pt to return. Current primary option, based on pt progress is for pt to return home with family. Psychiatric Counselors Present: Gutierrez Nation Jr., [facility], Lizzie Steiner, [facility] Psychiatric Therapist Input: Pt expected to return home as per her progress, Rachelle working to facilitate this discharge, pt continues to still meet in-pt criteria. Group Spec/RT/OT/WEBBER Present: Lloyd Alcazar OT Group Spec/RT/OT/WEBBER Input: Pt does not attend groups: 04/16/18 & 04/21/18. - Discharge Plan 04/21/18: Discharge plan is for pt to [facility] ([facility]) when they will accept her to return. counselor Lizzie to follow-up with [facility] to proceed with this d/c plan. 04/16/18: ECT has become second option per pt improvement. katya Samuelor, reports pt's previous admit to [facility] and therefore prospective ECT location has denied pt to return. Current primary option, based on pt progress is for pt to return home with family. - Documentation Teaching Recipient: Patient
[2018-04-21] MEDS: traZODone 100 MG Tablet PO SCH (20:27)
[2018-04-21] MEDS: Baclofen 10 MG Tablet PO SCH (20:27)
[2018-04-21] MEDS: Melatonin 5 MG Tablet PO SCH (23:13)
[2018-04-22] MEDS: LORazepam 1 MG Tablet PO SCH ×4 (05:33→20:24)
[2018-04-22] MEDS: Topiramate 25 MG Tablet PO SCH ×2 (09:51→20:25)
[2018-04-22] MEDS: Escitalopram 10 MG Tablet PO SCH (09:51)
[2018-04-22] MEDS: guaiFENesin 600 MG ER Tablet PO SCH ×2 (09:51→20:24)
[2018-04-22] MEDS: Docusate Sodium 100 MG Capsule PO SCH ×2 (09:51→20:25)
[2018-04-22] MEDS: lamoTRIgine 25 MG TABLET PO SCH ×2 (09:51→20:25)
[2018-04-22] MEDS: lamoTRIgine 100 MG Tablet PO SCH ×2 (09:51→20:25)
[2018-04-22] MEDS: Senna/Docusate Sodium 8.6/50 MG Tablet PO SCH ×2 (09:51→20:25)
[2018-04-22] MEDS: Lidocaine 5% Patch T-DERMAL SCH (09:52)
[2018-04-22] MEDS: Phenytoin Sodium 100 MG Capsule PO SCH ×2 (09:52→20:24)
[2018-04-22] MEDS: Ibuprofen 600 MG Tablet PO PRN ×2 (09:58→20:49)
[2018-04-22] MEDS: Haloperidol Inj 5 MG/ML Ampul IM SCH ×3 (10:02→22:07)
--- NOTE | 2018-04-22 10:35 | P.PNPSY ---
Subjective Remarks: Patient is seen in her room with RASHIDA Olvera, chart reviewed, patient compliant medication. Patient showing increased stress and anxiety when discussing discharge plans of possible return to [facility] where she would like to go. However there is a delusional ideation that people at [facility] in [place] are conspiring against her and her family. Patient feels that they can monitor and influence her children and children's family. That if she leaves here they will come and attack the family that the daughter would lose her job her home her family and be destitute. Patient showing no significant reality testing related to this I attempted to call patient's daughter Deb to discuss this at [phone] there is no answer and I left a message for her to call me. For now continue medications no change though he perhaps need to consider some adjustments in her antipsychotics if she does not improve perhaps a trial of Haldol or Tegretol with adjustments in the Seroquel dose. Since the patient does appear to be showing some signs of a mild tarry diarrhea with her lingual movements and at times some squinting of the eyes Review of Systems All other systems reviewed negative except as stated in HPI Mental Status Examination Appearance: Appropriate Consciousness: Alert Orientation: Person, Place, Situation Motor Activity: Normal gait Speech: Slow, Other (Delayed) Language: Adequate Fund of Knowledge: Adequate Attention and Concentration: Adequate (Fair) Memory: Unremarkable Mood: Sad, Other (Restricted) Affect: Other (Decreased range and intensity) Thought Process & Associations: Disorganized (Somewhat improved) Thought Content: Hallucinations (Increased auditory hallucinations), Thought blocking (Somewhat improved) Hallucination Type: Auditory (Of a command nature, intense and more frequent) Delusion Type: Paranoid (Decreased) Suicidal Ideation: Yes (Vague perhaps related to auditory hallucinations) Suicidal Plan: No Suicidal Intention: No Homicidal Ideation: No Homicidal Plan: No Homicidal Intention: No Insight: Poor Judgment: Poor Assessment and Plan - Assessment (1) Schizoaffective disorder, bipolar type Code(s): F25.0 - Schizoaffective disorder, bipolar type Status: Acute (2) Catatonia Code(s): F06.1 - Catatonic disorder due to known physiological condition Status: Acute - Plan Plan: Patient remains quite psychotic and delusional. With little insight. Complaint medications. For now continue treatment no change Justification for Continued Inpatient Stay: At this time patient with decompensated placed in a lower level of care Discharge Planning: To be determined perhaps back to the [facility], we also continue to explore possibilities of ECT
[2018-04-22] MEDS: QUEtiapine 25 MG Tablet PO SCH (13:22)
[2018-04-22] MEDS: Baclofen 10 MG Tablet PO SCH (20:24)
[2018-04-22] MEDS: traZODone 100 MG Tablet PO SCH (20:25)
[2018-04-22] MEDS: Melatonin 5 MG Tablet PO SCH (20:37)
[2018-04-22] MEDS: Benzonatate 100 MG Capsule PO PRN (20:51)
[2018-04-23] MEDS: LORazepam 1 MG Tablet PO SCH ×3 (09:20→20:18)
[2018-04-23] MEDS: lamoTRIgine 25 MG TABLET PO SCH ×2 (09:21→20:18)
[2018-04-23] MEDS: Docusate Sodium 100 MG Capsule PO SCH ×2 (09:22→20:18)
[2018-04-23] MEDS: lamoTRIgine 100 MG Tablet PO SCH ×2 (09:22→20:18)
[2018-04-23] MEDS: Topiramate 25 MG Tablet PO SCH ×2 (09:22→20:22)
[2018-04-23] MEDS: Senna/Docusate Sodium 8.6/50 MG Tablet PO SCH ×2 (09:22→20:18)
[2018-04-23] MEDS: guaiFENesin 600 MG ER Tablet PO SCH ×2 (09:22→20:18)
[2018-04-23] MEDS: Escitalopram 10 MG Tablet PO SCH (09:22)
[2018-04-23] MEDS: Lidocaine 5% Patch T-DERMAL SCH (09:23)
[2018-04-23] MEDS: Phenytoin Sodium 100 MG Capsule PO SCH ×2 (09:23→20:18)
[2018-04-23] MEDS: Haloperidol Inj 5 MG/ML Ampul IM SCH ×3 (09:23→20:34)
[2018-04-23] MEDS: Ibuprofen 600 MG Tablet PO PRN (09:38)
[2018-04-23] MEDS: Benzonatate 100 MG Capsule PO PRN (09:39)
--- NOTE | 2018-04-23 11:05 | P.PNPSY ---
Subjective Remarks: Reviewed electronic medical records and discussed case with staff. Follow-up was conducted in patients around with RASHIDA Lyle present. Patient found lying in bed. She states that she feels "nervous" reports that she is concerned about her family. This is in relation to her delusion. She states that she slept okay and that she did eat her breakfast this morning. She denies hearing voices but her responses are still somewhat delayed which may indicate some thought blocking still exists. Mental Status Examination Appearance: Appropriate Consciousness: Alert Orientation: Person, Place, Situation Motor Activity: Normal gait Speech: Slow, Other (Delayed) Language: Adequate Fund of Knowledge: Adequate Attention and Concentration: Adequate (Fair) Memory: Unremarkable Mood: Sad, Other (Restricted) Affect: Other (Decreased range and intensity) Thought Process & Associations: Disorganized (Somewhat improved) Thought Content: Hallucinations (Increased auditory hallucinations), Thought blocking (Somewhat improved) Hallucination Type: Auditory (Of a command nature, intense and more frequent) Delusion Type: Paranoid (Decreased) Suicidal Ideation: Yes (Vague perhaps related to auditory hallucinations) Suicidal Plan: No Suicidal Intention: No Homicidal Ideation: No Homicidal Plan: No Homicidal Intention: No Insight: Poor Judgment: Poor Assessment and Plan - Assessment (1) Schizoaffective disorder, bipolar type Code(s): F25.0 - Schizoaffective disorder, bipolar type Status: Acute - Plan Plan: Patient remains quite delusional and shows no insight. Patient will be reevaluated by the attending psychiatrist. Continue with current treatment plan. Justification for Continued Inpatient Stay: Moving this patient to a less restrictive environment would likely result in decompensation.
[2018-04-23] MEDS: QUEtiapine 25 MG Tablet PO SCH (14:17)
[2018-04-23] MEDS: Baclofen 10 MG Tablet PO SCH (20:18)
[2018-04-23] MEDS: Melatonin 5 MG Tablet PO SCH (20:21)
[2018-04-23] MEDS: traZODone 100 MG Tablet PO SCH (20:21)
[2018-04-24] MEDS: LORazepam 1 MG Tablet PO SCH ×3 (05:20→20:20)
[2018-04-24] MEDS: Topiramate 25 MG Tablet PO SCH ×2 (09:16→20:20)
[2018-04-24] MEDS: Escitalopram 10 MG Tablet PO SCH (09:16)
[2018-04-24] MEDS: Haloperidol Inj 5 MG/ML Ampul IM SCH ×3 (09:17→20:31)
[2018-04-24] MEDS: Docusate Sodium 100 MG Capsule PO SCH ×2 (09:17→20:20)
[2018-04-24] MEDS: guaiFENesin 600 MG ER Tablet PO SCH ×2 (09:17→20:20)
[2018-04-24] MEDS: Lidocaine 5% Patch T-DERMAL SCH (09:17)
[2018-04-24] MEDS: Phenytoin Sodium 100 MG Capsule PO SCH ×2 (09:17→20:20)
[2018-04-24] MEDS: lamoTRIgine 25 MG TABLET PO SCH ×2 (09:17→20:21)
[2018-04-24] MEDS: lamoTRIgine 100 MG Tablet PO SCH ×2 (09:17→20:20)
[2018-04-24] MEDS: Senna/Docusate Sodium 8.6/50 MG Tablet PO SCH ×2 (09:17→20:20)
--- NOTE | 2018-04-24 12:41 | P.PNPSY ---
Subjective Remarks: Reviewed electronic medical records and discussed case with staff. Follow-up was conducted in the patient's room where she was found lying in bed. Her nurse reports she has been compliant with her medications and had no behavioral outbursts. Patient states that she has been feeling "okay". She reports her sleep has been "fitful". She advises that her appetite's been good as has her mood. Today she does seem to have a brighter affect and is able to carry on conversation. I note that there is less internal stimulation present as well. Mental Status Examination Appearance: Appropriate Consciousness: Alert Orientation: Person, Place, Situation Motor Activity: Normal gait Speech: Slow, Other (Delayed) Language: Adequate Fund of Knowledge: Adequate Attention and Concentration: Adequate (Fair) Memory: Unremarkable Mood: Sad, Other (Restricted) Affect: Other (Decreased range and intensity) Thought Process & Associations: Disorganized (Somewhat improved) Thought Content: Hallucinations (Increased auditory hallucinations), Thought blocking (Somewhat improved) Hallucination Type: Auditory (Of a command nature, intense and more frequent) Delusion Type: Paranoid (Decreased) Suicidal Ideation: Yes (Vague perhaps related to auditory hallucinations) Suicidal Plan: No Suicidal Intention: No Homicidal Ideation: No Homicidal Plan: No Homicidal Intention: No Insight: Poor Judgment: Poor Assessment and Plan - Assessment (1) Schizoaffective disorder, bipolar type Code(s): F25.0 - Schizoaffective disorder, bipolar type Status: Acute - Plan Plan: Today's the first day of noted some slight improvement in the patient's affect and thought process. Continue with current treatment plan. Justification for Continued Inpatient Stay: Moving this patient to a less restrictive environment would likely result in decompensation.
[2018-04-24] MEDS: QUEtiapine 25 MG Tablet PO SCH (13:19)
[2018-04-24] MEDS: Baclofen 10 MG Tablet PO SCH (20:19)
[2018-04-24] MEDS: Ibuprofen 600 MG Tablet PO PRN (20:20)
[2018-04-24] MEDS: traZODone 100 MG Tablet PO SCH (20:20)
[2018-04-24] MEDS: Melatonin 5 MG Tablet PO SCH ×2 (20:21→20:35)
[2018-04-25] MEDS: Acetaminophen 325 MG Tablet PO PRN (03:54)
[2018-04-25] MEDS: LORazepam 1 MG Tablet PO SCH ×3 (04:00→21:27)
[2018-04-25] MEDS: guaiFENesin 600 MG ER Tablet PO SCH ×2 (08:38→21:28)
[2018-04-25] MEDS: Topiramate 25 MG Tablet PO SCH ×2 (08:38→21:27)
[2018-04-25] MEDS: Senna/Docusate Sodium 8.6/50 MG Tablet PO SCH ×2 (08:38→21:26)
[2018-04-25] MEDS: lamoTRIgine 25 MG TABLET PO SCH ×2 (08:38→21:27)
[2018-04-25] MEDS: lamoTRIgine 100 MG Tablet PO SCH ×2 (08:39→21:27)
[2018-04-25] MEDS: Docusate Sodium 100 MG Capsule PO SCH ×2 (08:39→21:26)
[2018-04-25] MEDS: Escitalopram 10 MG Tablet PO SCH (08:39)
[2018-04-25] MEDS: Phenytoin Sodium 100 MG Capsule PO SCH ×2 (08:40→21:26)
[2018-04-25] MEDS: Lidocaine 5% Patch T-DERMAL SCH (08:44)
[2018-04-25] MEDS: Haloperidol Inj 5 MG/ML Ampul IM SCH ×3 (08:44→22:31)
[2018-04-25] MEDS: Ibuprofen 600 MG Tablet PO PRN ×2 (11:49→21:29)
[2018-04-25] MEDS: QUEtiapine 25 MG Tablet PO SCH (13:09)
--- NOTE | 2018-04-25 16:19 | P.PNPSY ---
Subjective Remarks: Reviewed electronic medical records and discussed case with staff. Follow-up was conducted in the patient's room where she was found lying in bed. Her nurse reports that she has been taking her medications. Patient states she feels "okay". She reports that she slept fitfully last night. When asked about her appetite she states "it is always good". She does rate her mood as being depressed. When asked about auditory hallucinations she says that she "sometimes can still hear them". She reports being worried about her family specifically her grandchildren being kidnapped and her children losing her job as result of specific individuals. She states that this is "a real threat against my family". Mental Status Examination Appearance: Appropriate Consciousness: Alert Orientation: Person, Place, Situation Motor Activity: Normal gait Speech: Slow, Other (Delayed) Language: Adequate Fund of Knowledge: Adequate Attention and Concentration: Adequate (Fair) Memory: Unremarkable Mood: Sad, Other (Restricted) Affect: Other (Decreased range and intensity) Thought Process & Associations: Disorganized (Somewhat improved) Thought Content: Hallucinations (Increased auditory hallucinations), Thought blocking (Somewhat improved) Hallucination Type: Auditory (Of a command nature, intense and more frequent) Delusion Type: Paranoid (Decreased) Suicidal Ideation: Yes (Vague perhaps related to auditory hallucinations) Suicidal Plan: No Suicidal Intention: No Homicidal Ideation: No Homicidal Plan: No Homicidal Intention: No Insight: Poor Judgment: Poor Assessment and Plan - Assessment (1) Schizoaffective disorder, bipolar type Code(s): F25.0 - Schizoaffective disorder, bipolar type Status: Acute - Plan Plan: Patient will be reevaluated by the attending psychiatrist. Continue with current treatment plan. Patient continues to experience intermittent auditory hallucinations and delusions about her family and herself being in danger. Justification for Continued Inpatient Stay: Moving this patient to a less restrictive environment would likely result in decompensation.
[2018-04-25] MEDS: Benzonatate 100 MG Capsule PO PRN (21:26)
[2018-04-25] MEDS: traZODone 100 MG Tablet PO SCH (21:26)
[2018-04-25] MEDS: Melatonin 5 MG Tablet PO SCH (21:28)
[2018-04-25] MEDS: Baclofen 10 MG Tablet PO SCH (21:28)
[2018-04-26] MEDS: LORazepam 1 MG Tablet PO SCH ×4 (06:36→20:21)
[2018-04-26] MEDS: Escitalopram 10 MG Tablet PO SCH (08:01)
[2018-04-26] MEDS: Docusate Sodium 100 MG Capsule PO SCH ×2 (08:02→20:58)
[2018-04-26] MEDS: lamoTRIgine 25 MG TABLET PO SCH ×2 (08:02→20:28)
[2018-04-26] MEDS: Topiramate 25 MG Tablet PO SCH ×2 (08:02→20:58)
[2018-04-26] MEDS: Senna/Docusate Sodium 8.6/50 MG Tablet PO SCH ×2 (08:03→20:28)
[2018-04-26] MEDS: guaiFENesin 600 MG ER Tablet PO SCH ×2 (08:03→20:21)
[2018-04-26] MEDS: Phenytoin Sodium 100 MG Capsule PO SCH ×2 (08:03→20:22)
[2018-04-26] MEDS: lamoTRIgine 100 MG Tablet PO SCH ×2 (08:03→20:29)
[2018-04-26] MEDS: Lidocaine 5% Patch T-DERMAL SCH (08:04)
[2018-04-26] MEDS: Haloperidol Inj 5 MG/ML Ampul IM SCH ×3 (08:04→20:56)
--- NOTE | 2018-04-26 12:31 | P.PNPSY ---
Subjective Remarks: Reviewed electronic medical records and discussed case with staff. Follow-up was conducted in her room lying in bed sleeping soundly. She woke to verbal stimuli.. Her nurse reports she has been compliant with her medications and had no behavioral issues. Patient reports that she slept well and her appetite has been good. The patient still maintains that she is worried over the safety of her family. Mental Status Examination Appearance: Appropriate Consciousness: Alert Orientation: Person, Place, Situation Motor Activity: Normal gait Speech: Slow, Other (Delayed) Language: Adequate Fund of Knowledge: Adequate Attention and Concentration: Adequate (Fair) Memory: Unremarkable Mood: Sad, Other (Restricted) Affect: Other (Decreased range and intensity) Thought Process & Associations: Disorganized (Somewhat improved) Thought Content: Hallucinations (Increased auditory hallucinations), Thought blocking (Somewhat improved) Hallucination Type: Auditory (Of a command nature, intense and more frequent) Delusion Type: Paranoid (Decreased) Suicidal Ideation: Yes (Vague perhaps related to auditory hallucinations) Suicidal Plan: No Suicidal Intention: No Homicidal Ideation: No Homicidal Plan: No Homicidal Intention: No Insight: Poor Judgment: Poor Assessment and Plan - Assessment (1) Schizoaffective disorder, bipolar type Code(s): F25.0 - Schizoaffective disorder, bipolar type Status: Acute - Plan Plan: Patient will be reevaluated by the attending psychiatrist. Continue with current treatment plan. Justification for Continued Inpatient Stay: Moving this patient to a less restrictive environment would likely result in decompensation.
[2018-04-26] MEDS: QUEtiapine 25 MG Tablet PO SCH ×2 (13:50→13:59)
[2018-04-26] MEDS: Baclofen 10 MG Tablet PO SCH (20:21)
[2018-04-26] MEDS: traZODone 100 MG Tablet PO SCH (20:22)
[2018-04-26] MEDS: Melatonin 5 MG Tablet PO SCH (20:26)
[2018-04-27] MEDS: LORazepam 1 MG Tablet PO SCH ×3 (04:00→20:26)
[2018-04-27] MEDS: Topiramate 25 MG Tablet PO SCH ×2 (08:17→20:28)
[2018-04-27] MEDS: lamoTRIgine 25 MG TABLET PO SCH ×2 (08:17→20:27)
[2018-04-27] MEDS: Senna/Docusate Sodium 8.6/50 MG Tablet PO SCH ×2 (08:17→20:26)
[2018-04-27] MEDS: lamoTRIgine 100 MG Tablet PO SCH ×2 (08:17→20:27)
[2018-04-27] MEDS: Docusate Sodium 100 MG Capsule PO SCH ×2 (08:17→20:26)
[2018-04-27] MEDS: Lidocaine 5% Patch T-DERMAL SCH (08:18)
[2018-04-27] MEDS: Phenytoin Sodium 100 MG Capsule PO SCH ×2 (08:18→20:28)
[2018-04-27] MEDS: Escitalopram 10 MG Tablet PO SCH (08:18)
[2018-04-27] MEDS: guaiFENesin 600 MG ER Tablet PO SCH ×2 (08:18→20:28)
[2018-04-27] MEDS: Ibuprofen 600 MG Tablet PO PRN (08:23)
--- NOTE | 2018-04-27 08:26 | P.PNPSY ---
Subjective Remarks: Reviewed electronic medical records and discussed case with staff. Follow-up was conducted in the patient's with nurse present. Patient states that she had a visitor yesterday which made her really happy. She is having some anxiety about discharge because she does not like her current living situation. Medication compliant. Some sleeping concerns when the unit is noisey. Denies SI/HI. Review of Systems All other systems reviewed negative except as stated in HPI Mental Status Examination Appearance: Appropriate Consciousness: Alert Orientation: Person, Place, Situation Motor Activity: Normal gait Speech: Slow, Other (Delayed) Language: Adequate Fund of Knowledge: Adequate Attention and Concentration: Adequate (Fair) Memory: Unremarkable Mood: Sad, Other (Restricted) Affect: Other (Decreased range and intensity) Thought Process & Associations: Disorganized (Somewhat improved) Thought Content: Hallucinations (Increased auditory hallucinations), Thought blocking (Somewhat improved) Hallucination Type: Auditory (Of a command nature, intense and more frequent) Delusion Type: Paranoid (Decreased) Suicidal Ideation: Yes (Vague perhaps related to auditory hallucinations) Suicidal Plan: No Suicidal Intention: No Homicidal Ideation: No Homicidal Plan: No Homicidal Intention: No Insight: Poor Judgment: Poor Assessment and Plan - Assessment (1) Schizoaffective disorder, bipolar type Code(s): F25.0 - Schizoaffective disorder, bipolar type Status: Acute - Plan Plan: Patient will be reevaluated by the attending psychiatrist. Continue with current treatment plan. Justification for Continued Inpatient Stay: Moving patient to a less restrictive environment may result in her decompensation.
[2018-04-27] MEDS: Haloperidol Inj 5 MG/ML Ampul IM SCH ×2 (08:27)
[2018-04-27] MEDS: QUEtiapine 25 MG Tablet PO SCH (14:34)
[2018-04-27] MEDS: Baclofen 10 MG Tablet PO SCH (20:27)
[2018-04-27] MEDS: traZODone 100 MG Tablet PO SCH (20:27)
[2018-04-27] MEDS: Melatonin 5 MG Tablet PO SCH (20:28)
[2018-04-28] MEDS: Haloperidol Inj 5 MG/ML Ampul IM SCH ×4 (00:28→20:16)
[2018-04-28] MEDS: LORazepam 1 MG Tablet PO SCH ×3 (05:36→20:13)
[2018-04-28] MEDS: Senna/Docusate Sodium 8.6/50 MG Tablet PO SCH ×2 (09:29→20:13)
[2018-04-28] MEDS: lamoTRIgine 25 MG TABLET PO SCH ×2 (09:29→20:13)
[2018-04-28] MEDS: Phenytoin Sodium 100 MG Capsule PO SCH ×2 (09:29→20:12)
[2018-04-28] MEDS: Topiramate 25 MG Tablet PO SCH ×2 (09:29→20:12)
[2018-04-28] MEDS: Escitalopram 10 MG Tablet PO SCH (09:29)
[2018-04-28] MEDS: guaiFENesin 600 MG ER Tablet PO SCH ×2 (09:29→20:13)
[2018-04-28] MEDS: Docusate Sodium 100 MG Capsule PO SCH ×2 (09:29→20:12)
[2018-04-28] MEDS: lamoTRIgine 100 MG Tablet PO SCH ×2 (09:29→20:13)
[2018-04-28] MEDS: Lidocaine 5% Patch T-DERMAL SCH (09:30)
--- NOTE | 2018-04-28 10:45 | P.TTN ---
- Patient Problems Problems: 1. Discharge planning 2. Medication compliance 3. Knowledge deficit 4. Lack of coping skills - Progress Toward Goals Provider Present: Dr. Bettye Mackay Provider Input: 04/28/18: Pt pl[facility] was [facility])Lizzie to follow- up as to whether this is a good option for pt discharge. Pt is compliant with medications, no changes to medication at this time. 04/21/18: Pt continues to demonstrate improvements, ECT is now not necessary per pt's progress. Discharge plan is for pt to return to [facility]) when they will accept her to return. katya Samuelor to follow-up with [facility] to proceed with this d/c plan. 04/16/18: Pt on anti depressant, continuing to meet criteria for in-pt but showing improvement. ECT has become second option per pt improvement. katya Samuelor, reports pt's previous admit to [facility] and therefore prospective ECT location has denied pt to return. Current primary option, based on pt progress is for pt to return home with family. Psychiatric Counselors Present: Gutierrez Nation Jr., [facility], Lizzie Steiner, [facility] Psychiatric Therapist Input: Pt expected to return home as per her progress, Rachelle working to facilitate this discharge, pt continues to still meet in-pt criteria. Group Spec/RT/OT/WEBBER Present: Lloyd Alcazar OT Group Spec/RT/OT/WEBBER Input: Pt does not attend groups: 04/16/18 & 04/21/18. - Discharge Plan 04/28/18: Pt plof was [facility] ([facility])Lizzie to follow-up as to whether this is a good option for pt discharge. 04/21/18: Discharge plan is for pt to return to [facility] ([facility]) when they will accept her to return. counselor Lizzie to follow-up with [facility] to proceed with this d/c plan. 04/16/18: ECT has become second option per pt improvement. katya Samuelor, reports pt's previous admit to [facility] and therefore prospective ECT location has denied pt to return. Current primary option, based on pt progress is for pt to return home with family. - Documentation Teaching Recipient: Patient
[2018-04-28] MEDS: QUEtiapine 25 MG Tablet PO SCH (13:08)
--- NOTE | 2018-04-28 15:23 | P.PNPSY ---
Subjective Remarks: Patient seen in her room with medical student Davion chart reviewed, patient compliant medications. Patient alert did recognize me from prior visits. States auditory hallucinations continue. She still feels some guilt about her delusional ideation related to her fear of violence towards her family by the delusional voices. We do have a note from patient's daughter who still feels that ECT would be beneficial for her mother. I do agree with her about this we will continue working on finding an ECT program that will accept this lady Review of Systems All other systems reviewed negative except as stated in HPI Mental Status Examination Appearance: Appropriate Consciousness: Alert Orientation: Person, Place, Situation Motor Activity: Normal gait Speech: Slow, Other (Delayed) Language: Adequate Fund of Knowledge: Adequate Attention and Concentration: Adequate (Fair) Memory: Unremarkable Mood: Sad, Other (Restricted) Affect: Other (Decreased range and intensity) Thought Process & Associations: Disorganized (Somewhat improved) Thought Content: Hallucinations (Increased auditory hallucinations), Thought blocking (Somewhat improved) Hallucination Type: Auditory (Of a command nature, intense and more frequent) Delusion Type: Paranoid (Decreased) Suicidal Ideation: Yes (Vague perhaps related to auditory hallucinations) Suicidal Plan: No Suicidal Intention: No Homicidal Ideation: No Homicidal Plan: No Homicidal Intention: No Insight: Poor Judgment: Poor Assessment and Plan - Assessment (1) Schizoaffective disorder, bipolar type Code(s): F25.0 - Schizoaffective disorder, bipolar type Status: Acute (2) Catatonia Code(s): F06.1 - Catatonic disorder due to known physiological condition Status: Acute - Plan Plan: Patient remained psychotic and delusional, also somewhat depressed with this. For now continue treatment. Continue to look for ECT program Justification for Continued Inpatient Stay: At this time patient with decompensated placed on a lower level of care Discharge Planning: To be determined
[2018-04-28] MEDS: traZODone 100 MG Tablet PO SCH (20:13)
[2018-04-28] MEDS: Baclofen 10 MG Tablet PO SCH (20:13)
[2018-04-28] MEDS: Melatonin 5 MG Tablet PO SCH (20:16)
[2018-04-29] MEDS: LORazepam 1 MG Tablet PO SCH ×3 (05:10→20:20)
[2018-04-29] MEDS: Escitalopram 10 MG Tablet PO SCH (08:41)
[2018-04-29] MEDS: Topiramate 25 MG Tablet PO SCH ×2 (08:41→20:20)
[2018-04-29] MEDS: Phenytoin Sodium 100 MG Capsule PO SCH ×2 (08:41→20:20)
[2018-04-29] MEDS: Docusate Sodium 100 MG Capsule PO SCH ×2 (08:42→20:20)
[2018-04-29] MEDS: guaiFENesin 600 MG ER Tablet PO SCH ×2 (08:42→20:20)
[2018-04-29] MEDS: lamoTRIgine 25 MG TABLET PO SCH ×2 (08:42→20:20)
[2018-04-29] MEDS: Senna/Docusate Sodium 8.6/50 MG Tablet PO SCH ×2 (08:42→20:19)
[2018-04-29] MEDS: Lidocaine 5% Patch T-DERMAL SCH (08:42)
[2018-04-29] MEDS: Haloperidol Inj 5 MG/ML Ampul IM SCH ×3 (08:42→20:24)
[2018-04-29] MEDS: lamoTRIgine 100 MG Tablet PO SCH ×2 (08:42→20:20)
--- NOTE | 2018-04-29 09:55 | P.PNPSY ---
Subjective Remarks: Patient seen in her room with nurse Dariela jeronimo, medical student Davion, chart reviewed, patient continues alert, pleasant with me though somewhat vigilant and distractible with occasional thought blocking and delayed responses. She acknowledges continued auditory hallucinations are somewhat threatening nature focusing on safety of her family of origin daughter and grandchildren. Continues to be willing to look at ECT. Patient's daughter is continuing also to work with us to find an appropriate facility for her to receive that treatment Review of Systems All other systems reviewed negative except as stated in HPI Mental Status Examination Appearance: Appropriate Consciousness: Alert Orientation: Person, Place, Situation Motor Activity: Normal gait Speech: Slow, Other (Delayed) Language: Adequate Fund of Knowledge: Adequate Attention and Concentration: Adequate (Fair) Memory: Unremarkable Mood: Sad, Other (Restricted) Affect: Other (Decreased range and intensity) Thought Process & Associations: Disorganized (Somewhat improved) Thought Content: Hallucinations (Increased auditory hallucinations), Thought blocking (Somewhat improved) Hallucination Type: Auditory (Of a command nature, intense and more frequent) Delusion Type: Paranoid (Decreased) Suicidal Ideation: Yes (Vague perhaps related to auditory hallucinations) Suicidal Plan: No Suicidal Intention: No Homicidal Ideation: No Homicidal Plan: No Homicidal Intention: No Insight: Poor Judgment: Poor Assessment and Plan - Assessment (1) Schizoaffective disorder, bipolar type Code(s): F25.0 - Schizoaffective disorder, bipolar type Status: Acute (2) Catatonia Code(s): F06.1 - Catatonic disorder due to known physiological condition Status: Acute - Plan Plan: Patient remains delusional and psychotic and depressed. For now continue treatment. Continue to work on finding appropriate ECT facility Justification for Continued Inpatient Stay: At this time patient with decompensated placed in a lower level of care Discharge Planning: Continue to work with finding an appropriate ECT facility
[2018-04-29] MEDS: QUEtiapine 25 MG Tablet PO SCH (13:43)
[2018-04-29] MEDS: Baclofen 10 MG Tablet PO SCH (20:20)
[2018-04-29] MEDS: traZODone 100 MG Tablet PO SCH (20:20)
[2018-04-29] MEDS: Melatonin 5 MG Tablet PO SCH (20:24)
[2018-04-30] MEDS: LORazepam 1 MG Tablet PO SCH ×3 (04:28→20:30)
[2018-04-30] MEDS: Docusate Sodium 100 MG Capsule PO SCH ×3 (08:49→20:31)
[2018-04-30] MEDS: Escitalopram 10 MG Tablet PO SCH ×2 (08:49→10:11)
[2018-04-30] MEDS: lamoTRIgine 25 MG TABLET PO SCH ×3 (08:49→20:30)
[2018-04-30] MEDS: lamoTRIgine 100 MG Tablet PO SCH ×3 (08:49→20:30)
[2018-04-30] MEDS: Phenytoin Sodium 100 MG Capsule PO SCH ×3 (08:49→20:28)
[2018-04-30] MEDS: Haloperidol Inj 5 MG/ML Ampul IM SCH ×3 (08:49→20:31)
[2018-04-30] MEDS: Lidocaine 5% Patch T-DERMAL SCH (08:50)
[2018-04-30] MEDS: Senna/Docusate Sodium 8.6/50 MG Tablet PO SCH ×2 (08:50→20:29)
[2018-04-30] MEDS: Topiramate 25 MG Tablet PO SCH ×3 (08:50→20:32)
[2018-04-30] MEDS: guaiFENesin 600 MG ER Tablet PO SCH ×3 (08:50→20:31)
--- NOTE | 2018-04-30 09:48 | P.PNPSY ---
Subjective Remarks: Patient is seen in day room with nurse Jazlyn and family practice resident Dr. Henry. Chart reviewed. Patient showing some mixed compliance with medication today. She is still pleasant with me with fair eye contact. However her responses continued to be delayed the continues marked thought blocking distractibility she acknowledges auditory hallucinations that are somewhat more command today. Perhaps telling her to be noncompliant with medication. We continue to discuss ECT is reluctantly willing to consider that as an outpatient. 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 Review of Systems All other systems reviewed negative except as stated in HPI Mental Status Examination Appearance: Appropriate Consciousness: Alert Orientation: Person, Place, Situation Motor Activity: Normal gait Speech: Slow, Other (Delayed) Language: Adequate Fund of Knowledge: Adequate Attention and Concentration: Adequate (Fair) Memory: Unremarkable Mood: Sad, Oppositional (Mildly), Other (Restricted) Affect: Other (Decreased range and intensity) Thought Process & Associations: Disorganized (Somewhat improved) Thought Content: Hallucinations (Increased auditory hallucinations), Thought blocking (Somewhat improved) Hallucination Type: Auditory (Of a command nature, intense and more frequent) Delusion Type: Paranoid (Decreased) Suicidal Ideation: Yes (Vague perhaps related to auditory hallucinations) Suicidal Plan: No Suicidal Intention: No Homicidal Ideation: No Homicidal Plan: No Homicidal Intention: No Insight: Poor Judgment: Poor Assessment and Plan - Assessment (1) Schizoaffective disorder, bipolar type Code(s): F25.0 - Schizoaffective disorder, bipolar type Status: Acute (2) Catatonia Code(s): F06.1 - Catatonic disorder due to known physiological condition Status: Acute - Plan Plan: Patient remains psychotic delusional with auditory hallucinations of a command nature, reluctantly compliant medication with encouragement. For now we will continue treatment will continue to work with family and discharge planners related to finding an appropriate ECT treatment facility Justification for Continued Inpatient Stay: At this time patient with decompensated placed in a lower level of care Discharge Planning: To be determined with assistance of family
--- NOTE | 2018-04-30 10:06 | P.TTN ---
- Patient Problems Problems: 1. Discharge planning 2. Medication compliance 3. Knowledge deficit 4. Lack of coping skills - Progress Toward Goals Provider Present: Dr. Bettye Mackay Provider Input: 04/30/18: Pt's daughter wants to meet with , ECt is on hold. D /c plan is pending. 04/28/18: [facility]Lizzie to follow-up as to whether this is a good option for pt discharge. Pt is compliant with medications, no changes to medication at this time. 04/21/18: Pt continues to demonstrate improvements, ECT is now not necessary per pt's progress. Discharge plan is for pt to return to [facility] ([facility]) when they will accept her to return. Lizzie, katyaor to follow-up with Leeanna to proceed with this d/c plan. 04/16/18: Pt on anti depressant, continuing to meet criteria for in-pt but showing improvement. ECT has become second option per pt improvement. Lizzie, counselor, reports pt's previous admit to [facility] and therefore prospective ECT location has denied pt to return. Current primary option, based on pt progress is for pt to return home with family. Nurse Input: : Rn Jazlyn reports pat is non-compliant with medication at this time and is presenting severe thought block pattern. Psychiatric Counselors Present: Gutierrez Nation Jr., [facility], Lizzie Steiner, [facility], Other Psychiatric Therapist Input: 04/30/18: Pt continues to still meet in-pt criteria , d/c pending after meeting completed with pt's jose m and MD. William Rodney, [facility]. Pt expected to return home as per her progress, Rachelle working to facilitate this discharge, pt continues to still meet in-pt criteria. Group Spec/RT/OT/WEBBER Present: LAWANDA Longoria, Lloyd Alcazar, OT Group Spec/RT/OT/WEBBER Input: Pt does not attend groups: 04/16/18 & 04/21/18. Occupational Therapist Input: 04/30/18: Patient not attending groups despite encouragement from OT to do so. - Discharge Plan 04/28/18: Pt pl[facility] was [facility]Lizzie to follow-up as to whether this is a good option for pt discharge. 04/21/18: Discharge plan is for pt to return to [facility] ([facility]) when they will accept her to return. katya Samuelor to [facility] to proceed with this d/c plan. 04/16/18: ECT has become second option per pt improvement. katya Samuelor, reports pt's previous admit to [facility] and therefore prospective ECT location has denied pt to return. Current primary option, based on pt progress is for pt to return home with family. - Documentation Teaching Recipient: Patient
[2018-04-30] MEDS: Ibuprofen 600 MG Tablet PO PRN (10:12)
[2018-04-30] MEDS: QUEtiapine 25 MG Tablet PO SCH (13:14)
[2018-04-30] MEDS: Acetaminophen 325 MG Tablet PO PRN (13:21)
[2018-04-30] MEDS: traZODone 100 MG Tablet PO SCH (20:25)
[2018-04-30] MEDS: Melatonin 5 MG Tablet PO SCH (20:31)
[2018-04-30] MEDS: Baclofen 10 MG Tablet PO SCH (20:31)
[2018-05-01] MEDS: LORazepam 1 MG Tablet PO SCH ×3 (05:57→20:20)
[2018-05-01] MEDS: Escitalopram 10 MG Tablet PO SCH (08:14)
[2018-05-01] MEDS: lamoTRIgine 25 MG TABLET PO SCH ×2 (08:14→21:00)
[2018-05-01] MEDS: lamoTRIgine 100 MG Tablet PO SCH ×2 (08:15→21:00)
[2018-05-01] MEDS: Phenytoin Sodium 100 MG Capsule PO SCH ×2 (08:15→21:00)
[2018-05-01] MEDS: Senna/Docusate Sodium 8.6/50 MG Tablet PO SCH ×2 (08:15→21:00)
[2018-05-01] MEDS: Topiramate 25 MG Tablet PO SCH ×2 (08:15→21:00)
[2018-05-01] MEDS: Docusate Sodium 100 MG Capsule PO SCH ×2 (08:16→21:00)
[2018-05-01] MEDS: Haloperidol Inj 5 MG/ML Ampul IM SCH ×3 (08:16→22:12)
[2018-05-01] MEDS: Lidocaine 5% Patch T-DERMAL SCH (08:17)
[2018-05-01] MEDS: guaiFENesin 600 MG ER Tablet PO SCH ×2 (08:18→21:00)
--- NOTE | 2018-05-01 10:23 | P.PNPSY ---
Subjective Remarks: Patient is seen in her room with medical student Davion, chart reviewed, patient is showing some improved compliance with medication. Patient continues markedly distracted with thought blocking, she acknowledges the continued auditory hallucinations. She is still delusional related to her feelings about the safety of her family. I did speak with patient's daughter yesterday afternoon daughter still would like to consider ECT though it appears patient has never had a course of ECT prior to to this recommendation. We also discussed the possibility of a trial on Clozaril. We need to discuss this further with patient and daughter Review of Systems All other systems reviewed negative except as stated in HPI Mental Status Examination Appearance: Appropriate Consciousness: Alert Orientation: Person, Place, Situation Motor Activity: Normal gait Speech: Slow, Other (Delayed) Language: Adequate Fund of Knowledge: Adequate Attention and Concentration: Adequate (Fair) Memory: Unremarkable Mood: Sad, Oppositional (Mildly), Other (Restricted) Affect: Other (Decreased range and intensity) Thought Process & Associations: Disorganized (Somewhat improved) Thought Content: Hallucinations (Increased auditory hallucinations), Thought blocking (Somewhat improved) Hallucination Type: Auditory (Of a command nature, intense and more frequent) Delusion Type: Paranoid (Decreased) Suicidal Ideation: Yes (Vague perhaps related to auditory hallucinations) Suicidal Plan: No Suicidal Intention: No Homicidal Ideation: No Homicidal Plan: No Homicidal Intention: No Insight: Poor Judgment: Poor Assessment and Plan - Assessment (1) Schizoaffective disorder, bipolar type Code(s): F25.0 - Schizoaffective disorder, bipolar type Status: Acute (2) Catatonia Code(s): F06.1 - Catatonic disorder due to known physiological condition Status: Acute - Plan Plan: Patient remains confused deluded and psychotic, overall improved compliance medication. We will further discuss with daughter and patient the possible trial of Clozaril Justification for Continued Inpatient Stay: At this time patient with decompensated placed in a lower level of care Discharge Planning: To be determined perhaps back to her prior placement
[2018-05-01] MEDS: QUEtiapine 25 MG Tablet PO SCH (13:37)
[2018-05-01] MEDS: Ibuprofen 600 MG Tablet PO PRN (20:12)
[2018-05-01] MEDS: traZODone 100 MG Tablet PO SCH (20:20)
[2018-05-01] MEDS: Melatonin 5 MG Tablet PO SCH (21:00)
[2018-05-01] MEDS: Baclofen 10 MG Tablet PO SCH (21:00)
[2018-05-02] MEDS: LORazepam 1 MG Tablet PO SCH ×3 (06:05→21:06)
[2018-05-02] MEDS: Phenytoin Sodium 100 MG Capsule PO SCH ×2 (08:43→21:06)
[2018-05-02] MEDS: Topiramate 25 MG Tablet PO SCH ×2 (08:43→21:05)
[2018-05-02] MEDS: Docusate Sodium 100 MG Capsule PO SCH ×2 (08:43→21:05)
[2018-05-02] MEDS: lamoTRIgine 25 MG TABLET PO SCH ×2 (08:43→21:05)
[2018-05-02] MEDS: lamoTRIgine 100 MG Tablet PO SCH ×2 (08:44→21:05)
[2018-05-02] MEDS: Haloperidol Inj 5 MG/ML Ampul IM SCH ×3 (08:44→22:09)
[2018-05-02] MEDS: Senna/Docusate Sodium 8.6/50 MG Tablet PO SCH ×2 (08:44→21:05)
[2018-05-02] MEDS: Escitalopram 10 MG Tablet PO SCH (08:44)
[2018-05-02] MEDS: Lidocaine 5% Patch T-DERMAL SCH (08:45)
[2018-05-02] MEDS: guaiFENesin 600 MG ER Tablet PO SCH ×2 (08:45→21:05)
[2018-05-02] MEDS: QUEtiapine 25 MG Tablet PO SCH (13:23)
--- NOTE | 2018-05-02 15:30 | P.PNPSY ---
Subjective Remarks: Patient is seen in her room with nurse Deandra and medical student Davion, chart reviewed, patient compliant medication. Patient continues calm cooperative at times distracted at times with thought blocking. Acknowledges continued command auditory hallucinations with delusions related to her family's we will start patient on Clozaril 25 mg twice daily at this time Review of Systems All other systems reviewed negative except as stated in HPI Mental Status Examination Appearance: Appropriate Consciousness: Alert Orientation: Person, Place, Situation Motor Activity: Normal gait Speech: Slow, Other (Delayed) Language: Adequate Fund of Knowledge: Adequate Attention and Concentration: Adequate (Fair) Memory: Unremarkable Mood: Sad, Oppositional (Mildly), Other (Restricted) Affect: Other (Decreased range and intensity) Thought Process & Associations: Disorganized (Somewhat improved) Thought Content: Hallucinations (Increased auditory hallucinations), Thought blocking (Somewhat improved) Hallucination Type: Auditory (Of a command nature, intense and more frequent) Delusion Type: Paranoid (Decreased) Suicidal Ideation: Yes (Vague perhaps related to auditory hallucinations) Suicidal Plan: No Suicidal Intention: No Homicidal Ideation: No Homicidal Plan: No Homicidal Intention: No Insight: Poor Judgment: Poor Assessment and Plan - Assessment (1) Schizoaffective disorder, bipolar type Code(s): F25.0 - Schizoaffective disorder, bipolar type Status: Acute (2) Catatonia Code(s): F06.1 - Catatonic disorder due to known physiological condition Status: Acute - Plan Plan: Patient remained psychotic with auditory hallucinations of a command nature and delusions we will start Clozaril 25 mg twice daily Justification for Continued Inpatient Stay: At this time patient with decompensated placed on a lower level of care Discharge Planning: To be determined
[2018-05-02 19:40] LABS: Albumin 3.7 g/dL (3.4-5.0); Anion Gap 5 meq/L (5-15); Aspartate Aminotransferase 18 U/L (15-37); Blood Urea Nitrogen 21 mg/dL (7-18); Calcium 8.8 mg/dL (8.5-10.1); Carbon Dioxide 26.6 meq/L (21.0-32.0); Chloride 107 meq/L (98-107); Glomerular Filtration Rate 46 mL/min (>89); Glucose,Random 103 mg/dL (74-106); Sodium 139 meq/L (136-145)
[2018-05-02 19:42] LABS: Alanine Aminotransferase 36 U/L (10-53)
[2018-05-02 19:44] LABS: Alkaline Phosphatase 143 U/L (45-117); Total Protein 7.1 g/dL (6.4-8.2)
[2018-05-02] MEDS: Baclofen 10 MG Tablet PO SCH (21:05)
[2018-05-02] MEDS: Melatonin 5 MG Tablet PO SCH (21:05)
[2018-05-02] MEDS: Ibuprofen 600 MG Tablet PO PRN (21:06)
[2018-05-02] MEDS: traZODone 100 MG Tablet PO SCH (21:06)
[2018-05-03] MEDS: LORazepam 1 MG Tablet PO SCH ×3 (06:03→20:59)
[2018-05-03 07:10] LABS: Baso % (Auto) 0.3 % (0.0-2.0); Eos # (Auto) 0.3 th/mm3 (0.0-0.4); Eos % (Auto) 8.1 % (0.0-4.0); Hematocrit 35.6 % (35.0-46.0); Lymph # (Auto) 1.1 th/mm3 (1.0-4.8); Lymph % (Auto) 29.6 % (9.0-44.0); Mean Corpuscular HGB Conc 33.7 % (32.0-36.0); Mean Corpuscular Hemoglobin 30.3 pg (27.0-34.0); Mean Corpuscular Volume 89.9 fL (80.0-100.0); Mean Platelet Volume 6.8 fL (7.0-11.0); Mono # (Auto) 0.4 th/mm3 (0.0-0.9); Mono % (Auto) 11.5 % (0.0-8.0); Neut # (Auto) 1.9 th/mm3 (1.8-7.7); Neut % (Auto) 50.5 % (16.0-70.0); Platelet Count 231 th/mm3 (150-450); Red Blood Count 3.96 mil/mm3 (4.00-5.30); Red Cell Distribution Width 12.8 % (11.6-17.2); White Blood Count 3.7 th/mm3 (4.0-11.0)
[2018-05-03] MEDS: Ibuprofen 600 MG Tablet PO PRN ×2 (09:50→20:57)
[2018-05-03] MEDS: lamoTRIgine 25 MG TABLET PO SCH ×2 (09:50→20:58)
[2018-05-03] MEDS: Senna/Docusate Sodium 8.6/50 MG Tablet PO SCH ×2 (09:50→20:58)
[2018-05-03] MEDS: Phenytoin Sodium 100 MG Capsule PO SCH ×2 (09:50→20:59)
[2018-05-03] MEDS: guaiFENesin 600 MG ER Tablet PO SCH ×2 (09:50→20:57)
[2018-05-03] MEDS: Topiramate 25 MG Tablet PO SCH ×2 (09:50→20:59)
[2018-05-03] MEDS: Escitalopram 10 MG Tablet PO SCH (09:50)
[2018-05-03] MEDS: Docusate Sodium 100 MG Capsule PO SCH ×2 (09:51→20:57)
[2018-05-03] MEDS: lamoTRIgine 100 MG Tablet PO SCH ×2 (09:51→20:58)
[2018-05-03] MEDS: Haloperidol Inj 5 MG/ML Ampul IM SCH ×3 (09:51→22:56)
[2018-05-03] MEDS: Lidocaine 5% Patch T-DERMAL SCH (09:57)
--- NOTE | 2018-05-03 13:01 | P.PNPSY ---
Subjective Remarks: Reviewed electronic medical records and discussed case with staff. Follow-up was conducted in the patient's room with RASHIDA Alves present. Patient is found lying in bed. She was visibly started on Clazuril however there was not a signed consent form. I spoke with her daughter Deb on the phone who gave consent. Patient states that she slept all right and that her appetite's been good. She denies auditory hallucinations however she seems extremely internally stimulated today and somewhat paranoid. She currently is stating that she will refuse the medication however, the nurse will make multiple attempts to get her to take it. Mental Status Examination Appearance: Appropriate Consciousness: Alert Orientation: Person, Place, Situation Motor Activity: Normal gait Speech: Slow, Other (Delayed) Language: Adequate Fund of Knowledge: Adequate Attention and Concentration: Adequate (Fair) Memory: Unremarkable Mood: Sad, Oppositional (Mildly), Other (Restricted) Affect: Other (Decreased range and intensity) Thought Process & Associations: Disorganized (Somewhat improved) Thought Content: Hallucinations (Increased auditory hallucinations), Thought blocking (Somewhat improved) Hallucination Type: Auditory (Of a command nature, intense and more frequent) Delusion Type: Paranoid (Decreased) Suicidal Ideation: Yes (Vague perhaps related to auditory hallucinations) Suicidal Plan: No Suicidal Intention: No Homicidal Ideation: No Homicidal Plan: No Homicidal Intention: No Insight: Poor Judgment: Poor Assessment and Plan - Assessment (1) Schizoaffective disorder, bipolar type Code(s): F25.0 - Schizoaffective disorder, bipolar type Status: Acute - Plan Plan: Patient will be reevaluated by the attending psychiatrist. Continue with current treatment plan. Justification for Continued Inpatient Stay: Moving this patient to a less restrictive environment would likely result in decompensation.
[2018-05-03] MEDS: QUEtiapine 25 MG Tablet PO SCH (13:52)
[2018-05-03] MEDS: traZODone 100 MG Tablet PO SCH (20:58)
[2018-05-03] MEDS: Baclofen 10 MG Tablet PO SCH (20:58)
[2018-05-03] MEDS: Melatonin 5 MG Tablet PO SCH (22:56)
[2018-05-04] MEDS: LORazepam 1 MG Tablet PO SCH ×3 (04:20→20:35)
[2018-05-04] MEDS: Escitalopram 10 MG Tablet PO SCH (08:17)
[2018-05-04] MEDS: lamoTRIgine 25 MG TABLET PO SCH ×2 (08:17→20:35)
[2018-05-04] MEDS: Phenytoin Sodium 100 MG Capsule PO SCH ×2 (08:17→20:35)
[2018-05-04] MEDS: Docusate Sodium 100 MG Capsule PO SCH ×2 (08:18→20:38)
[2018-05-04] MEDS: Senna/Docusate Sodium 8.6/50 MG Tablet PO SCH ×2 (08:18→20:36)
[2018-05-04] MEDS: Ibuprofen 600 MG Tablet PO PRN (08:18)
[2018-05-04] MEDS: guaiFENesin 600 MG ER Tablet PO SCH ×2 (08:18→20:35)
[2018-05-04] MEDS: Topiramate 25 MG Tablet PO SCH ×2 (08:18→20:37)
[2018-05-04] MEDS: lamoTRIgine 100 MG Tablet PO SCH ×2 (08:18→20:37)
[2018-05-04] MEDS: Lidocaine 5% Patch T-DERMAL SCH (08:19)
[2018-05-04] MEDS: Haloperidol Inj 5 MG/ML Ampul IM SCH ×3 (08:19→21:15)
--- NOTE | 2018-05-04 08:39 | P.PNPSY ---
Subjective Remarks: Reviewed electronic medical records and discussed case with staff. Follow-up was conducted in the day room with RASHIDA Alves present. Patient is eating breakfast. Internally stimulated, avoids eye contact, thought blocking and responds with limited conversation. Started on Clozaril on 05/03/18, labs on this day , WBC= 3.7 and Neutrophils =50.5 . Started on 25 mg bid. Nurses report that she continues to endorse auditory hallucinations. Behavior is cooperative. She has also been seclusive. Denies SI/HI. Review of Systems All other systems reviewed negative except as stated in HPI Mental Status Examination Appearance: Appropriate Consciousness: Alert Orientation: Person, Place, Situation Motor Activity: Normal gait Speech: Slow, Other (Delayed) Language: Adequate Fund of Knowledge: Adequate Attention and Concentration: Adequate (Fair) Memory: Unremarkable Mood: Sad, Oppositional (Mildly), Other (Restricted) Affect: Other (Decreased range and intensity) Thought Process & Associations: Disorganized (Somewhat improved) Thought Content: Hallucinations (Increased auditory hallucinations), Thought blocking (Somewhat improved) Hallucination Type: Auditory (Of a command nature, intense and more frequent) Delusion Type: Paranoid (Decreased) Suicidal Ideation: No Suicidal Plan: No Suicidal Intention: No Homicidal Ideation: No Homicidal Plan: No Homicidal Intention: No Insight: Poor Judgment: Poor Assessment and Plan - Assessment (1) Schizoaffective schizophrenia Code(s): F25.0 - Schizoaffective disorder, bipolar type Status: Acute - Plan Plan: Patient will be reevaluated by the attending psychiatrist. Continue with current treatment plan. Justification for Continued Inpatient Stay: Moving patient to a less restrictive environment may result in her decompensation.
[2018-05-04] MEDS: QUEtiapine 25 MG Tablet PO SCH (13:28)
[2018-05-04] MEDS: Baclofen 10 MG Tablet PO SCH (20:34)
[2018-05-04] MEDS: traZODone 100 MG Tablet PO SCH (20:36)
[2018-05-04] MEDS: Melatonin 5 MG Tablet PO SCH (20:37)
[2018-05-05] MEDS: LORazepam 1 MG Tablet PO SCH ×3 (05:39→20:11)
[2018-05-05] MEDS: Docusate Sodium 100 MG Capsule PO SCH ×2 (08:38→20:12)
[2018-05-05] MEDS: Phenytoin Sodium 100 MG Capsule PO SCH ×2 (08:38→20:11)
[2018-05-05] MEDS: Escitalopram 10 MG Tablet PO SCH (08:39)
[2018-05-05] MEDS: Lidocaine 5% Patch T-DERMAL SCH (08:39)
[2018-05-05] MEDS: guaiFENesin 600 MG ER Tablet PO SCH ×2 (08:40→20:11)
[2018-05-05] MEDS: Senna/Docusate Sodium 8.6/50 MG Tablet PO SCH ×2 (08:40→20:12)
[2018-05-05] MEDS: Topiramate 25 MG Tablet PO SCH ×2 (08:40→20:12)
[2018-05-05] MEDS: lamoTRIgine 100 MG Tablet PO SCH ×2 (08:41→20:11)
[2018-05-05] MEDS: lamoTRIgine 25 MG TABLET PO SCH (08:45)
--- NOTE | 2018-05-05 11:39 | P.TTN ---
- Patient Problems Problems: 1. Discharge planning 2. Medication compliance 3. Knowledge deficit 4. Lack of coping skills - Progress Toward Goals Provider Present: Dr. Bettye Mackay Provider Input: 05/05/18: Adjust medications. Can return to [facility] when stabilized. 04/30/18: Pt's daughter wants to meet with MD, ECt is on hold. D/c plan is pending. 04/28/18: Pt plof was [facility] ([facility], [facility]), Lizzie to follow- up as to whether this is a good option for pt discharge. Pt is compliant with medications, no changes to medication at this time. 04/21/18: Pt continues to demonstrate improvements, ECT is now not necessary per pt's progress. Discharge plan is for pt to return to [facility] ([facility]) when they will accept her to return. katya Samuelor to follow-up with [facility] to proceed with this d/c plan. 04/16/18: Pt on anti depressant, continuing to meet criteria for in-pt but showing improvement. ECT has become second option per pt improvement. Lizzie , counselor, reports pt's previous admit to [facility] and therefore prospective ECT location has denied pt to return. Current primary option, based on pt progress is for pt to return home with family. Nurse(s) Present: Samaria FIELD Nurse Input: 05/05/18: Refusing Clozaril, medicine needs to be put into applesauce. : Michel Hobson reports pat is non-compliant with medication at this time and is presenting severe thought block pattern. Psychiatric Counselors Present: Lizzie Steiner [facility], Other Psychiatric Therapist Input: 05/05/18:Pt will either be discharged to ECT or return to [facility]. 04/30/18: Pt continues to still meet in-pt criteria, d /c pending after meeting completed with pt's jose m and MD. William Rodney, [facility]. Pt expected to return home as per her progress, Rachelle working to facilitate this discharge, pt continues to still meet in-pt criteria. Group Spec/RT/OT/WEBBER Present: Jazzy Mahmood, [employer], Lloyd Alcazar, OT Group Spec/RT/OT/WEBBER Input: 05/05/18: Pt attends select group activites, patient needs more encouragement from staff to attend and participate in sheduled activities. Pt does not attend groups: 04/16/18 & 04/21/18. Occupational Therapist Input: 04/30/18: Patient not attending groups despite encouragement from OT to do so. - Discharge Plan 04/28/18: Pt plof was [facility] ([facility], [facility]), Lizzie to follow-up as to whether this is a good option for pt discharge. 04/21/18: Discharge plan is for pt to return to [facility] ([facility]) when they will accept her to return. katya Samuelor to follow-up with [facility] to proceed with this d/c plan. 04/16/18: ECT has become second option per pt improvement. Lizzie, counselor, reports pt's previous admit to [facility] and therefore prospective ECT location has denied pt to return. Current primary option, based on pt progress is for pt to return home with family. 05/05/18: Pt will either discharge to ECT or return to [facility] - Documentation Teaching Recipient: Patient
--- NOTE | 2018-05-05 12:21 | P.PNPSY ---
Subjective Remarks: Patient seen in her room with floor staff, chart reviewed, patient discussed with nurse Samaria. Patient showing reluctance but cooperation with medication. I have made multiple med occasion adjustments also decreasing the dose of the Lamictal adjusting the dose of the Haldol, increasing the Clozaril dose. Patient remains somewhat confused with continued auditory hallucinations of a somewhat command in nature mild thought blocking. She also continues some mild buccal lingual intermittent movements. Review of Systems All other systems reviewed negative except as stated in HPI Mental Status Examination Appearance: Appropriate Consciousness: Alert Orientation: Person, Place, Situation Motor Activity: Normal gait Speech: Slow, Other (Delayed) Language: Adequate Fund of Knowledge: Adequate Attention and Concentration: Adequate (Fair) Memory: Unremarkable Mood: Sad, Oppositional (Mildly), Other (Restricted) Affect: Other (Decreased range and intensity) Thought Process & Associations: Disorganized (Somewhat improved) Thought Content: Hallucinations (Increased auditory hallucinations), Thought blocking (Somewhat improved) Hallucination Type: Auditory (Of a command nature, intense and more frequent) Delusion Type: Paranoid (Decreased) Suicidal Ideation: No Suicidal Plan: No Suicidal Intention: No Homicidal Ideation: No Homicidal Plan: No Homicidal Intention: No Insight: Poor Judgment: Poor Assessment and Plan - Assessment (1) Schizoaffective disorder, bipolar type Code(s): F25.0 - Schizoaffective disorder, bipolar type Status: Acute (2) Catatonia Code(s): F06.1 - Catatonic disorder due to known physiological condition Status: Acute - Plan Plan: Patient continues depressed and psychotic with some vague intermittent buccolingual movements. See multiple medication adjustments Justification for Continued Inpatient Stay: At this time patient with decompensated placed on a lower level of care Discharge Planning: To be determined
[2018-05-05] MEDS: QUEtiapine 25 MG Tablet PO SCH (14:08)
[2018-05-05] MEDS: traZODone 100 MG Tablet PO SCH (20:12)
[2018-05-05] MEDS: Haloperidol 5 MG Tablet PO SCH (20:12)
[2018-05-05] MEDS: Baclofen 10 MG Tablet PO SCH (20:13)
[2018-05-05] MEDS: Melatonin 5 MG Tablet PO SCH (20:18)
[2018-05-06] MEDS: LORazepam 1 MG Tablet PO SCH ×3 (04:13→21:03)
[2018-05-06] MEDS: Senna/Docusate Sodium 8.6/50 MG Tablet PO SCH ×2 (08:59→21:02)
[2018-05-06] MEDS: Docusate Sodium 100 MG Capsule PO SCH ×2 (08:59→21:02)
[2018-05-06] MEDS: Phenytoin Sodium 100 MG Capsule PO SCH ×2 (09:00→21:02)
[2018-05-06] MEDS: lamoTRIgine 100 MG Tablet PO SCH ×2 (09:00→21:03)
[2018-05-06] MEDS: Topiramate 25 MG Tablet PO SCH ×2 (09:00→21:03)
[2018-05-06] MEDS: Haloperidol 5 MG Tablet PO SCH ×2 (09:00→21:58)
[2018-05-06] MEDS: guaiFENesin 600 MG ER Tablet PO SCH ×2 (09:01→21:03)
[2018-05-06] MEDS: Escitalopram 10 MG Tablet PO SCH (09:01)
[2018-05-06] MEDS: Lidocaine 5% Patch T-DERMAL SCH (09:01)
--- NOTE | 2018-05-06 10:13 | P.PNPSY ---
Subjective Remarks: Patient is seen in her room with nurse Deandra and Dr. Rogers's. Chart reviewed. Patient compliant with medication though somewhat reluctant to continue with the Clozaril protocol. Patient continues to respond to internal stimuli acknowledging the auditory hallucinations of a somewhat command intensity. Today she is vague about suicidality. For now continue treatment Review of Systems All other systems reviewed negative except as stated in HPI Mental Status Examination Appearance: Appropriate Consciousness: Alert Orientation: Person, Place, Situation Motor Activity: Normal gait Speech: Slow, Other (Delayed with continued thought blocking) Language: Adequate Fund of Knowledge: Adequate Attention and Concentration: Adequate (Fair) Memory: Unremarkable Mood: Sad, Oppositional (Mildly), Other (Restricted) Affect: Other (Decreased range and intensity) Thought Process & Associations: Disorganized (Somewhat improved) Thought Content: Hallucinations (Increased auditory hallucinations), Thought blocking (Somewhat improved) Hallucination Type: Auditory (Of a command nature, intense and more frequent) Delusion Type: Paranoid (Decreased) Suicidal Ideation: No Suicidal Plan: No Suicidal Intention: No Homicidal Ideation: No Homicidal Plan: No Homicidal Intention: No Insight: Poor Judgment: Poor Assessment and Plan - Assessment (1) Schizoaffective disorder, bipolar type Code(s): F25.0 - Schizoaffective disorder, bipolar type Status: Acute (2) Catatonia Code(s): F06.1 - Catatonic disorder due to known physiological condition Status: Acute - Plan Plan: Patient remains somewhat depressed and psychotic with command hallucinations. She continues compliant albeit somewhat reluctantly with medications. For now continue treatment Justification for Continued Inpatient Stay: At this time patient with decompensated placed on a lower level of care Discharge Planning: To be determined
[2018-05-06] MEDS: QUEtiapine 25 MG Tablet PO SCH (13:27)
[2018-05-06] MEDS: Ibuprofen 600 MG Tablet PO PRN ×2 (15:31→21:27)
[2018-05-06] MEDS: traZODone 100 MG Tablet PO SCH (21:03)
[2018-05-06] MEDS: Baclofen 10 MG Tablet PO SCH (21:03)
[2018-05-06] MEDS: Melatonin 5 MG Tablet PO SCH (21:58)
[2018-05-07] MEDS: LORazepam 1 MG Tablet PO SCH ×4 (04:20→20:25)
[2018-05-07] MEDS: Phenytoin Sodium 100 MG Capsule PO SCH ×2 (09:23→20:25)
[2018-05-07] MEDS: lamoTRIgine 100 MG Tablet PO SCH ×2 (09:23→20:24)
[2018-05-07] MEDS: Escitalopram 10 MG Tablet PO SCH (09:23)
[2018-05-07] MEDS: Docusate Sodium 100 MG Capsule PO SCH ×2 (09:23→20:24)
[2018-05-07] MEDS: Senna/Docusate Sodium 8.6/50 MG Tablet PO SCH ×2 (09:23→20:24)
[2018-05-07] MEDS: guaiFENesin 600 MG ER Tablet PO SCH ×2 (09:23→20:25)
[2018-05-07] MEDS: Topiramate 25 MG Tablet PO SCH ×2 (09:23→20:25)
[2018-05-07] MEDS: Haloperidol 5 MG Tablet PO SCH ×2 (09:24→20:25)
[2018-05-07] MEDS: Ibuprofen 600 MG Tablet PO PRN ×2 (09:28→20:46)
--- NOTE | 2018-05-07 10:50 | P.PNPSY ---
Subjective Remarks: Patient is seen today with nurse, chart reviewed, patient compliant medication. Patient continues somewhat distracted with thought blocking states the voices persist but are somewhat diminished. There is still the delusion related related to the safety of her children and grandchildren. We will increase Flagyl today to 50 mg a.m. 75 mg at bedtime Review of Systems All other systems reviewed negative except as stated in HPI Mental Status Examination Appearance: Appropriate Consciousness: Alert Orientation: Person, Place, Situation Motor Activity: Normal gait Speech: Slow, Other (Delayed with continued thought blocking) Language: Adequate Fund of Knowledge: Adequate Attention and Concentration: Adequate (Fair) Memory: Unremarkable Mood: Sad, Oppositional (Mildly), Other (Restricted) Affect: Other (Decreased range and intensity) Thought Process & Associations: Disorganized (Somewhat improved) Thought Content: Hallucinations (Increased auditory hallucinations), Thought blocking (Somewhat improved) Hallucination Type: Auditory (Of a command nature, intense and more frequent) Delusion Type: Paranoid (Decreased) Suicidal Ideation: No Suicidal Plan: No Suicidal Intention: No Homicidal Ideation: No Homicidal Plan: No Homicidal Intention: No Insight: Poor Judgment: Poor Assessment and Plan - Assessment (1) Schizoaffective disorder, bipolar type Code(s): F25.0 - Schizoaffective disorder, bipolar type Status: Acute (2) Catatonia Code(s): F06.1 - Catatonic disorder due to known physiological condition Status: Acute - Plan Plan: Patient remained psychotic paranoid and delusional though somewhat softer today. See medication adjustments above Justification for Continued Inpatient Stay: At this time patient with decompensated placed on a lower level of care Discharge Planning: To be determined
[2018-05-07] MEDS: Lidocaine 5% Patch T-DERMAL SCH (14:09)
[2018-05-07] MEDS: QUEtiapine 25 MG Tablet PO SCH (15:44)
[2018-05-07] MEDS: traZODone 100 MG Tablet PO SCH (20:24)
[2018-05-07] MEDS: Melatonin 5 MG Tablet PO SCH (20:25)
[2018-05-07] MEDS: Baclofen 10 MG Tablet PO SCH (20:25)
[2018-05-08] MEDS: LORazepam 1 MG Tablet PO SCH ×3 (06:15→20:51)
[2018-05-08] MEDS: lamoTRIgine 100 MG Tablet PO SCH ×2 (08:40→20:50)
[2018-05-08] MEDS: Topiramate 25 MG Tablet PO SCH ×2 (08:40→20:50)
[2018-05-08] MEDS: Haloperidol 5 MG Tablet PO SCH (08:40)
[2018-05-08] MEDS: Docusate Sodium 100 MG Capsule PO SCH ×2 (08:40→20:50)
[2018-05-08] MEDS: Phenytoin Sodium 100 MG Capsule PO SCH ×2 (08:40→20:51)
[2018-05-08] MEDS: Escitalopram 10 MG Tablet PO SCH (08:40)
[2018-05-08] MEDS: Senna/Docusate Sodium 8.6/50 MG Tablet PO SCH ×2 (08:41→20:50)
[2018-05-08] MEDS: guaiFENesin 600 MG ER Tablet PO SCH ×2 (08:41→20:49)
[2018-05-08] MEDS: Lidocaine 5% Patch T-DERMAL SCH (08:50)
--- NOTE | 2018-05-08 10:09 | P.PNPSY ---
Subjective Remarks: Patient seen in the griffin with floor staff, chart reviewed, patient compliant medication. Patient compliant medications. Patient continues to show mild thought blocking acknowledging continued auditory hallucinations but perhaps somewhat softer. Today we will decrease Haldol to 5 mg daily. Continue other medications no change Review of Systems All other systems reviewed negative except as stated in HPI Mental Status Examination Appearance: Appropriate Consciousness: Alert Orientation: Person, Place, Situation Motor Activity: Normal gait Speech: Slow, Other (Delayed with continued thought blocking) Language: Adequate Fund of Knowledge: Adequate Attention and Concentration: Adequate (Fair) Memory: Unremarkable Mood: Sad, Oppositional (Mildly), Other (Restricted) Affect: Other (Decreased range and intensity) Thought Process & Associations: Disorganized (Somewhat improved) Thought Content: Hallucinations (Increased auditory hallucinations), Thought blocking (Somewhat improved) Hallucination Type: Auditory (Somewhat calmer today) Delusion Type: Paranoid (Decreased) Suicidal Ideation: No Suicidal Plan: No Suicidal Intention: No Homicidal Ideation: No Homicidal Plan: No Homicidal Intention: No Insight: Poor Judgment: Poor Assessment and Plan - Assessment (1) Schizoaffective disorder, bipolar type Code(s): F25.0 - Schizoaffective disorder, bipolar type Status: Acute (2) Catatonia Code(s): F06.1 - Catatonic disorder due to known physiological condition Status: Acute - Plan Plan: Patient remains psychotic with auditory hallucinations though somewhat calmer today see medication adjustment above Justification for Continued Inpatient Stay: At this time patient would decompensated placed in a lower level of care Discharge Planning: To be determined
[2018-05-08] MEDS: QUEtiapine 25 MG Tablet PO SCH (13:29)
[2018-05-08] MEDS: Ibuprofen 600 MG Tablet PO PRN (20:49)
[2018-05-08] MEDS: Baclofen 10 MG Tablet PO SCH (20:50)
[2018-05-08] MEDS: traZODone 100 MG Tablet PO SCH (20:51)
[2018-05-08] MEDS: Melatonin 5 MG Tablet PO SCH (20:51)
[2018-05-09] MEDS: LORazepam 1 MG Tablet PO SCH ×3 (05:34→21:20)
[2018-05-09] MEDS: Topiramate 25 MG Tablet PO SCH ×2 (09:08→21:21)
[2018-05-09] MEDS: guaiFENesin 600 MG ER Tablet PO SCH ×2 (09:08→21:21)
[2018-05-09] MEDS: Phenytoin Sodium 100 MG Capsule PO SCH ×2 (09:08→21:20)
[2018-05-09] MEDS: lamoTRIgine 100 MG Tablet PO SCH ×2 (09:08→21:20)
[2018-05-09] MEDS: Docusate Sodium 100 MG Capsule PO SCH ×2 (09:08→21:20)
[2018-05-09] MEDS: Escitalopram 10 MG Tablet PO SCH (09:08)
[2018-05-09] MEDS: Haloperidol 5 MG Tablet PO SCH (09:08)
[2018-05-09] MEDS: Lidocaine 5% Patch T-DERMAL SCH (09:09)
[2018-05-09] MEDS: Senna/Docusate Sodium 8.6/50 MG Tablet PO SCH ×2 (09:09→21:20)
--- NOTE | 2018-05-09 11:55 | P.PNPSY ---
Subjective Remarks: Patient is seen today in day room with floor staff, chart reviewed, patient compliant medication. Patient states voices persist but somewhat less intrusive and frequent and intense. She denies suicidality today. She states she feels a little bit lightheaded today but vital signs appear stable. We will continue to monitor. We will continue treatment no change in medication dosages at this time Review of Systems All other systems reviewed negative except as stated in HPI Mental Status Examination Appearance: Appropriate Consciousness: Alert Orientation: Person, Place, Situation Motor Activity: Normal gait Speech: Slow, Other (Delayed with continued thought blocking) Language: Adequate Fund of Knowledge: Adequate Attention and Concentration: Adequate (Fair) Memory: Unremarkable Mood: Sad, Oppositional (Mildly), Other (Restricted) Affect: Other (Decreased range and intensity) Thought Process & Associations: Disorganized (Somewhat improved) Thought Content: Hallucinations (Increased auditory hallucinations), Thought blocking (Somewhat improved) Hallucination Type: Auditory (Somewhat calmer today) Delusion Type: Paranoid (Decreased) Suicidal Ideation: No Suicidal Plan: No Suicidal Intention: No Homicidal Ideation: No Homicidal Plan: No Homicidal Intention: No Insight: Poor Judgment: Poor Assessment and Plan - Assessment (1) Schizoaffective disorder, bipolar type Code(s): F25.0 - Schizoaffective disorder, bipolar type Status: Acute (2) Catatonia Code(s): F06.1 - Catatonic disorder due to known physiological condition Status: Acute - Plan Plan: Patient remains psychotic at this time her affect shows decreased range and intensity. The voices do persist. For now continue treatment Justification for Continued Inpatient Stay: At this time patient would decompensate if placed in a lower level of care Discharge Planning: To be determined possibly referred back to her [facility]
[2018-05-09] MEDS: QUEtiapine 25 MG Tablet PO SCH (13:42)
[2018-05-09] MEDS: Ibuprofen 600 MG Tablet PO PRN (21:20)
[2018-05-09] MEDS: Baclofen 10 MG Tablet PO SCH (21:20)
[2018-05-09] MEDS: traZODone 100 MG Tablet PO SCH (21:22)
[2018-05-09] MEDS: Melatonin 5 MG Tablet PO SCH (22:53)
[2018-05-10] MEDS: LORazepam 1 MG Tablet PO SCH ×3 (05:33→20:10)
[2018-05-10] MEDS: Phenytoin Sodium 100 MG Capsule PO SCH ×3 (08:19→20:10)
[2018-05-10] MEDS: Senna/Docusate Sodium 8.6/50 MG Tablet PO SCH ×3 (08:19→20:10)
[2018-05-10] MEDS: Docusate Sodium 100 MG Capsule PO SCH ×3 (08:19→21:22)
[2018-05-10] MEDS: Topiramate 25 MG Tablet PO SCH ×3 (08:19→20:10)
[2018-05-10] MEDS: lamoTRIgine 100 MG Tablet PO SCH ×3 (08:21→20:09)
[2018-05-10] MEDS: Escitalopram 10 MG Tablet PO SCH (08:21)
[2018-05-10] MEDS: Haloperidol 5 MG Tablet PO SCH (08:21)
[2018-05-10] MEDS: Lidocaine 5% Patch T-DERMAL SCH (08:21)
[2018-05-10] MEDS: guaiFENesin 600 MG ER Tablet PO SCH ×2 (08:22→20:09)
--- NOTE | 2018-05-10 12:46 | P.PNPSY ---
Subjective Remarks: Pt seen and discussed with staff. Staff report decrease in paranoia but pt has continued to be intermittently compliant with psychiatric medications. She refused to take medication today. Thought process is still somewhat disorganized with intermittent thought blocking. Mental Status Examination Appearance: Appropriate Consciousness: Alert Orientation: Person, Place, Situation Motor Activity: Normal gait Speech: Slow, Other (Delayed with continued thought blocking) Language: Adequate Fund of Knowledge: Adequate Attention and Concentration: Adequate (Fair) Memory: Unremarkable Mood: Sad, Oppositional (Mildly), Other (Restricted) Affect: Other (Decreased range and intensity) Thought Process & Associations: Disorganized Thought Content: Hallucinations (auditory hallucinations), Thought blocking ( mild) Hallucination Type: Auditory (Somewhat calmer today) Delusion Type: Paranoid (Decreased) Suicidal Ideation: No Suicidal Plan: No Suicidal Intention: No Homicidal Ideation: No Homicidal Plan: No Homicidal Intention: No Insight: Poor Judgment: Poor Assessment and Plan - Assessment (1) Schizoaffective disorder, bipolar type Code(s): F25.0 - Schizoaffective disorder, bipolar type Status: Acute (2) Catatonia Code(s): F06.1 - Catatonic disorder due to known physiological condition Status: Acute - Plan Plan: Continue current tx plan Justification for Continued Inpatient Stay: risk of decompensation
[2018-05-10] MEDS: QUEtiapine 25 MG Tablet PO SCH (13:13)
[2018-05-10] MEDS: Ibuprofen 600 MG Tablet PO PRN ×2 (15:37→23:49)
[2018-05-10] MEDS: Baclofen 10 MG Tablet PO SCH (20:09)
[2018-05-10] MEDS: traZODone 100 MG Tablet PO SCH (20:09)
[2018-05-10] MEDS: Melatonin 5 MG Tablet PO SCH (21:22)
[2018-05-11] MEDS: LORazepam 1 MG Tablet PO SCH ×3 (05:47→20:41)
--- NOTE | 2018-05-11 08:16 | P.PNPSY ---
Subjective Remarks: Reviewed electronic record and discussed with nursing staff. Rounded with RASHIDA Ivey. Patient is ambulating the hallway. She shuffles due to chronic back pain. Continues to be thought blocking. Denies AVH. Eating and sleeping well. Needs alot of encouragement to take her medications. Review of Systems All other systems reviewed negative except as stated in HPI Comments: Chronic back pain Mental Status Examination Appearance: Appropriate Consciousness: Alert Orientation: Person, Place, Situation Motor Activity: Normal gait Speech: Slow, Other (Delayed with continued thought blocking) Language: Adequate Fund of Knowledge: Adequate Attention and Concentration: Adequate (Fair) Memory: Unremarkable Mood: Sad, Oppositional (Mildly), Other (Restricted) Affect: Other (Decreased range and intensity) Thought Process & Associations: Disorganized Thought Content: Hallucinations (auditory hallucinations), Thought blocking ( mild) Hallucination Type: Auditory (Somewhat calmer today) Delusion Type: Paranoid (Decreased) Suicidal Ideation: No Suicidal Plan: No Suicidal Intention: No Homicidal Ideation: No Homicidal Plan: No Homicidal Intention: No Insight: Poor Judgment: Poor Assessment and Plan - Assessment (1) Schizoaffective schizophrenia Code(s): F25.0 - Schizoaffective disorder, bipolar type Status: Acute - Plan Plan: Continue current tx plan Justification for Continued Inpatient Stay: Moving patient to a less restrictive environment may result in her decompensation.
[2018-05-11] MEDS: Escitalopram 10 MG Tablet PO SCH (08:39)
[2018-05-11] MEDS: Lidocaine 5% Patch T-DERMAL SCH (08:39)
[2018-05-11] MEDS: Docusate Sodium 100 MG Capsule PO SCH ×2 (08:40→20:41)
[2018-05-11] MEDS: Senna/Docusate Sodium 8.6/50 MG Tablet PO SCH ×2 (08:40→20:40)
[2018-05-11] MEDS: Phenytoin Sodium 100 MG Capsule PO SCH ×2 (08:40→20:40)
[2018-05-11] MEDS: Haloperidol 5 MG Tablet PO SCH (08:40)
[2018-05-11] MEDS: Topiramate 25 MG Tablet PO SCH ×2 (08:40→20:42)
[2018-05-11] MEDS: lamoTRIgine 100 MG Tablet PO SCH ×2 (08:40→20:41)
[2018-05-11] MEDS: guaiFENesin 600 MG ER Tablet PO SCH ×2 (08:40→20:40)
[2018-05-11] MEDS: QUEtiapine 25 MG Tablet PO SCH (13:17)
[2018-05-11] MEDS: traZODone 100 MG Tablet PO SCH (20:40)
[2018-05-11] MEDS: Baclofen 10 MG Tablet PO SCH (20:41)
[2018-05-11] MEDS: Melatonin 5 MG Tablet PO SCH (20:43)
[2018-05-12] MEDS: Ibuprofen 600 MG Tablet PO PRN ×2 (02:10→20:51)
[2018-05-12] MEDS: LORazepam 1 MG Tablet PO SCH ×3 (06:08→20:37)
[2018-05-12] MEDS: lamoTRIgine 100 MG Tablet PO SCH ×2 (08:59→20:37)
[2018-05-12] MEDS: guaiFENesin 600 MG ER Tablet PO SCH ×2 (08:59→20:37)
[2018-05-12] MEDS: Senna/Docusate Sodium 8.6/50 MG Tablet PO SCH ×2 (08:59→20:37)
[2018-05-12] MEDS: Phenytoin Sodium 100 MG Capsule PO SCH ×2 (08:59→20:37)
[2018-05-12] MEDS: Escitalopram 10 MG Tablet PO SCH (08:59)
[2018-05-12] MEDS: Docusate Sodium 100 MG Capsule PO SCH ×2 (08:59→20:37)
[2018-05-12] MEDS: Lidocaine 5% Patch T-DERMAL SCH (09:00)
[2018-05-12] MEDS: Haloperidol 5 MG Tablet PO SCH (09:00)
[2018-05-12] MEDS: Topiramate 25 MG Tablet PO SCH ×2 (09:00→20:37)
--- NOTE | 2018-05-12 10:35 | P.PNPSY ---
Subjective Remarks: Patient seen and griffin with nurse Renetta, chart reviewed, patient compliant medication.. They attempted to discuss placement issues. That staff from her prior placement will be set visiting with her tomorrow. This caused some increase in anxiety with the patient. For now we will discontinue the scheduled Haldol. Will increase bedtime Clozaril to 100 mg. Ordered CBC with differential today and weekly per the Clozaril routine patient calm cooperative states the voices persist but are somewhat softer Review of Systems All other systems reviewed negative except as stated in HPI Mental Status Examination Appearance: Appropriate Consciousness: Alert Orientation: Person, Place, Situation Motor Activity: Normal gait Speech: Slow, Other (Delayed with continued thought blocking) Language: Adequate Fund of Knowledge: Adequate Attention and Concentration: Adequate (Fair) Memory: Unremarkable Mood: Sad, Oppositional (Mildly), Other (Restricted) Affect: Other (Decreased range and intensity) Thought Process & Associations: Disorganized Thought Content: Hallucinations (auditory hallucinations), Thought blocking ( mild) Hallucination Type: Auditory (Somewhat calmer today) Delusion Type: Paranoid (Decreased) Suicidal Ideation: No Suicidal Plan: No Suicidal Intention: No Homicidal Ideation: No Homicidal Plan: No Homicidal Intention: No Insight: Poor Judgment: Poor Assessment and Plan - Assessment (1) Schizoaffective disorder, bipolar type Code(s): F25.0 - Schizoaffective disorder, bipolar type Status: Acute (2) Catatonia Code(s): F06.1 - Catatonic disorder due to known physiological condition Status: Acute - Plan Plan: Patient continues psychotic auditory hallucinations are somewhat softer. He appears to be some mild sedation perhaps related to the Clozaril. Please see medication adjustments above. Patient showing some mild increased anxiety when discussing discharge and possible placement back at her [facility] Justification for Continued Inpatient Stay: At this time patient with decompensated placed in a lower level of care Discharge Planning: To be determined perhaps placement back at her prior placement
[2018-05-12 11:52] LABS: Baso % (Auto) 0.4 % (0.0-2.0); Eos # (Auto) 0.3 th/mm3 (0.0-0.4); Eos % (Auto) 7.8 % (0.0-4.0); Hematocrit 33.9 % (35.0-46.0); Hemoglobin 11.6 gm/dL (11.6-15.3); Lymph # (Auto) 0.8 th/mm3 (1.0-4.8); Lymph % (Auto) 22.8 % (9.0-44.0); Mean Corpuscular HGB Conc 34.3 % (32.0-36.0); Mean Corpuscular Hemoglobin 31.4 pg (27.0-34.0); Mean Corpuscular Volume 91.4 fL (80.0-100.0); Mono # (Auto) 0.3 th/mm3 (0.0-0.9); Mono % (Auto) 10.2 % (0.0-8.0); Neut # (Auto) 1.9 th/mm3 (1.8-7.7); Neut % (Auto) 58.8 % (16.0-70.0); Platelet Count 200 th/mm3 (150-450); Red Blood Count 3.71 mil/mm3 (4.00-5.30); White Blood Count 3.3 th/mm3 (4.0-11.0)
[2018-05-12] MEDS: QUEtiapine 25 MG Tablet PO SCH (13:48)
[2018-05-12] MEDS: traZODone 100 MG Tablet PO SCH (20:37)
[2018-05-12] MEDS: Baclofen 10 MG Tablet PO SCH (20:37)
[2018-05-12] MEDS: Melatonin 5 MG Tablet PO SCH (21:06)
[2018-05-13] MEDS: LORazepam 1 MG Tablet PO SCH ×3 (05:45→20:28)
[2018-05-13] MEDS: Docusate Sodium 100 MG Capsule PO SCH ×2 (09:20→20:26)
[2018-05-13] MEDS: Topiramate 25 MG Tablet PO SCH ×2 (09:20→20:27)
[2018-05-13] MEDS: guaiFENesin 600 MG ER Tablet PO SCH ×2 (09:20→20:28)
[2018-05-13] MEDS: Escitalopram 10 MG Tablet PO SCH (09:20)
[2018-05-13] MEDS: lamoTRIgine 100 MG Tablet PO SCH ×2 (09:20→20:28)
[2018-05-13] MEDS: Phenytoin Sodium 100 MG Capsule PO SCH ×2 (09:21→20:27)
[2018-05-13] MEDS: Senna/Docusate Sodium 8.6/50 MG Tablet PO SCH ×2 (09:21→20:27)
[2018-05-13] MEDS: Lidocaine 5% Patch T-DERMAL SCH (09:21)
--- NOTE | 2018-05-13 11:42 | P.PNPSY ---
Subjective Remarks: Patient seen in her room with floor staff and also while walking in griffin. Chart reviewed. Patient compliant medication. Patient calm with me today states voices have diminished slightly. She is showing some slight increased focus in her conversations. For now continue treatment. Review of Systems All other systems reviewed negative except as stated in HPI Mental Status Examination Appearance: Appropriate Consciousness: Alert Orientation: Person, Place, Situation Motor Activity: Normal gait Speech: Slow, Other (Thought blocking decreased) Language: Adequate Fund of Knowledge: Adequate Attention and Concentration: Adequate (Fair) Memory: Unremarkable Mood: Sad, Oppositional (Mildly), Other (Restricted) Affect: Other (Decreased range and intensity) Thought Process & Associations: Disorganized Thought Content: Hallucinations (auditory hallucinations), Thought blocking ( mild) Hallucination Type: Auditory (Somewhat calmer today) Delusion Type: Paranoid (Decreased) Suicidal Ideation: No Suicidal Plan: No Suicidal Intention: No Homicidal Ideation: No Homicidal Plan: No Homicidal Intention: No Insight: Poor Judgment: Poor Assessment and Plan - Assessment (1) Schizoaffective disorder, bipolar type Code(s): F25.0 - Schizoaffective disorder, bipolar type Status: Acute (2) Catatonia Code(s): F06.1 - Catatonic disorder due to known physiological condition Status: Acute - Plan Plan: Patient remains psychotic but softer, compliant medications, continues cooperative with me with fair eye contact. Justification for Continued Inpatient Stay: At this time patient with decompensated placed in a lower level of care Discharge Planning: To be determined
[2018-05-13] MEDS: QUEtiapine 25 MG Tablet PO SCH (13:29)
[2018-05-13] MEDS: traZODone 100 MG Tablet PO SCH (20:27)
[2018-05-13] MEDS: Baclofen 10 MG Tablet PO SCH (20:27)
[2018-05-13] MEDS: Ibuprofen 600 MG Tablet PO PRN (20:28)
[2018-05-13] MEDS: Melatonin 5 MG Tablet PO SCH (21:24)
[2018-05-14] MEDS: LORazepam 1 MG Tablet PO SCH ×3 (05:37→21:45)
[2018-05-14] MEDS: Docusate Sodium 100 MG Capsule PO SCH ×2 (08:30→21:45)
[2018-05-14] MEDS: Escitalopram 10 MG Tablet PO SCH (08:31)
[2018-05-14] MEDS: lamoTRIgine 100 MG Tablet PO SCH ×2 (08:31→21:46)
[2018-05-14] MEDS: Phenytoin Sodium 100 MG Capsule PO SCH ×2 (08:31→21:46)
[2018-05-14] MEDS: Senna/Docusate Sodium 8.6/50 MG Tablet PO SCH ×2 (08:31→21:48)
[2018-05-14] MEDS: Topiramate 25 MG Tablet PO SCH ×2 (08:32→21:46)
[2018-05-14] MEDS: guaiFENesin 600 MG ER Tablet PO SCH ×2 (08:33→21:46)
[2018-05-14] MEDS: Lidocaine 5% Patch T-DERMAL SCH (08:33)
--- NOTE | 2018-05-14 10:30 | P.PNPSY ---
Subjective Remarks: Patient is seen in her room with nurse Lakeshia, chart reviewed, patient discussed with nurse, patient compliant medications. Patient showing some improvement in her affect and her eye contact she is somewhat more verbal. States the voices persist but are somewhat diminished and less threatening. It appears staff from [facility] [place] will be coming to see patient today. I attempted to discuss discharge plans with patient. She showed some reluctance with considering a discharge date. Saying she is "not ready". However I did share with her the fact that she had 60 days in the unit at [facility] [place], she was out only a week and then she has had 40 days here. At this trouble is my opinion that she had stabilized to the point where she can be treated in a less restrictive setting. She was somewhat reluctant to consider that saying "I am going to refuse" however I feel this might be a manipulation on her part. We will consider discharge in 2-3 days if a bed becomes available at [facility] [place]. I have attempted to reach patient's daughter left a message on her phone to discuss this with her Review of Systems All other systems reviewed negative except as stated in HPI Mental Status Examination Appearance: Appropriate Consciousness: Alert Orientation: Person, Place, Date/Time, Situation Motor Activity: Normal gait (Patient using walker) Speech: Slow, Other (Thought blocking decreased) Language: Adequate Fund of Knowledge: Adequate Attention and Concentration: Adequate (Fair) Memory: Unremarkable Mood: Sad (Improving), Oppositional (Mildly) Affect: Other (Decreased range and intensity) Thought Process & Associations: Disorganized Thought Content: Hallucinations (auditory hallucinations), Thought blocking ( mild) Hallucination Type: Auditory (Somewhat calmer today) Delusion Type: Paranoid (Decreased) Suicidal Ideation: No Suicidal Plan: No Suicidal Intention: No Homicidal Ideation: No Homicidal Plan: No Homicidal Intention: No Insight: Poor Judgment: Poor Assessment and Plan - Assessment (1) Schizoaffective disorder, bipolar type Code(s): F25.0 - Schizoaffective disorder, bipolar type Status: Acute (2) Catatonia Code(s): F06.1 - Catatonic disorder due to known physiological condition Status: Acute - Plan Plan: Patient is showing some improvement, compliant medications, will be software support representative scheduled to come here from [facility] [place] to assess possible placement back at that facility. Patient showing some reluctance to even discussed discharge plans she may be becoming somewhat institutionalized with us considering she is spent almost 100 days straight hospitalized with only about a week interval at home Justification for Continued Inpatient Stay: At this time patient may decompensate if not placed in an appropriate level of care Discharge Planning: To be determined with assistance of family possibly back to [facility] the patient is showing some resistance to discussing any discharge plans at this time
--- NOTE | 2018-05-14 10:34 | P.TTN ---
- Patient Problems Problems: 1. Discharge planning 2. Medication compliance 3. Knowledge deficit 4. Lack of coping skills - Progress Toward Goals Provider Present: Dr. Bettye Mackay Provider Input: 05/14/18 Patient is medication compliant. Continue with treatment. 05/12/18 Psychiatrist is still increasing Clorazil. 05/07/2018 Patient still hearing voices and hallucinations. Psychiatrist changed medication to Clorazil, it is a slow process. 05/05/18: Adjust medications. Can return to [facility] when stabilized. 04/30/18: Pt's daughter wants to meet with , ECt is on hold. D/c plan is pending. 04/28/18: Pt plof was [facility] ( [facility] [place], [facility]), Lizzie to follow-up as to whether this is a good option for pt discharge. Pt is compliant with medications, no changes to medication at this time. 04/21/18: Pt continues to demonstrate improvements, ECT is now not necessary per pt's progress. Discharge plan is for pt to return to [facility] [place] ( [facility]) when they will accept her to return. katya Samuelor to follow-up with [facility] [place] to proceed with this d/c plan. 04/16/18: Pt on anti depressant, continuing to meet criteria for in-pt but showing improvement. ECT has become second option per pt improvement. katya Samuelor, reports pt's previous admit to [facility] and therefore prospective ECT location has denied pt to return. Current primary option, based on pt progress is for pt to return home with family. Nurse(s) Present: Samaria FIELD Nurse Input: 05/14/18 Patient is cooperative, slept well. Continues to guarded. 05/12/18 Patient sleeps very well. 05/07/18 Patient did sleep, she is selective with staff who she likes. She is seclusive. 05/05/18: Refusing Clozaril, medicine needs to be put into applesauce. : Michel Hobson reports pat is non-compliant with medication at this time and is presenting severe thought block pattern. Psychiatric Counselors Present: Lizzie Steiner, [facility], Felisa France, [facility], Other Psychiatric Therapist Input: 05/14/18 Patient can return to [facility] once discharged. Patient continues to cooperative, but guarded. Patient is medication compliant. 05/12/18 [facility] should be coming tomorrow. 05/07/18 No response from [facility] [place]. Will contact daughter today. 05/05/18:Pt will either be discharged to ECT or return to [facility]. 04/30/18: Pt continues to still meet in-pt criteria, d/c pending after meeting completed with pt's jose m and MD. William Rodney, [facility]. Pt expected to return home as per her progress, Gutierrez and Lizzie working to facilitate this discharge, pt continues to still meet in-pt criteria. Group Spec/RT/OT/WEBBER Present: Jazzy Mahmood, GPS, Lloyd Alcazar, OT Group Spec/RT/OT/WEBBER Input: 05/14/18 Patient has difficulty tolerating groups. 05/12/18 Little participation in group. 05/07/18 No participation in group activities. 05/05/18: Pt attends select group activites, patient needs more encouragement from staff to attend and participate in sheduled activities. Pt does not attend groups: 04/16/18 & 04/21/18. Occupational Therapist Input: 04/30/18: Patient not attending groups despite encouragement from OT to do so. - Discharge Plan 04/28/18: Pt plof was [facility] ([facility] [place], [facility])Lizzie to follow-up as to whether this is a good option for pt discharge. 04/21/18: Discharge plan is for pt to return to [facility] [place] ([facility]) when they will accept her to return. katya Samuelor to follow-up with [facility] [place] to proceed with this d/c plan. 04/16/18: ECT has become second option per pt improvement. Lizzie, counselor, reports pt's previous admit to [facility] and therefore prospective ECT location has denied pt to return. Current primary option, based on pt progress is for pt to return home with family. 05/05/18: Pt will either discharge to ECT or return to [facility] - Documentation Teaching Recipient: Patient
[2018-05-14] MEDS: QUEtiapine 25 MG Tablet PO SCH (13:47)
[2018-05-14] MEDS: Baclofen 10 MG Tablet PO SCH (21:45)
[2018-05-14] MEDS: Ibuprofen 600 MG Tablet PO PRN (21:46)
[2018-05-14] MEDS: traZODone 100 MG Tablet PO SCH (21:46)
[2018-05-14] MEDS: Melatonin 5 MG Tablet PO SCH (21:48)
[2018-05-15] MEDS: LORazepam 1 MG Tablet PO SCH ×2 (05:46→14:28)
[2018-05-15] MEDS: Ibuprofen 600 MG Tablet PO PRN ×2 (05:46→15:15)
[2018-05-15 06:16] VITALS: BP 104/63; PULSE 87; TEMP 98.4; O2SAT 95
[2018-05-15] MEDS: Acetaminophen 325 MG Tablet PO PRN (06:39)
[2018-05-15 09:51] VITALS: RESP 5
[2018-05-15] MEDS: Docusate Sodium 100 MG Capsule PO SCH (09:52)
[2018-05-15] MEDS: Lidocaine 5% Patch T-DERMAL SCH (09:53)
[2018-05-15] MEDS: Phenytoin Sodium 100 MG Capsule PO SCH (09:53)
[2018-05-15] MEDS: lamoTRIgine 100 MG Tablet PO SCH (09:53)
[2018-05-15] MEDS: Senna/Docusate Sodium 8.6/50 MG Tablet PO SCH (09:55)
[2018-05-15] MEDS: Escitalopram 10 MG Tablet PO SCH (09:55)
[2018-05-15] MEDS: Topiramate 25 MG Tablet PO SCH (09:55)
[2018-05-15] MEDS: guaiFENesin 600 MG ER Tablet PO SCH (09:55)
--- NOTE | 2018-05-15 10:03 | P.PNPSY ---
Subjective Remarks: Patient seen and griffin with nurse Lakeshia, chart reviewed, patient compliant medication. Patient voicing more somatic issues today not complaining of being unstable on her feet. Or anxious. Is not wanting to be discharged at this time. Staff has also noted some increased behavioral issues yesterday evening. It appears patient may be responding to anxiety and trepidation related to upcoming anticipated discharge patient has had almost 100 days of hospitalization this year with only a brief break. We continue to await word from [facility]. For now continue treatment and medications no change Review of Systems All other systems reviewed negative except as stated in HPI Mental Status Examination Appearance: Appropriate Consciousness: Alert Orientation: Person, Place, Date/Time, Situation Motor Activity: Normal gait (Patient using walker), Other (Patient now using a walker times he appears to be somewhat wobbly though this may be a manipulation on her part) Speech: Slow, Other (Thought blocking decreased) Language: Adequate Fund of Knowledge: Adequate Attention and Concentration: Adequate (Fair) Memory: Unremarkable Mood: Sad (Improving), Oppositional (Mildly), Irritable (Focused on reluctance to accept possible discharge) Affect: Other (Today slight increase in the range and intensity) Thought Process & Associations: Disorganized Thought Content: Hallucinations (auditory hallucinations), Thought blocking ( mild) Hallucination Type: Auditory (Somewhat calmer today) Delusion Type: Paranoid (Decreased) Suicidal Ideation: No Suicidal Plan: No Suicidal Intention: No Homicidal Ideation: No Homicidal Plan: No Homicidal Intention: No Insight: Poor Judgment: Poor Assessment and Plan - Assessment (1) Schizoaffective disorder, bipolar type Code(s): F25.0 - Schizoaffective disorder, bipolar type Status: Acute (2) Catatonia Code(s): F06.1 - Catatonic disorder due to known physiological condition Status: Acute - Plan Plan: Patient remains intense somewhat delusional she is vague about voices today. There appears to be some manipulative behavior developing related to her reluctance to accept possible discharge soon Justification for Continued Inpatient Stay: At this time patient would decompensate if not placed in an appropriate level of care Discharge Planning: Continue to work with patient's prior placement
--- NOTE | 2018-05-15 11:22 | P.DSPSY ---
Psychiatry Discharge Summary Inpatient Psychiatric care?: Yes Advance Directives: Unknown Reason for Unknown:: Due to Patient Condition Mental Health Advance Directive: No Health Care Proxy: No - Admission Admission Date: April 04, 2018 09:53 - Admission Diagnosis (1) Cluster B personality disorder Code(s): F60.9 - Personality disorder, unspecified (2) Schizoaffective disorder, bipolar type Code(s): F25.0 - Schizoaffective disorder, bipolar type Brief History: The patient is a 67-year-old woman, domiciled in a [facility] in [facility], , mother of 2 kids, supported by [facility], with a psychiatric history of schizophrenia, schizoaffective disorder bipolar type, cluster C personality disorder, multiple psychiatric hospitalizations, she was hospitalized here in [place] in December 2017, her last hospitalization was a week ago in [facility] which she was hospitalized for about 2 months, she is on Seroquel 200 mg twice daily, Lamictal 25 mg twice daily, trazodone 100 mg at bedtime, who presents to the ED via EMS after attempt to harm herself by [place] a [place]. The patient is under [place]. On my psychiatric evaluation today the patient is irritable, oppositional and resistant, refusing to talk. [place], but refuses to elaborate about her recent to try to do this. When asked how she got here today she states "I just want to ." The officer that responded to the EMS call states that the patient was floating in the water, refused to take the life preserver and was attempting to swallow water out of the canal. The officer jumped in and brought her to shore. Patient's daughter arrives and states that the patient refused her medicines at the [facility] today. She says that the patient also has been acting paranoid and bizarrely. The patient's daughter arrives and states that the patient made a statement today stating "I won't fail today." The patients daughter believes that this is a suicidal reference. The daughter over the phone has been requesting that the patient is transferred back to [facility] , but I explained her that by [facility] we cannot transfer the patient to the same level of care and she gets really upset stating she is going to call the authorities of [place]. PPHx: with a psychiatric history of schizophrenia, schizoaffective disorder bipolar type, cluster C personality disorder, multiple psychiatric hospitalizations, she was hospitalized here in [place] in December 2017, her last hospitalization was a week ago in [facility] which she was hospitalized for about 2 months, she is on Seroquel 200 mg twice daily, Lamictal 25 mg twice daily, trazodone 100 mg at bedtime PMHx: Seizures Family HX: Grandmother had bipolar disorder Substance Hx: No use of illegal drugs or alcohol Social Hx: Patient was born and raised in [place], she lives in [facility] in [facility], she is , mother of 2 kids, supported by [facility] Tobacco Use In Past 30 Days: No How Often Do You Have a Drink Containing Alcohol: Never Hospital Course: Patient's hospital course was somewhat chaotic at first initial signs of depression with marked regression or that soon resolved with medication management however she did plateau with her behaviors including persistent auditory hallucinations. With the adjustment of the medications and the addition of Clozaril patient's mood did improve. Her affect improved. Her focus improved. Her activity is improved. There was initial consideration to recommend ECT. However with her improvement for those not appropriate. As patient's hospitalization continued there is concern that she might be becoming somewhat institutionalized. Considering the fact that she spent almost 60 days hospitalized in [place] just prior to coming here she has now reached approximately 40 days here. That is about 100 days hospitalization consecutively with a small break. Patient showing no behavioral problems on the unit she is walking well at times with the use of a walker. She was social participating in groups and activities groups. There were meetings with patient 's daughter and telephone conversation of the patient's son-in-law. The Clazuril regimen was made with the approval and suggestion of patient's daughter. Patient is tolerating the cholesterol well. It is the consideration of the treatment team the patient has reached maximum benefit of this hospitalization. We have discussed placement issues with her prior placement in [facility]. They are willing to have her come back give her another opportunity to be successful there. There is a bed available today. I have discussed this with the patient over the past 3 or 4 days. She is showing some increased resistance to being discharged. It appears she is becoming somewhat institutionalized. Over the past 24 hours she is shown some somaticize and behaviors that I feel is an attempt to sabotage the discharge. However patient longer meets criteria for inpatient psychiatric hospitalization and I feel will be the need to continue with the discharge plan for today. She will be discharged today with Rx times 1 month to follow-up services through the facility or through [facility] act patient's son-in-law and daughter have been notified - Discharge Discharge Date: 05/15/18 - Discharge Diagnosis (1) Schizoaffective disorder, bipolar type Diagnosis: Principal Code(s): F25.0 - Schizoaffective disorder, bipolar type Status: Acute (2) Cluster B personality disorder Diagnosis: Secondary Code(s): F60.9 - Personality disorder, unspecified Status: Acute Discharge Disposition: Assisted Living Facility - Discharge Instructions Discharge Diet: Regular Diet Activities You Can Perform: Regular- No Restrictions - Discharge Time > 30 minutes Mental Status Examination Appearance: Appropriate Consciousness: Alert Orientation: Person, Place, Date/Time, Situation Motor Activity: Normal gait (Patient using walker), Other (Patient now using a walker times he appears to be somewhat wobbly though this may be a manipulation on her part) Speech: Slow, Other (Thought blocking decreased) Language: Adequate Fund of Knowledge: Adequate Attention and Concentration: Adequate (Fair) Memory: Unremarkable Mood: Sad (Improving), Oppositional (Mildly), Irritable (Focused on reluctance to accept possible discharge) Affect: Other (Today slight increase in the range and intensity) Thought Process & Associations: Disorganized Thought Content: Hallucinations (auditory hallucinations), Thought blocking ( mild) Hallucination Type: Auditory (Somewhat calmer today) Delusion Type: Paranoid (Decreased) Suicidal Ideation: No Suicidal Plan: No Suicidal Intention: No Homicidal Ideation: No Homicidal Plan: No Homicidal Intention: No Insight: Poor Judgment: Poor Discharge/Advance Care Plan - Results Vital Signs: Last Vital Signs Temp 98.4 F 05/15/18 06:13 Pulse 87 05/15/18 06:13 Resp 5 L 05/15/18 09:50 BP 104/63 05/15/18 06:13 Pulse Ox 95 05/15/18 06:13 Lab Results: Laboratory Results Hemoglobin A1c 4.8 % (4.3-6.0) 04/06/18 10:19 Triglycerides 86 mg/dL (42-150) 04/06/18 10:19 Cholesterol 240 mg/dL (120-200) H 04/06/18 10:19 LDL Cholesterol, Calc 138 mg/dL (0-99) H 04/06/18 10:19 HDL Cholesterol 85.0 mg/dL (40.0-60.0) H 04/06/18 10:19 TSH 0.686 uIU/mL (0.358-3.740) 04/03/18 17:15 Urine Culture Comments Culture not ind 04/03/18 17:44 Summary of Procedures: None done Imaging: ITS Impressions Head MRI 04/11/18 00:00 CONCLUSION: 1. No acute intracranial abnormality. 2. Mild chronic white matter changes. 3. Chronic sinus disease. Chest X-Ray 04/17/18 00:00 CONCLUSION: Mild bilateral lower lobe atelectasis. No other acute cardiopulmonary disease identified. Pending Results: None - Medications Number of antipsychotic medications at discharge: 2 Appropriate use of more than 1 antipsychotic med: Documentation of augmentation of Clozapine (This is augmentation of Clazuril therapy) - Discharge Care Plan Goals to Promote Your Health: * To prevent worsening of your condition and complications * To maintain your health at the optimal level Directions to Meet Your Goals: Take your medications as prescribed Follow your dietary instruction Follow activity as directed Keep your appointments as scheduled Take your immunizations and boosters as scheduled If your symptoms worsen call your PCP, if no PCP go to Urgent Care Center or Emergency Room For 24/12 questions related to your inpatient stay or results of tests pending at discharge, please contact Dr. Gregor Mackay MD at Smoking is Dangerous to Your Health. Avoid second hand smoking
--- NOTE | 2018-05-15 14:25 | P.DCO ---
- Diagnosis (1) Cluster B personality disorder Status: Acute (2) Schizoaffective disorder, bipolar type Status: Acute - Physical Therapy Order: Evaluate and treat, Improve ambulation - Occupational Therapy Order: Evaluate and treat - Speech Therapy Order: To improve: Speech and communication skills - Home Health Nursing Order: Medical education, Signs/symptoms of disease process, Medication education-adverse effect, Nursing assessment with vital signs - Home Health Aide Order: To assist in: Bathing and personal care, news content specialist and meal prep - Customer Account Manager Order: To evaluate: Living conditions/environment, Support services Order: To provide: Long range planning, Community services - Case Management Consult Case Management Consult-Home Health: Yes - Certification I have seen patient Asha Figueroa on 05/15/18. My clinical findings support the need for the requested home health care services because:chronic severe mental illness,along with severe personality disorder that severely limits patients ability to care for self Limited mobility due to disease progression, Deconditioned with increased weakness, Medication compliance is questionable, Limited ability to care for self, Need for psychosocial assistance, Impaired cognition/judgement, High risk of falls I certify that my clinical findings support that this patient is homebound because:pt unable to utilize independent transportation due to her severe debilitating mental illness Impaired cognitive ability/safety, Unsteady gait/balance, Unsafe to leave home unassisted, Need for psychosocial assistance, Unable to use public transportation
[2018-05-15] MEDS: QUEtiapine 25 MG Tablet PO SCH (14:28)
== END 2018-05-15 15:15 ==
LOC: NEPC 16:38 → NEDA 04-04 09:53 → H250 04-04 10:11
PROVIDERS: ADMIT Psychiatry & Neurology Psychiatry; ATTEND Psychiatry & Neurology Psychiatry